=== PATIENT | female | born 1965 | race Caucasian/White ===

== ENCOUNTER 2017-02-28 14:50 | Inpatient (IN) | payer MEDICAID ==
--- NOTE | 2017-02-28 15:16 | ED Physician Chart ---
Chief Complaint/HPI - Patient Information Date Seen:: 02/28/17 Time Seen:: 15:03 Chief Complaint:: problem w dialysis graft History of Present Illness:: pt is a renal failure/dialysis pt. had dialysis tx on sunday and after had pain at rt arm. seen at [facility] ed sunday and had graft tx for blood clot in graft. yest she noted increased swelling at graft site + today much more pain at graft site on rt arm. she was refused dialysis tx today. no fever. no sob. no abd p. no back pain. no cough. pt takes tylenol and tramadol for regular pain but no relief w these meds Allergies:: Allergies Allergy/AdvReac Type Severity Reaction Status Date / Time MDX No Known Allergies - Nka Allergy Verified 01/10/15 11:29 [No Known Allergies - Nka] Historian:: Patient Review of Systems - Review of Systems General/Constitutional: No fever, No chills, No weight loss, No weakness, No diaphoresis, No edema, No loss of appetite Skin: No skin lesions, No rash, No bruising Head: No headache, No light-headedness Eyes: No loss of vision, No pain, No diplopia ENT: No earache, No nasal drainage, No sore throat, No tinnitus Neck: No neck pain, No swelling, No thyromegaly, No stiffness, No mass noted Cardio Vascular: No chest pain, No palpitations, No PND, No orthopnea, No edema Pulmonary: No SOB, No cough, No sputum, No wheezing GI: No nausea, No vomiting, No diarrhea, No pain, No melena, No hematochezia, No constipation, No hematemesis G/U: No dysuria, No frequency, No hematuria Musculoskeletal: No bone or joint pain, No back pain, No muscle pain, Other ( pain rt arm bicep region graft) Endocrine: No polyuria, No polydipsia Psychiatric: No prior psych history, No depression, No anxiety, No suicidal ideation Hematopoietic: No bruising, No lymphadenopathy Allergic/Immuno: No urticaria, No angioedema Neurological: No syncope, No focal symptoms, No weakness, No paresthesia, No headache, No seizure, No dizziness, No confusion, No vertigo Past Medical History - Past Medical History Past Medical History: HTN, ESRD Social History: Other (lives at home) Medication: Reviewed Family Medical History - Family Member Mother History Unknown: Yes Physical Exam - Physical Examination General/Constitutional: Awake, Well-developed, well-nourished, Alert, No distress, GCS 15, Non-toxic appearing, Ambulatory Head: Atraumatic Eyes: Lids, conjuctiva normal, PERRL, EOMI Skin: Nl inspection, No rash, No skin lesions, No ecchymosis, Well hydrated, No lymphadenopathy ENMT: External ears, nose nl, Nasal exam nl, Lips, teeth, gums nl Neck: Nontender, Full ROM w/o pain, No JVD, No nuchal rigidity, No bruit, No mass, No stridor Respiratory: Nl effort/Exclusion, Clear to Auscultation, No Wheeze/Rhonchi/Rales Cardio Vascular: RRR, No murmur, gallop, rubs, NL S1 S2 GI: No tenderness/rebounding/guarding, No organomegaly, No hernia, Normal BS's, Nondistended, No mass/bruits, No McBurney tenderness : No CVA tenderness Extremities: No tenderness or effusion, Full ROM, normal strength in all extremities, No edema, Normal digits & nails Other Extremities comments:: rt arm bicep region medial graft has ok thrill. not red or hot. ok distal pulses and cap refill brisk. Neuro/Psych: Alert/oriented, DTR's symmetric, Normal sensory exam, Normal motor strength, Judgement/insight normal, Mood normal, Normal gait, No focal deficits Misc: normal gait, Normal back, No paraspinal tenderness Labs/Radiology/EKG Results - Lab Results Results: Laboratory Tests 02/28/17 02/28/17 02/28/17 15:26 15:26 15:26 WBC 7.5 D RBC 3.88 Hgb 10.1 L Hct 30.8 L D MCV 79.3 L MCH 26.1 L MCHC Differential 33.0 RDW 16.3 Plt Count 127 L D MPV 8.6 Neutrophils % 69.2 Lymphocytes % 16.4 L Monocytes % 10.9 H Eosinophils % 2.8 Basophils % 0.7 PT 10.9 INR 1.05 PTT (Actin FS) 29.0 Sodium 139 Potassium 4.9 Chloride 97 L Carbon Dioxide 25.1 Anion Gap 21.8 H BUN 60 H Creatinine 8.1 H* Est GFR ( Amer) 6.7 Est GFR (Non-Af Amer) 5.6 BUN/Creatinine Ratio 7.4 Glucose 86 Whole Bld Lactic Acid Calcium 9.0 Total Bilirubin 0.5 AST 12 L ALT 10 Alkaline Phosphatase 179 H Troponin I Total Protein 7.1 Albumin 4.3 Globulin 2.8 Albumin/Globulin Ratio 1.5 02/28/17 02/28/17 15:26 15:26 WBC RBC Hgb Hct MCV MCH MCHC Differential RDW Plt Count MPV Neutrophils % Lymphocytes % Monocytes % Eosinophils % Basophils % PT INR PTT (Actin FS) Sodium Potassium Chloride Carbon Dioxide Anion Gap BUN Creatinine Est GFR ( Amer) Est GFR (Non-Af Amer) BUN/Creatinine Ratio Glucose Whole Bld Lactic Acid 1.07 Calcium Total Bilirubin AST ALT Alkaline Phosphatase Troponin I < 0.01 L Total Protein Albumin Globulin Albumin/Globulin Ratio - Radiology Results Results: us art rt arm. difficult exam cw aneurysm and complex anatomy of av vasc shunt graft. ED Septic Shock - . Is Septic Shock (SBP<90, OR Lactate>4 mmol\L) present?: No Reassessment (Disposition) - Reassessment Reassessment:: (4;30p)case cherrie Mon the vascular surgeon who saw pt THIS AM at his office. he says he was concerned pt has a expanding aneurysm at her av shunt site and it may be expanding and/or at risk of rupture. He advised she go to [facility] but pt apparently came here instead. he advises that US would not be likely to get a good picture given her story/anatomy. (at this point i asked tech to stop scanning as she had completed the arterial exam and not the venous exam which requires more pressure and pt has delicate issue and much pain w this exam..) (5;11p)case cherrie Roman modern and contemporary art curator vascular sx at [facility] who is refusing saying that any surgeon can handle this in hosp setting and does not require a tertiary center for this.. (5;39p)case cherrie our on-van[facility] dr beard (after approval from [employer] for admit obtained)...he will admit for vascular surgeon consult. 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
[2017-02-28 15:39] LABS: % BASOPHILS 0.7 % (0.0-2.0); % EOSINOPHILS 2.8 % (0.0-5.0); % LYMPHOCYTES 16.4 % (20.0-50.0); % MONOCYTES 10.9 % (2.0-10.0); % NEUTROPHILS 69.2 % (40.0-80.0); HEMOGLOBIN 10.1 gm/dL (11.7-15.5); MEAN CELL VOLUME 79.3 fl (81-100); MEAN CORPUSCULAR HEMOGLOBIN 26.1 pg (27.0-31.0); MEAN PLATELET VOLUME 8.6 fl; NEUTROPHILE ABSOLUTE 5.2 Th/cmm (1.8-8.0); RED BLOOD COUNT 3.88 Mil/cmm (3.80-5.10); RED CELL DISTRIBUTION WIDTH 16.3 % (11.5-20.0)
[2017-02-28 15:57] LABS: HEMATOCRIT 30.8 % (35.0-45.0); INR 1.05 (0.5-1.4); PLATELET COUNT 127 Th/cmm (150-400); PROTHROMBIN TIME (TEST) 10.9 SECONDS (9.5-11.5); WHITE BLOOD COUNT 7.5 Th/cmm (4.8-10.8)
[2017-02-28 15:59] LABS: ALB/GLOB RATIO 1.5 (1.0-1.8); ANION GAP 21.8 (7.0-16.0); BILIRUBIN,TOTAL 0.5 mg/dL (0.3-1.0); BUN/CREATININE RATIO 7.4; CARBON DIOXIDE 25.1 mEq/L (21.0-31.0); POTASSIUM SERUM 4.9 mEq/L (3.5-5.1)
[2017-02-28] MEDS ORDERED: Morphine Sulfate 4 mg/mL 1mL Syr IV STA (16:21)
[2017-02-28 16:42] LABS: CREATININE - SERUM 8.1 mg/dL (0.6-1.2)
[2017-02-28] MEDS ORDERED: Acetaminophen 500 MG TAB PO PRN (18:55)
[2017-02-28] MEDS ORDERED: ACETAMINOPHEN 500 MG PO PRN (18:57)
--- NOTE | 2017-02-28 19:10 | General Progress Note ---
Subjective - Review of Systems Service Date: 02/28/17 Events since last encounter: Dr Huddleston appeared in ED having been called by pt herself. I was not aware he was pts neprologist intermediate. I called Dr Rodriguez and notified him and changed the consult to Dr Huddleston. Dr Kimball stopped by ED and has seen pt and plans for graft sx in am. has requested we order a cxr for preop clearance and a type and screen and bnp...all added. Objective - Results Result Diagrams: 02/28/17 15:26 02/28/17 15:26 Recent Labs: Laboratory Last Values WBC 7.5 Th/cmm (4.8-10.8) D 02/28/17 15: RBC 3.88 Mil/cmm (3.80-5.10) 02/28/17 15: Hgb 10.1 gm/dL (11.7-15.5) L 02/28/17 15:26 Hct 30.8 % (35.0-45.0) L D 02/28/17 15:26 MCV 79.3 fl (81-100) L 02/28/17 15:26 MCH 26.1 pg (27.0-31.0) L 02/28/17 15: MCHC Differential 33.0 pg (28.0-36.0) 02/28/17 15: RDW 16.3 % (11.5-20.0) 02/28/17 15:26 Plt Count 127 Th/cmm (150-400) L D 02/28/17 15:26 MPV 8.6 fl 02/28/17 15:26 Neutrophils % 69.2 % (40.0-80.0) 02/28/17 15:26 Lymphocytes % 16.4 % (20.0-50.0) L 02/28/17 15:26 Monocytes % 10.9 % (2.0-10.0) H 02/28/17 15:26 Eosinophils % 2.8 % (0.0-5.0) 02/28/17 15: Basophils % 0.7 % (0.0-2.0) 02/28/17 15:26 PT 10.9 SECONDS (9.5-11.5) 02/28/17 15:26 INR 1.05 (0.5-1.4) 02/28/17 15:26 PTT (Actin FS) 29.0 SECONDS (26.0-38.0) 02/28/17 15:26 Sodium 139 mEq/L (136-145) 02/28/17 15:26 Potassium 4.9 mEq/L (3.5-5.1) 02/28/17 15:26 Chloride 97 mEq/L (98-107) L 02/28/17 15:26 Carbon Dioxide 25.1 mEq/L (21.0-31.0) 02/28/17 15:26 Anion Gap 21.8 (7.0-16.0) H 02/28/17 15:26 BUN 60 mg/dL (7-25) H 02/28/17 15:26 Creatinine 8.1 mg/dL (0.6-1.2) H* 02/28/17 15:26 Est GFR ( Amer) 6.7 ml/min (>90) 02/28/17 15:26 Est GFR (Non-Af Amer) 5.6 ml/min 02/28/17 15:26 BUN/Creatinine Ratio 7.4 02/28/17 15:26 Glucose 86 mg/dL (70-105) 02/28/17 15:26 Whole Bld Lactic Acid 1.07 mmol/L (0.60-1.99) 02/28/17 15:26 Calcium 9.0 mg/dL (8.6-10.3) 02/28/17 15:26 Total Bilirubin 0.5 mg/dL (0.3-1.0) 02/28/17 15:26 AST 12 U/L (13-39) L 02/28/17 15:26 ALT 10 U/L (7-52) 02/28/17 15:26 Alkaline Phosphatase 179 U/L (34-104) H 02/28/17 15:26 Troponin I < 0.01 ng/mL (0.01-0.05) L 02/28/17 15:26 Total Protein 7.1 gm/dL (6.0-8.3) 02/28/17 15:26 Albumin 4.3 gm/dL (3.7-5.3) 02/28/17 15:26 Globulin 2.8 gm/dL 02/28/17 15:26 Albumin/Globulin Ratio 1.5 (1.0-1.8) 02/28/17 15:26 - Physical Exam Vitals and I&O: Vital Signs Temp 98.3 F 02/28/17 15:14 Pulse 68 02/28/17 15:14 Resp 18 02/28/17 15:14 BP 156/78 02/28/17 15:14 Pulse Ox 97 02/28/17 15:14 Intake & Output 02/28/17 02/28/17 03/01/17 06:59 18:59 06:59 Weight (lbs) 101.151 kg Active Medications: Current Medications Acetaminophen (Tylenol) 500 mg PO Q4H PRN PRN Reason: Pain or Fever >101 Stop: 04/29/17 18:59 Albuterol/Ipratropium (Duoneb Neb) 3 ml HHN Q4H PRN PRN Reason: Shortness of Breath Stop: 04/29/17 19:59 Alprazolam (Xanax) 0.5 mg PO TID [facility] PRN Reason: Protocol Stop: 04/29/17 20:59 Atorvastatin Calcium (Lipitor) 10 mg PO DAILY [facility] PRN Reason: Protocol Stop: 04/30/17 08:59 Cinacalcet (Sensipar) 30 mg PO MWF [facility] Stop: 05/01/17 08:59 Folic Acid (Folate) 1 mg PO DAILY [facility] Stop: 04/30/17 08:59 Gabapentin (Neurontin) 200 mg PO TID [facility] Stop: 04/29/17 20:59 Ceftriaxone Sodium 1 gm/ (Dextrose) 50 mls @ 100 mls/hr IV Q24H [facility] Stop: 04/29/17 20:59 Lisinopril (Zestril) 20 mg PO BID [facility] Stop: 04/30/17 08:59 Metoprolol Tartrate (Lopressor) 50 mg PO BID [facility] Stop: 04/30/17 08:59 Miscellaneous (Acetaminophen [Tylenol Extra Strength]) 500 mg PO Q4HR PRN PRN Reason: PAIN Miscellaneous (Mitigare) 0.6 mg PO BID [facility] Stop: 04/30/17 08:59 Miscellaneous (Nifedipine [Procardia Xl]) 90 mg PO DAILY [facility] Stop: 04/30/17 08:59 Miscellaneous (Omeprazole [Omeprazole]) 40 mg PO DAILY [facility] Stop: 04/30/17 08:59 Miscellaneous (Renavite) 1 tab PO DAILY [facility] Stop: 04/30/17 08:59 Miscellaneous (Sertraline Hcl [Zoloft]) 100 mg PO DAILY [facility] Stop: 04/30/17 08:59 Morphine Sulfate (Morphine) 6 mg IV NOW STA Stop: 02/28/17 15:36 Last Admin: 02/28/17 15:57 Dose: 6 mg Morphine Sulfate (Morphine) 4 mg IV NOW STA Stop: 02/28/17 16:22 Morphine Sulfate (Morphine) 1 mg IVP Q4H PRN PRN Reason: Pain (Severe) Stop: 04/29/17 18:59 Ondansetron HCl (Zofran) 4 mg IV X1 ONE Stop: 02/28/17 15:37 Last Admin: 02/28/17 15:59 Dose: 4 mg Sucralfate (Carafate) 1 gm PO BID [facility] Stop: 04/30/17 08:59 Assessment/Plan - Problem List Patient Problems: All Active Problems [facility] [employer] [employer] (Acute) Acute gastritis (Acute) K29.00 Anxiety disorder (Acute) F41.9
--- NOTE | 2017-02-28 19:11 | General Progress Note ---
Subjective - Review of Systems Service Date: 02/28/17 Events since last encounter: patient seen in ER discussed with Dr. 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?) plan: resection and replacement of aneyursym and placement of Gautam or Permcath Objective - Results Result Diagrams: 02/28/17 15:26 02/28/17 15:26 Recent Labs: Laboratory Last Values WBC 7.5 Th/cmm (4.8-10.8) D 02/28/17 15:26 RBC 3.88 Mil/cmm (3.80-5.10) 02/28/17 15: Hgb 10.1 gm/dL (11.7-15.5) L 02/28/17 15: Hct 30.8 % (35.0-45.0) L D 02/28/17 15: MCV 79.3 fl (81-100) L 02/28/17 15: MCH 26.1 pg (27.0-31.0) L 02/28/17 15: MCHC Differential 33.0 pg (28.0-36.0) 02/28/17 15: RDW 16.3 % (11.5-20.0) 02/28/17 15: Plt Count 127 Th/cmm (150-400) L D 02/28/17 15: MPV 8.6 fl 02/28/17 15: Neutrophils % 69.2 % (40.0-80.0) 02/28/17 15: Lymphocytes % 16.4 % (20.0-50.0) L 02/28/17 15: Monocytes % 10.9 % (2.0-10.0) H 02/28/17 15: Eosinophils % 2.8 % (0.0-5.0) 02/28/17 15: Basophils % 0.7 % (0.0-2.0) 02/28/17 15: PT 10.9 SECONDS (9.5-11.5) 02/28/17 15:26 INR 1.05 (0.5-1.4) 02/28/17 15:26 PTT (Actin FS) 29.0 SECONDS (26.0-38.0) 02/28/17 15:26 Sodium 139 mEq/L (136-145) 02/28/17 15:26 Potassium 4.9 mEq/L (3.5-5.1) 02/28/17 15:26 Chloride 97 mEq/L (98-107) L 02/28/17 15:26 Carbon Dioxide 25.1 mEq/L (21.0-31.0) 02/28/17 15:26 Anion Gap 21.8 (7.0-16.0) H 02/28/17 15:26 BUN 60 mg/dL (7-25) H 02/28/17 15:26 Creatinine 8.1 mg/dL (0.6-1.2) H* 02/28/17 15:26 Est GFR ( Amer) 6.7 ml/min (>90) 02/28/17 15:26 Est GFR (Non-Af Amer) 5.6 ml/min 02/28/17 15:26 BUN/Creatinine Ratio 7.4 02/28/17 15:26 Glucose 86 mg/dL (70-105) 02/28/17 15:26 Whole Bld Lactic Acid 1.07 mmol/L (0.60-1.99) 02/28/17 15:26 Calcium 9.0 mg/dL (8.6-10.3) 02/28/17 15:26 Total Bilirubin 0.5 mg/dL (0.3-1.0) 02/28/17 15:26 AST 12 U/L (13-39) L 02/28/17 15:26 ALT 10 U/L (7-52) 02/28/17 15:26 Alkaline Phosphatase 179 U/L (34-104) H 02/28/17 15:26 Troponin I < 0.01 ng/mL (0.01-0.05) L 02/28/17 15:26 Total Protein 7.1 gm/dL (6.0-8.3) 02/28/17 15:26 Albumin 4.3 gm/dL (3.7-5.3) 02/28/17 15:26 Globulin 2.8 gm/dL 02/28/17 15:26 Albumin/Globulin Ratio 1.5 (1.0-1.8) 02/28/17 15:26 - Physical Exam Vitals and I&O: Vital Signs Temp 98.3 F 02/28/17 15:14 Pulse 68 02/28/17 15:14 Resp 18 02/28/17 15:14 BP 156/78 02/28/17 15:14 Pulse Ox 97 02/28/17 15:14 Active Medications: Current Medications Acetaminophen (Tylenol) 500 mg PO Q4H PRN PRN Reason: Pain or Fever >101 Stop: 04/29/17 18:59 Albuterol/Ipratropium (Duoneb Neb) 3 ml HHN Q4H PRN PRN Reason: Shortness of Breath Stop: 04/29/17 19:59 Alprazolam (Xanax) 0.5 mg PO TID [facility] PRN Reason: Protocol Stop: 04/29/17 20:59 Atorvastatin Calcium (Lipitor) 10 mg PO DAILY [facility] PRN Reason: Protocol Stop: 04/30/17 08:59 Cinacalcet (Sensipar) 30 mg PO MWF [facility] Stop: 05/01/17 08:59 Folic Acid (Folate) 1 mg PO DAILY [facility] Stop: 04/30/17 08:59 Gabapentin (Neurontin) 200 mg PO TID [facility] Stop: 04/29/17 20:59 Ceftriaxone Sodium 1 gm/ (Dextrose) 50 mls @ 100 mls/hr IV Q24H [facility] Stop: 04/29/17 20:59 Lisinopril (Zestril) 20 mg PO BID [facility] Stop: 04/30/17 08:59 Metoprolol Tartrate (Lopressor) 50 mg PO BID [facility] Stop: 04/30/17 08:59 Miscellaneous (Acetaminophen [Tylenol Extra Strength]) 500 mg PO Q4HR PRN PRN Reason: PAIN Miscellaneous (Mitigare) 0.6 mg PO BID [facility] Stop: 04/30/17 08:59 Miscellaneous (Nifedipine [Procardia Xl]) 90 mg PO DAILY [facility] Stop: 04/30/17 08:59 Miscellaneous (Omeprazole [Omeprazole]) 40 mg PO DAILY [facility] Stop: 04/30/17 08:59 Miscellaneous (Renavite) 1 tab PO DAILY [facility] Stop: 04/30/17 08:59 Miscellaneous (Sertraline Hcl [Zoloft]) 100 mg PO DAILY [facility] Stop: 04/30/17 08:59 Morphine Sulfate (Morphine) 6 mg IV NOW STA Stop: 02/28/17 15:36 Last Admin: 02/28/17 15:57 Dose: 6 mg Morphine Sulfate (Morphine) 4 mg IV NOW STA Stop: 02/28/17 16:22 Morphine Sulfate (Morphine) 1 mg IVP Q4H PRN PRN Reason: Pain (Severe) Stop: 04/29/17 18:59 Ondansetron HCl (Zofran) 4 mg IV X1 ONE Stop: 02/28/17 15:37 Last Admin: 02/28/17 15:59 Dose: 4 mg Sucralfate (Carafate) 1 gm PO BID [facility] Stop: 04/30/17 08:59 Assessment/Plan - Problem List Patient Problems: All Active Problems [facility] [facility] [employer] G[employer] SITE (Acute) Acute gastritis (Acute) K29.00 Anxiety disorder (Acute) F41.9
[2017-02-28] MEDS ORDERED: Albuterol/Ipratropium Neb 3 ML AERS HHN PRN (20:00)
[2017-02-28] MEDS: Morphine Sulfate 2 mg/mL 1mL Syr IVP PRN (20:24)
[2017-02-28 22:17] VITALS: BP 156/92
[2017-03-01] MEDS: Morphine Sulfate 2 mg/mL 1mL Syr IVP PRN ×3 (01:47→17:15)
[2017-03-01 06:03] LABS: % BASOPHILS 0.1 % (0.0-2.0); % EOSINOPHILS 3.7 % (0.0-5.0); % LYMPHOCYTES 19.8 % (20.0-50.0); % MONOCYTES 11.3 % (2.0-10.0); % NEUTROPHILS 65.1 % (40.0-80.0); HEMATOCRIT 31.8 % (35.0-45.0); HEMOGLOBIN 10.3 gm/dL (11.7-15.5); MEAN CELL VOLUME 80.2 fl (81-100); MEAN CORPUSCULAR HGB CONC 32.4 pg (28.0-36.0); MEAN PLATELET VOLUME 8.9 fl; NEUTROPHILE ABSOLUTE 4.1 Th/cmm (1.8-8.0); PLATELET COUNT 124 Th/cmm (150-400); RED BLOOD COUNT 3.97 Mil/cmm (3.80-5.10); RED CELL DISTRIBUTION WIDTH 17.1 % (11.5-20.0); WHITE BLOOD COUNT 6.2 Th/cmm (4.8-10.8)
[2017-03-01 06:26] LABS: ALB/GLOB RATIO 1.4 (1.0-1.8); ANION GAP 20.1 (7.0-16.0); BILIRUBIN,TOTAL 0.5 mg/dL (0.3-1.0); BUN/CREATININE RATIO 7.1; CARBON DIOXIDE 27.3 mEq/L (21.0-31.0); POTASSIUM SERUM 4.4 mEq/L (3.5-5.1)
[2017-03-01 07:34] LABS: INR 1.03 (0.5-1.4); PROTHROMBIN TIME (TEST) 10.7 SECONDS (9.5-11.5)
[2017-03-01] MEDS ORDERED: Acetaminophen 500 MG TAB PO PRN (08:21)
[2017-03-01] MEDS ORDERED: RENAVITE PO SCH (09:00)
[2017-03-01] MEDS ORDERED: NIFEdipine 30 mg ER Tab PO SCH (09:00)
[2017-03-01] MEDS ORDERED: Pantoprazole 40 mg EC Tab PO SCH (09:00)
[2017-03-01] MEDS ORDERED: Atorvastatin Calcium 10 MG TAB PO SCH (09:00)
[2017-03-01] MEDS ORDERED: MITIGARE 0.6 MG PO SCH (09:00)
--- NOTE | 2017-03-01 09:29 | Diagnostic Imaging Report ---
Right upper extremity Doppler arterial ultrasound exam HISTORY: Dialysis graft occlusion Sonographic sector images were obtained through the arterial system of the right arm. The exam demonstrates abnormal monophasic waveforms within the region of the right clavian, axillary, brachial, and ulnar arteries. No intraluminal abnormality seen. No definite thrombus. Biphasic waveforms are seen within the right radial artery. There appears to be dilatation of the right brachial artery in the region of the patient's graft. Etiology uncertain. Detail is limited due to difficulty in patient cooperation and continuous patient's shaking. IMPRESSION: 1. Very Limited/suboptimal exam due to continuous patient motion and limited cooperation. Dilatation of the right brachial artery near the patient's vascular graft. Exact etiology uncertain. An angiographic study would provide additional assessment.
--- NOTE | 2017-03-01 10:17 | Admit Criteria Form ---
Admit Criteria Forms - Admit Criteria Diagnosis: VASCULAR DISEASE GR Clinical Indications for Admission to Inpatient Care (Place 'X' for any and all applicable criteria): Hospital admission is needed for appropriate care of the patient because of ANY ONE of the following (1)(2)(3)(4): [ ]I. Life-threatening or limb-threatening skin ulcer as indicated by ANY ONE of the following(5): [ ]a) Surrounding cellulitis unresponsive to outpatient treatment [ ]b) Wet gangrene [ ]c) Lymphangitis [ ]d) Bacteremia [ ]II. Gangrene requiring intensity and frequency of care not manageable to outpatient, emergency, or observation level of care(5) [X]III. Severe pain requiring acute inpatient management [ ]IV. Interventional revascularization (eg, surgery, thrombolysis) needed (eg , critical limb ischemia)(21) [ ]V. Urgent inpatient IV anticoagulation needed due to ALL of the following: [ ]a) Temporary subtherapeutic anticoagulation unacceptable because of high risk of short-term venous or arterial thromboembolism due to ANY ONE of the following(7)(8)(9): [ ]i) Venous thromboembolism within the past 12 months [ ]ii) Underlying malignancy [ ]iii) Patient with mechanical cardiac valve(10)(11) [ ]iv) Underlying hypercoagulable state (eg, protein C or protein S deficiency, antithrombin deficiency, antiphospholipid antibodies) [ ]v) Patient at high risk of thromboembolism (eg, status post orthopedic surgery, history of recurrent venous thromboembolism) [ ]vi) Atrial fibrillation with rheumatic valvular heart disease [ ]vii) Atrial fibrillation with 3 or MORE of the following : [ ]1) Congestive heart failure [ ]2) Hypertension [ ]3) Age 65 years or older [ ]4) Diabetes mellitus [ ]5) History of thromboembolism (eg, stroke, TIA , or systemic embolization) more than 3 months ago [ ]6) Female gender [ ]b) Contraindications to outpatient use of "bridging" agent or alternative oral anticoagulant as indicated by ALL of the following: [ ]i) Contraindication to outpatient use of low-molecular -weight heparin as "bridging" agent as indicated by ANY ONE of the following(8) : [ ]1) Documented current or history of heparin- induced thrombocytopenia(12) [ ]2) Severe thrombocytopenia (eg, platelet count less than 50,000/mm3 (50 x109/L)) [ ]3) Documented allergy to heparin, low- molecular-weight heparin, or pork products [ ]4) Renal failure (creatinine clearance < 30 mL /min/1.73m2 (0.50 mL/sec/1.73m2) or on dialysis) [ ]5) Inability to manage self-injection (eg, by patient, caregiver, or visiting nurse) [ ]ii) Contraindication to outpatient use of fondaparinux as "bridging" agent as indicated by ANY ONE of the following(13)(14)(15)(16): [ ]1) Severe thrombocytopenia (eg, platelet count less than 50,000/mm3 (50 x109/L)) [ ]2) Hypersensitivity to fondaparinux, related drugs, or product components [ ]3) Renal failure (creatinine clearance less than 30 mL/min/1.73m2 (0.50 mL/sec/1.73m2) or on dialysis) [ ]4) Inability to manage self-injection (eg, by patient, caregiver, or visiting nurse) [ ]iii) Oral direct thrombin inhibitor (eg, dabigatran) or oral coagulation factor Xa inhibitor (eg, rivaroxaban) not appropriate as oral anticoagulation (eg, indication not appropriate) or contraindicated (eg, hypersensitivity, renal failure)(13)(16)(17)(18)(19)(20) [ ]. Suspected severe acute ischemia due to peripheral vascular disease as indicated by ANY ONE of the following(5)(6): [ ]a) Tissue necrosis [ ]b) Severe pain [ ]c) Acute pulselessness [ ]d) Other evidence of acute severe ischemia (eg, lactic acidosis, motor dysfunction) [ ]VII. Acute or newly diagnosed major vessel (eg, aorta) dissection, rupture, or leakage(5)(6)(22)(23) [ ]VIII.Vascular Disease and ALL of the following: [ ]a) Symptom or finding for which emergency and observation care have failed or are not considered appropriate (Use General Criteria: Observation Care as appropriate) [ ]b) Presence of ANY ONE of the following: [ ]i) A General Admission Criteria [ ]ii) A Pediatric General Admission Criteria The original [facility] content created by [facility] has been revised. The portions of the content which have been revised are identified through the use of italic text or in bold, and [facility] has neither reviewed nor approved the modified material. All other unmodified content is copyright [facility]. Please see references footnoted in the original [facility] edition 2016 Admit Criteria Met?: Yes
--- NOTE | 2017-03-01 11:13 | Diagnostic Imaging Report ---
Portable chest x-ray HISTORY: Cough, preoperative. The heart is enlarged. Elevation the right hemidiaphragm. No acute focal pulmonary processes. Vascular stent noted in the region of the right brachiocephalic/subclavian vein regions. IMPRESSION: 1. No acute focal pulmonary processes 2. Cardiomegaly 3. Vascular stent placement
--- NOTE | 2017-03-01 15:45 | History & Physical ---
ADMIT DATE: 02/28/2017 CHIEF COMPLAINT: Right dialysis graft aneurysm and malfunction. HISTORY OF PRESENT ILLNESS: This is a 51-year-old lady with history of end-stage renal disease for roughly about 10 years with previous history of clot formation, who was in her usual state of health until 4 days ago when the graft that did not work and was actually treated for clot at [facility]. However, the patient stated that soon after the clot was treated, she started developing swelling and pain at the site of the graft, which has worsened since then. She was instructed to go to [facility] for a vascular eval, but decided to come to the nearest ER and presented to the ER yesterday, now has been admitted for resection/repair of aneurysm and possible Gautam or Perm-A-Cath placement. She denies any fever, chills or any other symptoms at this time. PAST MEDICAL HISTORY: Hypertension, end-stage renal disease, she has been under the care of by Dr. Berrios, asthma, and hyperlipidemia. FAMILY HISTORY: Likely noncontributory to this admission. SOCIAL HISTORY: No tobacco, ETOH or illicit drug usage. Lives at home with family. ALLERGIES: No known allergies. OUTPATIENT MEDICATIONS: Tylenol 500 mg q. 4 p.r.n. for pain, albuterol 1 puff q. 6 p.r.n. for SOB. Plavix 75 every day, ferric citrate 210 t.i.d., ferrous sulfate 325 t.i.d., Singulair 10 daily, alprazolam 0.5 t.i.d. p.r.n. for anxiety, Lipitor 10 daily, Sensipar 30 Sunday, Wednesdays and Fridays, folic acid 1 mg every day, gabapentin 800 mg t.i.d., lisinopril 20 b.i.d., metoprolol 50 b.i.d., nifedipine 90 mg every day, omeprazole 40 mg every day, Afia-Lyla 1 tab every day, sertraline 100 mg day and sucralfate 1 gram b.i.d. REVIEW OF SYSTEMS: CONSTITUTIONAL: She denies any fever or chills. CARDIAC: No chest pain or palpitations. PULMONARY: No cough or phlegm production. GASTROINTESTINAL: No bowel habit changes. GENITOURINARY: No bladder habit changes. NEUROLOGIC: No changes in vision. No lethargy, tiredness. PHYSICAL EXAMINATION: VITAL SIGNS: Temperature 97.8, pulse 63, respirations 18, BP 138/76, satting 97% on 2 liters. GENERAL: Well nourished, not in acute distress, somewhat somnolent, but able to answer questions appropriately. HEAD AND NECK: Normocephalic, atraumatic. Pupils reactive to light. Extraocular movements are intact. Oropharynx moist and clear. CARDIOVASCULAR: Regular rate and rhythm with distant sounds. LUNGS: Clear to auscultation bilaterally. ABDOMEN: Soft, supple, nontender, nondistended, normoactive bowel sounds. On the right graft area, there is some tenderness to palpation, some swelling and mild erythema around the AV graft. LOWER EXTREMITIES: No pedal edema. LABORATORY DATA: White count 7.5, H and H 10/30, platelet count 127. Chemistry shows a BUN of 16 and creatinine of 8.1 potassium 4.9, chloride 97, glucose 86, alkaline phosphatase 179. Troponins are negative x 1. BNP was 307. INR is 1.05. DIAGNOSTICS: There was arterial Doppler ultrasound done on the right upper extremity showing very limited/suboptimal exam due to continuous movement and limited cooperation. There is dilation of the right brachial near the patient's vascular graft. IMPRESSION: 1. Right forearm aneurysm/pseudoaneurysm, status post clot removal. 2. End-stage renal disease. 3. History of hypertension. 4. Anemia, likely chronic secondary to end-stage renal disease. 5. History of hypercholesterolemia. 6. History of asthma, which appears to be stable. PLAN: The patient has been admitted to the telemetry de guzman for closed monitoring. She has been seen by Dr. Kimball and has been scheduled for resection repair of the aneurysm and placement of the Gautam catheter for continuation of her dialysis treatment. Nephro has also been contracted and the patient will be kept on her other medications as scheduled. She has been placed on empiric Rocephin for the time being. We will anticipate DC planning soon after surgery. JOB# [id number] MTDD
--- NOTE | 2017-03-01 21:28 | Consultation ---
DATE OF CONSULTATION: 03/01/2017 NEPHROLOGY CONSULTATION REQUESTING PHYSICIAN: Dr. Rodriguez. REASON FOR CONSULTATION: ESRD with dialysis status. HISTORY OF PRESENT ILLNESS: The patient is a 51-year-old female, who is well known to our group. She dialyzes at [facility] under the care of Dr. Samayoa. The patient apparently recently had some problems with her arteriovenous access. The patient, on the , at [facility], after dialysis had been sent to the ER, and the patient apparently had some blood clot in the graft and had a thrombolysis done. The patient, however, developed increased swelling at the graft site and pain. Apparently, the patient subsequently came in over here for further evaluation. She had been seen by Dr. Mon apparently who advised that the patient go to [facility] [[email or web address]]; however, Dr. Herrera was contacted at the [facility] [[email or web address]], the vascular surgeon, and recommended that the patient can be followed in any hospital. The patient was seen here by Dr. Kimball yesterday with plans for a graft surgery. The patient is currently awaiting for this; however, due to operating room issue I am just being notified by the nurse staff that the patient is going to be transferred to [facility]. The patient otherwise has no complaints other than itching underneath her left breast for which she uses talc powder and some itching that she wants Benadryl for. REVIEW OF SYSTEMS: A 14-point is negative except as per HPI. PAST MEDICAL HISTORY: Includes type 2 diabetes mellitus with renal manifestations, hypertension, nephrosclerosis, end-stage renal disease with dialysis status, anemia due to end-stage renal disease, and also chronic anxiety. SOCIAL HISTORY: There is no smoking, alcohol, or drug use. FAMILY HISTORY: Noncontributory. ALLERGIES: No known drug allergies. MEDICATIONS: Reviewed as per the MAR. PHYSICAL EXAMINATION: VITAL SIGNS: The patient is afebrile, heart rate 63, respirations 18, blood pressure 138/76, saturating 96% on 2 liters nasal cannula. GENERAL: The patient is awake, alert, somewhat anxious, but in no apparent distress. HEAD AND EYES: Head is normocephalic. Sclerae are anicteric. Oropharynx is moist. NECK: Supple. No JVD. CARDIOVASCULAR: S1 and S2 regular with no murmurs. LUNGS: Clear to auscultation bilaterally. ABDOMEN: Soft and nontender. EXTREMITIES: No edema. Her AV graft site as noted. DIAGNOSTIC DATA: Sodium 140, potassium 4.4, bicarbonate 27, BUN 64, creatinine 9. The patient has a pseudoaneurysm at her right upper extremity graft site. Her calcium 9. Her troponin is negative, less than 0.01. BNP 307. CBC, the hemoglobin is 10.3, white count 6.2. INR is 1. ASSESSMENT AND PLAN: 1. Complication of arteriovenous access. The patient is to have surgery on her graft done over at [facility] by Dr. Kimball. The patient will continue to be monitored. She will likely need a Perm-A-Cath placed for her dialysis access. 2. End-stage renal disease, dialysis status. We will dialyze once catheter is available for dialysis access. 3. Anemia due to end-stage renal disease. The patient has a stable hemoglobin and will continue with monitoring and supportive care. 4. Anxiety, supportive care being done, benzodiazepine p.r.n. 5. Itching. The patient will be given Benadryl p.r.n. talc powder to place under her left breast as needed. 6. Hypertension and nephrosclerosis. Continue blood pressure control and monitor. Plan of care discussed with the patient. All questions were answered. JOB# [id number]
--- NOTE | 2017-03-15 09:22 | Consultation ---
DATE OF CONSULTATION: 02/27/2017 HISTORY OF PRESENT ILLNESS: The patient is seen by courtesy of Dr. Rodriguez in the ER of [facility]. The patient who is known to us and gets her dialysis at [facility] on Sunday, Sunday and Sunday for the last 5 years, history of morbid obesity, diabetes mellitus, hypertension, hypercoagulability syndrome, recurrent clotting of the access, has come in with extreme amount of right-sided arm pain. The patient was seen earlier by Dr. Mon, who suggested that the patient to be seen by [facility] Herrera [facility] where repair [facility] be done as it was not possible for him to do any further surgery on her. PAST MEDICAL HISTORY: The patient had previous history of recurrent clotting in the past, hypertension, diabetes mellitus, diabetic nephropathy, vasculopathy; end-stage renal disease, on hemodialysis for the last 5 years. SOCIAL HISTORY: Nonsmoker. Nonalcoholic. REVIEW OF SYSTEMS: Unremarkable. PHYSICAL EXAMINATION: VITAL SIGNS: Blood pressure 117 systolic, diastolic 70, afebrile, respirations 20. EYES: Pupils are reactive. Anicteric sclerae. NECK: JVP is collapsed. Central trachea. LUNGS: Clear. ABDOMEN: Soft and obese. No hepatosplenomegaly. EXTREMITIES: Lower extremity has 1+ edema bilaterally. Right arm has a fistula, which is functional and is wrapped by the Emergency Room physician, has collaterals all over the shoulder. The patient has moderate pain in the shoulder. NEUROLOGIC: She is alert, oriented to times person. The investigation is not done. ASSESSMENT AND PLAN: 1. The patient with hypertension. Continue with same management as before. 2. End-stage renal disease. The patient will be dialyzed in a.m. 3. Hypertension. 4. Anemia. The patient will be given erythropoietic agent. 5. The patient has allergy to IRON, will be closely monitored. Iron study will be done. 6. Anticoagulation from hypercoagulability syndrome. Continue close monitoring. 7. Issue with the fistula, the patient may need a patch surgery or graft need to be placed in her fistula. I have called ____ and plan was discussed. In the interim, I thank Dr. Rodriguez for asking me to see the patient. JOB# [id number]
== END 2017-03-01 21:35 | disposition short-term general hospital (02) | DRG 466 ==
LOC: ER 14:50 → TELE 17:35
PROVIDERS: ADMIT Internal Medicine; ATTEND Internal Medicine
DX: T82.898A Other specified complication of vascular prosthetic devices, implants and grafts, initial encounter (principal); N18.6 End stage renal disease; I12.0 Hypertensive chronic kidney disease with stage 5 chronic kidney disease or end stage renal disease; E11.29 Type 2 diabetes mellitus with other diabetic kidney complication; D63.1 Anemia in chronic kidney disease; E78.5 Hyperlipidemia, unspecified; J45.909 Unspecified asthma, uncomplicated; Y83.8 Other surgical procedures as the cause of abnormal reaction of the patient, or of later complication, without mention of misadventure at the time of the procedure; Y92.89 Other specified places as the place of occurrence of the external cause; N28.9 Disorder of kidney and ureter, unspecified; F41.9 Anxiety disorder, unspecified; L29.9 Pruritus, unspecified; Z99.2 Dependence on renal dialysis; K29.70 Gastritis, unspecified, without bleeding
CPT/HCPCS: 36415-UA; 71010-TC; 80053-TC; 80061-TC; 83036-90; 83605; 83880-TC; 84443-TC; 84484-TC; 85025-TC; 85610-TC; 86850-TC; 86900-TC; 86901-TC; 93005; 93931-RT-TC; 94760; 96374; 96375; 96376; J0696; J2001; J2270; J2405; Z7610

== ENCOUNTER 2018-08-25 22:16 | Inpatient (IN) | payer MEDICAID ==
[2018-08-25 23:01] LABS: HEMOGLOBIN 8.9 gm/dL (12-16); PLATELET COUNT 399 Th/cmm (150-400)
[2018-08-25 23:05] LABS: MEAN CELL VOLUME 78.5 fl (81-100); MEAN CORPUSCULAR HGB CONC 31.9 pg (28.0-36.0); RED BLOOD COUNT 3.57 Mil/cmm (3.80-5.10); RED CELL DISTRIBUTION WIDTH 21.7 % (11.5-20.0); WHITE BLOOD COUNT 13.9 Th/cmm (4.8-10.8)
[2018-08-25 23:13] LABS: ALB/GLOB RATIO 1.6 (1.0-1.8); ALBUMIN 4.4 gm/dL (3.7-5.3); BILIRUBIN,TOTAL 0.5 mg/dL (0.3-1.0); CALCIUM SERUM 8.5 mg/dL (8.6-10.3); TOTAL PROTEIN,SERUM 7.1 gm/dL (6.0-8.3)
[2018-08-25] MEDS ORDERED: Dextrose 50% 50 mL Abboject IVP ONE (23:33)
[2018-08-25] MEDS ORDERED: Sodium Bicarbonate 8.4% 50mEq Vial ONE (23:33)
[2018-08-25] MEDS ORDERED: Calcium Chloride 10% 100 mg/mL 10mL Abboject IVP STA (23:34)
[2018-08-25] MEDS ORDERED: Sodium Bicarbonate 8.4% 50mEq PFS IVP ONE (23:35)
[2018-08-25] MEDS ORDERED: INSULIN HUMAN REGULAR 100 UNITS/ML UNIT SUBQ ONE (23:35)
[2018-08-25] MEDS ORDERED: Calcium Chloride 10% 100 mg/mL 10mL Abboject ONE (23:36)
[2018-08-25] MEDS ORDERED: Dextrose 50% 50 mL Abboject IVP STA (23:36)
[2018-08-25] MEDS ORDERED: Sodium Bicarbonate 8.4% 50mEq PFS IVP STA (23:37)
[2018-08-25 23:41] LABS: BAND NEUTROPHILE 3 % (0-10); HYPOCHROMIA 2+; LYMPHOCYTE 8 % (20-50); MONOCYTE 4 % (2-10); NEUTROPHILS 85 % (40-80); PLATELET ESTIMATE ADEQUATE (NORMAL); POIKILOCYTOSIS 2+
[2018-08-25 23:42] LABS: ANISOCYTOSIS 1+; OVALOCYTES 1+; SCHISTOCYTES 1+; TEAR DROP CELLS 1+
--- NOTE | 2018-08-25 23:42 | ED Physician Chart ---
ED Chief Complaint/HPI - Patient Information Date Seen:: 08/25/18 Time Seen:: 22:29 Chief Complaint:: ams History of Present Illness:: 52 yr old female with esrd on hemodialysis with ams no nvd no fever or cough or dizziness Allergies:: Allergies Allergy/AdvReac Type Severity Reaction Status Date / Time No Known Allergies Allergy Verified 02/28/17 15:12 Vitals:: Vital Signs - 8 hr 08/25/18 22:20 Temp 98.2 F HR 83 RR 18 BP 118/58 O2 Sat % 96 ED Review of Systems - Review of Systems General/Constitutional: No fever, No chills, No weight loss, No weakness, No diaphoresis, No edema, No loss of appetite Skin: No skin lesions, No rash, No bruising Head: No headache, No light-headedness Eyes: No loss of vision, No pain, No diplopia ENT: No earache, No nasal drainage, No sore throat, No tinnitus Neck: No neck pain, No swelling, No thyromegaly, No stiffness, No mass noted Cardio Vascular: No chest pain, No palpitations, No PND, No orthopnea, No edema Pulmonary: No SOB, No cough, No sputum, No wheezing GI: No nausea, No vomiting, No diarrhea, No pain, No melena, No hematochezia, No constipation, No hematemesis G/U: No dysuria, No frequency, No hematuria Musculoskeletal: No bone or joint pain, No back pain, No muscle pain Endocrine: No polyuria, No polydipsia Psychiatric: No prior psych history, No depression, No anxiety, No suicidal ideation Hematopoietic: No bruising, No lymphadenopathy Allergic/Immuno: No urticaria, No angioedema Neurological: No syncope, No focal symptoms, No weakness, No paresthesia, No headache, No seizure, No dizziness, No confusion, No vertigo ED Past Medical History - Past Medical History Past Medical History: HTN, ESRD Family Medical History - Family Member Mother History Unknown: Yes ED Physical Exam - Physical Examination General/Constitutional: Awake, Well-developed, well-nourished, Alert, No distress, GCS 15, Non-toxic appearing, Ambulatory Head: Atraumatic Eyes: Lids, conjuctiva normal, PERRL, EOMI Skin: Nl inspection, No rash, No skin lesions, No ecchymosis, Well hydrated, No lymphadenopathy ENMT: External ears, nose nl, Nasal exam nl, Lips, teeth, gums nl Neck: Nontender, Full ROM w/o pain, No JVD, No nuchal rigidity, No bruit, No mass, No stridor Respiratory: Nl effort/Exclusion, Clear to Auscultation, No Wheeze/Rhonchi/Rales Cardio Vascular: RRR, No murmur, gallop, rubs, NL S1 S2 GI: No tenderness/rebounding/guarding, No organomegaly, No hernia, Normal BS's, Nondistended, No mass/bruits, No McBurney tenderness : No CVA tenderness Extremities: No tenderness or effusion, Full ROM, normal strength in all extremities, No edema, Normal digits & nails Neuro/Psych: Alert/oriented, DTR's symmetric, Normal sensory exam, Normal motor strength, Judgement/insight normal, Mood normal, Normal gait, No focal deficits Misc: Normal back, No paraspinal tenderness ED Labs/Radiology/EKG Results - Lab Results Results: Laboratory Tests 08/25/18 08/25/18 08/25/18 22:40 22:40 22:40 WBC 13.9 H RBC 3.57 L Hgb 8.9 L Hct 28.0 L MCV 78.5 L MCH 25.0 L MCHC Differential 31.9 RDW 21.7 H Plt Count 399 MPV 8.0 Add Manual Diff YES Sodium 134 L Potassium 6.0 H Chloride 93 L BUN 72 H Glucose 172 H POC Glucose Whole Bld Lactic Acid 2.24 H* Calcium 8.5 L Total Bilirubin 0.5 AST 33 ALT 33 Alkaline Phosphatase 281 H Total Protein 7.1 Albumin 4.4 Globulin 2.7 Albumin/Globulin Ratio 1.6 08/25/18 22:41 WBC RBC Hgb Hct MCV MCH MCHC Differential RDW Plt Count MPV Add Manual Diff Sodium Potassium Chloride BUN Glucose POC Glucose 169 H Whole Bld Lactic Acid Calcium Total Bilirubin AST ALT Alkaline Phosphatase Total Protein Albumin Globulin Albumin/Globulin Ratio ED Assessment - Assessment General Assessment: ams esrd ED Septic Shock - . Is Septic Shock (SBP<90, OR Lactate>4 mmol\L) present?: No - <6hrs of presentation: Vital Signs: Vital Signs - 8 hr 08/25/18 22:20 Temp 98.2 F HR 83 RR 18 BP 118/58 O2 Sat % 96 ED Reassessment (Disposition) - Reassessment Reassessment Condition:: Improved - Diagnosis Diagnosis:: ams esrd hyperkalemia - Patient Disposition Discharge/Transfer:: Home Admitted to:: Telemetry Condition at Disposition:: Stable
[2018-08-25] MEDS ORDERED: INSULIN HUMAN REGULAR 100 UNITS/ML UNIT ONE (23:48)
[2018-08-26 00:08] LABS: ANION GAP 22.9 (7.0-16.0); CARBON DIOXIDE 24.1 mEq/L (21.0-31.0); GFR AFRICAN-AMERICAN 6.8 ml/min (>90); GFR NON AFRICAN-AMERICAN 5.6 ml/min
[2018-08-26] MEDS ORDERED: cefTRIAXone 1 GM in Sodium Chloride 0.9% 50 ML IV SCH (01:15)
[2018-08-26] MEDS: Cefepime 1 GM in Sodium Chloride 0.9% 50 ML IV SCH (04:35)
[2018-08-26 06:41] LABS: % EOSINOPHILS 0.3 % (0.0-5.0); % LYMPHOCYTES 8.5 % (20.0-50.0); % MONOCYTES 6.2 % (2.0-10.0); HEMATOCRIT 27.6 % (41.0-60); HEMOGLOBIN 8.7 gm/dL (12-16); LYMPHOCYTE ABSOLUTE 1.1 Th/cmm (1.5-3.0); MEAN CELL VOLUME 78.3 fl (81-100); MEAN CORPUSCULAR HEMOGLOBIN 24.8 pg (27.0-31.0); MEAN CORPUSCULAR HGB CONC 31.6 pg (28.0-36.0); MEAN PLATELET VOLUME 8.1 fl; MONOCYTE ABSOLUTE 0.8 Th/cmm (0.3-1.0); NEUTROPHILE ABSOLUTE 10.7 Th/cmm (1.8-8.0); PLATELET COUNT 348 Th/cmm (150-400); RED BLOOD COUNT 3.52 Mil/cmm (3.80-5.10); RED CELL DISTRIBUTION WIDTH 21.7 % (11.5-20.0); WHITE BLOOD COUNT 12.6 Th/cmm (4.8-10.8)
[2018-08-26 06:45] VITALS: BP 129/74
[2018-08-26 06:47] LABS: CALCIUM SERUM 8.9 mg/dL (8.6-10.3); CARBON DIOXIDE 24.6 mEq/L (21.0-31.0); GFR AFRICAN-AMERICAN 6.4 ml/min (>90); GFR NON AFRICAN-AMERICAN 5.3 ml/min; POTASSIUM SERUM 5.6 mEq/L (3.5-5.1)
[2018-08-26 07:03] LABS: CREATININE - SERUM 8.4 mg/dL (0.6-1.2)
[2018-08-26] MEDS: Ferrous Sulfate 325 MG TAB PO SCH (08:57)
[2018-08-26] MEDS: Vitamin B Complex w/Vitamin C Tab PO SCH (08:57)
[2018-08-26] MEDS: Dicyclomine 10 mg Cap PO SCH ×3 (08:57→21:28)
[2018-08-26] MEDS: Acetaminophen 500 MG TAB PO SCH ×3 (08:58→21:29)
[2018-08-26] MEDS: Pantoprazole 40 mg EC Tab PO SCH (08:58)
[2018-08-26] MEDS ORDERED: Non-Formulary Item 1 EA (Esomeprazole Magnesium [Esomeprazole Magnesium] 40 MG) PO SCH (09:00)
[2018-08-26] MEDS ORDERED: FERRIC CITRATE 1 GM PO SCH (09:00)
[2018-08-26] MEDS ORDERED: Albuterol Nebulizer 2.5mg/3mL HHN SCH (11:00)
--- NOTE | 2018-08-26 14:25 | Consultation ---
Consult Note - Consult Note Service Date: 08/26/18 Referring Physician: Lelia Muñoz Consult Note: PHYSICIAN Consultation Note: Date of Admission: 08/26/18 Purpose of Consultation: leukocytosis. Chief Complaint: Patient CH[facility] BUNN [facility]IS[facility]ALOC,RENAL FAILURE. History of Present Illness: 53-year-old female with history of HTN, CKD 5 on HD , brought to the ED for altered mental status. On initial evaluation, her temperature was 98.2 F and WBC Count was 13,k. sepsis w/u was performed. Antibiotic graham, she was started on vanco and ceftriaxone, Ceftriaxone was changed to cefepime. She has open deep wound in her right arm not healing for last 3 months. She had AV fistula attempted and it had complicate by open wound. There is no open bleeding. ID consult was called for antibiotic management. Past Medical History: HTN, CKD 5 on HD Allergies Allergy/AdvReac Type Severity Reaction Status Date / Time iron dextran complex Allergy Mild Verified 08/26/18 06:44 chlorhexidine Allergy Verified 08/26/18 06:45 Vital Signs Temp 97.8 F 08/26/18 11:10 Pulse 81 08/26/18 11:10 Resp 19 08/26/18 11:10 BP 121/57 08/26/18 11:10 Pulse Ox 98 08/26/18 11:10 Intake & Output 08/25/18 08/26/18 08/26/18 18:59 06:59 18:59 Intake Total 650 Balance 650 Weight (lbs) 106.821 kg 106.821 kg Intake: Intake, IV Amount 550 Cefepime 1 gm In Sodium 50 Chloride 0.9% 50 ml @ 100 mls/hr IV Q24H [facility] Rx#: [id number] Oral 100 Other: # Voids 0 # Bowel Movements 0 Weight Source Bedscale Bedscale Laboratory Results - last 24 hr 08/25/18 08/25/18 08/25/18 22:40 22:40 22:40 WBC 13.9 H RBC 3.57 L Hgb 8.9 L Hct 28.0 L MCV 78.5 L MCH 25.0 L MCHC Differential 31.9 RDW 21.7 H Plt Count 399 MPV 8.0 Add Manual Diff YES Neutrophils % Band Neutrophils % 3 Lymphocytes % Monocytes % Eosinophils % Basophils % Neutrophils (Manual) 85 H Lymphocytes 8 L Monocytes 4 Hypochromia 2+ Platelet Estimate ADEQUATE Poikilocytosis 2+ Anisocytosis 1+ Tear Drop Cells 1+ Ovalocytes 1+ Schistocytes 1+ Sodium 134 L Potassium 6.0 H Chloride 93 L Carbon Dioxide 24.1 Anion Gap 22.9 H BUN 72 H Creatinine 8.0 H* Est GFR ( Amer) 6.8 Est GFR (Non-Af Amer) 5.6 BUN/Creatinine Ratio 9.0 Glucose 172 H POC Glucose Whole Bld Lactic Acid 2.24 H* Calcium 8.5 L Total Bilirubin 0.5 AST 33 ALT 33 Alkaline Phosphatase 281 H B-Natriuretic Peptide Total Protein 7.1 Albumin 4.4 Globulin 2.7 Albumin/Globulin Ratio 1.6 Random Vancomycin 08/25/18 08/26/18 08/26/18 22:41 01:00 06:00 WBC 12.6 H RBC 3.52 L Hgb 8.7 L Hct 27.6 L MCV 78.3 L MCH 24.8 L MCHC Differential 31.6 RDW 21.7 H Plt Count 348 MPV 8.1 Add Manual Diff Neutrophils % 85.0 H Band Neutrophils % Lymphocytes % 8.5 L Monocytes % 6.2 Eosinophils % 0.3 Basophils % 0.0 Neutrophils (Manual) Lymphocytes Monocytes Hypochromia Platelet Estimate Poikilocytosis Anisocytosis Tear Drop Cells Ovalocytes Schistocytes Sodium Potassium Chloride Carbon Dioxide Anion Gap BUN Creatinine Est GFR ( Amer) Est GFR (Non-Af Amer) BUN/Creatinine Ratio Glucose POC Glucose 169 H Whole Bld Lactic Acid 2.06 H* Calcium Total Bilirubin AST ALT Alkaline Phosphatase B-Natriuretic Peptide Total Protein Albumin Globulin Albumin/Globulin Ratio Random Vancomycin 08/26/18 08/26/18 08/26/18 06:00 06:00 06:00 WBC RBC Hgb Hct MCV MCH MCHC Differential RDW Plt Count MPV Add Manual Diff Neutrophils % Band Neutrophils % Lymphocytes % Monocytes % Eosinophils % Basophils % Neutrophils (Manual) Lymphocytes Monocytes Hypochromia Platelet Estimate Poikilocytosis Anisocytosis Tear Drop Cells Ovalocytes Schistocytes Sodium 140 Potassium 5.6 H Chloride 96 L Carbon Dioxide 24.6 Anion Gap 25.0 H BUN 83 H* Creatinine 8.4 H* Est GFR ( Amer) 6.4 Est GFR (Non-Af Amer) 5.3 BUN/Creatinine Ratio 9.9 Glucose 117 H POC Glucose Whole Bld Lactic Acid Calcium 8.9 Total Bilirubin AST ALT Alkaline Phosphatase B-Natriuretic Peptide 543.0 H Total Protein Albumin Globulin Albumin/Globulin Ratio Random Vancomycin 49.5 H Home Medication Medication Instructions Recorded Type Acetaminophen [Tylenol Extra 500 mg PO TID 08/25/18 History Strength] Albuterol Sulfate [Proventil Hfa*] 2 puff IH Q4H 08/25/18 History Atorvastatin Calcium [Lipitor] 10 mg PO HS 08/25/18 History Cinacalcet [Sensipar] 30 mg PO DAILY 08/25/18 History Dicyclomine [Bentyl 10 Mg Cap*] 10 mg PO TID 08/25/18 History Esomeprazole Magnesium 40 mg PO DAILY 08/25/18 History Ferric Citrate [Auryxia] 1 gm PO BID 08/25/18 History Ferrous Sulfate 325 mg PO DAILY 08/25/18 History Folic Acid [Folate*] 1 mg PO DAILY 08/25/18 History Folic Acid/Vit Bcomp,C [Afia-Lyla 1 mg PO DAILY 08/25/18 History Tablet] Gabapentin 200 mg PO TID 08/25/18 History Hydrocodone/Acetaminophen [Addison 1 tab PO Q6H PRN 08/25/18 History 325 mg-5 mg*] Lisinopril 20 mg PO BID 08/25/18 History Montelukast [Singulair] 10 mg PO DAILY 08/25/18 History Nifedipine [Nifedipine ER] 90 mg PO DAILY 08/25/18 History Prednisone [Deltasone] 20 mg PO BID 08/25/18 History Sertraline HCl [Zoloft] 100 mg PO DAILY 08/25/18 History Sevelamer Carbonate 2 tab PO TID 08/25/18 History Current Medications Generic Name Dose Route Start Last Admin Trade Name Freq PRN Reason Stop Dose Admin Acetaminophen 500 mg 08/26/18 09:00 08/26/18 08:58 Tylenol Extra Strength PO 10/25/18 08:59 500 mg TID CARMEL Administration Acetaminophen/Hydrocodone Bitart 1 tab 08/26/18 07:53 Addison 5mg/325mg PO 10/25/18 07:52 Q6H PRN Pain (Moderate) Albuterol Sulfate 2.5 mg 08/26/18 11:00 Albuterol 2.5mg/3ml Neb Ud HHN 12/28/18 10:59 Q4HRT CARMEL Atorvastatin Calcium 10 mg 08/26/18 21:00 Lipitor PO 10/25/18 20:59 HS CARMEL Protocol Cinacalcet 30 mg 08/26/18 09:00 08/26/18 08:58 Sensipar PO 10/25/18 08:59 30 mg DAILY CARMEL Administration Dicyclomine HCl 10 mg 08/26/18 09:00 08/26/18 08:57 Bentyl PO 10/25/18 08:59 10 mg TID CARMEL Administration Ferrous Sulfate 325 mg 08/26/18 09:00 08/26/18 08:57 Iron PO 10/25/18 08:59 325 mg DAILY CARMEL Administration Folic Acid 1 mg 08/26/18 09:00 08/26/18 08:57 Folate PO 10/25/18 08:59 1 mg DAILY CARMEL Administration Gabapentin 200 mg 08/26/18 09:00 08/26/18 08:58 Neurontin PO 10/25/18 08:59 200 mg TID CARMEL Administration Cefepime HCl 1 gm/ Sodium 50 mls @ 100 mls/hr 08/26/18 02:00 08/26/18 05:05 Chloride IV 10/25/18 01:59 Infused Q24H CARMEL Infusion Lisinopril 20 mg 08/26/18 09:00 08/26/18 08:57 Zestril PO 10/25/18 08:59 20 mg BID CARMEL Administration Miscellaneous 1 ea 08/26/18 00:19 Vancomycin Iv Per Pharmacy 10/25/18 00:18 PRN PRN PROTOCOL Montelukast Sodium 10 mg 08/26/18 09:00 08/26/18 08:58 Singulair PO 10/25/18 08:59 10 mg DAILY CARMEL Administration Nifedipine 30 mg 08/26/18 08:00 Procardia Xl PO 10/25/18 07:59 Q8H CARMEL Pantoprazole Sodium 40 mg 08/26/18 09:00 08/26/18 08:58 Protonix PO 10/25/18 08:59 40 mg DAILY CARMEL Administration Prednisone 20 mg 08/26/18 09:00 08/26/18 08:57 Deltasone PO 10/25/18 08:59 20 mg BID CARMEL Administration Sertraline HCl 100 mg 08/26/18 09:00 Zoloft PO 10/25/18 08:59 DAILY CARMEL Sevelamer Carbonate 1,600 mg 08/26/18 09:00 08/26/18 08:56 Renvela PO 10/25/18 08:59 1,600 mg TID CARMEL Administration Vitamin B Complex/Vit C/Folic Acid 1 tab 08/26/18 09:00 08/26/18 08:57 Vitamin B Complex W/Vitamin C PO 10/25/18 08:59 1 tab DAILY CARMEL Administration Review of Systems: A 12 point ROS was reviewed with the pertinent positive and negatives noted in the HPI. Social History Smoking Status Unknown if ever smoked Drug Use No Alcohol Use No Family Medical History Unknown. Physical Exam: General: Comfortable, not in any distress. WN WD/ HEENT: Head: NC NT. Oral cavity: Moist, pink tongue. Eyes: Pallor present. No icterus. pupil PERRLA. EOMI. Neck: Supple. no jvd, no carotid bruit. No use of accessory neck musclen use. Cardio: S1 and S2 WN, no murmur no gallop. Respiratory: CTAP Abdominal: Soft NT ND BS present. Genital/Urinary: Extremities: NCCE. Neurological: AAOx3 Assessment: 1. Leukocytosis, r/o sepsis. 2. HTN. 3. CKD 5 HD 4. asthma. 5. Obesity. 6. Anxiety d/o. Plan: Continue cefepime and vanco. Wound care. Wound culture, blood culture. Dr Kimball, vascular surgery consult Breathing treatment. xanax prn. Thank you, Dr Muñoz for Involving me in taking care of this patient. [place], Tao Thomas M.D. [id number]
[2018-08-26] MEDS: Hydrocodone/APAP 5mg/325mg Tab PO PRN (14:35)
--- NOTE | 2018-08-26 14:44 | Diagnostic Imaging Report ---
Portable chest x-ray HISTORY: Shortness of breath. The heart is enlarged. A vascular catheter tip is in the upper region of the right atrium. No acute focal bony processes. Vascular stent noted in the right subclavian region. IMPRESSION: 1. No acute focal pulmonary processes 2. Cardiomegaly
--- NOTE | 2018-08-26 14:54 | History & Physical ---
ADMIT DATE: 08/26/2018 HISTORY OF PRESENT ILLNESS: This is a 52-year-old female patient. The patient is known to have chronic kidney disease. The patient is on hemodialysis 3 times a week and has had infection to her left arm and developed tachycardia, fever, chills, became septic, was referred to the ER and the patient was admitted for sepsis, history of hypertension, ESRD, on dialysis. REVIEW OF SYSTEMS: Otherwise negative other than left arm pain. PHYSICAL EXAMINATION: GENERAL: Alert, oriented female. VITAL SIGNS: Noted. HEAD: Normal. ENT: Normal. NECK: Normal. EXTREMITIES: Normal except for tenderness in the left upper arm. DIAGNOSES: Left upper arm pain, swelling, cellulitis, altered mental status, sepsis, leukocytosis, ESRD, history of hypertension. PLAN: The patient is going to be admitted. The patient is going to be on IV antibiotics and continue other medications and I will follow with Dr. Landry to see the patient. I will follow along with ID doctor as well. [facility]# [id number]
[2018-08-26] MEDS ORDERED: Albuterol/Ipratropium Neb 3 ML AERS HHN PRN (15:02)
--- NOTE | 2018-08-26 15:09 | Internal Medicine Prog Note ---
Internal Medicine Subjective - Subjective Patient seen and examined:: chart reviewed Patient is:: awake, other (weak) Per staff patient has:: no adverse event Internal Medicine Objective - Results Result Diagrams: 08/26/18 06:00 08/26/18 06:00 Recent Labs: Laboratory Last Values WBC 12.6 Th/cmm (4.8-10.8) H 08/26/18 06:00 RBC 3.52 Mil/cmm (3.80-5.10) L 08/26/18 06:00 Hgb 8.7 gm/dL (12-16) L 08/26/18 06:00 Hct 27.6 % (41.0-60) L 08/26/18 06:00 MCV 78.3 fl (81-100) L 08/26/18 06:00 MCH 24.8 pg (27.0-31.0) L 08/26/18 06:00 MCHC Differential 31.6 pg (28.0-36.0) 08/26/18 06:00 RDW 21.7 % (11.5-20.0) H 08/26/18 06:00 Plt Count 348 Th/cmm (150-400) 08/26/18 06:00 MPV 8.1 fl 08/26/18 06:00 Add Manual Diff YES 08/25/18 22:40 Neutrophils % 85.0 % (40.0-80.0) H 08/26/18 06:00 Band Neutrophils % 3 % (0-10) 08/25/18 22:40 Lymphocytes % 8.5 % (20.0-50.0) L 08/26/18 06:00 Monocytes % 6.2 % (2.0-10.0) 08/26/18 06:00 Eosinophils % 0.3 % (0.0-5.0) 08/26/18 06:00 Basophils % 0.0 % (0.0-2.0) 08/26/18 06:00 Neutrophils (Manual) 85 % (40-80) H 08/25/18 22:40 Lymphocytes 8 % (20-50) L 08/25/18 22:40 Monocytes 4 % (2-10) 08/25/18 22:40 Hypochromia 2+ 08/25/18 22:40 Platelet Estimate ADEQUATE (NORMAL) 08/25/18 22:40 Poikilocytosis 2+ 08/25/18 22:40 Anisocytosis 1+ 08/25/18 22:40 Tear Drop Cells 1+ 08/25/18 22:40 Ovalocytes 1+ 08/25/18 22:40 Schistocytes 1+ 08/25/18 22:40 Sodium 140 mEq/L (136-145) 08/26/18 06:00 Potassium 5.6 mEq/L (3.5-5.1) H 08/26/18 06:00 Chloride 96 mEq/L (98-107) L 08/26/18 06:00 Carbon Dioxide 24.6 mEq/L (21.0-31.0) 08/26/18 06:00 Anion Gap 25.0 (7.0-16.0) H 08/26/18 06:00 BUN 83 mg/dL (7-25) H* 08/26/18 06:00 Creatinine 8.4 mg/dL (0.6-1.2) H* 08/26/18 06:00 Est GFR ( Amer) 6.4 ml/min (>90) 08/26/18 06:00 Est GFR (Non-Af Amer) 5.3 ml/min 08/26/18 06:00 BUN/Creatinine Ratio 9.9 08/26/18 06:00 Glucose 117 mg/dL (70-105) H 08/26/18 06:00 POC Glucose 169 MG/DL (70 - 105) H 08/25/18 22:41 Whole Bld Lactic Acid 2.06 mmol/L (0.60-1.99) H* 08/26/18 01:00 Calcium 8.9 mg/dL (8.6-10.3) 08/26/18 06:00 Total Bilirubin 0.5 mg/dL (0.3-1.0) 08/25/18 22:40 AST 33 U/L (13-39) 08/25/18 22:40 ALT 33 U/L (7-52) 08/25/18 22:40 Alkaline Phosphatase 281 U/L (34-104) H 08/25/18 22:40 B-Natriuretic Peptide 543.0 pg/mL (5.0-100.0) H 08/26/18 06:00 Total Protein 7.1 gm/dL (6.0-8.3) 08/25/18 22:40 Albumin 4.4 gm/dL (3.7-5.3) 08/25/18 22:40 Globulin 2.7 gm/dL 08/25/18 22:40 Albumin/Globulin Ratio 1.6 (1.0-1.8) 08/25/18 22:40 Random Vancomycin 49.5 ug/mL (5.0-40.0) H 08/26/18 06:00 - Physical Exam Vitals and I&O: Vital Signs Temp 97.8 F 08/26/18 11:10 Pulse 81 08/26/18 11:10 Resp 19 08/26/18 11:10 BP 121/57 08/26/18 11:10 Pulse Ox 98 08/26/18 11:10 Intake & Output 08/25/18 08/26/18 08/26/18 18:59 06:59 18:59 Intake Total 650 Balance 650 Weight (lbs) 106.821 kg 106.821 kg Intake: Intake, IV Amount 550 Cefepime 1 gm In Sodium 50 Chloride 0.9% 50 ml @ 100 mls/hr IV Q24H [facility] Rx#: [id number] Oral 100 Other: # Voids 0 # Bowel Movements 0 Weight Source Bedscale Bedscale Active Medications: Current Medications Acetaminophen (Tylenol Extra Strength) 500 mg PO TID [facility] Stop: 10/25/18 08:59 Last Admin: 08/26/18 08:58 Dose: 500 mg Acetaminophen/Hydrocodone Bitart (Flint 5mg/325mg) 1 tab PO Q6H PRN PRN Reason: Pain (Moderate) Stop: 10/25/18 07:52 Last Admin: 08/26/18 14:35 Dose: 1 tab Albuterol Sulfate (Albuterol 2.5mg/3ml Neb Ud) 2.5 mg HHN Q4HRT [facility] Stop: 10/25/18 10:59 Atorvastatin Calcium (Lipitor) 10 mg PO HS [facility]; Protocol Stop: 10/25/18 20:59 [place] Oil/[place] Balsam/Trypsin (Venelex) 1 appl TP DAILY [facility] Stop: 10/25/18 14:59 Cinacalcet (Sensipar) 30 mg PO DAILY [facility] Stop: 10/25/18 08:59 Last Admin: 08/26/18 08:58 Dose: 30 mg Dicyclomine HCl (Bentyl) 10 mg PO TID [facility] Stop: 10/25/18 08:59 Last Admin: 08/26/18 14:35 Dose: 10 mg Epoetin Mekhi (Epogen) 10,000 units SUBQ MWF@1500 [facility] Stop: 10/25/18 14:59 Ferrous Sulfate (Iron) 325 mg PO DAILY [facility] Stop: 10/25/18 08:59 Last Admin: 08/26/18 08:57 Dose: 325 mg Folic Acid (Folate) 1 mg PO DAILY [facility] Stop: 10/25/18 08:59 Last Admin: 08/26/18 08:57 Dose: 1 mg Gabapentin (Neurontin) 200 mg PO TID [facility] Stop: 10/25/18 08:59 Last Admin: 08/26/18 14:35 Dose: 200 mg Cefepime HCl 1 gm/ Sodium (Chloride) 50 mls @ 100 mls/hr IV Q24H [facility] Stop: 10/25/18 01:59 Last Infusion: 08/26/18 05:05 Dose: Infused Lisinopril (Zestril) 20 mg PO BID [facility] Stop: 10/25/18 08:59 Last Admin: 08/26/18 08:57 Dose: 20 mg Miscellaneous (Vancomycin Iv Per Pharmacy) 1 [facility] PRN PRN PRN Reason: PROTOCOL Stop: 10/25/18 00:18 Montelukast Sodium (Singulair) 10 mg PO DAILY [facility] Stop: 10/25/18 08:59 Last Admin: 08/26/18 08:58 Dose: 10 mg Nifedipine (Procardia Xl) 30 mg PO Q8H [facility] Stop: 10/25/18 07:59 Pantoprazole Sodium (Protonix) 40 mg PO DAILY [facility] Stop: 10/25/18 08:59 Last Admin: 08/26/18 08:58 Dose: 40 mg Prednisone (Deltasone) 20 mg PO BID [facility] Stop: 10/25/18 08:59 Last Admin: 08/26/18 08:57 Dose: 20 mg Sertraline HCl (Zoloft) 100 mg PO DAILY [facility] Stop: 10/25/18 08:59 Sevelamer Carbonate (Renvela) 1,600 mg PO TID [facility] Stop: 10/25/18 08:59 Last Admin: 08/26/18 14:35 Dose: 1,600 mg Vitamin B Complex/Vit C/Folic Acid (Vitamin B Complex W/Vitamin C) 1 tab PO DAILY [facility] Stop: 10/25/18 08:59 Last Admin: 08/26/18 08:57 Dose: 1 tab General: weak HEENT: NC/AT Neck: Supple Lungs: CTAB Cardiovascular: RRR, Normal S1, Normal S2 Abdomen: soft, non-tender, tender Internal Medicine Assmt/Plan - Assessment Assessment: left upper arm pain, swelling cellulitis altered mental status - Plan Plan: as per order sheet
[2018-08-26] MEDS: Albuterol Nebulizer 2.5mg/3mL HHN SCH ×3 (16:13→22:57)
[2018-08-26] MEDS: NIFEdipine 30 mg ER Tab PO SCH (16:41)
--- NOTE | 2018-08-26 16:54 | Consultation ---
DATE OF CONSULTATION: 08/26/2018 REASON FOR CONSULTATION: Electrolyte imbalance and fluid management. HISTORY OF PRESENT ILLNESS: This is a 52-year-old female with past medical history of end-stage renal disease, on hemodialysis, who was brought in because of altered level of consciousness. A few hours prior to admission, the patient was noted to be very confused, irritated, agitated as well as disoriented. She was eventually brought to the Emergency Room. Her white count was 13.9 with a lactic acid of 2.24 and BNP level of 543. Her potassium level was 6 and she received Kayexalate. The patient is currently on hemodialysis. She remains confined and confused as well as disoriented. She was not able to provide any information with regards to her dialysis, line out man, nor dialysis center. PAST MEDICAL HISTORY: 1. End-stage renal disease, on hemodialysis. 2. Type 2 diabetes mellitus. 3. Essential hypertension. 4. Chronic pain syndrome. 5. History of infected right AV fistula. 6. Anemia of chronic kidney disease. CURRENT MEDICATIONS: She is currently on acetaminophen, albuterol, atorvastatin, cefepime, Cinacalcet, Bentyl, ferrous sulfate, folic acid, gabapentin, hydrocodone/APAP, lisinopril, montelukast, nifedipine, pantoprazole, prednisone, Zoloft, sevelamer, vancomycin, and vitamin B. ALLERGIES: Allergic to IRON DEXTRAN COMPLEX and CHLORHEXIDINE. SOCIAL AND FAMILY HISTORY: I was unable to obtain directly from the patient because she just continues to verbalize without any meaningful concept. REVIEW OF SYSTEMS: Again, I was not able to decipher because of the same reason. PHYSICAL EXAMINATION GENERAL: The patient is obese, remains confused, somewhat agitated, irritated tachypneic. VITAL SIGNS: Her blood pressure is 121/57, pulse 81, and temperature 97.8 degrees. SKIN: Good turgor, warm, no rash, no jaundice appreciated. HEENT: Head normocephalic, atraumatic. Eyes: Extraocular muscles intact. Pupils equal, round, reactive to light and accommodates. Anicteric sclerae. Pale conjunctivae. Nose, midline nasal septum. Mouth: Dry mucosa. Poor dentition. NECK: Supple, no adenopathy, no thyromegaly, no bruits. Trachea palpated in the midline. CHEST AND CARDIOVASCULAR: Distant heart sounds, S1, S2. No rub, murmur, or gallop appreciated. Point of maximal impulse fifth intercostal space, left midclavicular line. No abdominal or femoral bruits appreciated. LUNGS: Equal expansion, no use of accessory muscles. No supraclavicular retractions. Decreased breath sounds, few rhonchi, but no rales nor wheezes appreciated. ABDOMEN: Obese, soft, positive for bowel sounds. No bruits either diastolic or systolic. RECTAL: The patient refused. GENITOURINARY: Normal appearing female genitalia. MUSCULOSKELETAL: No effusions present in her joints, but unable to assess her range of motion. EXTREMITIES: She has a dressing over her right upper extremity. No evidence of any edema, cyanosis, or clubbing of lower extremities. NEUROLOGIC: The patient is awake, remains agitated, confused, disoriented, and was just talking without any meaningful contents. NEUROLOGIC: Again, the patient unable to follow my neuro commands, so I was not able to pursue further my neuro exam. LABORATORY DATA AND STUDIES: Did reveal white count 12.6, hemoglobin 8.7, hematocrit 27.6, platelets 348, and polys 85%. Sodium 140, potassium 5.6, chloride 96, bicarbonate 24, BUN 83, creatinine 6.8, glucose 117, calcium 8.9. BNP 543. Lactic acid is 2.06. IMPRESSION: 1. End-stage renal disease, on hemodialysis. 2. Intermittent confusion, disorientation, agitation, possible evolving cerebrovascular accident; however, consider intake of psychotic medications, uremic encephalopathy due to history of kidney failure, or even bipolar disorder with acute amanda. 3. Hyperventilation possibly due to anxiety. 4. Hyperkalemia secondary to kidney failure, diabetes. 5. Leukocytosis with elevated lactic acid, possible sepsis and follow up septic workup such as blood culture x2 and chest x-ray and also her infected right wound culture. 6. Morbid obesity. 7. Type 2 diabetes mellitus with chronic kidney disease. 8. Essential hypertension with chronic kidney disease. 9. History of infected right AV fistula. 10. Anemia of chronic kidney disease. PLAN: 1. Hemodialysis today. 2. Follow up septic workup. 3. Continue on with Merrem. 4. Consider CT scan of the head if mental status does not improve back to baseline. JOB# [id number]
--- NOTE | 2018-08-26 17:36 | Consultation ---
Consult Note - Consult Note Service Date: 08/26/18 Referring Physician: Lelia Muñoz Consult Note: PHYSICIAN Consultation Note: Date of Admission: 08/26/18 Purpose of Consultation: ESRD Chief Complaint: AMS History of Present Illness: Patient CHUN BUNN [facility] with SEPSIS,ALOC, RENAL FAILURE. SHE IS A 52YO FEMALE WELL KNOWN TO ME FROM [facility] IN [place]. SHE HAS ESRD WITH HTN AND ANEMIA W ESRD ALONG WITH ANXIETY. SHE WAS LAST DIALYZED AT [facility] ON SUNDAY WITHOUT EVENT. TODAY SHE WAS NOTED TO BE INCREASINGLY AGITATED AND CONFUSED AND IN THE ER SHE WAS FOUND TO HAVE LACTIC ACIDOSIS WITH LEUKOCYTOSIS AND HYPERKALEMIA. SHE IS CURRENTLY RECEIVING DIALYSIS, VERY CONFUSED AND DIFFICULT TO UNDERSTAND, NOT AT HER BASELINE MENTATION. Past Medical History: PER HPI, ALSO ANEMIA W ESRD, SECONDARY HPPT RENAL ORIGIN Diagnoses SEPSIS, UNSPECIFIED ORGANISM (08/26/18) ELEVATED WHITE BLOOD CELL COUNT, UNSPECIFIED (08/26/18) ESSENTIAL (PRIMARY) HYPERTENSION (08/26/18) CELLULITIS OF LEFT UPPER LIMB (08/26/18) END STAGE RENAL DISEASE (08/26/18) WEAKNESS (08/26/18) DEPENDENCE ON RENAL DIALYSIS (08/26/18) Allergies Allergy/AdvReac Type Severity Reaction Status Date / Time iron dextran complex Allergy Mild Verified 08/26/18 06:44 chlorhexidine Allergy Verified 08/26/18 06:45 Vital Signs Temp 98.1 F 08/26/18 16:10 Pulse 78 08/26/18 16:41 Resp 22 08/26/18 16:39 BP 118/60 08/26/18 16:41 Pulse Ox 100 08/26/18 16:13 Intake & Output 08/25/18 08/26/18 08/26/18 18:59 06:59 18:59 Intake Total 650 Balance 650 Weight (lbs) 106.821 kg 106.821 kg Intake: Intake, IV Amount 550 Cefepime 1 gm In Sodium 50 Chloride 0.9% 50 ml @ 100 mls/hr IV Q24H [facility] Rx#: [id number] Oral 100 Other: # Voids 0 # Bowel Movements 0 Weight Source Bedscale Bedscale Laboratory Results - last 24 hr 08/25/18 08/25/18 08/25/18 22:40 22:40 22:40 WBC 13.9 H RBC 3.57 L Hgb 8.9 L Hct 28.0 L MCV 78.5 L MCH 25.0 L MCHC Differential 31.9 RDW 21.7 H Plt Count 399 MPV 8.0 Add Manual Diff YES Neutrophils % Band Neutrophils % 3 Lymphocytes % Monocytes % Eosinophils % Basophils % Neutrophils (Manual) 85 H Lymphocytes 8 L Monocytes 4 Hypochromia 2+ Platelet Estimate ADEQUATE Poikilocytosis 2+ Anisocytosis 1+ Tear Drop Cells 1+ Ovalocytes 1+ Schistocytes 1+ Sodium 134 L Potassium 6.0 H Chloride 93 L Carbon Dioxide 24.1 Anion Gap 22.9 H BUN 72 H Creatinine 8.0 H* Est GFR ( Amer) 6.8 Est GFR (Non-Af Amer) 5.6 BUN/Creatinine Ratio 9.0 Glucose 172 H POC Glucose Whole Bld Lactic Acid 2.24 H* Calcium 8.5 L Total Bilirubin 0.5 AST 33 ALT 33 Alkaline Phosphatase 281 H B-Natriuretic Peptide Total Protein 7.1 Albumin 4.4 Globulin 2.7 Albumin/Globulin Ratio 1.6 Random Vancomycin 08/25/18 08/26/18 08/26/18 22:41 01:00 06:00 WBC 12.6 H RBC 3.52 L Hgb 8.7 L Hct 27.6 L MCV 78.3 L MCH 24.8 L MCHC Differential 31.6 RDW 21.7 H Plt Count 348 MPV 8.1 Add Manual Diff Neutrophils % 85.0 H Band Neutrophils % Lymphocytes % 8.5 L Monocytes % 6.2 Eosinophils % 0.3 Basophils % 0.0 Neutrophils (Manual) Lymphocytes Monocytes Hypochromia Platelet Estimate Poikilocytosis Anisocytosis Tear Drop Cells Ovalocytes Schistocytes Sodium Potassium Chloride Carbon Dioxide Anion Gap BUN Creatinine Est GFR ( Amer) Est GFR (Non-Af Amer) BUN/Creatinine Ratio Glucose POC Glucose 169 H Whole Bld Lactic Acid 2.06 H* Calcium Total Bilirubin AST ALT Alkaline Phosphatase B-Natriuretic Peptide Total Protein Albumin Globulin Albumin/Globulin Ratio Random Vancomycin 08/26/18 08/26/18 08/26/18 06:00 06:00 06:00 WBC RBC Hgb Hct MCV MCH MCHC Differential RDW Plt Count MPV Add Manual Diff Neutrophils % Band Neutrophils % Lymphocytes % Monocytes % Eosinophils % Basophils % Neutrophils (Manual) Lymphocytes Monocytes Hypochromia Platelet Estimate Poikilocytosis Anisocytosis Tear Drop Cells Ovalocytes Schistocytes Sodium 140 Potassium 5.6 H Chloride 96 L Carbon Dioxide 24.6 Anion Gap 25.0 H BUN 83 H* Creatinine 8.4 H* Est GFR ( Amer) 6.4 Est GFR (Non-Af Amer) 5.3 BUN/Creatinine Ratio 9.9 Glucose 117 H POC Glucose Whole Bld Lactic Acid Calcium 8.9 Total Bilirubin AST ALT Alkaline Phosphatase B-Natriuretic Peptide 543.0 H Total Protein Albumin Globulin Albumin/Globulin Ratio Random Vancomycin 49.5 H Home Medication Medication Instructions Recorded Type Acetaminophen [Tylenol Extra 500 mg PO TID 08/25/18 History Strength] Albuterol Sulfate [Proventil Hfa*] 2 puff IH Q4H 08/25/18 History Atorvastatin Calcium [Lipitor] 10 mg PO HS 08/25/18 History Cinacalcet [Sensipar] 30 mg PO DAILY 08/25/18 History Dicyclomine [Bentyl 10 Mg Cap*] 10 mg PO TID 08/25/18 History Esomeprazole Magnesium 40 mg PO DAILY 08/25/18 History Ferric Citrate [Auryxia] 1 gm PO BID 08/25/18 History Ferrous Sulfate 325 mg PO DAILY 08/25/18 History Folic Acid [Folate*] 1 mg PO DAILY 08/25/18 History Folic Acid/Vit Bcomp,C [Afia-Lyla 1 mg PO DAILY 08/25/18 History Tablet] Gabapentin 200 mg PO TID 08/25/18 History Hydrocodone/Acetaminophen [Apex 1 tab PO Q6H PRN 08/25/18 History 325 mg-5 mg*] Lisinopril 20 mg PO BID 08/25/18 History Montelukast [Singulair] 10 mg PO DAILY 08/25/18 History Nifedipine [Nifedipine ER] 90 mg PO DAILY 08/25/18 History Prednisone [Deltasone] 20 mg PO BID 08/25/18 History Sertraline HCl [Zoloft] 100 mg PO DAILY 08/25/18 History Sevelamer Carbonate 2 tab PO TID 08/25/18 History Current Medications Generic Name Dose Route Start Last Admin Trade Name Freq PRN Reason Stop Dose Admin Acetaminophen 500 mg 08/26/18 09:00 08/26/18 15:16 Tylenol Extra Strength PO 10/25/18 08:59 Not Given TID [facility] Acetaminophen/Hydrocodone Bitart 1 tab 08/26/18 07:53 08/26/18 14:35 [place]pex 5mg/325mg PO 10/25/18 07:52 1 tab Q6H PRN Administration Pain (Moderate) Albuterol Sulfate 2.5 mg 08/26/18 15:19 08/26/18 16:13 Albuterol 2.5mg/3ml Neb Ud HHN 10/25/18 15:18 2.5 mg Q4HRT [facility] Administration Albuterol/Ipratropium 3 ml 08/26/18 15:02 Duoneb Neb N 10/25/18 18:59 Q6HRT PRN Respiratory Distress Alprazolam 0.25 mg 08/26/18 15:01 Xanax PO 10/25/18 15:00 Q8HR PRN Anxiety Protocol Atorvastatin Calcium 10 mg 08/26/18 21:00 Lipitor PO 10/25/18 20:59 HS [facility] Protocol [place] Oil/[place] Balsam/Trypsin 1 appl 08/26/18 15:00 Venelex TP 10/25/18 14:59 DAILY [facility] Cinacalcet 30 mg 08/26/18 09:00 08/26/18 08:58 Sensipar PO 10/25/18 08:59 30 mg DAILY [facility] Administration Dicyclomine HCl 10 mg 08/26/18 09:00 08/26/18 14:35 Bentyl PO 10/25/18 08:59 10 mg TID [facility] Administration Epoetin Mekhi 10,000 units 08/26/18 15:00 Epogen SUBQ 10/25/18 14:59 MWF@1500 [facility] Ferrous Sulfate 325 mg 08/26/18 09:00 08/26/18 08:57 Iron PO 10/25/18 08:59 325 mg DAILY [facility] Administration Folic Acid 1 mg 08/26/18 09:00 08/26/18 08:57 Folate PO 10/25/18 08:59 1 mg DAILY [facility] Administration Gabapentin 200 mg 08/26/18 09:00 08/26/18 14:35 Neurontin PO 10/25/18 08:59 200 mg TID [facility] Administration Cefepime HCl 1 gm/ Sodium 50 mls @ 100 mls/hr 08/26/18 02:00 08/26/18 05:05 Chloride IV 10/25/18 01:59 Infused Q24H [facility] Infusion Lisinopril 20 mg 08/26/18 09:00 08/26/18 08:57 Zestril PO 10/25/18 08:59 20 mg BID [facility] Administration Miscellaneous 1 ea 08/26/18 00:19 Vancomycin Iv Per Pharmacy 10/25/18 00:18 PRN PRN PROTOCOL Montelukast Sodium 10 mg 08/26/18 09:00 08/26/18 08:58 Singulair PO 10/25/18 08:59 10 mg DAILY [facility] Administration Nifedipine 30 mg 08/26/18 08:00 08/26/18 16:41 Procardia Xl PO 10/25/18 07:59 Not Given Q8H [facility] Pantoprazole Sodium 40 mg 08/26/18 09:00 08/26/18 08:58 Protonix PO 10/25/18 08:59 40 mg DAILY [facility] Administration Prednisone 20 mg 08/26/18 09:00 08/26/18 08:57 Deltasone PO 10/25/18 08:59 20 mg BID [facility] Administration Sertraline HCl 100 mg 08/26/18 09:00 Zoloft PO 10/25/18 08:59 DAILY [facility] Sevelamer Carbonate 1,600 mg 08/26/18 09:00 08/26/18 14:35 Renvela PO 10/25/18 08:59 1,600 mg TID [facility] Administration Vitamin B Complex/Vit C/Folic Acid 1 tab 08/26/18 09:00 08/26/18 08:57 Vitamin B Complex W/Vitamin C PO 10/25/18 08:59 1 tab DAILY [facility] Administration Review of Systems: A 12 point ROS was reviewed with the pertinent positive and negatives noted in the HPI. Social History Smoking Status Unknown if ever smoked Drug Use No Alcohol Use No Family Medical History Family Medical History Start: 08/26/18 00: 37 Freq: ONCE Status: Active Protocol: Document 08/26/18 00:37 ROHITH (Rec: 08/26/18 01:59 ROHITH ANGELES-[id number]) Family Medical History Mother History Unknown Yes Physical Exam: General: AWAKE, CONFUSED, RAPIDLY TALKING BUT NOT MAKING SENSE, AGITATED HEENT: HEAD NC/AT, SCLERAE ANICTERIC, OP CLEAR Neck: SUPPLE Cardio: CV RRR Respiratory: CTA B Abdominal: SOFT NT OBESE Genital/Urinary: NOT DONE Extremities: NO EDEMA Neurological: AWAKE BUT CONFUSED Assessment: 1. ESRD/DIALYSIS STATUS 2. ANEMIA W ESRD 3. LEUKOCYTOSIS POSSIBLE SEPSIS 4. ALTERED MENTAL STATUS 5. SECONDARY HPPT RENAL ORIGIN 6. HTN W ESRD Plan: CONT HD TODAY SCHEDULED WILL ASSESS DAILY FOR DIALYSIS NEEDS SEPTIC WORKUP IN PROGRESS CONT EPOGEN AND BP CONTROL ABX PER ID SUPPORTIVE CARE Signed, Jennifer Schrader [id number]
[2018-08-26] MEDS: Epoetin Alfa 20000 Units/mL Vial SUBQ SCH (18:09)
[2018-08-26] MEDS ORDERED: Heparin Sod 1,000 Units/mL 10ml HD ONE (18:59)
[2018-08-26] MEDS ORDERED: Haloperidol Lactate 5 mg/mL 1mL Vial IM ONE (19:15)
[2018-08-26] MEDS: Atorvastatin Calcium 10 MG TAB PO SCH (21:28)
[2018-08-27] MEDS: NIFEdipine 30 mg ER Tab PO SCH ×3 (00:46→16:14)
[2018-08-27] MEDS: Cefepime 1 GM in Sodium Chloride 0.9% 50 ML IV SCH (02:18)
[2018-08-27] MEDS: Albuterol Nebulizer 2.5mg/3mL HHN SCH ×6 (03:13→22:57)
[2018-08-27 06:53] LABS: % EOSINOPHILS 0.3 % (0.0-5.0); % LYMPHOCYTES 6.3 % (20.0-50.0); % MONOCYTES 5.9 % (2.0-10.0); % NEUTROPHILS 87.5 % (40.0-80.0); EOSINOPHILE ABSOLUTE 0.1 Th/cmm (0.1-0.4); HEMATOCRIT 30.3 % (41.0-60); HEMOGLOBIN 9.8 gm/dL (12-16); LYMPHOCYTE ABSOLUTE 1.2 Th/cmm (1.5-3.0); MEAN CELL VOLUME 78.8 fl (81-100); MEAN CORPUSCULAR HEMOGLOBIN 25.4 pg (27.0-31.0); MEAN CORPUSCULAR HGB CONC 32.2 pg (28.0-36.0); MEAN PLATELET VOLUME 8.1 fl; MONOCYTE ABSOLUTE 1.1 Th/cmm (0.3-1.0); NEUTROPHILE ABSOLUTE 15.9 Th/cmm (1.8-8.0); PLATELET COUNT 321 Th/cmm (150-400); RED BLOOD COUNT 3.84 Mil/cmm (3.80-5.10); RED CELL DISTRIBUTION WIDTH 21.3 % (11.5-20.0)
[2018-08-27 07:05] LABS: WHITE BLOOD COUNT 18.3 Th/cmm (4.8-10.8)
[2018-08-27 07:40] LABS: BAND NEUTROPHILE 2 % (0-10); LYMPHOCYTE 13 % (20-50); NEUTROPHILS 81 % (40-80)
[2018-08-27 07:41] LABS: MONOCYTE 4 % (2-10)
[2018-08-27 07:43] LABS: ANION GAP 21.2 (7.0-16.0); CALCIUM SERUM 8.2 mg/dL (8.6-10.3); CARBON DIOXIDE 26.4 mEq/L (21.0-31.0); GFR AFRICAN-AMERICAN 9.5 ml/min (>90); GFR NON AFRICAN-AMERICAN 7.8 ml/min; MAGNESIUM 2.3 mg/dL (1.9-2.7); PHOSPHOROUS 5.9 mg/dL (2.5-5.0); POTASSIUM SERUM 4.6 mEq/L (3.5-5.1)
[2018-08-27] MEDS: Acetaminophen 500 MG TAB PO SCH ×4 (09:39→22:10)
[2018-08-27] MEDS: Venelex 60gm Tube TP SCH ×2 (09:39→16:53)
[2018-08-27] MEDS: Pantoprazole 40 mg EC Tab PO SCH (09:40)
[2018-08-27] MEDS: Ferrous Sulfate 325 MG TAB PO SCH (09:40)
[2018-08-27] MEDS: Dicyclomine 10 mg Cap PO SCH ×4 (09:40→22:11)
[2018-08-27] MEDS: Vitamin B Complex w/Vitamin C Tab PO SCH (09:41)
--- NOTE | 2018-08-27 11:34 | General Progress Note ---
Subjective - Review of Systems Service Date: 08/27/18 Events since last encounter: Asleep this AM, recently received ativan. S/p HD on 08/26 Objective - Results Result Diagrams: 08/27/18 06:25 08/27/18 06:25 Recent Labs: Laboratory Last Values WBC 18.3 Th/cmm (4.8-10.8) H 08/27/18 06:25 RBC 3.84 Mil/cmm (3.80-5.10) 08/27/18 06:25 Hgb 9.8 gm/dL (12-16) L 08/27/18 06:25 Hct 30.3 % (41.0-60) L 08/27/18 06:25 MCV 78.8 fl (81-100) L 08/27/18 06:25 MCH 25.4 pg (27.0-31.0) L 08/27/18 06:25 MCHC Differential 32.2 pg (28.0-36.0) 08/27/18 06:25 RDW 21.3 % (11.5-20.0) H 08/27/18 06:25 Plt Count 321 Th/cmm (150-400) 08/27/18 06:25 MPV 8.1 fl 08/27/18 06:25 Add Manual Diff YES 08/25/18 22:40 Neutrophils % 87.5 % (40.0-80.0) H 08/27/18 06:25 Band Neutrophils % 2 % (0-10) 08/27/18 06:25 Lymphocytes % 6.3 % (20.0-50.0) L 08/27/18 06:25 Monocytes % 5.9 % (2.0-10.0) 08/27/18 06:25 Eosinophils % 0.3 % (0.0-5.0) 08/27/18 06:25 Basophils % 0.0 % (0.0-2.0) 08/27/18 06:25 Neutrophils (Manual) 81 % (40-80) H 08/27/18 06:25 Lymphocytes 13 % (20-50) L 08/27/18 06:25 Monocytes 4 % (2-10) 08/27/18 06:25 Hypochromia 2+ 08/25/18 22:40 Platelet Estimate ADEQUATE (NORMAL) 08/25/18 22:40 Poikilocytosis 2+ 08/25/18 22:40 Anisocytosis 1+ 08/25/18 22:40 Tear Drop Cells 1+ 08/25/18 22:40 Ovalocytes 1+ 08/25/18 22:40 Schistocytes 1+ 08/25/18 22:40 Sodium 141 mEq/L (136-145) 08/27/18 06:25 Potassium 4.6 mEq/L (3.5-5.1) 08/27/18 06:25 Chloride 98 mEq/L (98-107) 08/27/18 06:25 Carbon Dioxide 26.4 mEq/L (21.0-31.0) 08/27/18 06:25 Anion Gap 21.2 (7.0-16.0) H 08/27/18 06:25 BUN 49 mg/dL (7-25) H 08/27/18 06:25 Creatinine 6.0 mg/dL (0.6-1.2) H* 08/27/18 06:25 Est GFR ( Amer) 9.5 ml/min (>90) 08/27/18 06:25 Est GFR (Non-Af Amer) 7.8 ml/min 08/27/18 06:25 BUN/Creatinine Ratio 8.2 08/27/18 06:25 Glucose 152 mg/dL (70-105) H 08/27/18 06:25 POC Glucose 169 MG/DL (70 - 105) H 08/25/18 22:41 Whole Bld Lactic Acid 1.82 mmol/L (0.60-1.99) 08/27/18 06:25 Calcium 8.2 mg/dL (8.6-10.3) L 08/27/18 06:25 Phosphorus 5.9 mg/dL (2.5-5.0) H 08/27/18 06:25 Magnesium 2.3 mg/dL (1.9-2.7) 08/27/18 06:25 Total Bilirubin 0.5 mg/dL (0.3-1.0) 08/25/18 22:40 AST 33 U/L (13-39) 08/25/18 22:40 ALT 33 U/L (7-52) 08/25/18 22:40 Alkaline Phosphatase 281 U/L (34-104) H 08/25/18 22:40 B-Natriuretic Peptide 543.0 pg/mL (5.0-100.0) H 08/26/18 06:00 Total Protein 7.1 gm/dL (6.0-8.3) 08/25/18 22:40 Albumin 4.4 gm/dL (3.7-5.3) 08/25/18 22:40 Globulin 2.7 gm/dL 08/25/18 22:40 Albumin/Globulin Ratio 1.6 (1.0-1.8) 08/25/18 22:40 Random Vancomycin 49.5 ug/mL (5.0-40.0) H 08/26/18 06:00 - Physical Exam Vitals and I&O: Vital Signs Temp 97.4 F 08/27/18 11:23 Pulse 70 08/27/18 11:23 Resp 19 08/27/18 11:23 BP 143/70 08/27/18 11:23 Pulse Ox 99 08/27/18 11:23 Intake & Output 08/26/18 08/27/18 08/27/18 18:59 06:59 18:59 Intake Total 300 Output Total 3000 Balance -2700 Weight (lbs) 106.594 kg 106.821 kg Intake: Oral 300 Output: Hemodialysis 3000 Other: # Bowel Movements 0 Weight Source Bedscale Bedscale Active Medications: Current Medications Acetaminophen (Tylenol Extra Strength) 500 mg PO TID [facility] Stop: 10/25/18 08:59 Last Admin: 08/27/18 09:39 Dose: Not Given Acetaminophen/Hydrocodone Bitart ([place] 5mg/325mg) 1 tab PO Q6H PRN PRN Reason: Pain (Moderate) Stop: 10/25/18 07:52 Last Admin: 08/26/18 14:35 Dose: 1 tab Albuterol Sulfate (Albuterol 2.5mg/3ml Neb Ud) 2.5 mg HHN Q4HRT [facility] Stop: 10/25/18 15:18 Last Admin: 08/27/18 10:59 Dose: 2.5 mg Albuterol/Ipratropium (Duoneb Neb) 3 ml HHN Q6HRT PRN PRN Reason: Respiratory Distress Stop: 10/25/18 18:59 Alprazolam (Xanax) 0.5 mg PO Q8HR PRN; Protocol PRN Reason: Anxiety Stop: 10/26/18 08:02 Atorvastatin Calcium (Lipitor) 10 mg PO HS [facility]; Protocol Stop: 10/25/18 20:59 Last Admin: 08/26/18 21:28 Dose: 10 mg [place] Oil/[place] Balsam/Trypsin (Venelex) 1 appl TP DAILY [facility] Stop: 10/25/18 14:59 Last Admin: 08/27/18 09:39 Dose: Not Given Cinacalcet (Sensipar) 30 mg PO DAILY [facility] Stop: 10/25/18 08:59 Last Admin: 08/27/18 09:39 Dose: Not Given Dicyclomine HCl (Bentyl) 10 mg PO TID [facility] Stop: 10/25/18 08:59 Last Admin: 08/27/18 09:40 Dose: Not Given Epoetin Mekhi (Epogen) 10,000 units SUBQ MWF@1500 [facility] Stop: 10/25/18 14:59 Last Admin: 08/26/18 18:09 Dose: 10,000 units Ferrous Sulfate (Iron) 325 mg PO DAILY [facility] Stop: 10/25/18 08:59 Last Admin: 08/27/18 09:40 Dose: Not Given Folic Acid (Folate) 1 mg PO DAILY [facility] Stop: 10/25/18 08:59 Last Admin: 08/27/18 09:40 Dose: Not Given Gabapentin (Neurontin) 200 mg PO TID [facility] Stop: 10/25/18 08:59 Last Admin: 08/27/18 09:40 Dose: Not Given Cefepime HCl 1 gm/ Sodium (Chloride) 50 mls @ 100 mls/hr IV Q24H [facility] Stop: 10/25/18 01:59 Last Admin: 08/27/18 02:18 Dose: 100 mls/hr Lisinopril (Zestril) 20 mg PO BID [facility] Stop: 10/25/18 08:59 Last Admin: 08/27/18 09:40 Dose: Not Given Miscellaneous (Vancomycin Iv Per Pharmacy) 1 ea MC PRN PRN PRN Reason: PROTOCOL Stop: 10/25/18 00:18 Montelukast Sodium (Singulair) 10 mg PO DAILY [facility] Stop: 10/25/18 08:59 Last Admin: 08/27/18 09:40 Dose: Not Given Nifedipine (Procardia Xl) 30 mg PO Q8H [facility] Stop: 10/25/18 07:59 Last Admin: 08/27/18 09:38 Dose: Not Given Pantoprazole Sodium (Protonix) 40 mg PO DAILY [facility] Stop: 10/25/18 08:59 Last Admin: 08/27/18 09:40 Dose: Not Given Prednisone (Deltasone) 20 mg PO BID [facility] Stop: 10/25/18 08:59 Last Admin: 08/27/18 09:40 Dose: Not Given Quetiapine Fumarate (Seroquel) 50 mg PO BID [facility]; Protocol Stop: 10/26/18 16:59 Sertraline HCl (Zoloft) 100 mg PO DAILY [facility] Stop: 10/25/18 08:59 Sevelamer Carbonate (Renvela) 1,600 mg PO TID [facility] Stop: 10/25/18 08:59 Last Admin: 08/27/18 09:40 Dose: Not Given Vitamin B Complex/Vit C/Folic Acid (Vitamin B Complex W/Vitamin C) 1 tab PO DAILY [facility] Stop: 10/25/18 08:59 Last Admin: 08/27/18 09:41 Dose: Not Given General: Alert HEENT: Atraumatic Neck: Supple Cardiovascular: Regular rate Lungs: Clear to auscultation Assessment/Plan - Assessment Assessment: ESRD on HD HTN Anemia secondary to ESRD - Plan Plan: HD on MWF schedule BP controlled on HD H&H in range, TISHA in range on cefepime, renal dosing
--- NOTE | 2018-08-27 12:59 | Infectious Disease Prog Note ---
Infectious Disease Subjective - Review of Systems Service Date: 08/27/18 Subjective: NO fever. Infectious Disease Objective - Results Result Diagrams: 08/27/18 06:25 08/27/18 06:25 Recent Labs: Laboratory Last Values WBC 18.3 Th/cmm (4.8-10.8) H 08/27/18 06:25 RBC 3.84 Mil/cmm (3.80-5.10) 08/27/18 06:25 Hgb 9.8 gm/dL (12-16) L 08/27/18 06:25 Hct 30.3 % (41.0-60) L 08/27/18 06:25 MCV 78.8 fl (81-100) L 08/27/18 06:25 MCH 25.4 pg (27.0-31.0) L 08/27/18 06:25 MCHC Differential 32.2 pg (28.0-36.0) 08/27/18 06:25 RDW 21.3 % (11.5-20.0) H 08/27/18 06:25 Plt Count 321 Th/cmm (150-400) 08/27/18 06:25 MPV 8.1 fl 08/27/18 06:25 Add Manual Diff YES 08/25/18 22:40 Neutrophils % 87.5 % (40.0-80.0) H 08/27/18 06:25 Band Neutrophils % 2 % (0-10) 08/27/18 06:25 Lymphocytes % 6.3 % (20.0-50.0) L 08/27/18 06:25 Monocytes % 5.9 % (2.0-10.0) 08/27/18 06:25 Eosinophils % 0.3 % (0.0-5.0) 08/27/18 06:25 Basophils % 0.0 % (0.0-2.0) 08/27/18 06:25 Neutrophils (Manual) 81 % (40-80) H 08/27/18 06:25 Lymphocytes 13 % (20-50) L 08/27/18 06:25 Monocytes 4 % (2-10) 08/27/18 06:25 Hypochromia 2+ 08/25/18 22:40 Platelet Estimate ADEQUATE (NORMAL) 08/25/18 22:40 Poikilocytosis 2+ 08/25/18 22:40 Anisocytosis 1+ 08/25/18 22:40 Tear Drop Cells 1+ 08/25/18 22:40 Ovalocytes 1+ 08/25/18 22:40 Schistocytes 1+ 08/25/18 22:40 Sodium 141 mEq/L (136-145) 08/27/18 06:25 Potassium 4.6 mEq/L (3.5-5.1) 08/27/18 06:25 Chloride 98 mEq/L (98-107) 08/27/18 06:25 Carbon Dioxide 26.4 mEq/L (21.0-31.0) 08/27/18 06:25 Anion Gap 21.2 (7.0-16.0) H 08/27/18 06:25 BUN 49 mg/dL (7-25) H 08/27/18 06:25 Creatinine 6.0 mg/dL (0.6-1.2) H* 08/27/18 06:25 Est GFR ( Amer) 9.5 ml/min (>90) 08/27/18 06:25 Est GFR (Non-Af Amer) 7.8 ml/min 08/27/18 06:25 BUN/Creatinine Ratio 8.2 08/27/18 06:25 Glucose 152 mg/dL (70-105) H 08/27/18 06:25 POC Glucose 169 MG/DL (70 - 105) H 08/25/18 22:41 Whole Bld Lactic Acid 1.82 mmol/L (0.60-1.99) 08/27/18 06:25 Calcium 8.2 mg/dL (8.6-10.3) L 08/27/18 06:25 Phosphorus 5.9 mg/dL (2.5-5.0) H 08/27/18 06:25 Magnesium 2.3 mg/dL (1.9-2.7) 08/27/18 06:25 Total Bilirubin 0.5 mg/dL (0.3-1.0) 08/25/18 22:40 AST 33 U/L (13-39) 08/25/18 22:40 ALT 33 U/L (7-52) 08/25/18 22:40 Alkaline Phosphatase 281 U/L (34-104) H 08/25/18 22:40 B-Natriuretic Peptide 543.0 pg/mL (5.0-100.0) H 08/26/18 06:00 Total Protein 7.1 gm/dL (6.0-8.3) 08/25/18 22:40 Albumin 4.4 gm/dL (3.7-5.3) 08/25/18 22:40 Globulin 2.7 gm/dL 08/25/18 22:40 Albumin/Globulin Ratio 1.6 (1.0-1.8) 08/25/18 22:40 Random Vancomycin 49.5 ug/mL (5.0-40.0) H 08/26/18 06:00 - Physical Exam Vitals and I&O: Vital Signs Temp 97.4 F 08/27/18 11:23 Pulse 70 08/27/18 11:23 Resp 19 08/27/18 11:23 BP 143/70 08/27/18 11:23 Pulse Ox 99 08/27/18 11:23 Intake & Output 08/26/18 08/27/18 08/27/18 18:59 06:59 18:59 Intake Total 300 Output Total 3000 Balance -2700 Weight (lbs) 106.594 kg 106.821 kg Intake: Oral 300 Output: Hemodialysis 3000 Other: # Bowel Movements 0 Weight Source Bedscale Bedscale Active Medications: Current Medications Acetaminophen (Tylenol Extra Strength) 500 mg PO TID [facility] Stop: 10/25/18 08:59 Last Admin: 08/27/18 09:39 Dose: Not Given Acetaminophen/Hydrocodone Bitart ([place] 5mg/325mg) 1 tab PO Q6H PRN PRN Reason: Pain (Moderate) Stop: 10/25/18 07:52 Last Admin: 08/26/18 14:35 Dose: 1 tab Albuterol Sulfate (Albuterol 2.5mg/3ml Neb Ud) 2.5 mg HHN Q4HRT [facility] Stop: 10/25/18 15:18 Last Admin: 08/27/18 10:59 Dose: 2.5 mg Albuterol/Ipratropium (Duoneb Neb) 3 ml HHN Q6HRT PRN PRN Reason: Respiratory Distress Stop: 10/25/18 18:59 Alprazolam (Xanax) 0.5 mg PO Q8HR PRN; Protocol PRN Reason: Anxiety Stop: 10/26/18 08:02 Atorvastatin Calcium (Lipitor) 10 mg PO HS [facility]; Protocol Stop: 10/25/18 20:59 Last Admin: 08/26/18 21:28 Dose: 10 mg [place] Oil/[place] Balsam/Trypsin (Venelex) 1 appl TP DAILY [facility] Stop: 10/25/18 14:59 Last Admin: 08/27/18 09:39 Dose: Not Given Cinacalcet (Sensipar) 30 mg PO DAILY [facility] Stop: 10/25/18 08:59 Last Admin: 08/27/18 09:39 Dose: Not Given Dicyclomine HCl (Bentyl) 10 mg PO TID [facility] Stop: 10/25/18 08:59 Last Admin: 08/27/18 09:40 Dose: Not Given Epoetin Mekhi (Epogen) 10,000 units SUBQ MWF@1500 [facility] Stop: 10/25/18 14:59 Last Admin: 08/26/18 18:09 Dose: 10,000 units Ferrous Sulfate (Iron) 325 mg PO DAILY [facility] Stop: 10/25/18 08:59 Last Admin: 08/27/18 09:40 Dose: Not Given Folic Acid (Folate) 1 mg PO DAILY [facility] Stop: 10/25/18 08:59 Last Admin: 08/27/18 09:40 Dose: Not Given Gabapentin (Neurontin) 200 mg PO TID [facility] Stop: 10/25/18 08:59 Last Admin: 08/27/18 09:40 Dose: Not Given Cefepime HCl 1 gm/ Sodium (Chloride) 50 mls @ 100 mls/hr IV Q24H [facility] Stop: 10/25/18 01:59 Last Admin: 08/27/18 02:18 Dose: 100 mls/hr Lisinopril (Zestril) 20 mg PO BID [facility] Stop: 10/25/18 08:59 Last Admin: 08/27/18 09:40 Dose: Not Given Miscellaneous (Vancomycin Iv Per Pharmacy) 1 ea MC PRN PRN PRN Reason: PROTOCOL Stop: 10/25/18 00:18 Montelukast Sodium (Singulair) 10 mg PO DAILY [facility] Stop: 10/25/18 08:59 Last Admin: 08/27/18 09:40 Dose: Not Given Nifedipine (Procardia Xl) 30 mg PO Q8H [facility] Stop: 10/25/18 07:59 Last Admin: 08/27/18 09:38 Dose: Not Given Pantoprazole Sodium (Protonix) 40 mg PO DAILY [facility] Stop: 10/25/18 08:59 Last Admin: 08/27/18 09:40 Dose: Not Given Prednisone (Deltasone) 20 mg PO BID [facility] Stop: 10/25/18 08:59 Last Admin: 08/27/18 09:40 Dose: Not Given Quetiapine Fumarate (Seroquel) 50 mg PO BID [facility]; Protocol Stop: 10/26/18 16:59 Sertraline HCl (Zoloft) 100 mg PO DAILY [facility] Stop: 10/25/18 08:59 Last Admin: 08/27/18 10:30 Dose: Not Given Sevelamer Carbonate (Renvela) 1,600 mg PO TID [facility] Stop: 10/25/18 08:59 Last Admin: 08/27/18 09:40 Dose: Not Given Vitamin B Complex/Vit C/Folic Acid (Vitamin B Complex W/Vitamin C) 1 tab PO DAILY [facility] Stop: 10/25/18 08:59 Last Admin: 08/27/18 09:41 Dose: Not Given General: no acute distress, well developed, well nourished HEENT: atraumatic, normocephalic, PERRLA, EOMI Neck: supple, no thyromegaly Cardiovascular: S1S2, regular Lungs: clear to auscultation bilaterally, clear to percussion Abdomen: soft, no tender, no distended Extremities: no cyanosis, no clubbing, no edema Neurological: awake, alert, oriented Skin: intact - Procedures Procedures: Procedures Procedure Code Date PERFORMANCE OF URINARY FILTRATION, <6 HRS/DAY [id number] 08/26/18 Infectious Disease Assmt/Plan - Assessment Assessment: 1. Leukocytosis, r/o sepsis. Worse. 2. HTN. 3. CKD 5 HD 4. asthma. 5. Obesity. 6. Anxiety d/o. - Plan Plan: Continue vanco IV and cefepime. CBC in am.
--- NOTE | 2018-08-27 13:10 | General Progress Note ---
Subjective - Review of Systems Service Date: 08/27/18 Events since last encounter: chart reviewed US for DVT right arm Objective - Results Result Diagrams: 08/27/18 06:25 08/27/18 06:25 Recent Labs: Laboratory Last Values WBC 18.3 Th/cmm (4.8-10.8) H 08/27/18 06:25 RBC 3.84 Mil/cmm (3.80-5.10) 08/27/18 06:25 Hgb 9.8 gm/dL (12-16) L 08/27/18 06:25 Hct 30.3 % (41.0-60) L 08/27/18 06:25 MCV 78.8 fl (81-100) L 08/27/18 06:25 MCH 25.4 pg (27.0-31.0) L 08/27/18 06:25 MCHC Differential 32.2 pg (28.0-36.0) 08/27/18 06:25 RDW 21.3 % (11.5-20.0) H 08/27/18 06:25 Plt Count 321 Th/cmm (150-400) 08/27/18 06:25 MPV 8.1 fl 08/27/18 06:25 Add Manual Diff YES 08/25/18 22:40 Neutrophils % 87.5 % (40.0-80.0) H 08/27/18 06:25 Band Neutrophils % 2 % (0-10) 08/27/18 06:25 Lymphocytes % 6.3 % (20.0-50.0) L 08/27/18 06:25 Monocytes % 5.9 % (2.0-10.0) 08/27/18 06:25 Eosinophils % 0.3 % (0.0-5.0) 08/27/18 06:25 Basophils % 0.0 % (0.0-2.0) 08/27/18 06:25 Neutrophils (Manual) 81 % (40-80) H 08/27/18 06:25 Lymphocytes 13 % (20-50) L 08/27/18 06:25 Monocytes 4 % (2-10) 08/27/18 06:25 Hypochromia 2+ 08/25/18 22:40 Platelet Estimate ADEQUATE (NORMAL) 08/25/18 22:40 Poikilocytosis 2+ 08/25/18 22:40 Anisocytosis 1+ 08/25/18 22:40 Tear Drop Cells 1+ 08/25/18 22:40 Ovalocytes 1+ 08/25/18 22:40 Schistocytes 1+ 08/25/18 22:40 Sodium 141 mEq/L (136-145) 08/27/18 06:25 Potassium 4.6 mEq/L (3.5-5.1) 08/27/18 06:25 Chloride 98 mEq/L (98-107) 08/27/18 06:25 Carbon Dioxide 26.4 mEq/L (21.0-31.0) 08/27/18 06:25 Anion Gap 21.2 (7.0-16.0) H 08/27/18 06:25 BUN 49 mg/dL (7-25) H 08/27/18 06:25 Creatinine 6.0 mg/dL (0.6-1.2) H* 08/27/18 06:25 Est GFR ( Amer) 9.5 ml/min (>90) 08/27/18 06:25 Est GFR (Non-Af Amer) 7.8 ml/min 08/27/18 06:25 BUN/Creatinine Ratio 8.2 08/27/18 06:25 Glucose 152 mg/dL (70-105) H 08/27/18 06:25 POC Glucose 169 MG/DL (70 - 105) H 08/25/18 22:41 Whole Bld Lactic Acid 1.82 mmol/L (0.60-1.99) 08/27/18 06:25 Calcium 8.2 mg/dL (8.6-10.3) L 08/27/18 06:25 Phosphorus 5.9 mg/dL (2.5-5.0) H 08/27/18 06:25 Magnesium 2.3 mg/dL (1.9-2.7) 08/27/18 06:25 Total Bilirubin 0.5 mg/dL (0.3-1.0) 08/25/18 22:40 AST 33 U/L (13-39) 08/25/18 22:40 ALT 33 U/L (7-52) 08/25/18 22:40 Alkaline Phosphatase 281 U/L (34-104) H 08/25/18 22:40 B-Natriuretic Peptide 543.0 pg/mL (5.0-100.0) H 08/26/18 06:00 Total Protein 7.1 gm/dL (6.0-8.3) 08/25/18 22:40 Albumin 4.4 gm/dL (3.7-5.3) 08/25/18 22:40 Globulin 2.7 gm/dL 08/25/18 22:40 Albumin/Globulin Ratio 1.6 (1.0-1.8) 08/25/18 22:40 Random Vancomycin 49.5 ug/mL (5.0-40.0) H 08/26/18 06:00 - Physical Exam Vitals and I&O: Vital Signs Temp 97.4 F 08/27/18 11:23 Pulse 70 08/27/18 11:23 Resp 19 08/27/18 11:23 BP 143/70 08/27/18 11:23 Pulse Ox 99 08/27/18 11:23 Intake & Output 08/26/18 08/27/18 08/27/18 18:59 06:59 18:59 Intake Total 300 Output Total 3000 Balance -2700 Weight (lbs) 106.594 kg 106.821 kg Intake: Oral 300 Output: Hemodialysis 3000 Other: # Bowel Movements 0 Weight Source Bedscale Bedscale Active Medications: Current Medications Acetaminophen (Tylenol Extra Strength) 500 mg PO TID [facility] Stop: 10/25/18 08:59 Last Admin: 08/27/18 09:39 Dose: Not Given Acetaminophen/Hydrocodone Bitart ([place] 5mg/325mg) 1 tab PO Q6H PRN PRN Reason: Pain (Moderate) Stop: 10/25/18 07:52 Last Admin: 08/26/18 14:35 Dose: 1 tab Albuterol Sulfate (Albuterol 2.5mg/3ml Neb Ud) 2.5 mg HHN Q4HRT [facility] Stop: 10/25/18 15:18 Last Admin: 08/27/18 10:59 Dose: 2.5 mg Albuterol/Ipratropium (Duoneb Neb) 3 ml HHN Q6HRT PRN PRN Reason: Respiratory Distress Stop: 10/25/18 18:59 Alprazolam (Xanax) 0.5 mg PO Q8HR PRN; Protocol PRN Reason: Anxiety Stop: 10/26/18 08:02 Atorvastatin Calcium (Lipitor) 10 mg PO HS [facility]; Protocol Stop: 10/25/18 20:59 Last Admin: 08/26/18 21:28 Dose: 10 mg [place] Oil/[place] Balsam/Trypsin (Venelex) 1 appl TP DAILY [facility] Stop: 10/25/18 14:59 Last Admin: 08/27/18 09:39 Dose: Not Given Cinacalcet (Sensipar) 30 mg PO DAILY [facility] Stop: 10/25/18 08:59 Last Admin: 08/27/18 09:39 Dose: Not Given Dicyclomine HCl (Bentyl) 10 mg PO TID [facility] Stop: 10/25/18 08:59 Last Admin: 08/27/18 09:40 Dose: Not Given Epoetin Mekhi (Epogen) 10,000 units SUBQ MWF@1500 [facility] Stop: 10/25/18 14:59 Last Admin: 08/26/18 18:09 Dose: 10,000 units Ferrous Sulfate (Iron) 325 mg PO DAILY [facility] Stop: 10/25/18 08:59 Last Admin: 08/27/18 09:40 Dose: Not Given Folic Acid (Folate) 1 mg PO DAILY [facility] Stop: 10/25/18 08:59 Last Admin: 08/27/18 09:40 Dose: Not Given Gabapentin (Neurontin) 200 mg PO TID [facility] Stop: 10/25/18 08:59 Last Admin: 08/27/18 09:40 Dose: Not Given Cefepime HCl 1 gm/ Sodium (Chloride) 50 mls @ 100 mls/hr IV Q24H [facility] Stop: 10/25/18 01:59 Last Admin: 08/27/18 02:18 Dose: 100 mls/hr Lisinopril (Zestril) 20 mg PO BID [facility] Stop: 10/25/18 08:59 Last Admin: 08/27/18 09:40 Dose: Not Given Miscellaneous (Vancomycin Iv Per Pharmacy) 1 ea MC PRN PRN PRN Reason: PROTOCOL Stop: 10/25/18 00:18 Montelukast Sodium (Singulair) 10 mg PO DAILY [facility] Stop: 10/25/18 08:59 Last Admin: 08/27/18 09:40 Dose: Not Given Nifedipine (Procardia Xl) 30 mg PO Q8H [facility] Stop: 10/25/18 07:59 Last Admin: 08/27/18 09:38 Dose: Not Given Pantoprazole Sodium (Protonix) 40 mg PO DAILY [facility] Stop: 10/25/18 08:59 Last Admin: 08/27/18 09:40 Dose: Not Given Prednisone (Deltasone) 20 mg PO BID [facility] Stop: 10/25/18 08:59 Last Admin: 08/27/18 09:40 Dose: Not Given Quetiapine Fumarate (Seroquel) 50 mg PO BID [facility]; Protocol Stop: 10/26/18 16:59 Sertraline HCl (Zoloft) 100 mg PO DAILY [facility] Stop: 10/25/18 08:59 Last Admin: 08/27/18 10:30 Dose: Not Given Sevelamer Carbonate (Renvela) 1,600 mg PO TID [facility] Stop: 10/25/18 08:59 Last Admin: 08/27/18 09:40 Dose: Not Given Vitamin B Complex/Vit C/Folic Acid (Vitamin B Complex W/Vitamin C) 1 tab PO DAILY [facility] Stop: 10/25/18 08:59 Last Admin: 08/27/18 09:41 Dose: Not Given General: Alert HEENT: Atraumatic Neck: Supple Cardiovascular: Regular rate Lungs: Clear to auscultation - Procedures Procedures: Procedures Procedure Code Date PERFORMANCE OF URINARY FILTRATION, <6 HRS/DAY [id number] 08/26/18
--- NOTE | 2018-08-27 13:24 | Internal Medicine Prog Note ---
Internal Medicine Subjective - Subjective Service Date: 08/27/18 Patient is:: asleep (but arousable), other (weak) Per staff patient has:: no adverse event Internal Medicine Objective - Results Result Diagrams: 08/27/18 06:25 08/27/18 06:25 Recent Labs: Laboratory Last Values WBC 18.3 Th/cmm (4.8-10.8) H 08/27/18 06:25 RBC 3.84 Mil/cmm (3.80-5.10) 08/27/18 06:25 Hgb 9.8 gm/dL (12-16) L 08/27/18 06:25 Hct 30.3 % (41.0-60) L 08/27/18 06:25 MCV 78.8 fl (81-100) L 08/27/18 06:25 MCH 25.4 pg (27.0-31.0) L 08/27/18 06:25 MCHC Differential 32.2 pg (28.0-36.0) 08/27/18 06:25 RDW 21.3 % (11.5-20.0) H 08/27/18 06:25 Plt Count 321 Th/cmm (150-400) 08/27/18 06:25 MPV 8.1 fl 08/27/18 06:25 Add Manual Diff YES 08/25/18 22:40 Neutrophils % 87.5 % (40.0-80.0) H 08/27/18 06:25 Band Neutrophils % 2 % (0-10) 08/27/18 06:25 Lymphocytes % 6.3 % (20.0-50.0) L 08/27/18 06:25 Monocytes % 5.9 % (2.0-10.0) 08/27/18 06:25 Eosinophils % 0.3 % (0.0-5.0) 08/27/18 06:25 Basophils % 0.0 % (0.0-2.0) 08/27/18 06:25 Neutrophils (Manual) 81 % (40-80) H 08/27/18 06:25 Lymphocytes 13 % (20-50) L 08/27/18 06:25 Monocytes 4 % (2-10) 08/27/18 06:25 Hypochromia 2+ 08/25/18 22:40 Platelet Estimate ADEQUATE (NORMAL) 08/25/18 22:40 Poikilocytosis 2+ 08/25/18 22:40 Anisocytosis 1+ 08/25/18 22:40 Tear Drop Cells 1+ 08/25/18 22:40 Ovalocytes 1+ 08/25/18 22:40 Schistocytes 1+ 08/25/18 22:40 Sodium 141 mEq/L (136-145) 08/27/18 06:25 Potassium 4.6 mEq/L (3.5-5.1) 08/27/18 06:25 Chloride 98 mEq/L (98-107) 08/27/18 06:25 Carbon Dioxide 26.4 mEq/L (21.0-31.0) 08/27/18 06:25 Anion Gap 21.2 (7.0-16.0) H 08/27/18 06:25 BUN 49 mg/dL (7-25) H 08/27/18 06:25 Creatinine 6.0 mg/dL (0.6-1.2) H* 08/27/18 06:25 Est GFR ( Amer) 9.5 ml/min (>90) 08/27/18 06:25 Est GFR (Non-Af Amer) 7.8 ml/min 08/27/18 06:25 BUN/Creatinine Ratio 8.2 08/27/18 06:25 Glucose 152 mg/dL (70-105) H 08/27/18 06:25 POC Glucose 169 MG/DL (70 - 105) H 08/25/18 22:41 Whole Bld Lactic Acid 1.82 mmol/L (0.60-1.99) 08/27/18 06:25 Calcium 8.2 mg/dL (8.6-10.3) L 08/27/18 06:25 Phosphorus 5.9 mg/dL (2.5-5.0) H 08/27/18 06:25 Magnesium 2.3 mg/dL (1.9-2.7) 08/27/18 06:25 Total Bilirubin 0.5 mg/dL (0.3-1.0) 08/25/18 22:40 AST 33 U/L (13-39) 08/25/18 22:40 ALT 33 U/L (7-52) 08/25/18 22:40 Alkaline Phosphatase 281 U/L (34-104) H 08/25/18 22:40 B-Natriuretic Peptide 543.0 pg/mL (5.0-100.0) H 08/26/18 06:00 Total Protein 7.1 gm/dL (6.0-8.3) 08/25/18 22:40 Albumin 4.4 gm/dL (3.7-5.3) 08/25/18 22:40 Globulin 2.7 gm/dL 08/25/18 22:40 Albumin/Globulin Ratio 1.6 (1.0-1.8) 08/25/18 22:40 Random Vancomycin 49.5 ug/mL (5.0-40.0) H 08/26/18 06:00 - Physical Exam Vitals and I&O: Vital Signs Temp 97.4 F 08/27/18 11:23 Pulse 70 08/27/18 11:23 Resp 19 08/27/18 11:23 BP 143/70 08/27/18 11:23 Pulse Ox 99 08/27/18 11:23 Intake & Output 08/26/18 08/27/18 08/27/18 18:59 06:59 18:59 Intake Total 300 Output Total 3000 Balance -2700 Weight (lbs) 235 lb 235 lb 8 oz Intake: Oral 300 Output: Hemodialysis 3000 Other: # Bowel Movements 0 Weight Source Bedscale Bedscale Active Medications: Current Medications Acetaminophen (Tylenol Extra Strength) 500 mg PO TID [facility] Stop: 10/25/18 08:59 Last Admin: 08/27/18 09:39 Dose: Not Given Acetaminophen/Hydrocodone Bitart ([place] 5mg/325mg) 1 tab PO Q6H PRN PRN Reason: Pain (Moderate) Stop: 10/25/18 07:52 Last Admin: 08/26/18 14:35 Dose: 1 tab Albuterol Sulfate (Albuterol 2.5mg/3ml Neb Ud) 2.5 mg HHN Q4HRT [facility] Stop: 10/25/18 15:18 Last Admin: 08/27/18 10:59 Dose: 2.5 mg Albuterol/Ipratropium (Duoneb Neb) 3 ml HHN Q6HRT PRN PRN Reason: Respiratory Distress Stop: 10/25/18 18:59 Alprazolam (Xanax) 0.5 mg PO Q8HR PRN; Protocol PRN Reason: Anxiety Stop: 10/26/18 08:02 Atorvastatin Calcium (Lipitor) 10 mg PO HS [facility]; Protocol Stop: 10/25/18 20:59 Last Admin: 08/26/18 21:28 Dose: 10 mg [place] Oil/[place] Balsam/Trypsin (Venelex) 1 appl TP DAILY [facility] Stop: 10/25/18 14:59 Last Admin: 08/27/18 09:39 Dose: Not Given Cinacalcet (Sensipar) 30 mg PO DAILY [facility] Stop: 10/25/18 08:59 Last Admin: 08/27/18 09:39 Dose: Not Given Dicyclomine HCl (Bentyl) 10 mg PO TID [facility] Stop: 10/25/18 08:59 Last Admin: 08/27/18 09:40 Dose: Not Given Epoetin Mekhi (Epogen) 10,000 units SUBQ MWF@1500 [facility] Stop: 10/25/18 14:59 Last Admin: 08/26/18 18:09 Dose: 10,000 units Ferrous Sulfate (Iron) 325 mg PO DAILY [facility] Stop: 10/25/18 08:59 Last Admin: 08/27/18 09:40 Dose: Not Given Folic Acid (Folate) 1 mg PO DAILY [facility] Stop: 10/25/18 08:59 Last Admin: 08/27/18 09:40 Dose: Not Given Gabapentin (Neurontin) 200 mg PO TID [facility] Stop: 10/25/18 08:59 Last Admin: 08/27/18 09:40 Dose: Not Given Cefepime HCl 1 gm/ Sodium (Chloride) 50 mls @ 100 mls/hr IV Q24H [facility] Stop: 10/25/18 01:59 Last Admin: 08/27/18 02:18 Dose: 100 mls/hr Lisinopril (Zestril) 20 mg PO BID [facility] Stop: 10/25/18 08:59 Last Admin: 08/27/18 09:40 Dose: Not Given Miscellaneous (Vancomycin Iv Per Pharmacy) 1 ea MC PRN PRN PRN Reason: PROTOCOL Stop: 10/25/18 00:18 Montelukast Sodium (Singulair) 10 mg PO DAILY [facility] Stop: 10/25/18 08:59 Last Admin: 08/27/18 09:40 Dose: Not Given Nifedipine (Procardia Xl) 30 mg PO Q8H [facility] Stop: 10/25/18 07:59 Last Admin: 08/27/18 09:38 Dose: Not Given Pantoprazole Sodium (Protonix) 40 mg PO DAILY [facility] Stop: 10/25/18 08:59 Last Admin: 08/27/18 09:40 Dose: Not Given Prednisone (Deltasone) 20 mg PO BID [facility] Stop: 10/25/18 08:59 Last Admin: 08/27/18 09:40 Dose: Not Given Quetiapine Fumarate (Seroquel) 50 mg PO BID [facility]; Protocol Stop: 10/26/18 16:59 Sertraline HCl (Zoloft) 100 mg PO DAILY [facility] Stop: 10/25/18 08:59 Last Admin: 08/27/18 10:30 Dose: Not Given Sevelamer Carbonate (Renvela) 1,600 mg PO TID [facility] Stop: 10/25/18 08:59 Last Admin: 08/27/18 09:40 Dose: Not Given Vitamin B Complex/Vit C/Folic Acid (Vitamin B Complex W/Vitamin C) 1 tab PO DAILY [facility] Stop: 10/25/18 08:59 Last Admin: 08/27/18 09:41 Dose: Not Given General: weak HEENT: NC/AT Neck: Supple Lungs: CTAB Cardiovascular: RRR, Normal S1, Normal S2 Abdomen: soft, non-tender, tender Extremities: excoriation - Procedures Procedures: Procedures Procedure Code Date PERFORMANCE OF URINARY FILTRATION, <6 HRS/DAY [id number] 08/26/18 Internal Medicine Assmt/Plan - Assessment Assessment: Leukocytosis possible sepsis HTN CKD ON HD asthma Anxiety - Plan Plan: u/s bilateral upper ext as ordered follow up labs in am ivabx as per id continue current plan of care
[2018-08-27] MEDS: Atorvastatin Calcium 10 MG TAB PO SCH ×2 (20:32→22:11)
[2018-08-28] MEDS: NIFEdipine 30 mg ER Tab PO SCH ×3 (00:28→15:21)
[2018-08-28] MEDS: Cefepime 1 GM in Sodium Chloride 0.9% 50 ML IV SCH (02:10)
[2018-08-28] MEDS: Albuterol Nebulizer 2.5mg/3mL HHN SCH ×6 (03:22→23:30)
[2018-08-28] MEDS: Pantoprazole 40 mg EC Tab PO SCH (09:11)
[2018-08-28] MEDS: Ferrous Sulfate 325 MG TAB PO SCH (09:11)
[2018-08-28] MEDS: Vitamin B Complex w/Vitamin C Tab PO SCH (09:12)
[2018-08-28] MEDS: Dicyclomine 10 mg Cap PO SCH ×3 (09:12→20:55)
[2018-08-28] MEDS: Acetaminophen 500 MG TAB PO SCH ×3 (09:13→22:25)
[2018-08-28] MEDS: Venelex 60gm Tube TP SCH (09:13)
--- NOTE | 2018-08-28 10:35 | General Progress Note ---
Subjective - Review of Systems Subjective: Resting comfortably, seen on dialysis Objective - Results Result Diagrams: 08/27/18 06:25 08/27/18 06:25 Recent Labs: Laboratory Last Values WBC 18.3 Th/cmm (4.8-10.8) H 08/27/18 06:25 RBC 3.84 Mil/cmm (3.80-5.10) 08/27/18 06:25 Hgb 9.8 gm/dL (12-16) L 08/27/18 06:25 Hct 30.3 % (41.0-60) L 08/27/18 06:25 MCV 78.8 fl (81-100) L 08/27/18 06:25 MCH 25.4 pg (27.0-31.0) L 08/27/18 06:25 MCHC Differential 32.2 pg (28.0-36.0) 08/27/18 06:25 RDW 21.3 % (11.5-20.0) H 08/27/18 06:25 Plt Count 321 Th/cmm (150-400) 08/27/18 06:25 MPV 8.1 fl 08/27/18 06:25 Add Manual Diff YES 08/25/18 22:40 Neutrophils % 87.5 % (40.0-80.0) H 08/27/18 06:25 Band Neutrophils % 2 % (0-10) 08/27/18 06:25 Lymphocytes % 6.3 % (20.0-50.0) L 08/27/18 06:25 Monocytes % 5.9 % (2.0-10.0) 08/27/18 06:25 Eosinophils % 0.3 % (0.0-5.0) 08/27/18 06:25 Basophils % 0.0 % (0.0-2.0) 08/27/18 06:25 Neutrophils (Manual) 81 % (40-80) H 08/27/18 06:25 Lymphocytes 13 % (20-50) L 08/27/18 06:25 Monocytes 4 % (2-10) 08/27/18 06:25 Hypochromia 2+ 08/25/18 22:40 Platelet Estimate ADEQUATE (NORMAL) 08/25/18 22:40 Poikilocytosis 2+ 08/25/18 22:40 Anisocytosis 1+ 08/25/18 22:40 Tear Drop Cells 1+ 08/25/18 22:40 Ovalocytes 1+ 08/25/18 22:40 Schistocytes 1+ 08/25/18 22:40 Sodium 141 mEq/L (136-145) 08/27/18 06:25 Potassium 4.6 mEq/L (3.5-5.1) 08/27/18 06:25 Chloride 98 mEq/L (98-107) 08/27/18 06:25 Carbon Dioxide 26.4 mEq/L (21.0-31.0) 08/27/18 06:25 Anion Gap 21.2 (7.0-16.0) H 08/27/18 06:25 BUN 49 mg/dL (7-25) H 08/27/18 06:25 Creatinine 6.0 mg/dL (0.6-1.2) H* 08/27/18 06:25 Est GFR ( Amer) 9.5 ml/min (>90) 08/27/18 06:25 Est GFR (Non-Af Amer) 7.8 ml/min 08/27/18 06:25 BUN/Creatinine Ratio 8.2 08/27/18 06:25 Glucose 152 mg/dL (70-105) H 08/27/18 06:25 POC Glucose 102 MG/DL (70 - 105) 08/27/18 16:32 Whole Bld Lactic Acid 1.82 mmol/L (0.60-1.99) 08/27/18 06:25 Calcium 8.2 mg/dL (8.6-10.3) L 08/27/18 06:25 Phosphorus 5.9 mg/dL (2.5-5.0) H 08/27/18 06:25 Magnesium 2.3 mg/dL (1.9-2.7) 08/27/18 06:25 Total Bilirubin 0.5 mg/dL (0.3-1.0) 08/25/18 22:40 AST 33 U/L (13-39) 08/25/18 22:40 ALT 33 U/L (7-52) 08/25/18 22:40 Alkaline Phosphatase 281 U/L (34-104) H 08/25/18 22:40 B-Natriuretic Peptide 543.0 pg/mL (5.0-100.0) H 08/26/18 06:00 Total Protein 7.1 gm/dL (6.0-8.3) 08/25/18 22:40 Albumin 4.4 gm/dL (3.7-5.3) 08/25/18 22:40 Globulin 2.7 gm/dL 08/25/18 22:40 Albumin/Globulin Ratio 1.6 (1.0-1.8) 08/25/18 22:40 Random Vancomycin 49.5 ug/mL (5.0-40.0) H 08/26/18 06:00 - Physical Exam Vitals and I&O: Vital Signs Temp 97.0 F 08/28/18 07:44 Pulse 74 08/28/18 09:27 Resp 20 08/28/18 08:00 BP 156/51 08/28/18 09:27 Pulse Ox 97 08/28/18 07:44 Intake & Output 08/27/18 08/28/18 08/28/18 18:59 06:59 18:59 Intake Total 100 50 Output Total 0 Balance 100 50 Weight (lbs) 106.821 kg 102.512 kg Intake: Intake, IV Amount 50 Cefepime 1 gm In Sodium 50 Chloride 0.9% 50 ml @ 100 mls/hr IV Q24H [facility] Rx#: [id number] Oral 100 Output: Urine 0 Other: # Voids 1 # Bowel Movements 0 Weight Source Bedscale Bedscale Active Medications: Current Medications Acetaminophen (Tylenol Extra Strength) 500 mg PO TID [facility] Stop: 10/25/18 08:59 Last Admin: 08/28/18 09:13 Dose: 500 mg Acetaminophen/Hydrocodone Bitart ([place] 5mg/325mg) 1 tab PO Q6H PRN PRN Reason: Pain (Moderate) Stop: 10/25/18 07:52 Last Admin: 08/26/18 14:35 Dose: 1 tab Albuterol Sulfate (Albuterol 2.5mg/3ml Neb Ud) 2.5 mg HHN Q4HRT [facility] Stop: 10/25/18 15:18 Last Admin: 08/28/18 06:38 Dose: 2.5 mg Albuterol/Ipratropium (Duoneb Neb) 3 ml HHN Q6HRT PRN PRN Reason: Respiratory Distress Stop: 10/25/18 18:59 Alprazolam (Xanax) 0.5 mg PO Q8HR PRN; Protocol PRN Reason: Anxiety Stop: 10/26/18 08:02 Last Admin: 08/28/18 09:31 Dose: 0.5 mg Atorvastatin Calcium (Lipitor) 10 mg PO HS [facility]; Protocol Stop: 10/25/18 20:59 Last Admin: 08/27/18 22:11 Dose: Not Given [place] Oil/[place] Balsam/Trypsin (Venelex) 1 appl TP DAILY [facility] Stop: 10/25/18 14:59 Last Admin: 08/28/18 09:13 Dose: 1 appl Cinacalcet (Sensipar) 30 mg PO DAILY [facility] Stop: 10/25/18 08:59 Last Admin: 08/28/18 09:11 Dose: 30 mg Dicyclomine HCl (Bentyl) 10 mg PO TID [facility] Stop: 10/25/18 08:59 Last Admin: 08/28/18 09:12 Dose: 10 mg Epoetin Mekhi (Epogen) 10,000 units SUBQ MWF@1500 [facility] Stop: 10/25/18 14:59 Last Admin: 08/26/18 18:09 Dose: 10,000 units Ferrous Sulfate (Iron) 325 mg PO DAILY [facility] Stop: 10/25/18 08:59 Last Admin: 08/28/18 09:11 Dose: 325 mg Folic Acid (Folate) 1 mg PO DAILY [facility] Stop: 10/25/18 08:59 Last Admin: 08/28/18 09:11 Dose: 1 mg Gabapentin (Neurontin) 200 mg PO TID [facility] Stop: 10/25/18 08:59 Last Admin: 08/28/18 09:12 Dose: 200 mg Cefepime HCl 1 gm/ Sodium (Chloride) 50 mls @ 100 mls/hr IV Q24H [facility] Stop: 10/25/18 01:59 Last Infusion: 08/28/18 02:40 Dose: Infused Lisinopril (Zestril) 20 mg PO BID [facility] Stop: 10/25/18 08:59 Last Admin: 08/28/18 09:27 Dose: Not Given Miscellaneous (Vancomycin Iv Per Pharmacy) 1 ea [facility] PRN PRN PRN Reason: PROTOCOL Stop: 10/25/18 00:18 Montelukast Sodium (Singulair) 10 mg PO DAILY [facility] Stop: 10/25/18 08:59 Last Admin: 08/28/18 09:12 Dose: 10 mg Nifedipine (Procardia Xl) 30 mg PO Q8H [facility] Stop: 10/25/18 07:59 Last Admin: 08/28/18 09:07 Dose: Not Given Pantoprazole Sodium (Protonix) 40 mg PO DAILY [facility] Stop: 10/25/18 08:59 Last Admin: 08/28/18 09:11 Dose: 40 mg Prednisone (Deltasone) 20 mg PO BID [facility] Stop: 10/25/18 08:59 Last Admin: 08/28/18 09:12 Dose: 20 mg Quetiapine Fumarate (Seroquel) 50 mg PO BID [facility]; Protocol Stop: 10/26/18 16:59 Last Admin: 08/28/18 09:11 Dose: 50 mg Sertraline HCl (Zoloft) 100 mg PO DAILY [facility] Stop: 10/25/18 08:59 Last Admin: 08/28/18 09:11 Dose: 100 mg Sevelamer Carbonate (Renvela) 1,600 mg PO TID [facility] Stop: 10/25/18 08:59 Last Admin: 08/28/18 09:11 Dose: 1,600 mg Vitamin B Complex/Vit C/Folic Acid (Vitamin B Complex W/Vitamin C) 1 tab PO DAILY [facility] Stop: 10/25/18 08:59 Last Admin: 08/28/18 09:12 Dose: 1 tab General: Alert HEENT: Atraumatic Neck: Supple Cardiovascular: Regular rate Lungs: Clear to auscultation - Procedures Procedures: Procedures Procedure Code Date PERFORMANCE OF URINARY FILTRATION, <6 HRS/DAY [id number] 08/26/18 Assessment/Plan - Assessment Assessment: ESRD on HD HTN Anemia secondary to ESRD HCAP DVT of UE - Plan Plan: HD today on MWF schedule f/u cx as indicated BP controlled on HD H&H in range, continue TISHA on cefepime, renal dosing anticoagulation as indicated for UE DVT Nutritional Asmnt/Malnutr-PDOC - Dietary Evaluation Malnutrition Findings (Please click <Entered> for more info): Nutritional Asmnt/Malnutrition Start: 08/27/18 16: 30 Text: Status: Complete Freq: Protocol: Document 08/27/18 16:30 LCHENG (Rec: 08/27/18 16:47 [email or web address] [id number]) Nutritional Asmnt/Malnutrition Patient General Information Nutritional Screening High Risk Diagnosis sepsis, ALOC, renal failure Pertinent Medical Hx/Surgical Hx HTN, ESRD on HD Subjective Information Pt seen sleeping soundly at time of visit. RD not tesfaye to interview pt. Pt nurse note, pt refused lunch but started to scream. Current Diet Order/ Nutrition Support renal Pertinent Medications iron, folate, protonix, seroquel, renvela, vit B complex w/vit C Pertinent Labs 08/27 BUN 49, Cr 6.0, glucose 152, Ca 8.2, Phos 5.9 08/26 K 5.6, Cl 96, BUN 83, Cr 8.4, glucose 117, Ca 8.9 Nutritional Hx/Data Height 1.65 m Height (Calculated Centimeters) 165.1 Current Weight (lbs) 106.594 kg Weight (Calculated Kilograms) 106.6 Weight (Calculated Grams) 116350.2 [place] Body Weight 125 Body Mass Index (BMI) 39.1 Weight Status Obese GI Symptoms GI Symptoms None Last BM none noted Difficult in: None Skin Integrity/Comment: bruise to left upper arm and lower abd, right chest incision reddened Estimated Nutritional Goals BEE in Kcals: Adj wt of IBW Calories/Kcals/Kg 27-32 Kcals Calculated [id number] Protein: Adj wt of IBW Protein g/k.2-1.3 Protein Calculated 83-89 Fluid: ml per MD Nutritional Problem 2. Problem Problem increased nutrition needs Etiology increased metabolic demand Signs/Symptoms: pt on HD 1. Problem Problem altered nutrition related labs Etiology hx of ESRD on HD, and DM Signs/Symptoms: BUN 49, Cr 6.0, glucose 152, Ca 8.2, Phos 5.9 Intervention/Recommendation Comments 1. Continue with Renal diet as ordered. Modify protein to 80gm d/t pt on HD. 2. Monitor PO intake, wt, labs and skin integrity 3. F/U as high risk in 2-3 days, 08/29-08/30 Expected Outcomes/Goals Expected Outcomes/Goals 1. PO intake to meet at least 75% of nutritional needs. 2. Wt stability, skin to remain intact, labs to approach WNL.
[2018-08-28 11:11] LABS: ANION GAP 21.7 (7.0-16.0); CALCIUM SERUM 8.1 mg/dL (8.6-10.3); CARBON DIOXIDE 27.2 mEq/L (21.0-31.0); GFR AFRICAN-AMERICAN 6.8 ml/min (>90); GFR NON AFRICAN-AMERICAN 5.6 ml/min; POTASSIUM SERUM 3.9 mEq/L (3.5-5.1)
--- NOTE | 2018-08-28 11:11 | Infectious Disease Prog Note ---
Infectious Disease Subjective - Review of Systems Service Date: 08/28/18 Subjective: NO fever. Infectious Disease Objective - Results Result Diagrams: 08/28/18 10:15 08/28/18 10:15 Recent Labs: Laboratory Last Values WBC 18.3 Th/cmm (4.8-10.8) H 08/27/18 06:25 RBC 3.84 Mil/cmm (3.80-5.10) 08/27/18 06:25 Hgb 9.8 gm/dL (12-16) L 08/27/18 06:25 Hct 30.3 % (41.0-60) L 08/27/18 06:25 MCV 78.8 fl (81-100) L 08/27/18 06:25 MCH 25.4 pg (27.0-31.0) L 08/27/18 06:25 MCHC Differential 32.2 pg (28.0-36.0) 08/27/18 06:25 RDW 21.3 % (11.5-20.0) H 08/27/18 06:25 Plt Count 321 Th/cmm (150-400) 08/27/18 06:25 MPV 8.1 fl 08/27/18 06:25 Add Manual Diff YES 08/25/18 22:40 Neutrophils % 87.5 % (40.0-80.0) H 08/27/18 06:25 Band Neutrophils % 2 % (0-10) 08/27/18 06:25 Lymphocytes % 6.3 % (20.0-50.0) L 08/27/18 06:25 Monocytes % 5.9 % (2.0-10.0) 08/27/18 06:25 Eosinophils % 0.3 % (0.0-5.0) 08/27/18 06:25 Basophils % 0.0 % (0.0-2.0) 08/27/18 06:25 Neutrophils (Manual) 81 % (40-80) H 08/27/18 06:25 Lymphocytes 13 % (20-50) L 08/27/18 06:25 Monocytes 4 % (2-10) 08/27/18 06:25 Hypochromia 2+ 08/25/18 22:40 Platelet Estimate ADEQUATE (NORMAL) 08/25/18 22:40 Poikilocytosis 2+ 08/25/18 22:40 Anisocytosis 1+ 08/25/18 22:40 Tear Drop Cells 1+ 08/25/18 22:40 Ovalocytes 1+ 08/25/18 22:40 Schistocytes 1+ 08/25/18 22:40 Sodium 141 mEq/L (136-145) 08/27/18 06:25 Potassium 4.6 mEq/L (3.5-5.1) 08/27/18 06:25 Chloride 98 mEq/L (98-107) 08/27/18 06:25 Carbon Dioxide 26.4 mEq/L (21.0-31.0) 08/27/18 06:25 Anion Gap 21.2 (7.0-16.0) H 08/27/18 06:25 BUN 49 mg/dL (7-25) H 08/27/18 06:25 Creatinine 6.0 mg/dL (0.6-1.2) H* 08/27/18 06:25 Est GFR ( Amer) 9.5 ml/min (>90) 08/27/18 06:25 Est GFR (Non-Af Amer) 7.8 ml/min 08/27/18 06:25 BUN/Creatinine Ratio 8.2 08/27/18 06:25 Glucose 152 mg/dL (70-105) H 08/27/18 06:25 POC Glucose 102 MG/DL (70 - 105) 08/27/18 16:32 Whole Bld Lactic Acid 1.82 mmol/L (0.60-1.99) 08/27/18 06:25 Calcium 8.2 mg/dL (8.6-10.3) L 08/27/18 06:25 Phosphorus 5.9 mg/dL (2.5-5.0) H 08/27/18 06:25 Magnesium 2.3 mg/dL (1.9-2.7) 08/27/18 06:25 Total Bilirubin 0.5 mg/dL (0.3-1.0) 08/25/18 22:40 AST 33 U/L (13-39) 08/25/18 22:40 ALT 33 U/L (7-52) 08/25/18 22:40 Alkaline Phosphatase 281 U/L (34-104) H 08/25/18 22:40 B-Natriuretic Peptide 543.0 pg/mL (5.0-100.0) H 08/26/18 06:00 Total Protein 7.1 gm/dL (6.0-8.3) 08/25/18 22:40 Albumin 4.4 gm/dL (3.7-5.3) 08/25/18 22:40 Globulin 2.7 gm/dL 08/25/18 22:40 Albumin/Globulin Ratio 1.6 (1.0-1.8) 08/25/18 22:40 Random Vancomycin 49.5 ug/mL (5.0-40.0) H 08/26/18 06:00 - Physical Exam Vitals and I&O: Vital Signs Temp 97.0 F 08/28/18 07:44 Pulse 74 08/28/18 09:27 Resp 20 08/28/18 08:00 BP 156/51 08/28/18 09:27 Pulse Ox 97 08/28/18 07:44 Intake & Output 08/27/18 08/28/18 08/28/18 18:59 06:59 18:59 Intake Total 100 50 Output Total 0 Balance 100 50 Weight (lbs) 106.821 kg 102.512 kg Intake: Intake, IV Amount 50 Cefepime 1 gm In Sodium 50 Chloride 0.9% 50 ml @ 100 mls/hr IV Q24H [facility] Rx#: [id number] Oral 100 Output: Urine 0 Other: # Voids 1 # Bowel Movements 0 Weight Source Bedscale Bedscale Active Medications: Current Medications Acetaminophen (Tylenol Extra Strength) 500 mg PO TID [facility] Stop: 10/25/18 08:59 Last Admin: 08/28/18 09:13 Dose: 500 mg Acetaminophen/Hydrocodone Bitart ([place] 5mg/325mg) 1 tab PO Q6H PRN PRN Reason: Pain (Moderate) Stop: 10/25/18 07:52 Last Admin: 08/26/18 14:35 Dose: 1 tab Albuterol Sulfate (Albuterol 2.5mg/3ml Neb Ud) 2.5 mg HHN Q4HRT [facility] Stop: 10/25/18 15:18 Last Admin: 08/28/18 06:38 Dose: 2.5 mg Albuterol/Ipratropium (Duoneb Neb) 3 ml HHN Q6HRT PRN PRN Reason: Respiratory Distress Stop: 10/25/18 18:59 Alprazolam (Xanax) 0.5 mg PO Q8HR PRN; Protocol PRN Reason: Anxiety Stop: 10/26/18 08:02 Last Admin: 08/28/18 09:31 Dose: 0.5 mg Atorvastatin Calcium (Lipitor) 10 mg PO HS [facility]; Protocol Stop: 10/25/18 20:59 Last Admin: 08/27/18 22:11 Dose: Not Given [place] Oil/[place] Balsam/Trypsin (Venelex) 1 appl TP DAILY [facility] Stop: 10/25/18 14:59 Last Admin: 08/28/18 09:13 Dose: 1 appl Cinacalcet (Sensipar) 30 mg PO DAILY [facility] Stop: 10/25/18 08:59 Last Admin: 08/28/18 09:11 Dose: 30 mg Dicyclomine HCl (Bentyl) 10 mg PO TID [facility] Stop: 10/25/18 08:59 Last Admin: 08/28/18 09:12 Dose: 10 mg Epoetin Mekhi (Epogen) 10,000 units SUBQ MWF@1500 [facility] Stop: 10/25/18 14:59 Last Admin: 08/26/18 18:09 Dose: 10,000 units Ferrous Sulfate (Iron) 325 mg PO DAILY [facility] Stop: 10/25/18 08:59 Last Admin: 08/28/18 09:11 Dose: 325 mg Folic Acid (Folate) 1 mg PO DAILY [facility] Stop: 10/25/18 08:59 Last Admin: 08/28/18 09:11 Dose: 1 mg Gabapentin (Neurontin) 200 mg PO TID [facility] Stop: 10/25/18 08:59 Last Admin: 08/28/18 09:12 Dose: 200 mg Heparin Sodium (Porcine) (Heparin Sodium) 10,000 units HD X1 ONE Stop: 08/28/18 11:01 Cefepime HCl 1 gm/ Sodium (Chloride) 50 mls @ 100 mls/hr IV Q24H [facility] Stop: 10/25/18 01:59 Last Infusion: 08/28/18 02:40 Dose: Infused Lisinopril (Zestril) 20 mg PO BID [facility] Stop: 10/25/18 08:59 Last Admin: 08/28/18 09:27 Dose: Not Given Miscellaneous (Vancomycin Iv Per Pharmacy) 1 ea PRN PRN PRN Reason: PROTOCOL Stop: 10/25/18 00:18 Montelukast Sodium (Singulair) 10 mg PO DAILY [facility] Stop: 10/25/18 08:59 Last Admin: 08/28/18 09:12 Dose: 10 mg Nifedipine (Procardia Xl) 30 mg PO Q8H [facility] Stop: 10/25/18 07:59 Last Admin: 08/28/18 09:07 Dose: Not Given Pantoprazole Sodium (Protonix) 40 mg PO DAILY [facility] Stop: 10/25/18 08:59 Last Admin: 08/28/18 09:11 Dose: 40 mg Prednisone (Deltasone) 20 mg PO BID [facility] Stop: 10/25/18 08:59 Last Admin: 08/28/18 09:12 Dose: 20 mg Quetiapine Fumarate (Seroquel) 50 mg PO BID [facility]; Protocol Stop: 10/26/18 16:59 Last Admin: 08/28/18 09:11 Dose: 50 mg Sertraline HCl (Zoloft) 100 mg PO DAILY [facility] Stop: 10/25/18 08:59 Last Admin: 08/28/18 09:11 Dose: 100 mg Sevelamer Carbonate (Renvela) 1,600 mg PO TID [facility] Stop: 10/25/18 08:59 Last Admin: 08/28/18 09:11 Dose: 1,600 mg Vitamin B Complex/Vit C/Folic Acid (Vitamin B Complex W/Vitamin C) 1 tab PO DAILY [facility] Stop: 10/25/18 08:59 Last Admin: 08/28/18 09:12 Dose: 1 tab General: no acute distress, well developed, well nourished HEENT: atraumatic, normocephalic, PERRLA, EOMI Neck: supple, no thyromegaly Cardiovascular: S1S2, regular Lungs: clear to auscultation bilaterally, clear to percussion Abdomen: soft, no tender, no distended, no mass Extremities: no cyanosis, no clubbing, no edema Neurological: awake, alert, oriented Skin: intact - Procedures Procedures: Procedures Procedure Code Date PERFORMANCE OF URINARY FILTRATION, <6 HRS/DAY [id number] 08/26/18 Infectious Disease Assmt/Plan - Assessment Assessment: 1. Leukocytosis, r/o sepsis. sable. 2. HTN. 3. CKD 5 HD 4. asthma. 5. Obesity. 6. Anxiety d/o. - Plan Plan: Continue vanco IV and cefepime. CBC in am. Nutritional Asmnt/Malnutr-PDOC - Dietary Evaluation Malnutrition Findings (Please click <Entered> for more info): Nutritional Asmnt/Malnutrition Start: 08/27/18 16: 30 Text: Status: Complete Freq: Protocol: Document 08/27/18 16:30 LCHENG (Rec: 08/27/18 16:47 [email or web address] [email or web address]) Nutritional Asmnt/Malnutrition Patient General Information Nutritional Screening High Risk Diagnosis sepsis, ALOC, renal failure Pertinent Medical Hx/Surgical Hx HTN, ESRD on HD Subjective Information Pt seen sleeping soundly at time of visit. RD not tesfaye to interview pt. Pt nurse note, pt refused lunch but started to scream. Current Diet Order/ Nutrition Support renal Pertinent Medications iron, folate, protonix, seroquel, renvela, vit B complex w/vit C Pertinent Labs 08/27 BUN 49, Cr 6.0, glucose 152, Ca 8.2, Phos 5.9 08/26 K 5.6, Cl 96, BUN 83, Cr 8.4, glucose 117, Ca 8.9 Nutritional Hx/Data Height 1.65 m Height (Calculated Centimeters) 165.1 Current Weight (lbs) 106.594 kg Weight (Calculated Kilograms) 106.6 Weight (Calculated Grams) 816237.2 [place] Body Weight 125 Body Mass Index (BMI) 39.1 Weight Status Obese GI Symptoms GI Symptoms None Last BM none noted Difficult in: None Skin Integrity/Comment: bruise to left upper arm and lower abd, right chest incision reddened Estimated Nutritional Goals BEE in Kcals: Adj wt of IBW Calories/Kcals/Kg 27-32 Kcals Calculated 1086-2299 Protein: Adj wt of IBW Protein g/k.2-1.3 Protein Calculated 83-89 Fluid: ml per MD Nutritional Problem 2. Problem Problem increased nutrition needs Etiology increased metabolic demand Signs/Symptoms: pt on HD 1. Problem Problem altered nutrition related labs Etiology hx of ESRD on HD, and DM Signs/Symptoms: BUN 49, Cr 6.0, glucose 152, Ca 8.2, Phos 5.9 Intervention/Recommendation Comments 1. Continue with Renal diet as ordered. Modify protein to 80gm d/t pt on HD. 2. Monitor PO intake, wt, labs and skin integrity 3. F/U as high risk in 2-3 days, 08/29-08/30 Expected Outcomes/Goals Expected Outcomes/Goals 1. PO intake to meet at least 75% of nutritional needs. 2. Wt stability, skin to remain intact, labs to approach WNL.
--- NOTE | 2018-08-28 11:39 | Internal Medicine Prog Note ---
Internal Medicine Subjective - Subjective Patient seen and examined:: chart reviewed Patient is:: awake, other (weak) Per staff patient has:: no adverse event Internal Medicine Objective - Results Result Diagrams: 08/27/18 06:25 08/28/18 10:15 Recent Labs: Laboratory Last Values WBC 18.3 Th/cmm (4.8-10.8) H 08/27/18 06:25 RBC 3.84 Mil/cmm (3.80-5.10) 08/27/18 06:25 Hgb 9.8 gm/dL (12-16) L 08/27/18 06:25 Hct 30.3 % (41.0-60) L 08/27/18 06:25 MCV 78.8 fl (81-100) L 08/27/18 06:25 MCH 25.4 pg (27.0-31.0) L 08/27/18 06:25 MCHC Differential 32.2 pg (28.0-36.0) 08/27/18 06:25 RDW 21.3 % (11.5-20.0) H 08/27/18 06:25 Plt Count 321 Th/cmm (150-400) 08/27/18 06:25 MPV 8.1 fl 08/27/18 06:25 Add Manual Diff YES 08/25/18 22:40 Neutrophils % 87.5 % (40.0-80.0) H 08/27/18 06:25 Band Neutrophils % 2 % (0-10) 08/27/18 06:25 Lymphocytes % 6.3 % (20.0-50.0) L 08/27/18 06:25 Monocytes % 5.9 % (2.0-10.0) 08/27/18 06:25 Eosinophils % 0.3 % (0.0-5.0) 08/27/18 06:25 Basophils % 0.0 % (0.0-2.0) 08/27/18 06:25 Neutrophils (Manual) 81 % (40-80) H 08/27/18 06:25 Lymphocytes 13 % (20-50) L 08/27/18 06:25 Monocytes 4 % (2-10) 08/27/18 06:25 Hypochromia 2+ 08/25/18 22:40 Platelet Estimate ADEQUATE (NORMAL) 08/25/18 22:40 Poikilocytosis 2+ 08/25/18 22:40 Anisocytosis 1+ 08/25/18 22:40 Tear Drop Cells 1+ 08/25/18 22:40 Ovalocytes 1+ 08/25/18 22:40 Schistocytes 1+ 08/25/18 22:40 Sodium 144 mEq/L (136-145) 08/28/18 10:15 Potassium 3.9 mEq/L (3.5-5.1) 08/28/18 10:15 Chloride 99 mEq/L (98-107) 08/28/18 10:15 Carbon Dioxide 27.2 mEq/L (21.0-31.0) 08/28/18 10:15 Anion Gap 21.7 (7.0-16.0) H 08/28/18 10:15 BUN 65 mg/dL (7-25) H 08/28/18 10:15 Creatinine 8.0 mg/dL (0.6-1.2) H* 08/28/18 10:15 Est GFR ( Amer) 6.8 ml/min (>90) 08/28/18 10:15 Est GFR (Non-Af Amer) 5.6 ml/min 08/28/18 10:15 BUN/Creatinine Ratio 8.1 08/28/18 10:15 Glucose 122 mg/dL (70-105) H 08/28/18 10:15 POC Glucose 102 MG/DL (70 - 105) 08/27/18 16:32 Whole Bld Lactic Acid 1.82 mmol/L (0.60-1.99) 08/27/18 06:25 Calcium 8.1 mg/dL (8.6-10.3) L 08/28/18 10:15 Phosphorus 5.9 mg/dL (2.5-5.0) H 08/27/18 06:25 Magnesium 2.3 mg/dL (1.9-2.7) 08/27/18 06:25 Total Bilirubin 0.5 mg/dL (0.3-1.0) 08/25/18 22:40 AST 33 U/L (13-39) 08/25/18 22:40 ALT 33 U/L (7-52) 08/25/18 22:40 Alkaline Phosphatase 281 U/L (34-104) H 08/25/18 22:40 B-Natriuretic Peptide 543.0 pg/mL (5.0-100.0) H 08/26/18 06:00 Total Protein 7.1 gm/dL (6.0-8.3) 08/25/18 22:40 Albumin 4.4 gm/dL (3.7-5.3) 08/25/18 22:40 Globulin 2.7 gm/dL 08/25/18 22:40 Albumin/Globulin Ratio 1.6 (1.0-1.8) 08/25/18 22:40 Random Vancomycin 23.4 ug/mL (5.0-40.0) 08/28/18 10:15 - Physical Exam Vitals and I&O: Vital Signs Temp 97.0 F 08/28/18 07:44 Pulse 80 08/28/18 11:21 Resp 18 08/28/18 11:21 BP 156/51 08/28/18 09:27 Pulse Ox 97 08/28/18 11:21 Intake & Output 08/27/18 08/28/18 08/28/18 18:59 06:59 18:59 Intake Total 100 50 Output Total 0 Balance 100 50 Weight (lbs) 106.821 kg 102.512 kg Intake: Intake, IV Amount 50 Cefepime 1 gm In Sodium 50 Chloride 0.9% 50 ml @ 100 mls/hr IV Q24H [facility] Rx#: [id number] Oral 100 Output: Urine 0 Other: # Voids 1 # Bowel Movements 0 Weight Source Bedscale Bedscale Active Medications: Current Medications Acetaminophen (Tylenol Extra Strength) 500 mg PO TID [facility] Stop: 10/25/18 08:59 Last Admin: 08/28/18 09:13 Dose: 500 mg Acetaminophen/Hydrocodone Bitart ([place] 5mg/325mg) 1 tab PO Q6H PRN PRN Reason: Pain (Moderate) Stop: 10/25/18 07:52 Last Admin: 08/26/18 14:35 Dose: 1 tab Albuterol Sulfate (Albuterol 2.5mg/3ml Neb Ud) 2.5 mg HHN Q4HRT [facility] Stop: 10/25/18 15:18 Last Admin: 08/28/18 11:21 Dose: 2.5 mg Albuterol/Ipratropium (Duoneb Neb) 3 ml HHN Q6HRT PRN PRN Reason: Respiratory Distress Stop: 10/25/18 18:59 Alprazolam (Xanax) 0.5 mg PO Q8HR PRN; Protocol PRN Reason: Anxiety Stop: 10/26/18 08:02 Last Admin: 08/28/18 09:31 Dose: 0.5 mg Atorvastatin Calcium (Lipitor) 10 mg PO HS [facility]; Protocol Stop: 10/25/18 20:59 Last Admin: 08/27/18 22:11 Dose: Not Given [place] Oil/[place] Balsam/Trypsin (Venelex) 1 appl TP DAILY [facility] Stop: 10/25/18 14:59 Last Admin: 08/28/18 09:13 Dose: 1 appl Cinacalcet (Sensipar) 30 mg PO DAILY [facility] Stop: 10/25/18 08:59 Last Admin: 08/28/18 09:11 Dose: 30 mg Dicyclomine HCl (Bentyl) 10 mg PO TID [facility] Stop: 10/25/18 08:59 Last Admin: 08/28/18 09:12 Dose: 10 mg Epoetin Mekhi (Epogen) 10,000 units SUBQ MWF@1500 [facility] Stop: 10/25/18 14:59 Last Admin: 08/26/18 18:09 Dose: 10,000 units Ferrous Sulfate (Iron) 325 mg PO DAILY [facility] Stop: 10/25/18 08:59 Last Admin: 08/28/18 09:11 Dose: 325 mg Folic Acid (Folate) 1 mg PO DAILY [facility] Stop: 10/25/18 08:59 Last Admin: 08/28/18 09:11 Dose: 1 mg Gabapentin (Neurontin) 200 mg PO TID [facility] Stop: 10/25/18 08:59 Last Admin: 08/28/18 09:12 Dose: 200 mg Cefepime HCl 1 gm/ Sodium (Chloride) 50 mls @ 100 mls/hr IV Q24H [facility] Stop: 10/25/18 01:59 Last Infusion: 08/28/18 02:40 Dose: Infused Lisinopril (Zestril) 20 mg PO BID [facility] Stop: 10/25/18 08:59 Last Admin: 08/28/18 09:27 Dose: Not Given Miscellaneous (Vancomycin Iv Per Pharmacy) 1 ea [facility] PRN PRN PRN Reason: PROTOCOL Stop: 10/25/18 00:18 Montelukast Sodium (Singulair) 10 mg PO DAILY [facility] Stop: 10/25/18 08:59 Last Admin: 08/28/18 09:12 Dose: 10 mg Nifedipine (Procardia Xl) 30 mg PO Q8H [facility] Stop: 10/25/18 07:59 Last Admin: 08/28/18 09:07 Dose: Not Given Pantoprazole Sodium (Protonix) 40 mg PO DAILY [facility] Stop: 10/25/18 08:59 Last Admin: 08/28/18 09:11 Dose: 40 mg Prednisone (Deltasone) 20 mg PO BID [facility] Stop: 10/25/18 08:59 Last Admin: 08/28/18 09:12 Dose: 20 mg Quetiapine Fumarate (Seroquel) 50 mg PO BID [facility]; Protocol Stop: 10/26/18 16:59 Last Admin: 08/28/18 09:11 Dose: 50 mg Sertraline HCl (Zoloft) 100 mg PO DAILY [facility] Stop: 10/25/18 08:59 Last Admin: 08/28/18 09:11 Dose: 100 mg Sevelamer Carbonate (Renvela) 1,600 mg PO TID [facility] Stop: 10/25/18 08:59 Last Admin: 08/28/18 09:11 Dose: 1,600 mg Vitamin B Complex/Vit C/Folic Acid (Vitamin B Complex W/Vitamin C) 1 tab PO DAILY [facility] Stop: 10/25/18 08:59 Last Admin: 08/28/18 09:12 Dose: 1 tab General: weak HEENT: NC/AT Neck: Supple Lungs: CTAB Cardiovascular: RRR, Normal S1, Normal S2 Abdomen: soft, non-tender, tender Extremities: excoriation - Procedures Procedures: Procedures Procedure Code Date PERFORMANCE OF URINARY FILTRATION, <6 HRS/DAY [id number] 08/26/18 Internal Medicine Assmt/Plan - Assessment Assessment: left upper arm pain, swelling cellulitis altered mental status - Plan Plan: as per order sheet Nutritional Asmnt/Malnutr-PDOC - Dietary Evaluation Malnutrition Findings (Please click <Entered> for more info): Nutritional Asmnt/Malnutrition Start: 08/27/18 16: 30 Text: Status: Complete Freq: Protocol: Document 08/27/18 16:30 LCHENG (Rec: 08/27/18 16:47 LCHENG [email or web address]) Nutritional Asmnt/Malnutrition Patient General Information Nutritional Screening High Risk Diagnosis sepsis, ALOC, renal failure Pertinent Medical Hx/Surgical Hx HTN, ESRD on HD Subjective Information Pt seen sleeping soundly at time of visit. RD not tesfaye to interview pt. Pt nurse note, pt refused lunch but started to scream. Current Diet Order/ Nutrition Support renal Pertinent Medications iron, folate, protonix, seroquel, renvela, vit B complex w/vit C Pertinent Labs 08/27 BUN 49, Cr 6.0, glucose 152, Ca 8.2, Phos 5.9 08/26 K 5.6, Cl 96, BUN 83, Cr 8.4, glucose 117, Ca 8.9 Nutritional Hx/Data Height 1.65 m Height (Calculated Centimeters) 165.1 Current Weight (lbs) 106.594 kg Weight (Calculated Kilograms) 106.6 Weight (Calculated Grams) 450214.2 [place] Body Weight 125 Body Mass Index (BMI) 39.1 Weight Status Obese GI Symptoms GI Symptoms None Last BM none noted Difficult in: None Skin Integrity/Comment: bruise to left upper arm and lower abd, right chest incision reddened Estimated Nutritional Goals BEE in Kcals: Adj wt of IBW Calories/Kcals/Kg 27-32 Kcals Calculated 8816-0481 Protein: Adj wt of IBW Protein g/k.2-1.3 Protein Calculated 83-89 Fluid: ml per MD Nutritional Problem 2. Problem Problem increased nutrition needs Etiology increased metabolic demand Signs/Symptoms: pt on HD 1. Problem Problem altered nutrition related labs Etiology hx of ESRD on HD, and DM Signs/Symptoms: BUN 49, Cr 6.0, glucose 152, Ca 8.2, Phos 5.9 Intervention/Recommendation Comments 1. Continue with Renal diet as ordered. Modify protein to 80gm d/t pt on HD. 2. Monitor PO intake, wt, labs and skin integrity 3. F/U as high risk in 2-3 days, 08/29-08/30 Expected Outcomes/Goals Expected Outcomes/Goals 1. PO intake to meet at least 75% of nutritional needs. 2. Wt stability, skin to remain intact, labs to approach WNL.
[2018-08-28 11:48] LABS: HEMATOCRIT 28.1 % (41.0-60); HEMOGLOBIN 9.1 gm/dL (12-16); MEAN CELL VOLUME 78.5 fl (81-100); MEAN CORPUSCULAR HEMOGLOBIN 25.3 pg (27.0-31.0); MEAN CORPUSCULAR HGB CONC 32.2 pg (28.0-36.0); MEAN PLATELET VOLUME 8.5 fl; PLATELET COUNT 285 Th/cmm (150-400); RED BLOOD COUNT 3.58 Mil/cmm (3.80-5.10); RED CELL DISTRIBUTION WIDTH 21.4 % (11.5-20.0)
[2018-08-28 11:50] LABS: WHITE BLOOD COUNT 15.5 Th/cmm (4.8-10.8)
[2018-08-28 12:13] LABS: BAND NEUTROPHILE 0 % (0-10); LYMPHOCYTE 10 % (20-50); MONOCYTE 3 % (2-10); NEUTROPHILS 87 % (40-80)
[2018-08-28 13:40] LABS: BAND NEUTROPHILE 1 % (0-10); LYMPHOCYTE 4 % (20-50); MONOCYTE 5 % (2-10); NEUTROPHILS 90 % (40-80)
--- NOTE | 2018-08-28 14:05 | Diagnostic Imaging Report ---
Right upper extremity DVT study HISTORY: Pain COMPARISON: None Technique: Longitudinal and transverse sonographic images of the right upper extremity veins were obtained with doppler analysis. FINDINGS: Exam is limited due to overlying wrapping material. There is nonvisualization of the right brachial, basilic, and cephalic veins. There is patency of the jugular, subclavian, and axillary veins with augmentation demonstrated. Compressibility was also demonstrated. No evidence of DVT formation within these veins. Right upper extremity subcutaneous edema is noted. IMPRESSION: No evidence of thrombus in the right jugular, subclavian, or axillary veins. The remaining veins of right upper extremity were not able to be evaluated due to overlying wrapping material. Subcutaneous edema noted.
[2018-08-28] MEDS: Epoetin Alfa 20000 Units/mL Vial SUBQ SCH (15:22)
[2018-08-28] MEDS ORDERED: Vancomycin HCl 1.5 GM in Sodium Chloride 0.9% 500 ML IV ONE (16:00)
--- NOTE | 2018-08-28 16:28 | General Progress Note ---
Subjective - Review of Systems Service Date: 08/27/18 Events since last encounter: no DVT or right arm open wound left axilla is granulating well for the most part continue local wound treatment, Gautam left subclavian Objective - Results Result Diagrams: 08/28/18 10:15 08/28/18 10:15 Recent Labs: Laboratory Last Values WBC 15.5 Th/cmm (4.8-10.8) H 08/28/18 10:15 RBC 3.58 Mil/cmm (3.80-5.10) L 08/28/18 10:15 Hgb 9.1 gm/dL (12-16) L 08/28/18 10:15 Hct 28.1 % (41.0-60) L 08/28/18 10:15 MCV 78.5 fl (81-100) L 08/28/18 10:15 MCH 25.3 pg (27.0-31.0) L 08/28/18 10:15 MCHC Differential 32.2 pg (28.0-36.0) 08/28/18 10:15 RDW 21.4 % (11.5-20.0) H 08/28/18 10:15 Plt Count 285 Th/cmm (150-400) 08/28/18 10:15 MPV 8.5 fl 08/28/18 10:15 Add Manual Diff YES 08/28/18 10:15 Neutrophils % [employer] 08/28/18 10:15 Band Neutrophils % 1 % (0-10) 08/28/18 10:15 Lymphocytes % [employer] SCI[employer] TE[employer]ER 08/28/18 10:15 Monocytes % [employer] SCI[employer] TE[employer]ER 08/28/18 10:15 Eosinophils % [employer] SCI[employer] TE[employer]ER 08/28/18 10:15 Basophils % [employer] SCIENCE TE[employer]ER 08/28/18 10:15 Neutrophils (Manual) 90 % (40-80) H 08/28/18 10:15 Lymphocytes 4 % (20-50) L 08/28/18 10:15 Monocytes 5 % (2-10) 08/28/18 10:15 Hypochromia 2+ 08/25/18 22:40 Platelet Estimate ADEQUATE (NORMAL) 08/25/18 22:40 Poikilocytosis 2+ 08/25/18 22:40 Anisocytosis 1+ 08/25/18 22:40 Tear Drop Cells 1+ 08/25/18 22:40 Ovalocytes 1+ 08/25/18 22:40 Schistocytes 1+ 08/25/18 22:40 Sodium 144 mEq/L (136-145) 08/28/18 10:15 Potassium 3.9 mEq/L (3.5-5.1) 08/28/18 10:15 Chloride 99 mEq/L (98-107) 08/28/18 10:15 Carbon Dioxide 27.2 mEq/L (21.0-31.0) 08/28/18 10:15 Anion Gap 21.7 (7.0-16.0) H 08/28/18 10:15 BUN 65 mg/dL (7-25) H 08/28/18 10:15 Creatinine 8.0 mg/dL (0.6-1.2) H* 08/28/18 10:15 Est GFR ( Amer) 6.8 ml/min (>90) 08/28/18 10:15 Est GFR (Non-Af Amer) 5.6 ml/min 08/28/18 10:15 BUN/Creatinine Ratio 8.1 08/28/18 10:15 Glucose 122 mg/dL (70-105) H 08/28/18 10:15 POC Glucose 155 MG/DL (70 - 105) H 08/28/18 11:44 Whole Bld Lactic Acid 1.82 mmol/L (0.60-1.99) 08/27/18 06:25 Calcium 8.1 mg/dL (8.6-10.3) L 08/28/18 10:15 Phosphorus 5.9 mg/dL (2.5-5.0) H 08/27/18 06:25 Magnesium 2.3 mg/dL (1.9-2.7) 08/27/18 06:25 Total Bilirubin 0.5 mg/dL (0.3-1.0) 08/25/18 22:40 AST 33 U/L (13-39) 08/25/18 22:40 ALT 33 U/L (7-52) 08/25/18 22:40 Alkaline Phosphatase 281 U/L (34-104) H 08/25/18 22:40 B-Natriuretic Peptide 543.0 pg/mL (5.0-100.0) H 08/26/18 06:00 Total Protein 7.1 gm/dL (6.0-8.3) 08/25/18 22:40 Albumin 4.4 gm/dL (3.7-5.3) 08/25/18 22:40 Globulin 2.7 gm/dL 08/25/18 22:40 Albumin/Globulin Ratio 1.6 (1.0-1.8) 08/25/18 22:40 Random Vancomycin 23.4 ug/mL (5.0-40.0) 08/28/18 10:15 - Physical Exam Vitals and I&O: Vital Signs Temp 97.8 F 08/28/18 11:49 Pulse 75 08/28/18 15:21 Resp 18 08/28/18 14:02 BP 143/65 08/28/18 15:21 Pulse Ox 97 08/28/18 14:02 Intake & Output 08/27/18 08/28/18 08/28/18 18:59 06:59 18:59 Intake Total 100 50 Output Total 0 Balance 100 50 Weight (lbs) 106.821 kg 102.512 kg Intake: Intake, IV Amount 50 Cefepime 1 gm In Sodium 50 Chloride 0.9% 50 ml @ 100 mls/hr IV Q24H [facility] Rx#: [id number] Oral 100 Output: Urine 0 Other: # Voids 1 # Bowel Movements 0 Weight Source Bedscale Bedscale Active Medications: Current Medications Acetaminophen (Tylenol Extra Strength) 500 mg PO TID [facility] Stop: 10/25/18 08:59 Last Admin: 08/28/18 14:52 Dose: 500 mg Acetaminophen/Hydrocodone Bitart ([place] 5mg/325mg) 1 tab PO Q6H PRN PRN Reason: Pain (Moderate) Stop: 10/25/18 07:52 Last Admin: 08/26/18 14:35 Dose: 1 tab Albuterol Sulfate (Albuterol 2.5mg/3ml Neb Ud) 2.5 mg HHN Q4HRT [facility] Stop: 10/25/18 15:18 Last Admin: 08/28/18 14:02 Dose: 2.5 mg Albuterol/Ipratropium (Duoneb Neb) 3 ml HHN Q6HRT PRN PRN Reason: Respiratory Distress Stop: 10/25/18 18:59 Alprazolam (Xanax) 0.5 mg PO Q8HR PRN; Protocol PRN Reason: Anxiety Stop: 10/26/18 08:02 Last Admin: 08/28/18 09:31 Dose: 0.5 mg Atorvastatin Calcium (Lipitor) 10 mg PO HS [facility]; Protocol Stop: 10/25/18 20:59 Last Admin: 08/27/18 22:11 Dose: Not Given [place] Oil/Greek Balsam/Trypsin (Venelex) 1 appl TP DAILY [facility] Stop: 10/25/18 14:59 Last Admin: 08/28/18 09:13 Dose: 1 appl Cinacalcet (Sensipar) 30 mg PO DAILY [facility] Stop: 10/25/18 08:59 Last Admin: 08/28/18 09:11 Dose: 30 mg Dicyclomine HCl (Bentyl) 10 mg PO TID [facility] Stop: 10/25/18 08:59 Last Admin: 08/28/18 14:59 Dose: 10 mg Epoetin Mekhi (Epogen) 10,000 units SUBQ MWF@1500 [facility] Stop: 10/25/18 14:59 Last Admin: 08/28/18 15:22 Dose: 10,000 units Ferrous Sulfate (Iron) 325 mg PO DAILY [facility] Stop: 10/25/18 08:59 Last Admin: 08/28/18 09:11 Dose: 325 mg Folic Acid (Folate) 1 mg PO DAILY [facility] Stop: 10/25/18 08:59 Last Admin: 08/28/18 09:11 Dose: 1 mg Gabapentin (Neurontin) 200 mg PO TID [facility] Stop: 10/25/18 08:59 Last Admin: 08/28/18 14:59 Dose: 200 mg Cefepime HCl 1 gm/ Sodium (Chloride) 50 mls @ 100 mls/hr IV Q24H [facility] Stop: 10/25/18 01:59 Last Infusion: 08/28/18 02:40 Dose: Infused Vancomycin HCl 1.5 gm/ Sodium (Chloride) 500 mls @ 250 mls/hr IV ONCE ONE Stop: 08/28/18 17:59 Lisinopril (Zestril) 20 mg PO BID [facility] Stop: 10/25/18 08:59 Last Admin: 08/28/18 09:27 Dose: Not Given Miscellaneous (Vancomycin Iv Per Pharmacy) 1 [facility] PRN PRN PRN Reason: PROTOCOL Stop: 10/25/18 00:18 Montelukast Sodium (Singulair) 10 mg PO DAILY [facility] Stop: 10/25/18 08:59 Last Admin: 08/28/18 09:12 Dose: 10 mg Nifedipine (Procardia Xl) 30 mg PO Q8H [facility] Stop: 10/25/18 07:59 Last Admin: 08/28/18 15:21 Dose: Not Given Pantoprazole Sodium (Protonix) 40 mg PO DAILY [facility] Stop: 10/25/18 08:59 Last Admin: 08/28/18 09:11 Dose: 40 mg Prednisone (Deltasone) 20 mg PO BID [facility] Stop: 10/25/18 08:59 Last Admin: 08/28/18 09:12 Dose: 20 mg Quetiapine Fumarate (Seroquel) 50 mg PO BID [facility]; Protocol Stop: 10/26/18 16:59 Last Admin: 08/28/18 09:11 Dose: 50 mg Sertraline HCl (Zoloft) 100 mg PO DAILY [facility] Stop: 10/25/18 08:59 Last Admin: 08/28/18 09:11 Dose: 100 mg Sevelamer Carbonate (Renvela) 1,600 mg PO TID [facility] Stop: 10/25/18 08:59 Last Admin: 08/28/18 14:52 Dose: 1,600 mg Vitamin B Complex/Vit C/Folic Acid (Vitamin B Complex W/Vitamin C) 1 tab PO DAILY [facility] Stop: 10/25/18 08:59 Last Admin: 08/28/18 09:12 Dose: 1 tab General: Alert HEENT: Atraumatic Neck: Supple Cardiovascular: Regular rate Lungs: Clear to auscultation - Procedures Procedures: Procedures Procedure Code Date PERFORMANCE OF URINARY FILTRATION, <6 HRS/DAY [id number] 08/26/18 Nutritional Asmnt/Malnutr-PDOC - Dietary Evaluation Malnutrition Findings (Please click <Entered> for more info): Nutritional Asmnt/Malnutrition Start: 08/27/18 16: 30 Text: Status: Complete Freq: Protocol: Document 08/27/18 16:30 LCHENG (Rec: 08/27/18 16:47 [email or web address]) Nutritional Asmnt/Malnutrition Patient General Information Nutritional Screening High Risk Diagnosis sepsis, ALOC, renal failure Pertinent Medical Hx/Surgical Hx HTN, ESRD on HD Subjective Information Pt seen sleeping soundly at time of visit. RD not tesfaye to interview pt. Pt nurse note, pt refused lunch but started to scream. Current Diet Order/ Nutrition Support renal Pertinent Medications iron, folate, protonix, seroquel, renvela, vit B complex w/vit C Pertinent Labs 08/27 BUN 49, Cr 6.0, glucose 152, Ca 8.2, Phos 5.9 08/26 K 5.6, Cl 96, BUN 83, Cr 8.4, glucose 117, Ca 8.9 Nutritional Hx/Data Height 1.65 m Height (Calculated Centimeters) 165.1 Current Weight (lbs) 106.594 kg Weight (Calculated Kilograms) 106.6 Weight (Calculated Grams) 700999.2 [place] Body Weight 125 Body Mass Index (BMI) 39.1 Weight Status Obese GI Symptoms GI Symptoms None Last BM none noted Difficult in: None Skin Integrity/Comment: bruise to left upper arm and lower abd, right chest incision reddened Estimated Nutritional Goals BEE in Kcals: Adj wt of IBW Calories/Kcals/Kg 27-32 Kcals Calculated [id number] Protein: Adj wt of IBW Protein g/k.2-1.3 Protein Calculated 83-89 Fluid: ml per MD Nutritional Problem 2. Problem Problem increased nutrition needs Etiology increased metabolic demand Signs/Symptoms: pt on HD 1. Problem Problem altered nutrition related labs Etiology hx of ESRD on HD, and DM Signs/Symptoms: BUN 49, Cr 6.0, glucose 152, Ca 8.2, Phos 5.9 Intervention/Recommendation Comments 1. Continue with Renal diet as ordered. Modify protein to 80gm d/t pt on HD. 2. Monitor PO intake, wt, labs and skin integrity 3. F/U as high risk in 2-3 days, 08/29-08/30 Expected Outcomes/Goals Expected Outcomes/Goals 1. PO intake to meet at least 75% of nutritional needs. 2. Wt stability, skin to remain intact, labs to approach WNL.
--- NOTE | 2018-08-28 16:32 | General Progress Note ---
Subjective - Review of Systems Service Date: 08/27/18 Events since last encounter: check patency of veins left arm for possible fistula or shunt Objective - Results Result Diagrams: 08/28/18 10:15 08/28/18 10:15 Recent Labs: Laboratory Last Values WBC 15.5 Th/cmm (4.8-10.8) H 08/28/18 10:15 RBC 3.58 Mil/cmm (3.80-5.10) L 08/28/18 10:15 Hgb 9.1 gm/dL (12-16) L 08/28/18 10:15 Hct 28.1 % (41.0-60) L 08/28/18 10:15 MCV 78.5 fl (81-100) L 08/28/18 10:15 MCH 25.3 pg (27.0-31.0) L 08/28/18 10:15 MCHC Differential 32.2 pg (28.0-36.0) 08/28/18 10:15 RDW 21.4 % (11.5-20.0) H 08/28/18 10:15 Plt Count 285 Th/cmm (150-400) 08/28/18 10:15 MPV 8.5 fl 08/28/18 10:15 Add Manual Diff YES 08/28/18 10:15 Neutrophils % SHOCHET 08/28/18 10:15 Band Neutrophils % 1 % (0-10) 08/28/18 10:15 Lymphocytes % SHOCHET 08/28/18 10:15 Monocytes % SHOCHET 08/28/18 10:15 Eosinophils % SHOCHET 08/28/18 10:15 Basophils % SHOCHET 08/28/18 10:15 Neutrophils (Manual) 90 % (40-80) H 08/28/18 10:15 Lymphocytes 4 % (20-50) L 08/28/18 10:15 Monocytes 5 % (2-10) 08/28/18 10:15 Hypochromia 2+ 08/25/18 22:40 Platelet Estimate ADEQUATE (NORMAL) 08/25/18 22:40 Poikilocytosis 2+ 08/25/18 22:40 Anisocytosis 1+ 08/25/18 22:40 Tear Drop Cells 1+ 08/25/18 22:40 Ovalocytes 1+ 08/25/18 22:40 Schistocytes 1+ 08/25/18 22:40 Sodium 144 mEq/L (136-145) 08/28/18 10:15 Potassium 3.9 mEq/L (3.5-5.1) 08/28/18 10:15 Chloride 99 mEq/L (98-107) 08/28/18 10:15 Carbon Dioxide 27.2 mEq/L (21.0-31.0) 08/28/18 10:15 Anion Gap 21.7 (7.0-16.0) H 08/28/18 10:15 BUN 65 mg/dL (7-25) H 08/28/18 10:15 Creatinine 8.0 mg/dL (0.6-1.2) H* 08/28/18 10:15 Est GFR ( Amer) 6.8 ml/min (>90) 08/28/18 10:15 Est GFR (Non-Af Amer) 5.6 ml/min 08/28/18 10:15 BUN/Creatinine Ratio 8.1 08/28/18 10:15 Glucose 122 mg/dL (70-105) H 08/28/18 10:15 POC Glucose 155 MG/DL (70 - 105) H 08/28/18 11:44 Whole Bld Lactic Acid 1.82 mmol/L (0.60-1.99) 08/27/18 06:25 Calcium 8.1 mg/dL (8.6-10.3) L 08/28/18 10:15 Phosphorus 5.9 mg/dL (2.5-5.0) H 08/27/18 06:25 Magnesium 2.3 mg/dL (1.9-2.7) 08/27/18 06:25 Total Bilirubin 0.5 mg/dL (0.3-1.0) 08/25/18 22:40 AST 33 U/L (13-39) 08/25/18 22:40 ALT 33 U/L (7-52) 08/25/18 22:40 Alkaline Phosphatase 281 U/L (34-104) H 08/25/18 22:40 B-Natriuretic Peptide 543.0 pg/mL (5.0-100.0) H 08/26/18 06:00 Total Protein 7.1 gm/dL (6.0-8.3) 08/25/18 22:40 Albumin 4.4 gm/dL (3.7-5.3) 08/25/18 22:40 Globulin 2.7 gm/dL 08/25/18 22:40 Albumin/Globulin Ratio 1.6 (1.0-1.8) 08/25/18 22:40 Random Vancomycin 23.4 ug/mL (5.0-40.0) 08/28/18 10:15 - Physical Exam Vitals and I&O: Vital Signs Temp 97.8 F 08/28/18 11:49 Pulse 75 08/28/18 15:21 Resp 18 08/28/18 14:02 BP 143/65 08/28/18 15:21 Pulse Ox 97 08/28/18 14:02 Intake & Output 08/27/18 08/28/18 08/28/18 18:59 06:59 18:59 Intake Total 100 50 Output Total 0 Balance 100 50 Weight (lbs) 106.821 kg 102.512 kg Intake: Intake, IV Amount 50 Cefepime 1 gm In Sodium 50 Chloride 0.9% 50 ml @ 100 mls/hr IV Q24H [facility] Rx#: [id number] Oral 100 Output: Urine 0 Other: # Voids 1 # Bowel Movements 0 Weight Source Bedscale Bedscale Active Medications: Current Medications Acetaminophen (Tylenol Extra Strength) 500 mg PO TID [facility] Stop: 10/25/18 08:59 Last Admin: 08/28/18 14:52 Dose: 500 mg Acetaminophen/Hydrocodone Bitart ([place] 5mg/325mg) 1 tab PO Q6H PRN PRN Reason: Pain (Moderate) Stop: 10/25/18 07:52 Last Admin: 08/26/18 14:35 Dose: 1 tab Albuterol Sulfate (Albuterol 2.5mg/3ml Neb Ud) 2.5 mg HHN Q4HRT [facility] Stop: 10/25/18 15:18 Last Admin: 08/28/18 14:02 Dose: 2.5 mg Albuterol/Ipratropium (Duoneb Neb) 3 ml HHN Q6HRT PRN PRN Reason: Respiratory Distress Stop: 10/25/18 18:59 Alprazolam (Xanax) 0.5 mg PO Q8HR PRN; Protocol PRN Reason: Anxiety Stop: 10/26/18 08:02 Last Admin: 08/28/18 09:31 Dose: 0.5 mg Atorvastatin Calcium (Lipitor) 10 mg PO HS [facility]; Protocol Stop: 10/25/18 20:59 Last Admin: 08/27/18 22:11 Dose: Not Given [place] Oil/[place] Balsam/Trypsin (Venelex) 1 appl TP DAILY [facility] Stop: 10/25/18 14:59 Last Admin: 08/28/18 09:13 Dose: 1 appl Cinacalcet (Sensipar) 30 mg PO DAILY [facility] Stop: 10/25/18 08:59 Last Admin: 08/28/18 09:11 Dose: 30 mg Dicyclomine HCl (Bentyl) 10 mg PO TID [facility] Stop: 10/25/18 08:59 Last Admin: 08/28/18 14:59 Dose: 10 mg Epoetin Mekhi (Epogen) 10,000 units SUBQ MWF@1500 [facility] Stop: 10/25/18 14:59 Last Admin: 08/28/18 15:22 Dose: 10,000 units Ferrous Sulfate (Iron) 325 mg PO DAILY [facility] Stop: 10/25/18 08:59 Last Admin: 08/28/18 09:11 Dose: 325 mg Folic Acid (Folate) 1 mg PO DAILY [facility] Stop: 10/25/18 08:59 Last Admin: 08/28/18 09:11 Dose: 1 mg Gabapentin (Neurontin) 200 mg PO TID [facility] Stop: 10/25/18 08:59 Last Admin: 08/28/18 14:59 Dose: 200 mg Cefepime HCl 1 gm/ Sodium (Chloride) 50 mls @ 100 mls/hr IV Q24H [facility] Stop: 10/25/18 01:59 Last Infusion: 08/28/18 02:40 Dose: Infused Vancomycin HCl 1.5 gm/ Sodium (Chloride) 500 mls @ 250 mls/hr IV ONCE ONE Stop: 08/28/18 17:59 Lisinopril (Zestril) 20 mg PO BID [facility] Stop: 10/25/18 08:59 Last Admin: 08/28/18 09:27 Dose: Not Given Miscellaneous (Vancomycin Iv Per Pharmacy) 1 [facility] PRN PRN PRN Reason: PROTOCOL Stop: 10/25/18 00:18 Montelukast Sodium (Singulair) 10 mg PO DAILY [facility] Stop: 10/25/18 08:59 Last Admin: 08/28/18 09:12 Dose: 10 mg Nifedipine (Procardia Xl) 30 mg PO Q8H [facility] Stop: 10/25/18 07:59 Last Admin: 08/28/18 15:21 Dose: Not Given Pantoprazole Sodium (Protonix) 40 mg PO DAILY [facility] Stop: 10/25/18 08:59 Last Admin: 08/28/18 09:11 Dose: 40 mg Prednisone (Deltasone) 20 mg PO BID [facility] Stop: 10/25/18 08:59 Last Admin: 08/28/18 09:12 Dose: 20 mg Quetiapine Fumarate (Seroquel) 50 mg PO BID [facility]; Protocol Stop: 10/26/18 16:59 Last Admin: 08/28/18 09:11 Dose: 50 mg Sertraline HCl (Zoloft) 100 mg PO DAILY [facility] Stop: 10/25/18 08:59 Last Admin: 08/28/18 09:11 Dose: 100 mg Sevelamer Carbonate (Renvela) 1,600 mg PO TID [facility] Stop: 10/25/18 08:59 Last Admin: 08/28/18 14:52 Dose: 1,600 mg Vitamin B Complex/Vit C/Folic Acid (Vitamin B Complex W/Vitamin C) 1 tab PO DAILY [facility] Stop: 10/25/18 08:59 Last Admin: 08/28/18 09:12 Dose: 1 tab General: Alert HEENT: Atraumatic Neck: Supple Cardiovascular: Regular rate Lungs: Clear to auscultation - Procedures Procedures: Procedures Procedure Code Date PERFORMANCE OF URINARY FILTRATION, <6 HRS/DAY [id number] 08/26/18 Nutritional Asmnt/Malnutr-PDOC - Dietary Evaluation Malnutrition Findings (Please click <Entered> for more info): Nutritional Asmnt/Malnutrition Start: 08/27/18 16: 30 Text: Status: Complete Freq: Protocol: Document 08/27/18 16:30 LCHENG (Rec: 08/27/18 16:47 [email or web address]) Nutritional Asmnt/Malnutrition Patient General Information Nutritional Screening High Risk Diagnosis sepsis, ALOC, renal failure Pertinent Medical Hx/Surgical Hx HTN, ESRD on HD Subjective Information Pt seen sleeping soundly at time of visit. RD not tesfaye to interview pt. Pt nurse note, pt refused lunch but started to scream. Current Diet Order/ Nutrition Support renal Pertinent Medications iron, folate, protonix, seroquel, renvela, vit B complex w/vit C Pertinent Labs 08/27 BUN 49, Cr 6.0, glucose 152, Ca 8.2, Phos 5.9 08/26 K 5.6, Cl 96, BUN 83, Cr 8.4, glucose 117, Ca 8.9 Nutritional Hx/Data Height 1.65 m Height (Calculated Centimeters) 165.1 Current Weight (lbs) 106.594 kg Weight (Calculated Kilograms) 106.6 Weight (Calculated Grams) 233083.2 [place] Body Weight 125 Body Mass Index (BMI) 39.1 Weight Status Obese GI Symptoms GI Symptoms None Last BM none noted Difficult in: None Skin Integrity/Comment: bruise to left upper arm and lower abd, right chest incision reddened Estimated Nutritional Goals BEE in Kcals: Adj wt of IBW Calories/Kcals/Kg 27-32 Kcals Calculated 6431-9023 Protein: Adj wt of IBW Protein g/k.2-1.3 Protein Calculated 83-89 Fluid: ml per MD Nutritional Problem 2. Problem Problem increased nutrition needs Etiology increased metabolic demand Signs/Symptoms: pt on HD 1. Problem Problem altered nutrition related labs Etiology hx of ESRD on HD, and DM Signs/Symptoms: BUN 49, Cr 6.0, glucose 152, Ca 8.2, Phos 5.9 Intervention/Recommendation Comments 1. Continue with Renal diet as ordered. Modify protein to 80gm d/t pt on HD. 2. Monitor PO intake, wt, labs and skin integrity 3. F/U as high risk in 2-3 days, 08/29-08/30 Expected Outcomes/Goals Expected Outcomes/Goals 1. PO intake to meet at least 75% of nutritional needs. 2. Wt stability, skin to remain intact, labs to approach WNL.
[2018-08-28] MEDS: Atorvastatin Calcium 10 MG TAB PO SCH (20:57)
[2018-08-29] MEDS: NIFEdipine 30 mg ER Tab PO SCH ×3 (00:11→16:21)
[2018-08-29] MEDS: Cefepime 1 GM in Sodium Chloride 0.9% 50 ML IV SCH (02:02)
[2018-08-29] MEDS: Albuterol Nebulizer 2.5mg/3mL HHN SCH ×6 (02:17→23:59)
[2018-08-29 06:51] LABS: HEMATOCRIT 30.5 % (41.0-60); HEMOGLOBIN 9.5 gm/dL (12-16); INR 1.37 (0.5-1.4); LYMPHOCYTE ABSOLUTE 0.5 Th/cmm (1.5-3.0); MEAN CELL VOLUME 79.2 fl (81-100); MEAN CORPUSCULAR HEMOGLOBIN 24.8 pg (27.0-31.0); MEAN CORPUSCULAR HGB CONC 31.3 pg (28.0-36.0); MEAN PLATELET VOLUME 8.2 fl; MONOCYTE ABSOLUTE 0.5 Th/cmm (0.3-1.0); NEUTROPHILE ABSOLUTE 11.9 Th/cmm (1.8-8.0); PLATELET COUNT 270 Th/cmm (150-400); RED BLOOD COUNT 3.85 Mil/cmm (3.80-5.10); WHITE BLOOD COUNT 12.9 Th/cmm (4.8-10.8)
[2018-08-29 07:03] LABS: ANION GAP 19.8 (7.0-16.0); CALCIUM SERUM 8.3 mg/dL (8.6-10.3); CARBON DIOXIDE 24.7 mEq/L (21.0-31.0); GFR AFRICAN-AMERICAN 8.6 ml/min (>90); GFR NON AFRICAN-AMERICAN 7.1 ml/min; POTASSIUM SERUM 4.5 mEq/L (3.5-5.1)
[2018-08-29 07:20] LABS: CREATININE - SERUM 6.5 mg/dL (0.6-1.2)
[2018-08-29 07:46] LABS: LYMPHOCYTE 4 % (20-50); MONOCYTE 4 % (2-10); NEUTROPHILS 92 % (40-80)
--- NOTE | 2018-08-29 08:42 | Diagnostic Imaging Report ---
Left upper extremity arterial Doppler study HISTORY: Pain assess patency for possible fistula of the left arm COMPARISON: None Technique: Longitudinal and transverse sonographic images of the left upper extremity arteries were obtained with doppler analysis. FINDINGS: Due to patient's dialysis catheter, the left subclavian artery was not able to be well evaluated. There is patency of the left axillary, brachial, radial, and ulnar arteries. Note is made of biphasic waveforms in the left radial artery. IMPRESSION: Patency of the left axillary, brachial, radial, and ulnar arteries. The left subclavian artery was not able to be imaged due to patient's hemodialysis catheter in this region. Biphasic waveforms in the left radial artery which may signify mild atherosclerotic vascular disease.
--- NOTE | 2018-08-29 09:57 | General Progress Note ---
Subjective - Review of Systems Service Date: 08/29/18 Events since last encounter: patient unable to sign consent friend has no POA need 2 MDs to sign consent Objective - Results Result Diagrams: 08/29/18 05:50 08/29/18 05:50 Recent Labs: Laboratory Last Values WBC 12.9 Th/cmm (4.8-10.8) H 08/29/18 05:50 RBC 3.85 Mil/cmm (3.80-5.10) 08/29/18 05:50 Hgb 9.5 gm/dL (12-16) L 08/29/18 05:50 Hct 30.5 % (41.0-60) L 08/29/18 05:50 MCV 79.2 fl (81-100) L 08/29/18 05:50 MCH 24.8 pg (27.0-31.0) L 08/29/18 05:50 MCHC Differential 31.3 pg (28.0-36.0) 08/29/18 05:50 RDW 21.0 % (11.5-20.0) H 08/29/18 05:50 Plt Count 270 Th/cmm (150-400) 08/29/18 05:50 MPV 8.2 fl 08/29/18 05:50 Add Manual Diff YES 08/29/18 05:50 Neutrophils % [employer]Y [employer] 08/28/18 10:15 Band Neutrophils % 1 % (0-10) 08/28/18 10:15 Lymphocytes % [employer] 08/28/18 10:15 Monocytes % [employer]IVER 08/28/18 10:15 Eosinophils % [employer]Y [employer]IVER 08/28/18 10:15 Basophils % [employer]IVER 08/28/18 10:15 Neutrophils (Manual) 92 % (40-80) H 08/29/18 05:50 Lymphocytes 4 % (20-50) L 08/29/18 05:50 Monocytes 4 % (2-10) 08/29/18 05:50 Hypochromia 2+ 08/25/18 22:40 Platelet Estimate ADEQUATE (NORMAL) 08/25/18 22:40 Poikilocytosis 2+ 08/25/18 22:40 Anisocytosis 1+ 08/25/18 22:40 Tear Drop Cells 1+ 08/25/18 22:40 Ovalocytes 1+ 08/25/18 22:40 Schistocytes 1+ 08/25/18 22:40 PT 14.0 SECONDS (9.5-11.5) H 08/29/18 05:50 INR 1.37 (0.5-1.4) 08/29/18 05:50 PTT (Actin FS) 28.3 SECONDS (26.0-38.0) 08/29/18 05:50 Sodium 143 mEq/L (136-145) 08/29/18 05:50 Potassium 4.5 mEq/L (3.5-5.1) 08/29/18 05:50 Chloride 103 mEq/L (98-107) 08/29/18 05:50 Carbon Dioxide 24.7 mEq/L (21.0-31.0) 08/29/18 05:50 Anion Gap 19.8 (7.0-16.0) H 08/29/18 05:50 BUN 46 mg/dL (7-25) H 08/29/18 05:50 Creatinine 6.5 mg/dL (0.6-1.2) H* 08/29/18 05:50 Est GFR ( Amer) 8.6 ml/min (>90) 08/29/18 05:50 Est GFR (Non-Af Amer) 7.1 ml/min 08/29/18 05:50 BUN/Creatinine Ratio 7.1 08/29/18 05:50 Glucose 141 mg/dL (70-105) H 08/29/18 05:50 POC Glucose 136 MG/DL (70 - 105) H 08/29/18 06:51 Whole Bld Lactic Acid 1.82 mmol/L (0.60-1.99) 08/27/18 06:25 Calcium 8.3 mg/dL (8.6-10.3) L 08/29/18 05:50 Phosphorus 5.9 mg/dL (2.5-5.0) H 08/27/18 06:25 Magnesium 2.3 mg/dL (1.9-2.7) 08/27/18 06:25 Total Bilirubin 0.5 mg/dL (0.3-1.0) 08/25/18 22:40 AST 33 U/L (13-39) 08/25/18 22:40 ALT 33 U/L (7-52) 08/25/18 22:40 Alkaline Phosphatase 281 U/L (34-104) H 08/25/18 22:40 B-Natriuretic Peptide 543.0 pg/mL (5.0-100.0) H 08/26/18 06:00 Total Protein 7.1 gm/dL (6.0-8.3) 08/25/18 22:40 Albumin 4.4 gm/dL (3.7-5.3) 08/25/18 22:40 Globulin 2.7 gm/dL 08/25/18 22:40 Albumin/Globulin Ratio 1.6 (1.0-1.8) 08/25/18 22:40 Random Vancomycin 23.4 ug/mL (5.0-40.0) 08/28/18 10:15 - Physical Exam Vitals and I&O: Vital Signs Temp 97.9 F 08/29/18 08:02 Pulse 78 08/29/18 08:02 Resp 20 08/29/18 08:02 BP 137/68 08/29/18 08:02 Pulse Ox 100 08/29/18 08:02 Intake & Output 08/28/18 08/29/18 08/29/18 18:59 06:59 18:59 Intake Total 800 170 Balance 800 170 Weight (lbs) 102.512 kg 102.512 kg Intake: Intake, IV Amount 500 50 Cefepime 1 gm In Sodium 50 Chloride 0.9% 50 ml @ 100 mls/hr IV Q24H [facility] Rx#: [id number] Vancomycin HCl 1.5 gm In 500 Sodium Chloride 0.9% 500 ml @ 250 mls/hr IV ONCE ONE Rx#:[id number] Oral 300 120 Other: # Voids 1 1 # Bowel Movements 0 Weight Source Bedscale Bedscale Active Medications: Current Medications Acetaminophen (Tylenol Extra Strength) 500 mg PO TID [facility] Stop: 10/25/18 08:59 Last Admin: 08/28/18 22:25 Dose: Not Given Acetaminophen/Hydrocodone Bitart ([place] 5mg/325mg) 1 tab PO Q6H PRN PRN Reason: Pain (Moderate) Stop: 10/25/18 07:52 Last Admin: 08/26/18 14:35 Dose: 1 tab Albuterol Sulfate (Albuterol 2.5mg/3ml Neb Ud) 2.5 mg HHN Q4HRT [facility] Stop: 10/25/18 15:18 Last Admin: 08/29/18 06:52 Dose: 2.5 mg Albuterol/Ipratropium (Duoneb Neb) 3 ml HHN Q6HRT PRN PRN Reason: Respiratory Distress Stop: 10/25/18 18:59 Alprazolam (Xanax) 0.5 mg PO Q8HR PRN; Protocol PRN Reason: Anxiety Stop: 10/26/18 08:02 Last Admin: 08/28/18 09:31 Dose: 0.5 mg Atorvastatin Calcium (Lipitor) 10 mg PO HS [facility]; Protocol Stop: 10/25/18 20:59 Last Admin: 08/28/18 20:57 Dose: Not Given [place] Oil/[place] Balsam/Trypsin (Venelex) 1 appl TP DAILY [facility] Stop: 10/25/18 14:59 Last Admin: 08/28/18 09:13 Dose: 1 appl Cinacalcet (Sensipar) 30 mg PO DAILY [facility] Stop: 10/25/18 08:59 Last Admin: 08/28/18 09:11 Dose: 30 mg Dicyclomine HCl (Bentyl) 10 mg PO TID [facility] Stop: 10/25/18 08:59 Last Admin: 08/28/18 20:55 Dose: Not Given Epoetin Mekhi (Epogen) 10,000 units SUBQ MWF@1500 [facility] Stop: 10/25/18 14:59 Last Admin: 08/28/18 15:22 Dose: 10,000 units Ferrous Sulfate (Iron) 325 mg PO DAILY [facility] Stop: 10/25/18 08:59 Last Admin: 08/28/18 09:11 Dose: 325 mg Folic Acid (Folate) 1 mg PO DAILY [facility] Stop: 10/25/18 08:59 Last Admin: 08/28/18 09:11 Dose: 1 mg Gabapentin (Neurontin) 200 mg PO TID [facility] Stop: 10/25/18 08:59 Last Admin: 08/28/18 20:55 Dose: Not Given Cefepime HCl 1 gm/ Sodium (Chloride) 50 mls @ 100 mls/hr IV Q24H [facility] Stop: 10/25/18 01:59 Last Infusion: 08/29/18 02:32 Dose: Infused Lisinopril (Zestril) 20 mg PO BID [facility] Stop: 10/25/18 08:59 Last Admin: 08/28/18 17:08 Dose: Not Given Miscellaneous (Vancomycin Iv Per Pharmacy) 1 ea MC PRN PRN PRN Reason: PROTOCOL Stop: 10/25/18 00:18 Montelukast Sodium (Singulair) 10 mg PO DAILY [facility] Stop: 10/25/18 08:59 Last Admin: 08/28/18 09:12 Dose: 10 mg Nifedipine (Procardia Xl) 30 mg PO Q8H [facility] Stop: 10/25/18 07:59 Last Admin: 08/29/18 00:11 Dose: 30 mg Pantoprazole Sodium (Protonix) 40 mg PO DAILY [facility] Stop: 10/25/18 08:59 Last Admin: 08/28/18 09:11 Dose: 40 mg Prednisone (Deltasone) 20 mg PO BID [facility] Stop: 10/25/18 08:59 Last Admin: 08/28/18 17:08 Dose: 20 mg Quetiapine Fumarate (Seroquel) 50 mg PO BID [facility]; Protocol Stop: 10/26/18 16:59 Last Admin: 08/28/18 17:09 Dose: Not Given Sertraline HCl (Zoloft) 100 mg PO DAILY [facility] Stop: 10/25/18 08:59 Last Admin: 08/28/18 09:11 Dose: 100 mg Sevelamer Carbonate (Renvela) 1,600 mg PO TID [facility] Stop: 10/25/18 08:59 Last Admin: 08/28/18 20:57 Dose: Not Given Vitamin B Complex/Vit C/Folic Acid (Vitamin B Complex W/Vitamin C) 1 tab PO DAILY [facility] Stop: 10/25/18 08:59 Last Admin: 08/28/18 09:12 Dose: 1 tab General: Alert HEENT: Atraumatic Neck: Supple Cardiovascular: Regular rate Lungs: Clear to auscultation - Procedures Procedures: Procedures Procedure Code Date PERFORMANCE OF URINARY FILTRATION, <6 HRS/DAY [id number] 08/26/18 Nutritional Asmnt/Malnutr-PDOC - Dietary Evaluation Malnutrition Findings (Please click <Entered> for more info): Nutritional Asmnt/Malnutrition Start: 08/27/18 16: 30 Text: Status: Complete Freq: Protocol: Document 08/27/18 16:30 LCHENG (Rec: 08/27/18 16:47 LCHENG [email or web address]) Nutritional Asmnt/Malnutrition Patient General Information Nutritional Screening High Risk Diagnosis sepsis, ALOC, renal failure Pertinent Medical Hx/Surgical Hx HTN, ESRD on HD Subjective Information Pt seen sleeping soundly at time of visit. RD not tesfaye to interview pt. Pt nurse note, pt refused lunch but started to scream. Current Diet Order/ Nutrition Support renal Pertinent Medications iron, folate, protonix, seroquel, renvela, vit B complex w/vit C Pertinent Labs 08/27 BUN 49, Cr 6.0, glucose 152, Ca 8.2, Phos 5.9 08/26 K 5.6, Cl 96, BUN 83, Cr 8.4, glucose 117, Ca 8.9 Nutritional Hx/Data Height 1.65 m Height (Calculated Centimeters) 165.1 Current Weight (lbs) 106.594 kg Weight (Calculated Kilograms) 106.6 Weight (Calculated Grams) 166114.2 [employer] Body Weight 125 Body Mass Index (BMI) 39.1 Weight Status Obese GI Symptoms GI Symptoms None Last BM none noted Difficult in: None Skin Integrity/Comment: bruise to left upper arm and lower abd, right chest incision reddened Estimated Nutritional Goals BEE in Kcals: Adj wt of IBW Calories/Kcals/Kg 27-32 Kcals Calculated 6129-1414 Protein: Adj wt of IBW Protein g/k.2-1.3 Protein Calculated 83-89 Fluid: ml per MD Nutritional Problem 2. Problem Problem increased nutrition needs Etiology increased metabolic demand Signs/Symptoms: pt on HD 1. Problem Problem altered nutrition related labs Etiology hx of ESRD on HD, and DM Signs/Symptoms: BUN 49, Cr 6.0, glucose 152, Ca 8.2, Phos 5.9 Intervention/Recommendation Comments 1. Continue with Renal diet as ordered. Modify protein to 80gm d/t pt on HD. 2. Monitor PO intake, wt, labs and skin integrity 3. F/U as high risk in 2-3 days, 08/29-08/30 Expected Outcomes/Goals Expected Outcomes/Goals 1. PO intake to meet at least 75% of nutritional needs. 2. Wt stability, skin to remain intact, labs to approach WNL.
[2018-08-29] MEDS: Acetaminophen 500 MG TAB PO SCH ×3 (10:49→21:38)
[2018-08-29] MEDS: Ferrous Sulfate 325 MG TAB PO SCH (10:50)
[2018-08-29] MEDS: Dicyclomine 10 mg Cap PO SCH ×3 (10:50→21:37)
[2018-08-29] MEDS: Pantoprazole 40 mg EC Tab PO SCH (10:51)
[2018-08-29] MEDS: Vitamin B Complex w/Vitamin C Tab PO SCH (10:51)
--- NOTE | 2018-08-29 10:56 | Internal Medicine Prog Note ---
Internal Medicine Subjective - Subjective Service Date: 08/29/18 Patient is:: awake, other (weak) Per staff patient has:: no adverse event Internal Medicine Objective - Results Result Diagrams: 08/29/18 05:50 08/29/18 05:50 Recent Labs: Laboratory Last Values WBC 12.9 Th/cmm (4.8-10.8) H 08/29/18 05:50 RBC 3.85 Mil/cmm (3.80-5.10) 08/29/18 05:50 Hgb 9.5 gm/dL (12-16) L 08/29/18 05:50 Hct 30.5 % (41.0-60) L 08/29/18 05:50 MCV 79.2 fl (81-100) L 08/29/18 05:50 MCH 24.8 pg (27.0-31.0) L 08/29/18 05:50 MCHC Differential 31.3 pg (28.0-36.0) 08/29/18 05:50 RDW 21.0 % (11.5-20.0) H 08/29/18 05:50 Plt Count 270 Th/cmm (150-400) 08/29/18 05:50 MPV 8.2 fl 08/29/18 05:50 Add Manual Diff YES 08/29/18 05:50 Neutrophils % CHILD [employer] WORKER 08/28/18 10:15 Band Neutrophils % 1 % (0-10) 08/28/18 10:15 Lymphocytes % CHILD DAYCARE WORKER 08/28/18 10:15 Monocytes % CHILD [employer]CARE WORKER 08/28/18 10:15 Eosinophils % CHILD [employer]CARE WORKER 08/28/18 10:15 Basophils % CHILD DAYCARE WORKER 08/28/18 10:15 Neutrophils (Manual) 92 % (40-80) H 08/29/18 05:50 Lymphocytes 4 % (20-50) L 08/29/18 05:50 Monocytes 4 % (2-10) 08/29/18 05:50 Hypochromia 2+ 08/25/18 22:40 Platelet Estimate ADEQUATE (NORMAL) 08/25/18 22:40 Poikilocytosis 2+ 08/25/18 22:40 Anisocytosis 1+ 08/25/18 22:40 Tear Drop Cells 1+ 08/25/18 22:40 Ovalocytes 1+ 08/25/18 22:40 Schistocytes 1+ 08/25/18 22:40 PT 14.0 SECONDS (9.5-11.5) H 08/29/18 05:50 INR 1.37 (0.5-1.4) 08/29/18 05:50 PTT (Actin FS) 28.3 SECONDS (26.0-38.0) 08/29/18 05:50 Sodium 143 mEq/L (136-145) 08/29/18 05:50 Potassium 4.5 mEq/L (3.5-5.1) 08/29/18 05:50 Chloride 103 mEq/L (98-107) 08/29/18 05:50 Carbon Dioxide 24.7 mEq/L (21.0-31.0) 08/29/18 05:50 Anion Gap 19.8 (7.0-16.0) H 08/29/18 05:50 BUN 46 mg/dL (7-25) H 08/29/18 05:50 Creatinine 6.5 mg/dL (0.6-1.2) H* 08/29/18 05:50 Est GFR ( Amer) 8.6 ml/min (>90) 08/29/18 05:50 Est GFR (Non-Af Amer) 7.1 ml/min 08/29/18 05:50 BUN/Creatinine Ratio 7.1 08/29/18 05:50 Glucose 141 mg/dL (70-105) H 08/29/18 05:50 POC Glucose 136 MG/DL (70 - 105) H 08/29/18 06:51 Whole Bld Lactic Acid 1.82 mmol/L (0.60-1.99) 08/27/18 06:25 Calcium 8.3 mg/dL (8.6-10.3) L 08/29/18 05:50 Phosphorus 5.9 mg/dL (2.5-5.0) H 08/27/18 06:25 Magnesium 2.3 mg/dL (1.9-2.7) 08/27/18 06:25 Total Bilirubin 0.5 mg/dL (0.3-1.0) 08/25/18 22:40 AST 33 U/L (13-39) 08/25/18 22:40 ALT 33 U/L (7-52) 08/25/18 22:40 Alkaline Phosphatase 281 U/L (34-104) H 08/25/18 22:40 B-Natriuretic Peptide 543.0 pg/mL (5.0-100.0) H 08/26/18 06:00 Total Protein 7.1 gm/dL (6.0-8.3) 08/25/18 22:40 Albumin 4.4 gm/dL (3.7-5.3) 08/25/18 22:40 Globulin 2.7 gm/dL 08/25/18 22:40 Albumin/Globulin Ratio 1.6 (1.0-1.8) 08/25/18 22:40 Random Vancomycin 23.4 ug/mL (5.0-40.0) 08/28/18 10:15 - Physical Exam Vitals and I&O: Vital Signs Temp 97.9 F 08/29/18 08:02 Pulse 78 08/29/18 10:51 Resp 20 08/29/18 08:02 BP 137/68 08/29/18 10:51 Pulse Ox 100 08/29/18 08:02 Intake & Output 08/28/18 08/29/18 08/29/18 18:59 06:59 18:59 Intake Total 800 170 Balance 800 170 Weight (lbs) 226 lb 226 lb Intake: Intake, IV Amount 500 50 Cefepime 1 gm In Sodium 50 Chloride 0.9% 50 ml @ 100 mls/hr IV Q24H [facility] Rx#: [id number] Vancomycin HCl 1.5 gm In 500 Sodium Chloride 0.9% 500 ml @ 250 mls/hr IV ONCE ONE Rx#:[id number] Oral 300 120 Other: # Voids 1 1 # Bowel Movements 0 Weight Source Bedscale Bedscale Active Medications: Current Medications Acetaminophen (Tylenol Extra Strength) 500 mg PO TID [facility] Stop: 10/25/18 08:59 Last Admin: 08/29/18 10:49 Dose: Not Given Acetaminophen/Hydrocodone Bitart ([place] 5mg/325mg) 1 tab PO Q6H PRN PRN Reason: Pain (Moderate) Stop: 10/25/18 07:52 Last Admin: 08/26/18 14:35 Dose: 1 tab Albuterol Sulfate (Albuterol 2.5mg/3ml Neb Ud) 2.5 mg HHN Q4HRT [facility] Stop: 10/25/18 15:18 Last Admin: 08/29/18 06:52 Dose: 2.5 mg Albuterol/Ipratropium (Duoneb Neb) 3 ml HHN Q6HRT PRN PRN Reason: Respiratory Distress Stop: 10/25/18 18:59 Alprazolam (Xanax) 0.5 mg PO Q8HR PRN; Protocol PRN Reason: Anxiety Stop: 10/26/18 08:02 Last Admin: 08/28/18 09:31 Dose: 0.5 mg Atorvastatin Calcium (Lipitor) 10 mg PO HS [facility]; Protocol Stop: 10/25/18 20:59 Last Admin: 08/28/18 20:57 Dose: Not Given [place] Oil/[place] Balsam/Trypsin (Venelex) 1 appl TP DAILY [facility] Stop: 10/25/18 14:59 Last Admin: 08/28/18 09:13 Dose: 1 appl Cinacalcet (Sensipar) 30 mg PO DAILY [facility] Stop: 10/25/18 08:59 Last Admin: 08/29/18 10:50 Dose: Not Given Dicyclomine HCl (Bentyl) 10 mg PO TID [facility] Stop: 10/25/18 08:59 Last Admin: 08/29/18 10:50 Dose: Not Given Epoetin Mekhi (Epogen) 10,000 units SUBQ MWF@1500 [facility] Stop: 10/25/18 14:59 Last Admin: 08/28/18 15:22 Dose: 10,000 units Ferrous Sulfate (Iron) 325 mg PO DAILY [facility] Stop: 10/25/18 08:59 Last Admin: 08/29/18 10:50 Dose: Not Given Folic Acid (Folate) 1 mg PO DAILY [facility] Stop: 10/25/18 08:59 Last Admin: 08/29/18 10:50 Dose: Not Given Gabapentin (Neurontin) 200 mg PO TID [facility] Stop: 10/25/18 08:59 Last Admin: 08/29/18 10:51 Dose: Not Given Cefepime HCl 1 gm/ Sodium (Chloride) 50 mls @ 100 mls/hr IV Q24H [facility] Stop: 10/25/18 01:59 Last Infusion: 08/29/18 02:32 Dose: Infused Lisinopril (Zestril) 20 mg PO BID [facility] Stop: 10/25/18 08:59 Last Admin: 08/29/18 10:51 Dose: Not Given Miscellaneous (Vancomycin Iv Per Pharmacy) 1 ea MC PRN PRN PRN Reason: PROTOCOL Stop: 10/25/18 00:18 Montelukast Sodium (Singulair) 10 mg PO DAILY [facility] Stop: 10/25/18 08:59 Last Admin: 08/29/18 10:51 Dose: Not Given Nifedipine (Procardia Xl) 30 mg PO Q8H [facility] Stop: 10/25/18 07:59 Last Admin: 08/29/18 10:49 Dose: Not Given Pantoprazole Sodium (Protonix) 40 mg PO DAILY [facility] Stop: 10/25/18 08:59 Last Admin: 08/29/18 10:51 Dose: Not Given Prednisone (Deltasone) 20 mg PO BID [facility] Stop: 10/25/18 08:59 Last Admin: 08/29/18 10:51 Dose: Not Given Quetiapine Fumarate (Seroquel) 50 mg PO BID [facility]; Protocol Stop: 10/26/18 16:59 Last Admin: 08/29/18 10:50 Dose: Not Given Sertraline HCl (Zoloft) 100 mg PO DAILY [facility] Stop: 10/25/18 08:59 Last Admin: 08/29/18 10:49 Dose: Not Given Sevelamer Carbonate (Renvela) 1,600 mg PO TID [facility] Stop: 10/25/18 08:59 Last Admin: 08/29/18 10:51 Dose: Not Given Vitamin B Complex/Vit C/Folic Acid (Vitamin B Complex W/Vitamin C) 1 tab PO DAILY [facility] Stop: 10/25/18 08:59 Last Admin: 08/29/18 10:51 Dose: Not Given General: weak HEENT: NC/AT Neck: Supple Lungs: CTAB Cardiovascular: RRR, Normal S1, Normal S2 Abdomen: soft, non-tender, tender Extremities: excoriation - Procedures Procedures: Procedures Procedure Code Date PERFORMANCE OF URINARY FILTRATION, <6 HRS/DAY [id number] 08/26/18 Internal Medicine Assmt/Plan - Assessment Assessment: Leukocytosis possible sepsis HTN CKD ON HD asthma Anxiety - Plan Plan: permacath placement today follow up labs in am ivabx as per id continue current plan of care Nutritional Asmnt/Malnutr-PDOC - Dietary Evaluation Malnutrition Findings (Please click <Entered> for more info): Nutritional Asmnt/Malnutrition Start: 08/27/18 16: 30 Text: Status: Complete Freq: Protocol: Document 08/27/18 16:30 ANNIA (Rec: 08/27/18 16:47 RANDYARIANNA [email or web address]) Nutritional Asmnt/Malnutrition Patient General Information Nutritional Screening High Risk Diagnosis sepsis, ALOC, renal failure Pertinent Medical Hx/Surgical Hx HTN, ESRD on HD Subjective Information Pt seen sleeping soundly at time of visit. RD not tesfaye to interview pt. Pt nurse note, pt refused lunch but started to scream. Current Diet Order/ Nutrition Support renal Pertinent Medications iron, folate, protonix, seroquel, renvela, vit B complex w/vit C Pertinent Labs 08/27 BUN 49, Cr 6.0, glucose 152, Ca 8.2, Phos 5.9 08/26 K 5.6, Cl 96, BUN 83, Cr 8.4, glucose 117, Ca 8.9 Nutritional Hx/Data Height 5 ft 5 in Height (Calculated Centimeters) 165.1 Current Weight (lbs) 235 lb Weight (Calculated Kilograms) 106.6 Weight (Calculated Grams) 593795.2 [place] Body Weight 125 Body Mass Index (BMI) 39.1 Weight Status Obese GI Symptoms GI Symptoms None Last BM none noted Difficult in: None Skin Integrity/Comment: bruise to left upper arm and lower abd, right chest incision reddened Estimated Nutritional Goals BEE in Kcals: Adj wt of IBW Calories/Kcals/Kg 27-32 Kcals Calculated 6727-3701 Protein: Adj wt of IBW Protein g/k.2-1.3 Protein Calculated 83-89 Fluid: ml per MD Nutritional Problem 2. Problem Problem increased nutrition needs Etiology increased metabolic demand Signs/Symptoms: pt on HD 1. Problem Problem altered nutrition related labs Etiology hx of ESRD on HD, and DM Signs/Symptoms: BUN 49, Cr 6.0, glucose 152, Ca 8.2, Phos 5.9 Intervention/Recommendation Comments 1. Continue with Renal diet as ordered. Modify protein to 80gm d/t pt on HD. 2. Monitor PO intake, wt, labs and skin integrity 3. F/U as high risk in 2-3 days, 08/29-08/30 Expected Outcomes/Goals Expected Outcomes/Goals 1. PO intake to meet at least 75% of nutritional needs. 2. Wt stability, skin to remain intact, labs to approach WNL.
[2018-08-29] MEDS ORDERED: Thrombin, Bovine 5,000 IU Vial TP ONE (11:01)
[2018-08-29] MEDS ORDERED: Gelatin Sponge 100cm Spg TP ONE (11:02)
[2018-08-29] MEDS: Venelex 60gm Tube TP SCH (11:58)
[2018-08-29] MEDS ORDERED: fentaNYL Citrate 100 mcg/2mL Vial ONE (12:08)
[2018-08-29] MEDS ORDERED: Neostigmine 10mg/10mL Vial ONE (12:39)
[2018-08-29] MEDS ORDERED: Propofol **SURGERY USE ONLY** 20 ML IV ONE (12:39)
--- NOTE | 2018-08-29 13:44 | Diagnostic Imaging Report ---
Fluoroscopy was utilized to facilitate correlate this is a}. The second wire watermark picture would better of this chest x-ray Interval 1. More, I car seat is a PICC line 1 Permacath insertion. The total fluoroscopic time for the exam was 47 seconds. Please refer to the procedural report for complete details.
--- NOTE | 2018-08-29 15:24 | Consultation ---
DATE OF CONSULTATION: 08/27/2018 SURGICAL CONSULTATION REFERRING PHYSICIAN: Dr. Muñoz. REASON FOR CONSULTATION: Open wound, right axilla. Thank you for referring this patient to me. HISTORY OF PRESENT ILLNESS: This is a 52-year-old female with end-stage renal disease, on hemodialysis. She has diabetes mellitus, hypertension, obesity and depression. The open wound has been there apparently for the last 3 months following attempt at AV shunt and/or fistula placement. LABORATORY STUDIES: Showed on admission, WBC at 18,000 with hemoglobin of 9.8. The BUN was 49, creatinine of 6.0, blood sugar was 152. The patient has been started on antibiotics by Dr. Thomas, Infectious Disease professional employer consultant. PHYSICAL EXAMINATION: The patient is very uncooperative and thrashes about and refuses to be examined. There is open wound as seen on photograph. The patient has a Gautam catheter in left subclavian location. The blood culture shows no growth. RECOMMENDATIONS: Suggest placement of a new shunt or fistula on the left arm and replacement of the Gautam catheter with Perm-A-Cath. A friend was notified, she has agreed, but she has no power of radio control crane operator. Two physicians will sign the consent. JOB# [id number]
--- NOTE | 2018-08-29 16:00 | Operative Report ---
DATE OF SURGERY: 08/29/2018 DIAGNOSES: 1. End-stage renal disease. 2. Diabetes mellitus. 3. Obesity. 4. Depression. POSTOPERATIVE DIAGNOSES: 1. End-stage renal disease. 2. Diabetes mellitus. 3. Obesity. 4. Depression. OPERATION DONE: 1. Placement of Perm-A-Cath, left subclavian vein under fluoroscopy. 2. Placement of left arm AV shunt (bovine). SURGEON: Steffany Kimball M.D. ANESTHESIA: General anesthesia. ANESTHESIOLOGIST: Dr. Vasquez. ESTIMATED BLOOD LOSS: 30 mL. INDICATIONS FOR SURGERY: The patient with a nonhealing wound in the right axilla from previous AV shunt. There is a Gautam catheter in the subclavian location. The patient needed permanent access and a call was made to friend who was no power of consumer attorney, but has agreed. Two physicians will sign consent for medical necessity. HISTORY OF PROCEDURE: The patient was given general anesthesia. The chest and left upper extremity were prepped with Betadine and draped in appropriate manner. A 1% lidocaine was used to infiltrate the exit site of the Gautam catheter and the guide was inserted under fluoroscopy. The old Gautam catheter was removed and a 24 cm Perm-A-Cath was placed instead with retention of the wire. Tip of the catheter is in the superior vena cava. To accommodate the cuff, an incision was made in the skin. Bleeders were coagulated. The incision was closed with running suture of 3-0 nylon for the skin. The patient will have a chest x-ray after the procedure. An incision was made in the left axilla following infiltration with 1% lidocaine. The axillary vein was identified, size about 6 mm. The brachial artery was exposed in the antecubital fossa and measured about 3 mm with no calcification. 3000 units of heparin was given intravenously. A bovine graft was sutured to the brachial artery utilizing running suture of 5-0 Prolene. Following release of clamps, there was no leak. Gelfoam soaked in thrombin was placed around the anastomosis. The graft was marked in its anterior wall and brought out to subcutaneous tunnel to the axillary area. The vein was tied proximally and occluded distally and a venotomy was made in its anterior wall. The graft was cut in angle to fit the venotomy and 5-0 Prolene in continuous fashion was used to complete this anastomosis. Gelfoam soaked in thrombin was then placed around the anastomosis site. 15 mg of protamine sulfate was used to reverse the heparin. The incision was closed with running suture of 3-0 Vicryl subcutaneously and the skin was closed with subcuticular suture of 4-0 Vicryl. The patient tolerated the procedure. [facility]# [id number]
--- NOTE | 2018-08-29 16:43 | General Progress Note ---
Subjective - Review of Systems Service Date: 08/29/18 Subjective: no complaints s/p permacath and bovine av shuint placement today Objective - Results Result Diagrams: 08/29/18 05:50 08/29/18 05:50 Recent Labs: Laboratory Last Values WBC 12.9 Th/cmm (4.8-10.8) H 08/29/18 05:50 RBC 3.85 Mil/cmm (3.80-5.10) 08/29/18 05:50 Hgb 9.5 gm/dL (12-16) L 08/29/18 05:50 Hct 30.5 % (41.0-60) L 08/29/18 05:50 MCV 79.2 fl (81-100) L 08/29/18 05:50 MCH 24.8 pg (27.0-31.0) L 08/29/18 05:50 MCHC Differential 31.3 pg (28.0-36.0) 08/29/18 05:50 RDW 21.0 % (11.5-20.0) H 08/29/18 05:50 Plt Count 270 Th/cmm (150-400) 08/29/18 05:50 MPV 8.2 fl 08/29/18 05:50 Add Manual Diff YES 08/29/18 05:50 Neutrophils % COLOR TECHNICIAN 08/28/18 10:15 Band Neutrophils % 1 % (0-10) 08/28/18 10:15 Lymphocytes % COLOR TECHNICIAN 08/28/18 10:15 Monocytes % COLOR TECHNICIAN 08/28/18 10:15 Eosinophils % COLOR TECHNICIAN 08/28/18 10:15 Basophils % COLOR TECHNICIAN 08/28/18 10:15 Neutrophils (Manual) 92 % (40-80) H 08/29/18 05:50 Lymphocytes 4 % (20-50) L 08/29/18 05:50 Monocytes 4 % (2-10) 08/29/18 05:50 Hypochromia 2+ 08/25/18 22:40 Platelet Estimate ADEQUATE (NORMAL) 08/25/18 22:40 Poikilocytosis 2+ 08/25/18 22:40 Anisocytosis 1+ 08/25/18 22:40 Tear Drop Cells 1+ 08/25/18 22:40 Ovalocytes 1+ 08/25/18 22:40 Schistocytes 1+ 08/25/18 22:40 PT 14.0 SECONDS (9.5-11.5) H 08/29/18 05:50 INR 1.37 (0.5-1.4) 08/29/18 05:50 PTT (Actin FS) 28.3 SECONDS (26.0-38.0) 08/29/18 05:50 Sodium 143 mEq/L (136-145) 08/29/18 05:50 Potassium 4.5 mEq/L (3.5-5.1) 08/29/18 05:50 Chloride 103 mEq/L (98-107) 08/29/18 05:50 Carbon Dioxide 24.7 mEq/L (21.0-31.0) 08/29/18 05:50 Anion Gap 19.8 (7.0-16.0) H 08/29/18 05:50 BUN 46 mg/dL (7-25) H 08/29/18 05:50 Creatinine 6.5 mg/dL (0.6-1.2) H* 08/29/18 05:50 Est GFR ( Amer) 8.6 ml/min (>90) 08/29/18 05:50 Est GFR (Non-Af Amer) 7.1 ml/min 08/29/18 05:50 BUN/Creatinine Ratio 7.1 08/29/18 05:50 Glucose 141 mg/dL (70-105) H 08/29/18 05:50 POC Glucose 124 MG/DL (70 - 105) H 08/29/18 11:39 Whole Bld Lactic Acid 1.82 mmol/L (0.60-1.99) 08/27/18 06:25 Calcium 8.3 mg/dL (8.6-10.3) L 08/29/18 05:50 Phosphorus 5.9 mg/dL (2.5-5.0) H 08/27/18 06:25 Magnesium 2.3 mg/dL (1.9-2.7) 08/27/18 06:25 Total Bilirubin 0.5 mg/dL (0.3-1.0) 08/25/18 22:40 AST 33 U/L (13-39) 08/25/18 22:40 ALT 33 U/L (7-52) 08/25/18 22:40 Alkaline Phosphatase 281 U/L (34-104) H 08/25/18 22:40 B-Natriuretic Peptide 543.0 pg/mL (5.0-100.0) H 08/26/18 06:00 Total Protein 7.1 gm/dL (6.0-8.3) 08/25/18 22:40 Albumin 4.4 gm/dL (3.7-5.3) 08/25/18 22:40 Globulin 2.7 gm/dL 08/25/18 22:40 Albumin/Globulin Ratio 1.6 (1.0-1.8) 08/25/18 22:40 Random Vancomycin 23.4 ug/mL (5.0-40.0) 08/28/18 10:15 - Physical Exam Vitals and I&O: Vital Signs Temp 97.4 F 08/29/18 16:34 Pulse 68 08/29/18 16:34 Resp 20 08/29/18 16:34 BP 173/79 08/29/18 16:34 Pulse Ox 100 08/29/18 16:34 Intake & Output 08/28/18 08/29/18 08/29/18 18:59 06:59 18:59 Intake Total 800 170 Balance 800 170 Weight (lbs) 102.512 kg 102.512 kg Intake: Intake, IV Amount 500 50 Cefepime 1 gm In Sodium 50 Chloride 0.9% 50 ml @ 100 mls/hr IV Q24H [facility] Rx#: [id number] Vancomycin HCl 1.5 gm In 500 Sodium Chloride 0.9% 500 ml @ 250 mls/hr IV ONCE ONE Rx#:[id number] Oral 300 120 Other: # Voids 1 1 # Bowel Movements 0 Stool Characteristics Soft Weight Source Bedscale Bedscale Active Medications: Current Medications Acetaminophen (Tylenol Extra Strength) 500 mg PO TID [facility] Stop: 10/25/18 08:59 Last Admin: 08/29/18 16:12 Dose: Not Given Acetaminophen/Hydrocodone Bitart ([place] 5mg/325mg) 1 tab PO Q6H PRN PRN Reason: Pain (Moderate) Stop: 10/25/18 07:52 Last Admin: 08/26/18 14:35 Dose: 1 tab Albuterol Sulfate (Albuterol 2.5mg/3ml Neb Ud) 2.5 mg HHN Q4HRT [facility] Stop: 10/25/18 15:18 Last Admin: 08/29/18 15:11 Dose: Not Given Albuterol/Ipratropium (Duoneb Neb) 3 ml HHN Q6HRT PRN PRN Reason: Respiratory Distress Stop: 10/25/18 18:59 Alprazolam (Xanax) 0.5 mg PO Q8HR PRN; Protocol PRN Reason: Anxiety Stop: 10/26/18 08:02 Last Admin: 08/28/18 09:31 Dose: 0.5 mg Aspirin (Aspirin Chewable) 81 mg PO DAILY [facility] Stop: 10/29/18 08:59 Atorvastatin Calcium (Lipitor) 10 mg PO HS [facility]; Protocol Stop: 10/25/18 20:59 Last Admin: 08/28/18 20:57 Dose: Not Given [place] Oil/[place] Balsam/Trypsin (Venelex) 1 appl TP DAILY [facility] Stop: 10/25/18 14:59 Last Admin: 08/29/18 11:58 Dose: Not Given Cinacalcet (Sensipar) 30 mg PO DAILY [facility] Stop: 10/25/18 08:59 Last Admin: 08/29/18 10:50 Dose: Not Given Dicyclomine HCl (Bentyl) 10 mg PO TID [facility] Stop: 10/25/18 08:59 Last Admin: 08/29/18 16:12 Dose: Not Given Epoetin Mekhi (Epogen) 10,000 units SUBQ MWF@1500 [facility] Stop: 10/25/18 14:59 Last Admin: 08/28/18 15:22 Dose: 10,000 units Ferrous Sulfate (Iron) 325 mg PO DAILY [facility] Stop: 10/25/18 08:59 Last Admin: 08/29/18 10:50 Dose: Not Given Folic Acid (Folate) 1 mg PO DAILY [facility] Stop: 10/25/18 08:59 Last Admin: 08/29/18 10:50 Dose: Not Given Gabapentin (Neurontin) 200 mg PO TID [facility] Stop: 10/25/18 08:59 Last Admin: 08/29/18 16:12 Dose: Not Given Cefepime HCl 1 gm/ Sodium (Chloride) 50 mls @ 100 mls/hr IV Q24H [facility] Stop: 10/25/18 01:59 Last Infusion: 08/29/18 02:32 Dose: Infused Lisinopril (Zestril) 20 mg PO BID [facility] Stop: 10/25/18 08:59 Last Admin: 08/29/18 16:24 Dose: Not Given Miscellaneous (Vancomycin Iv Per Pharmacy) 1 ea MC PRN PRN PRN Reason: PROTOCOL Stop: 10/25/18 00:18 Montelukast Sodium (Singulair) 10 mg PO DAILY [facility] Stop: 10/25/18 08:59 Last Admin: 08/29/18 10:51 Dose: Not Given Nifedipine (Procardia Xl) 30 mg PO Q8H [facility] Stop: 10/25/18 07:59 Last Admin: 08/29/18 16:21 Dose: Not Given Pantoprazole Sodium (Protonix) 40 mg PO DAILY [facility] Stop: 10/25/18 08:59 Last Admin: 08/29/18 10:51 Dose: Not Given Prednisone (Deltasone) 20 mg PO BID [facility] Stop: 10/25/18 08:59 Last Admin: 08/29/18 16:24 Dose: Not Given Quetiapine Fumarate (Seroquel) 50 mg PO BID [facility]; Protocol Stop: 10/26/18 16:59 Last Admin: 08/29/18 16:24 Dose: Not Given Sertraline HCl (Zoloft) 100 mg PO DAILY [facility] Stop: 10/25/18 08:59 Last Admin: 08/29/18 10:49 Dose: Not Given Sevelamer Carbonate (Renvela) 1,600 mg PO TID [facility] Stop: 10/25/18 08:59 Last Admin: 08/29/18 16:11 Dose: Not Given Vitamin B Complex/Vit C/Folic Acid (Vitamin B Complex W/Vitamin C) 1 tab PO DAILY [facility] Stop: 10/25/18 08:59 Last Admin: 08/29/18 10:51 Dose: Not Given General: Alert HEENT: Atraumatic Neck: Supple Cardiovascular: Regular rate Lungs: Clear to auscultation Abdomen: Soft, Obese Extremities: no Edema - Procedures Procedures: Procedures Procedure Code Date PERFORMANCE OF URINARY FILTRATION, <6 HRS/DAY [id number] 08/26/18 Assessment/Plan - Assessment Assessment: ESRD ON HD R ARM CELLULITIS ANEMIA W ESRD S/P PERMACATH AND AV SHUNT PLACEMENT HTN W ESRD DM2 W ESRD AMS - Plan Plan: HD IN AM CONT ABX SUPPORTIVE CARE Nutritional Asmnt/Malnutr-PDOC - Dietary Evaluation Malnutrition Findings (Please click <Entered> for more info): Nutritional Asmnt/Malnutrition Start: 08/27/18 16: 30 Text: Status: Complete Freq: Protocol: Document 08/27/18 16:30 ANNIA (Rec: 08/27/18 16:47 ANNIA [email or web address]) Nutritional Asmnt/Malnutrition Patient General Information Nutritional Screening High Risk Diagnosis sepsis, ALOC, renal failure Pertinent Medical Hx/Surgical Hx HTN, ESRD on HD Subjective Information Pt seen sleeping soundly at time of visit. RD not tesfaye to interview pt. Pt nurse note, pt refused lunch but started to scream. Current Diet Order/ Nutrition Support renal Pertinent Medications iron, folate, protonix, seroquel, renvela, vit B complex w/vit C Pertinent Labs 08/27 BUN 49, Cr 6.0, glucose 152, Ca 8.2, Phos 5.9 08/26 K 5.6, Cl 96, BUN 83, Cr 8.4, glucose 117, Ca 8.9 Nutritional Hx/Data Height 1.65 m Height (Calculated Centimeters) 165.1 Current Weight (lbs) 106.594 kg Weight (Calculated Kilograms) 106.6 Weight (Calculated Grams) 860751.2 [place] Body Weight 125 Body Mass Index (BMI) 39.1 Weight Status Obese GI Symptoms GI Symptoms None Last BM none noted Difficult in: None Skin Integrity/Comment: bruise to left upper arm and lower abd, right chest incision reddened Estimated Nutritional Goals BEE in Kcals: Adj wt of IBW Calories/Kcals/Kg 27-32 Kcals Calculated 9118-9030 Protein: Adj wt of IBW Protein g/k.2-1.3 Protein Calculated 83-89 Fluid: ml per MD Nutritional Problem 2. Problem Problem increased nutrition needs Etiology increased metabolic demand Signs/Symptoms: pt on HD 1. Problem Problem altered nutrition related labs Etiology hx of ESRD on HD, and DM Signs/Symptoms: BUN 49, Cr 6.0, glucose 152, Ca 8.2, Phos 5.9 Intervention/Recommendation Comments 1. Continue with Renal diet as ordered. Modify protein to 80gm d/t pt on HD. 2. Monitor PO intake, wt, labs and skin integrity 3. F/U as high risk in 2-3 days, 08/29-08/30 Expected Outcomes/Goals Expected Outcomes/Goals 1. PO intake to meet at least 75% of nutritional needs. 2. Wt stability, skin to remain intact, labs to approach WNL.
[2018-08-29] MEDS: Atorvastatin Calcium 10 MG TAB PO SCH (21:37)
--- NOTE | 2018-08-29 21:50 | Infectious Disease Prog Note ---
Infectious Disease Subjective - Review of Systems Service Date: 08/29/18 Subjective: NO fever. Infectious Disease Objective - Results Result Diagrams: 08/29/18 05:50 08/29/18 05:50 Recent Labs: Laboratory Last Values WBC 12.9 Th/cmm (4.8-10.8) H 08/29/18 05:50 RBC 3.85 Mil/cmm (3.80-5.10) 08/29/18 05:50 Hgb 9.5 gm/dL (12-16) L 08/29/18 05:50 Hct 30.5 % (41.0-60) L 08/29/18 05:50 MCV 79.2 fl (81-100) L 08/29/18 05:50 MCH 24.8 pg (27.0-31.0) L 08/29/18 05:50 MCHC Differential 31.3 pg (28.0-36.0) 08/29/18 05:50 RDW 21.0 % (11.5-20.0) H 08/29/18 05:50 Plt Count 270 Th/cmm (150-400) 08/29/18 05:50 MPV 8.2 fl 08/29/18 05:50 Add Manual Diff YES 08/29/18 05:50 Neutrophils % ODD PIECE CHECKER 08/28/18 10:15 Band Neutrophils % 1 % (0-10) 08/28/18 10:15 Lymphocytes % ODD PIECE CHECKER 08/28/18 10:15 Monocytes % ODD PIECE CHECKER 08/28/18 10:15 Eosinophils % ODD PIECE CHECKER 08/28/18 10:15 Basophils % ODD PIECE CHECKER 08/28/18 10:15 Neutrophils (Manual) 92 % (40-80) H 08/29/18 05:50 Lymphocytes 4 % (20-50) L 08/29/18 05:50 Monocytes 4 % (2-10) 08/29/18 05:50 Hypochromia 2+ 08/25/18 22:40 Platelet Estimate ADEQUATE (NORMAL) 08/25/18 22:40 Poikilocytosis 2+ 08/25/18 22:40 Anisocytosis 1+ 08/25/18 22:40 Tear Drop Cells 1+ 08/25/18 22:40 Ovalocytes 1+ 08/25/18 22:40 Schistocytes 1+ 08/25/18 22:40 PT 14.0 SECONDS (9.5-11.5) H 08/29/18 05:50 INR 1.37 (0.5-1.4) 08/29/18 05:50 PTT (Actin FS) 28.3 SECONDS (26.0-38.0) 08/29/18 05:50 Sodium 143 mEq/L (136-145) 08/29/18 05:50 Potassium 4.5 mEq/L (3.5-5.1) 08/29/18 05:50 Chloride 103 mEq/L (98-107) 08/29/18 05:50 Carbon Dioxide 24.7 mEq/L (21.0-31.0) 08/29/18 05:50 Anion Gap 19.8 (7.0-16.0) H 08/29/18 05:50 BUN 46 mg/dL (7-25) H 08/29/18 05:50 Creatinine 6.5 mg/dL (0.6-1.2) H* 08/29/18 05:50 Est GFR ( Amer) 8.6 ml/min (>90) 08/29/18 05:50 Est GFR (Non-Af Amer) 7.1 ml/min 08/29/18 05:50 BUN/Creatinine Ratio 7.1 08/29/18 05:50 Glucose 141 mg/dL (70-105) H 08/29/18 05:50 POC Glucose 124 MG/DL (70 - 105) H 08/29/18 11:39 Whole Bld Lactic Acid 1.82 mmol/L (0.60-1.99) 08/27/18 06:25 Calcium 8.3 mg/dL (8.6-10.3) L 08/29/18 05:50 Phosphorus 5.9 mg/dL (2.5-5.0) H 08/27/18 06:25 Magnesium 2.3 mg/dL (1.9-2.7) 08/27/18 06:25 Total Bilirubin 0.5 mg/dL (0.3-1.0) 08/25/18 22:40 AST 33 U/L (13-39) 08/25/18 22:40 ALT 33 U/L (7-52) 08/25/18 22:40 Alkaline Phosphatase 281 U/L (34-104) H 08/25/18 22:40 B-Natriuretic Peptide 543.0 pg/mL (5.0-100.0) H 08/26/18 06:00 Total Protein 7.1 gm/dL (6.0-8.3) 08/25/18 22:40 Albumin 4.4 gm/dL (3.7-5.3) 08/25/18 22:40 Globulin 2.7 gm/dL 08/25/18 22:40 Albumin/Globulin Ratio 1.6 (1.0-1.8) 08/25/18 22:40 Random Vancomycin 23.4 ug/mL (5.0-40.0) 08/28/18 10:15 - Physical Exam Vitals and I&O: Vital Signs Temp 97.4 F 08/29/18 16:34 Pulse 67 08/29/18 19:14 Resp 18 08/29/18 19:14 BP 173/79 08/29/18 16:34 Pulse Ox 100 08/29/18 19:14 Intake & Output 08/29/18 08/29/18 08/30/18 06:59 18:59 06:59 Intake Total 170 0 Balance 170 0 Weight (lbs) 102.512 kg 102.512 kg Intake: Intake, IV Amount 50 Cefepime 1 gm In Sodium 50 Chloride 0.9% 50 ml @ 100 mls/hr IV Q24H [facility] Rx#: [id number] Oral 120 0 Other: # Voids 1 1 # Bowel Movements 1 Stool Characteristics Soft Soft Weight Source Bedscale Bedscale Active Medications: Current Medications Acetaminophen (Tylenol Extra Strength) 500 mg PO TID [facility] Stop: 10/25/18 08:59 Last Admin: 08/29/18 21:38 Dose: Not Given Acetaminophen/Hydrocodone Bitart ([place] 5mg/325mg) 1 tab PO Q6H PRN PRN Reason: Pain (Moderate) Stop: 10/25/18 07:52 Last Admin: 08/26/18 14:35 Dose: 1 tab Albuterol Sulfate (Albuterol 2.5mg/3ml Neb Ud) 2.5 mg HHN Q4HRT [facility] Stop: 10/25/18 15:18 Last Admin: 08/29/18 19:14 Dose: 2.5 mg Albuterol/Ipratropium (Duoneb Neb) 3 ml HHN Q6HRT PRN PRN Reason: Respiratory Distress Stop: 10/25/18 18:59 Alprazolam (Xanax) 0.5 mg PO Q8HR PRN; Protocol PRN Reason: Anxiety Stop: 10/26/18 08:02 Last Admin: 08/28/18 09:31 Dose: 0.5 mg Aspirin (Aspirin Chewable) 81 mg PO DAILY [facility] Stop: 10/29/18 08:59 Atorvastatin Calcium (Lipitor) 10 mg PO HS [facility]; Protocol Stop: 10/25/18 20:59 Last Admin: 08/29/18 21:37 Dose: Not Given [place] Oil/[place] Balsam/Trypsin (Venelex) 1 appl TP DAILY [facility] Stop: 10/25/18 14:59 Last Admin: 08/29/18 11:58 Dose: Not Given Cinacalcet (Sensipar) 30 mg PO DAILY [facility] Stop: 10/25/18 08:59 Last Admin: 08/29/18 10:50 Dose: Not Given Dicyclomine HCl (Bentyl) 10 mg PO TID [facility] Stop: 10/25/18 08:59 Last Admin: 08/29/18 21:37 Dose: Not Given Epoetin Mekhi (Epogen) 10,000 units SUBQ MWF@1500 [facility] Stop: 10/25/18 14:59 Last Admin: 08/28/18 15:22 Dose: 10,000 units Ferrous Sulfate (Iron) 325 mg PO DAILY [facility] Stop: 10/25/18 08:59 Last Admin: 08/29/18 10:50 Dose: Not Given Folic Acid (Folate) 1 mg PO DAILY [facility] Stop: 10/25/18 08:59 Last Admin: 08/29/18 10:50 Dose: Not Given Gabapentin (Neurontin) 200 mg PO TID [facility] Stop: 10/25/18 08:59 Last Admin: 08/29/18 21:37 Dose: Not Given Heparin Sodium (Porcine) (Heparin Sodium) 0 units HD UD [facility] Stop: 08/31/18 00:00 Cefepime HCl 1 gm/ Sodium (Chloride) 50 mls @ 100 mls/hr IV Q24H [facility] Stop: 10/25/18 01:59 Last Infusion: 08/29/18 02:32 Dose: Infused Lisinopril (Zestril) 20 mg PO BID [facility] Stop: 10/25/18 08:59 Last Admin: 08/29/18 16:24 Dose: Not Given Miscellaneous (Vancomycin Iv Per Pharmacy) 1 ea [facility] PRN PRN PRN Reason: PROTOCOL Stop: 10/25/18 00:18 Montelukast Sodium (Singulair) 10 mg PO DAILY [facility] Stop: 10/25/18 08:59 Last Admin: 08/29/18 10:51 Dose: Not Given Nifedipine (Procardia Xl) 30 mg PO Q8H [facility] Stop: 10/25/18 07:59 Last Admin: 08/29/18 16:21 Dose: Not Given Pantoprazole Sodium (Protonix) 40 mg PO DAILY [facility] Stop: 10/25/18 08:59 Last Admin: 08/29/18 10:51 Dose: Not Given Prednisone (Deltasone) 20 mg PO BID [facility] Stop: 10/25/18 08:59 Last Admin: 08/29/18 16:24 Dose: Not Given Quetiapine Fumarate (Seroquel) 50 mg PO BID [facility]; Protocol Stop: 10/26/18 16:59 Last Admin: 08/29/18 16:24 Dose: Not Given Sertraline HCl (Zoloft) 100 mg PO DAILY [facility] Stop: 10/25/18 08:59 Last Admin: 08/29/18 10:49 Dose: Not Given Sevelamer Carbonate (Renvela) 1,600 mg PO TID [facility] Stop: 10/25/18 08:59 Last Admin: 08/29/18 21:34 Dose: 1,600 mg Vitamin B Complex/Vit C/Folic Acid (Vitamin B Complex W/Vitamin C) 1 tab PO DAILY [facility] Stop: 10/25/18 08:59 Last Admin: 08/29/18 10:51 Dose: Not Given General: no acute distress, well developed, well nourished HEENT: atraumatic, normocephalic, PERRLA Neck: supple, no thyromegaly Cardiovascular: S1S2, regular Lungs: clear to auscultation bilaterally, clear to percussion Abdomen: soft, no tender, no distended Extremities: no cyanosis, no clubbing, no edema Neurological: other (sleeping) Skin: intact - Procedures Procedures: Procedures Procedure Code Date PERFORMANCE OF URINARY FILTRATION, <6 HRS/DAY [id number] 08/26/18 Infectious Disease Assmt/Plan - Assessment Assessment: 1. Leukocytosis, r/o sepsis. sable. 2. HTN. 3. CKD 5 HD 4. asthma. 5. Obesity. 6. Anxiety d/o. - Plan Plan: Continue cefepime. dc vanco IV. CBC in am. Nutritional Asmnt/Malnutr-PDOC - Dietary Evaluation Malnutrition Findings (Please click <Entered> for more info): Nutritional Asmnt/Malnutrition Start: 08/27/18 16: 30 Text: Status: Complete Freq: Protocol: Document 08/27/18 16:30 HEN (Rec: 08/27/18 16:47 HEN [email or web address]) Nutritional Asmnt/Malnutrition Patient General Information Nutritional Screening High Risk Diagnosis sepsis, ALOC, renal failure Pertinent Medical Hx/Surgical Hx HTN, ESRD on HD Subjective Information Pt seen sleeping soundly at time of visit. RD not tesfaye to interview pt. Pt nurse note, pt refused lunch but started to scream. Current Diet Order/ Nutrition Support renal Pertinent Medications iron, folate, protonix, seroquel, renvela, vit B complex w/vit C Pertinent Labs 08/27 BUN 49, Cr 6.0, glucose 152, Ca 8.2, Phos 5.9 08/26 K 5.6, Cl 96, BUN 83, Cr 8.4, glucose 117, Ca 8.9 Nutritional Hx/Data Height 1.65 m Height (Calculated Centimeters) 165.1 Current Weight (lbs) 106.594 kg Weight (Calculated Kilograms) 106.6 Weight (Calculated Grams) 843581.2 [place] Body Weight 125 Body Mass Index (BMI) 39.1 Weight Status Obese GI Symptoms GI Symptoms None Last BM none noted Difficult in: None Skin Integrity/Comment: bruise to left upper arm and lower abd, right chest incision reddened Estimated Nutritional Goals BEE in Kcals: Adj wt of IBW Calories/Kcals/Kg 27-32 Kcals Calculated 6841-5707 Protein: Adj wt of IBW Protein g/k.2-1.3 Protein Calculated 83-89 Fluid: ml per MD Nutritional Problem 2. Problem Problem increased nutrition needs Etiology increased metabolic demand Signs/Symptoms: pt on HD 1. Problem Problem altered nutrition related labs Etiology hx of ESRD on HD, and DM Signs/Symptoms: BUN 49, Cr 6.0, glucose 152, Ca 8.2, Phos 5.9 Intervention/Recommendation Comments 1. Continue with Renal diet as ordered. Modify protein to 80gm d/t pt on HD. 2. Monitor PO intake, wt, labs and skin integrity 3. F/U as high risk in 2-3 days, 08/29-08/30 Expected Outcomes/Goals Expected Outcomes/Goals 1. PO intake to meet at least 75% of nutritional needs. 2. Wt stability, skin to remain intact, labs to approach WNL.
[2018-08-30] MEDS ORDERED: Heparin Sod 1,000 Units/mL 10ml HD SCH
[2018-08-30] MEDS: NIFEdipine 30 mg ER Tab PO SCH ×2 (00:36→09:00)
[2018-08-30] MEDS: Cefepime 1 GM in Sodium Chloride 0.9% 50 ML IV SCH (02:24)
[2018-08-30] MEDS: Albuterol Nebulizer 2.5mg/3mL HHN SCH ×4 (03:00→14:08)
[2018-08-30 06:29] LABS: HEMOGLOBIN 8.6 gm/dL (12-16); MEAN CELL VOLUME 78.6 fl (81-100); MEAN CORPUSCULAR HGB CONC 33.1 pg (28.0-36.0); MEAN PLATELET VOLUME 7.7 fl; PLATELET COUNT 246 Th/cmm (150-400); WHITE BLOOD COUNT 12.7 Th/cmm (4.8-10.8)
[2018-08-30 06:50] LABS: ANION GAP 17.7 (7.0-16.0); CARBON DIOXIDE 25.1 mEq/L (21.0-31.0); GFR AFRICAN-AMERICAN 6.3 ml/min (>90); GFR NON AFRICAN-AMERICAN 5.2 ml/min; POTASSIUM SERUM 4.8 mEq/L (3.5-5.1)
[2018-08-30 06:59] LABS: CREATININE - SERUM 8.5 mg/dL (0.6-1.2)
[2018-08-30 07:18] LABS: LYMPHOCYTE 10 % (20-50); MONOCYTE 4 % (2-10); NEUTROPHILS 86 % (40-80)
--- NOTE | 2018-08-30 08:40 | General Progress Note ---
Subjective - Review of Systems Service Date: 08/30/18 Events since last encounter: AV shunt is patent incisions clean, no bleeding HD via Permcath Objective - Results Result Diagrams: 08/30/18 06:20 08/30/18 06:20 Recent Labs: Laboratory Last Values WBC 12.7 Th/cmm (4.8-10.8) H 08/30/18 06:20 RBC 3.30 Mil/cmm (3.80-5.10) L 08/30/18 06:20 Hgb 8.6 gm/dL (12-16) L 08/30/18 06:20 Hct 26.0 % (41.0-60) L 08/30/18 06:20 MCV 78.6 fl (81-100) L 08/30/18 06:20 MCH 26.0 pg (27.0-31.0) L 08/30/18 06:20 MCHC Differential 33.1 pg (28.0-36.0) 08/30/18 06:20 RDW 21.0 % (11.5-20.0) H 08/30/18 06:20 Plt Count 246 Th/cmm (150-400) 08/30/18 06:20 MPV 7.7 fl 08/30/18 06:20 Add Manual Diff YES 08/30/18 06:20 Neutrophils % NUDE MODEL 08/28/18 10:15 Band Neutrophils % 1 % (0-10) 08/28/18 10:15 Lymphocytes % NUDE MODEL 08/28/18 10:15 Monocytes % NUDE MODEL 08/28/18 10:15 Eosinophils % NUDE MODEL 08/28/18 10:15 Basophils % NUDE MODEL 08/28/18 10:15 Neutrophils (Manual) 86 % (40-80) H 08/30/18 06:20 Lymphocytes 10 % (20-50) L 08/30/18 06:20 Monocytes 4 % (2-10) 08/30/18 06:20 Hypochromia 2+ 08/25/18 22:40 Platelet Estimate ADEQUATE (NORMAL) 08/25/18 22:40 Poikilocytosis 2+ 08/25/18 22:40 Anisocytosis 1+ 08/25/18 22:40 Tear Drop Cells 1+ 08/25/18 22:40 Ovalocytes 1+ 08/25/18 22:40 Schistocytes 1+ 08/25/18 22:40 PT 14.0 SECONDS (9.5-11.5) H 08/29/18 05:50 INR 1.37 (0.5-1.4) 08/29/18 05:50 PTT (Actin FS) 28.3 SECONDS (26.0-38.0) 08/29/18 05:50 Sodium 143 mEq/L (136-145) 08/30/18 06:20 Potassium 4.8 mEq/L (3.5-5.1) 08/30/18 06:20 Chloride 105 mEq/L (98-107) 08/30/18 06:20 Carbon Dioxide 25.1 mEq/L (21.0-31.0) 08/30/18 06:20 Anion Gap 17.7 (7.0-16.0) H 08/30/18 06:20 BUN 64 mg/dL (7-25) H 08/30/18 06:20 Creatinine 8.5 mg/dL (0.6-1.2) H* 08/30/18 06:20 Est GFR ( Amer) 6.3 ml/min (>90) 08/30/18 06:20 Est GFR (Non-Af Amer) 5.2 ml/min 08/30/18 06:20 BUN/Creatinine Ratio 7.5 08/30/18 06:20 Glucose 91 mg/dL (70-105) 08/30/18 06:20 POC Glucose 94 MG/DL (70 - 105) 08/30/18 06:19 Whole Bld Lactic Acid 1.82 mmol/L (0.60-1.99) 08/27/18 06:25 Calcium 8.0 mg/dL (8.6-10.3) L 08/30/18 06:20 Phosphorus 5.9 mg/dL (2.5-5.0) H 08/27/18 06:25 Magnesium 2.3 mg/dL (1.9-2.7) 08/27/18 06:25 Total Bilirubin 0.5 mg/dL (0.3-1.0) 08/25/18 22:40 AST 33 U/L (13-39) 08/25/18 22:40 ALT 33 U/L (7-52) 08/25/18 22:40 Alkaline Phosphatase 281 U/L (34-104) H 08/25/18 22:40 B-Natriuretic Peptide 543.0 pg/mL (5.0-100.0) H 08/26/18 06:00 Total Protein 7.1 gm/dL (6.0-8.3) 08/25/18 22:40 Albumin 4.4 gm/dL (3.7-5.3) 08/25/18 22:40 Globulin 2.7 gm/dL 08/25/18 22:40 Albumin/Globulin Ratio 1.6 (1.0-1.8) 08/25/18 22:40 Random Vancomycin 38.2 ug/mL (5.0-40.0) 08/30/18 06:20 - Physical Exam Vitals and I&O: Vital Signs Temp 98.1 F 08/30/18 08:07 Pulse 77 08/30/18 08:07 Resp 18 08/30/18 08:07 BP 151/60 08/30/18 08:07 Pulse Ox 99 08/30/18 08:07 Intake & Output 08/29/18 08/30/18 08/30/18 18:59 06:59 18:59 Intake Total 0 15 Balance 0 15 Weight (lbs) 102.512 kg 102.285 kg Intake: Oral 0 15 Other: # Voids 1 1 # Bowel Movements 1 Stool Characteristics Soft Soft Weight Source Bedscale Bedscale Active Medications: Current Medications Acetaminophen (Tylenol Extra Strength) 500 mg PO TID [facility] Stop: 10/25/18 08:59 Last Admin: 08/29/18 21:38 Dose: Not Given Acetaminophen/Hydrocodone Bitart ([place] 5mg/325mg) 1 tab PO Q6H PRN PRN Reason: Pain (Moderate) Stop: 10/25/18 07:52 Last Admin: 08/26/18 14:35 Dose: 1 tab Albuterol Sulfate (Albuterol 2.5mg/3ml Neb Ud) 2.5 mg HHN Q4HRT [facility] Stop: 10/25/18 15:18 Last Admin: 08/30/18 06:56 Dose: 2.5 mg Albuterol/Ipratropium (Duoneb Neb) 3 ml HHN Q6HRT PRN PRN Reason: Respiratory Distress Stop: 10/25/18 18:59 Alprazolam (Xanax) 0.5 mg PO Q8HR PRN; Protocol PRN Reason: Anxiety Stop: 10/26/18 08:02 Last Admin: 08/28/18 09:31 Dose: 0.5 mg Aspirin (Aspirin Chewable) 81 mg PO DAILY [facility] Stop: 10/29/18 08:59 Atorvastatin Calcium (Lipitor) 10 mg PO HS [facility]; Protocol Stop: 10/25/18 20:59 Last Admin: 08/29/18 21:37 Dose: Not Given [place] Oil/[place]incent[place] Balsam/Trypsin (Venelex) 1 appl TP DAILY [facility] Stop: 10/25/18 14:59 Last Admin: 08/29/18 11:58 Dose: Not Given Cinacalcet (Sensipar) 30 mg PO DAILY [facility] Stop: 10/25/18 08:59 Last Admin: 08/29/18 10:50 Dose: Not Given Dicyclomine HCl (Bentyl) 10 mg PO TID [facility] Stop: 10/25/18 08:59 Last Admin: 08/29/18 21:37 Dose: Not Given Epoetin Mekhi (Epogen) 10,000 units SUBQ MWF@1500 [facility] Stop: 10/25/18 14:59 Last Admin: 08/28/18 15:22 Dose: 10,000 units Ferrous Sulfate (Iron) 325 mg PO DAILY [facility] Stop: 10/25/18 08:59 Last Admin: 08/29/18 10:50 Dose: Not Given Folic Acid (Folate) 1 mg PO DAILY [facility] Stop: 10/25/18 08:59 Last Admin: 08/29/18 10:50 Dose: Not Given Gabapentin (Neurontin) 200 mg PO TID [facility] Stop: 10/25/18 08:59 Last Admin: 08/29/18 21:37 Dose: Not Given Heparin Sodium (Porcine) (Heparin) 0 units HD UD [facility] Stop: 08/31/18 00:00 Cefepime HCl 1 gm/ Sodium (Chloride) 50 mls @ 100 mls/hr IV Q24H [facility] Stop: 10/25/18 01:59 Last Admin: 08/30/18 02:24 Dose: 100 mls/hr Lisinopril (Zestril) 20 mg PO BID [facility] Stop: 10/25/18 08:59 Last Admin: 08/29/18 16:24 Dose: Not Given Montelukast Sodium (Singulair) 10 mg PO DAILY [facility] Stop: 10/25/18 08:59 Last Admin: 08/29/18 10:51 Dose: Not Given Nifedipine (Procardia Xl) 30 mg PO Q8H [facility] Stop: 10/25/18 07:59 Last Admin: 08/30/18 00:36 Dose: Not Given Pantoprazole Sodium (Protonix) 40 mg PO DAILY [facility] Stop: 10/25/18 08:59 Last Admin: 08/29/18 10:51 Dose: Not Given Prednisone (Deltasone) 20 mg PO BID [facility] Stop: 10/25/18 08:59 Last Admin: 08/29/18 16:24 Dose: Not Given Quetiapine Fumarate (Seroquel) 50 mg PO BID [facility]; Protocol Stop: 10/26/18 16:59 Last Admin: 08/29/18 16:24 Dose: Not Given Sertraline HCl (Zoloft) 100 mg PO DAILY [facility] Stop: 10/25/18 08:59 Last Admin: 08/29/18 10:49 Dose: Not Given Sevelamer Carbonate (Renvela) 1,600 mg PO TID [facility] Stop: 10/25/18 08:59 Last Admin: 08/29/18 21:34 Dose: 1,600 mg Vitamin B Complex/Vit C/Folic Acid (Vitamin B Complex W/Vitamin C) 1 tab PO DAILY [facility] Stop: 10/25/18 08:59 Last Admin: 08/29/18 10:51 Dose: Not Given General: Alert HEENT: Atraumatic Neck: Supple Cardiovascular: Regular rate Lungs: Clear to auscultation Abdomen: Soft, Obese Extremities: no Edema - Procedures Procedures: Procedures Procedure Code Date PERFORMANCE OF URINARY FILTRATION, <6 HRS/DAY [id number] 08/26/18 Nutritional Asmnt/Malnutr-PDOC - Dietary Evaluation Malnutrition Findings (Please click <Entered> for more info): Nutritional Asmnt/Malnutrition Start: 08/27/18 16: 30 Text: Status: Complete Freq: Protocol: Document 08/27/18 16:30 LCHENG (Rec: 08/27/18 16:47 [email or web address]) Nutritional Asmnt/Malnutrition Patient General Information Nutritional Screening High Risk Diagnosis sepsis, ALOC, renal failure Pertinent Medical Hx/Surgical Hx HTN, ESRD on HD Subjective Information Pt seen sleeping soundly at time of visit. RD not tesfaye to interview pt. Pt nurse note, pt refused lunch but started to scream. Current Diet Order/ Nutrition Support renal Pertinent Medications iron, folate, protonix, seroquel, renvela, vit B complex w/vit C Pertinent Labs 08/27 BUN 49, Cr 6.0, glucose 152, Ca 8.2, Phos 5.9 08/26 K 5.6, Cl 96, BUN 83, Cr 8.4, glucose 117, Ca 8.9 Nutritional Hx/Data Height 1.65 m Height (Calculated Centimeters) 165.1 Current Weight (lbs) 106.594 kg Weight (Calculated Kilograms) 106.6 Weight (Calculated Grams) 953516.2 [place] Body Weight 125 Body Mass Index (BMI) 39.1 Weight Status Obese GI Symptoms GI Symptoms None Last BM none noted Difficult in: None Skin Integrity/Comment: bruise to left upper arm and lower abd, right chest incision reddened Estimated Nutritional Goals BEE in Kcals: Adj wt of IBW Calories/Kcals/Kg 27-32 Kcals Calculated [id number] Protein: Adj wt of IBW Protein g/k.2-1.3 Protein Calculated 83-89 Fluid: ml per MD Nutritional Problem 2. Problem Problem increased nutrition needs Etiology increased metabolic demand Signs/Symptoms: pt on HD 1. Problem Problem altered nutrition related labs Etiology hx of ESRD on HD, and DM Signs/Symptoms: BUN 49, Cr 6.0, glucose 152, Ca 8.2, Phos 5.9 Intervention/Recommendation Comments 1. Continue with Renal diet as ordered. Modify protein to 80gm d/t pt on HD. 2. Monitor PO intake, wt, labs and skin integrity 3. F/U as high risk in 2-3 days, 08/29-08/30 Expected Outcomes/Goals Expected Outcomes/Goals 1. PO intake to meet at least 75% of nutritional needs. 2. Wt stability, skin to remain intact, labs to approach WNL.
[2018-08-30] MEDS ORDERED: Aspirin 81mg Chewable Tab PO SCH (09:00)
[2018-08-30] MEDS: Pantoprazole 40 mg EC Tab PO SCH (09:00)
[2018-08-30] MEDS: Vitamin B Complex w/Vitamin C Tab PO SCH (09:00)
[2018-08-30] MEDS: Acetaminophen 500 MG TAB PO SCH (09:00)
[2018-08-30] MEDS ORDERED: Heparin Sodium 1,000 Units/mL Vial HD SCH (09:00)
[2018-08-30] MEDS: Dicyclomine 10 mg Cap PO SCH (09:00)
[2018-08-30] MEDS: Ferrous Sulfate 325 MG TAB PO SCH (09:00)
--- NOTE | 2018-08-30 12:30 | Diagnostic Imaging Report ---
Portable chest x-ray HISTORY: Vascular catheter placement, shortness of breath Compared with the prior exam of 08/26/2018, a left-sided vascular catheter is seen. The tip is in the superior vena cava at the junction with the left brachiocephalic vein. There remains elevation the right hemidiaphragm. No acute focal prominent processes. The heart is enlarged. IMPRESSION: 1. Vascular catheter placement as noted above 2. No change in pulmonary status
--- NOTE | 2018-08-30 14:40 | Infectious Disease Prog Note ---
Infectious Disease Subjective - Review of Systems Service Date: 08/30/18 Subjective: NO fever. Infectious Disease Objective - Results Result Diagrams: 08/30/18 06:20 08/30/18 06:20 Recent Labs: Laboratory Last Values WBC 12.7 Th/cmm (4.8-10.8) H 08/30/18 06:20 RBC 3.30 Mil/cmm (3.80-5.10) L 08/30/18 06:20 Hgb 8.6 gm/dL (12-16) L 08/30/18 06:20 Hct 26.0 % (41.0-60) L 08/30/18 06:20 MCV 78.6 fl (81-100) L 08/30/18 06:20 MCH 26.0 pg (27.0-31.0) L 08/30/18 06:20 MCHC Differential 33.1 pg (28.0-36.0) 08/30/18 06:20 RDW 21.0 % (11.5-20.0) H 08/30/18 06:20 Plt Count 246 Th/cmm (150-400) 08/30/18 06:20 MPV 7.7 fl 08/30/18 06:20 Add Manual Diff YES 08/30/18 06:20 Neutrophils % DEMAND GENERATION MANAGER 08/28/18 10:15 Band Neutrophils % 1 % (0-10) 08/28/18 10:15 Lymphocytes % [employer] GENERATION MANAGER 08/28/18 10:15 Monocytes % [employer] GENERATION MANAGER 08/28/18 10:15 Eosinophils % [employer] GENERATION MANAGER 08/28/18 10:15 Basophils % [employer] GENERATION MANAGER 08/28/18 10:15 Neutrophils (Manual) 86 % (40-80) H 08/30/18 06:20 Lymphocytes 10 % (20-50) L 08/30/18 06:20 Monocytes 4 % (2-10) 08/30/18 06:20 Hypochromia 2+ 08/25/18 22:40 Platelet Estimate ADEQUATE (NORMAL) 08/25/18 22:40 Poikilocytosis 2+ 08/25/18 22:40 Anisocytosis 1+ 08/25/18 22:40 Tear Drop Cells 1+ 08/25/18 22:40 Ovalocytes 1+ 08/25/18 22:40 Schistocytes 1+ 08/25/18 22:40 PT 14.0 SECONDS (9.5-11.5) H 08/29/18 05:50 INR 1.37 (0.5-1.4) 08/29/18 05:50 PTT (Actin FS) 28.3 SECONDS (26.0-38.0) 08/29/18 05:50 Sodium 143 mEq/L (136-145) 08/30/18 06:20 Potassium 4.8 mEq/L (3.5-5.1) 08/30/18 06:20 Chloride 105 mEq/L (98-107) 08/30/18 06:20 Carbon Dioxide 25.1 mEq/L (21.0-31.0) 08/30/18 06:20 Anion Gap 17.7 (7.0-16.0) H 08/30/18 06:20 BUN 64 mg/dL (7-25) H 08/30/18 06:20 Creatinine 8.5 mg/dL (0.6-1.2) H* 08/30/18 06:20 Est GFR ( Amer) 6.3 ml/min (>90) 08/30/18 06:20 Est GFR (Non-Af Amer) 5.2 ml/min 08/30/18 06:20 BUN/Creatinine Ratio 7.5 08/30/18 06:20 Glucose 91 mg/dL (70-105) 08/30/18 06:20 POC Glucose 90 MG/DL (70 - 105) 08/30/18 11:27 Whole Bld Lactic Acid 1.82 mmol/L (0.60-1.99) 08/27/18 06:25 Calcium 8.0 mg/dL (8.6-10.3) L 08/30/18 06:20 Phosphorus 5.9 mg/dL (2.5-5.0) H 08/27/18 06:25 Magnesium 2.3 mg/dL (1.9-2.7) 08/27/18 06:25 Total Bilirubin 0.5 mg/dL (0.3-1.0) 08/25/18 22:40 AST 33 U/L (13-39) 08/25/18 22:40 ALT 33 U/L (7-52) 08/25/18 22:40 Alkaline Phosphatase 281 U/L (34-104) H 08/25/18 22:40 B-Natriuretic Peptide 543.0 pg/mL (5.0-100.0) H 08/26/18 06:00 Total Protein 7.1 gm/dL (6.0-8.3) 08/25/18 22:40 Albumin 4.4 gm/dL (3.7-5.3) 08/25/18 22:40 Globulin 2.7 gm/dL 08/25/18 22:40 Albumin/Globulin Ratio 1.6 (1.0-1.8) 08/25/18 22:40 Random Vancomycin 38.2 ug/mL (5.0-40.0) 08/30/18 06:20 - Physical Exam Vitals and I&O: Vital Signs Temp 98.4 F 08/30/18 11:07 Pulse 79 08/30/18 14:08 Resp 18 08/30/18 14:08 BP 127/71 08/30/18 11:07 Pulse Ox 99 08/30/18 14:08 Intake & Output 08/29/18 08/30/18 08/30/18 18:59 06:59 18:59 Intake Total 0 15 Balance 0 15 Weight (lbs) 102.512 kg 102.285 kg Intake: Oral 0 15 Other: # Voids 1 1 # Bowel Movements 1 Stool Characteristics Soft Soft Weight Source Bedscale Bedscale Active Medications: Current Medications Acetaminophen (Tylenol Extra Strength) 500 mg PO TID [facility] Stop: 10/25/18 08:59 Last Admin: 08/30/18 09:00 Dose: Not Given Acetaminophen/Hydrocodone Bitart ([place] 5mg/325mg) 1 tab PO Q6H PRN PRN Reason: Pain (Moderate) Stop: 10/25/18 07:52 Last Admin: 08/26/18 14:35 Dose: 1 tab Albuterol Sulfate (Albuterol 2.5mg/3ml Neb Ud) 2.5 mg HHN Q4HRT [facility] Stop: 10/25/18 15:18 Last Admin: 08/30/18 14:08 Dose: 2.5 mg Albuterol/Ipratropium (Duoneb Neb) 3 ml HHN Q6HRT PRN PRN Reason: Respiratory Distress Stop: 10/25/18 18:59 Alprazolam (Xanax) 0.5 mg PO Q8HR PRN; Protocol PRN Reason: Anxiety Stop: 10/26/18 08:02 Last Admin: 08/28/18 09:31 Dose: 0.5 mg Aspirin (Aspirin Chewable) 81 mg PO DAILY [facility] Stop: 10/29/18 08:59 Last Admin: 08/30/18 09:00 Dose: Not Given Atorvastatin Calcium (Lipitor) 10 mg PO HS [facility]; Protocol Stop: 10/25/18 20:59 Last Admin: 08/29/18 21:37 Dose: Not Given [place] Oil/[place] Balsam/Trypsin (Venelex) 1 appl TP DAILY [facility] Stop: 10/25/18 14:59 Last Admin: 08/29/18 11:58 Dose: Not Given Cinacalcet (Sensipar) 30 mg PO DAILY [facility] Stop: 10/25/18 08:59 Last Admin: 08/30/18 09:00 Dose: Not Given Dicyclomine HCl (Bentyl) 10 mg PO TID [facility] Stop: 10/25/18 08:59 Last Admin: 08/30/18 09:00 Dose: Not Given Epoetin Mekhi (Epogen) 10,000 units SUBQ MWF@1500 [facility] Stop: 10/25/18 14:59 Last Admin: 08/28/18 15:22 Dose: 10,000 units Ferrous Sulfate (Iron) 325 mg PO DAILY [facility] Stop: 10/25/18 08:59 Last Admin: 08/30/18 09:00 Dose: Not Given Folic Acid (Folate) 1 mg PO DAILY [facility] Stop: 10/25/18 08:59 Last Admin: 08/30/18 09:00 Dose: Not Given Gabapentin (Neurontin) 200 mg PO TID [facility] Stop: 10/25/18 08:59 Last Admin: 08/30/18 09:00 Dose: Not Given Heparin Sodium (Porcine) (Heparin) 0 units HD UD [facility] Stop: 08/31/18 00:00 Last Admin: 08/30/18 09:30 Dose: Not Given Cefepime HCl 1 gm/ Sodium (Chloride) 50 mls @ 100 mls/hr IV Q24H [facility] Stop: 10/25/18 01:59 Last Admin: 08/30/18 02:24 Dose: 100 mls/hr Lisinopril (Zestril) 20 mg PO BID [facility] Stop: 10/25/18 08:59 Last Admin: 08/30/18 09:00 Dose: Not Given Montelukast Sodium (Singulair) 10 mg PO DAILY [facility] Stop: 10/25/18 08:59 Last Admin: 08/30/18 09:00 Dose: Not Given Nifedipine (Procardia Xl) 30 mg PO Q8H [facility] Stop: 10/25/18 07:59 Last Admin: 08/30/18 09:00 Dose: Not Given Pantoprazole Sodium (Protonix) 40 mg PO DAILY [facility] Stop: 10/25/18 08:59 Last Admin: 08/30/18 09:00 Dose: Not Given Prednisone (Deltasone) 20 mg PO BID [facility] Stop: 10/25/18 08:59 Last Admin: 08/30/18 09:00 Dose: Not Given Quetiapine Fumarate (Seroquel) 50 mg PO BID [facility]; Protocol Stop: 10/26/18 16:59 Last Admin: 08/30/18 09:00 Dose: Not Given Sertraline HCl (Zoloft) 100 mg PO DAILY [facility] Stop: 10/25/18 08:59 Last Admin: 08/30/18 09:00 Dose: Not Given Sevelamer Carbonate (Renvela) 1,600 mg PO TID [facility] Stop: 10/25/18 08:59 Last Admin: 08/30/18 09:00 Dose: Not Given Vitamin B Complex/Vit C/Folic Acid (Vitamin B Complex W/Vitamin C) 1 tab PO DAILY [facility] Stop: 10/25/18 08:59 Last Admin: 08/30/18 09:00 Dose: Not Given General: no acute distress, well developed, well nourished HEENT: atraumatic, normocephalic, PERRLA, EOMI Neck: supple, no thyromegaly Cardiovascular: S1S2, regular Lungs: clear to auscultation bilaterally, clear to percussion Abdomen: soft, no tender, no distended Extremities: no cyanosis, no clubbing, no edema Skin: intact - Procedures Procedures: Procedures Procedure Code Date PERFORMANCE OF URINARY FILTRATION, <6 HRS/DAY [id number] 08/26/18 Infectious Disease Assmt/Plan - Assessment Assessment: 1. Leukocytosis, r/o sepsis. sable. 2. HTN. 3. CKD 5 HD 4. asthma. 5. Obesity. 6. Anxiety d/o. - Plan Plan: Continue cefepime. CBC in am. Nutritional Asmnt/Malnutr-PDOC - Dietary Evaluation Malnutrition Findings (Please click <Entered> for more info): Nutritional Asmnt/Malnutrition Start: 08/27/18 16: 30 Text: Status: Complete Freq: Protocol: Document 08/27/18 16:30 [email or web address] (Rec: 08/27/18 16:47 [email or web address] [email or web address]) Nutritional Asmnt/Malnutrition Patient General Information Nutritional Screening High Risk Diagnosis sepsis, ALOC, renal failure Pertinent Medical Hx/Surgical Hx HTN, ESRD on HD Subjective Information Pt seen sleeping soundly at time of visit. RD not tesfaye to interview pt. Pt nurse note, pt refused lunch but started to scream. Current Diet Order/ Nutrition Support renal Pertinent Medications iron, folate, protonix, seroquel, renvela, vit B complex w/vit C Pertinent Labs 08/27 BUN 49, Cr 6.0, glucose 152, Ca 8.2, Phos 5.9 08/26 K 5.6, Cl 96, BUN 83, Cr 8.4, glucose 117, Ca 8.9 Nutritional Hx/Data Height 1.65 m Height (Calculated Centimeters) 165.1 Current Weight (lbs) 106.594 kg Weight (Calculated Kilograms) 106.6 Weight (Calculated Grams) 253819.2 [place] Body Weight 125 Body Mass Index (BMI) 39.1 Weight Status Obese GI Symptoms GI Symptoms None Last BM none noted Difficult in: None Skin Integrity/Comment: bruise to left upper arm and lower abd, right chest incision reddened Estimated Nutritional Goals BEE in Kcals: Adj wt of IBW Calories/Kcals/Kg 27-32 Kcals Calculated 2246-8236 Protein: Adj wt of IBW Protein g/k.2-1.3 Protein Calculated 83-89 Fluid: ml per MD Nutritional Problem 2. Problem Problem increased nutrition needs Etiology increased metabolic demand Signs/Symptoms: pt on HD 1. Problem Problem altered nutrition related labs Etiology hx of ESRD on HD, and DM Signs/Symptoms: BUN 49, Cr 6.0, glucose 152, Ca 8.2, Phos 5.9 Intervention/Recommendation Comments 1. Continue with Renal diet as ordered. Modify protein to 80gm d/t pt on HD. 2. Monitor PO intake, wt, labs and skin integrity 3. F/U as high risk in 2-3 days, 08/29-08/30 Expected Outcomes/Goals Expected Outcomes/Goals 1. PO intake to meet at least 75% of nutritional needs. 2. Wt stability, skin to remain intact, labs to approach WNL.
[2018-08-30] MEDS: Epoetin Alfa 20000 Units/mL Vial SUBQ SCH (15:37)
[2018-08-30] MEDS: Hydrocodone/APAP 5mg/325mg Tab PO PRN (15:59)
--- NOTE | 2018-08-30 16:18 | Internal Medicine Prog Note ---
Internal Medicine Subjective - Subjective Patient seen and examined:: chart reviewed Patient is:: awake, other (weak, no fever ) Per staff patient has:: no adverse event Internal Medicine Objective - Results Result Diagrams: 08/30/18 06:20 08/30/18 06:20 Recent Labs: Laboratory Last Values WBC 12.7 Th/cmm (4.8-10.8) H 08/30/18 06:20 RBC 3.30 Mil/cmm (3.80-5.10) L 08/30/18 06:20 Hgb 8.6 gm/dL (12-16) L 08/30/18 06:20 Hct 26.0 % (41.0-60) L 08/30/18 06:20 MCV 78.6 fl (81-100) L 08/30/18 06:20 MCH 26.0 pg (27.0-31.0) L 08/30/18 06:20 MCHC Differential 33.1 pg (28.0-36.0) 08/30/18 06:20 RDW 21.0 % (11.5-20.0) H 08/30/18 06:20 Plt Count 246 Th/cmm (150-400) 08/30/18 06:20 MPV 7.7 fl 08/30/18 06:20 Add Manual Diff YES 08/30/18 06:20 Neutrophils % STEREO PLOTTER OPERATOR 08/28/18 10:15 Band Neutrophils % 1 % (0-10) 08/28/18 10:15 Lymphocytes % STEREO PLOTTER OPERATOR 08/28/18 10:15 Monocytes % STEREO PLOTTER OPERATOR 08/28/18 10:15 Eosinophils % STEREO PLOTTER OPERATOR 08/28/18 10:15 Basophils % STEREO PLOTTER OPERATOR 08/28/18 10:15 Neutrophils (Manual) 86 % (40-80) H 08/30/18 06:20 Lymphocytes 10 % (20-50) L 08/30/18 06:20 Monocytes 4 % (2-10) 08/30/18 06:20 Hypochromia 2+ 08/25/18 22:40 Platelet Estimate ADEQUATE (NORMAL) 08/25/18 22:40 Poikilocytosis 2+ 08/25/18 22:40 Anisocytosis 1+ 08/25/18 22:40 Tear Drop Cells 1+ 08/25/18 22:40 Ovalocytes 1+ 08/25/18 22:40 Schistocytes 1+ 08/25/18 22:40 PT 14.0 SECONDS (9.5-11.5) H 08/29/18 05:50 INR 1.37 (0.5-1.4) 08/29/18 05:50 PTT (Actin FS) 28.3 SECONDS (26.0-38.0) 08/29/18 05:50 Sodium 143 mEq/L (136-145) 08/30/18 06:20 Potassium 4.8 mEq/L (3.5-5.1) 08/30/18 06:20 Chloride 105 mEq/L (98-107) 08/30/18 06:20 Carbon Dioxide 25.1 mEq/L (21.0-31.0) 08/30/18 06:20 Anion Gap 17.7 (7.0-16.0) H 08/30/18 06:20 BUN 64 mg/dL (7-25) H 08/30/18 06:20 Creatinine 8.5 mg/dL (0.6-1.2) H* 08/30/18 06:20 Est GFR ( Amer) 6.3 ml/min (>90) 08/30/18 06:20 Est GFR (Non-Af Amer) 5.2 ml/min 08/30/18 06:20 BUN/Creatinine Ratio 7.5 08/30/18 06:20 Glucose 91 mg/dL (70-105) 08/30/18 06:20 POC Glucose 90 MG/DL (70 - 105) 08/30/18 11:27 Whole Bld Lactic Acid 1.82 mmol/L (0.60-1.99) 08/27/18 06:25 Calcium 8.0 mg/dL (8.6-10.3) L 08/30/18 06:20 Phosphorus 5.9 mg/dL (2.5-5.0) H 08/27/18 06:25 Magnesium 2.3 mg/dL (1.9-2.7) 08/27/18 06:25 Total Bilirubin 0.5 mg/dL (0.3-1.0) 08/25/18 22:40 AST 33 U/L (13-39) 08/25/18 22:40 ALT 33 U/L (7-52) 08/25/18 22:40 Alkaline Phosphatase 281 U/L (34-104) H 08/25/18 22:40 B-Natriuretic Peptide 543.0 pg/mL (5.0-100.0) H 08/26/18 06:00 Total Protein 7.1 gm/dL (6.0-8.3) 08/25/18 22:40 Albumin 4.4 gm/dL (3.7-5.3) 08/25/18 22:40 Globulin 2.7 gm/dL 08/25/18 22:40 Albumin/Globulin Ratio 1.6 (1.0-1.8) 08/25/18 22:40 Random Vancomycin 38.2 ug/mL (5.0-40.0) 08/30/18 06:20 - Physical Exam Vitals and I&O: Vital Signs Temp 98.0 F 08/30/18 16:15 Pulse 73 08/30/18 16:15 Resp 18 08/30/18 16:15 BP 133/68 08/30/18 16:15 Pulse Ox 99 08/30/18 16:15 Intake & Output 08/29/18 08/30/18 08/30/18 18:59 06:59 18:59 Intake Total 0 15 Balance 0 15 Weight (lbs) 102.512 kg 102.285 kg Intake: Oral 0 15 Other: # Voids 1 1 # Bowel Movements 1 Stool Characteristics Soft Soft Weight Source Bedscale Bedscale Active Medications: Current Medications Acetaminophen (Tylenol Extra Strength) 500 mg PO TID [facility] Stop: 10/25/18 08:59 Last Admin: 08/30/18 09:00 Dose: Not Given Acetaminophen/Hydrocodone Bitart ([place]ancleve 5mg/325mg) 1 tab PO Q6H PRN PRN Reason: Pain (Moderate) Stop: 10/25/18 07:52 Last Admin: 08/30/18 15:59 Dose: 1 tab Albuterol Sulfate (Albuterol 2.5mg/3ml Neb Ud) 2.5 mg HHN Q4HRT [facility] Stop: 10/25/18 15:18 Last Admin: 08/30/18 14:08 Dose: 2.5 mg Albuterol/Ipratropium (Duoneb Neb) 3 ml HHN Q6HRT PRN PRN Reason: Respiratory Distress Stop: 10/25/18 18:59 Alprazolam (Xanax) 0.5 mg PO Q8HR PRN; Protocol PRN Reason: Anxiety Stop: 10/26/18 08:02 Last Admin: 08/28/18 09:31 Dose: 0.5 mg Aspirin (Aspirin Chewable) 81 mg PO DAILY [facility] Stop: 10/29/18 08:59 Last Admin: 08/30/18 09:00 Dose: Not Given Atorvastatin Calcium (Lipitor) 10 mg PO HS [facility]; Protocol Stop: 10/25/18 20:59 Last Admin: 08/29/18 21:37 Dose: Not Given [place] Oil/P[place]dein[place] Balsam/Trypsin (Venelex) 1 appl TP DAILY [facility] Stop: 10/25/18 14:59 Last Admin: 08/29/18 11:58 Dose: Not Given Cinacalcet (Sensipar) 30 mg PO DAILY [facility] Stop: 10/25/18 08:59 Last Admin: 08/30/18 09:00 Dose: Not Given Dicyclomine HCl (Bentyl) 10 mg PO TID [facility] Stop: 10/25/18 08:59 Last Admin: 08/30/18 09:00 Dose: Not Given Epoetin Mekhi (Epogen) 10,000 units SUBQ MWF@1500 [facility] Stop: 10/25/18 14:59 Last Admin: 08/30/18 15:37 Dose: 10,000 units Ferrous Sulfate (Iron) 325 mg PO DAILY [facility] Stop: 10/25/18 08:59 Last Admin: 08/30/18 09:00 Dose: Not Given Folic Acid (Folate) 1 mg PO DAILY [facility] Stop: 10/25/18 08:59 Last Admin: 08/30/18 09:00 Dose: Not Given Gabapentin (Neurontin) 200 mg PO TID [facility] Stop: 10/25/18 08:59 Last Admin: 08/30/18 09:00 Dose: Not Given Heparin Sodium (Porcine) (Heparin) 0 units HD UD [facility] Stop: 08/31/18 00:00 Last Admin: 08/30/18 09:30 Dose: Not Given Cefepime HCl 1 gm/ Sodium (Chloride) 50 mls @ 100 mls/hr IV Q24H [facility] Stop: 10/25/18 01:59 Last Admin: 08/30/18 02:24 Dose: 100 mls/hr Lisinopril (Zestril) 20 mg PO BID [facility] Stop: 10/25/18 08:59 Last Admin: 08/30/18 09:00 Dose: Not Given Montelukast Sodium (Singulair) 10 mg PO DAILY [facility] Stop: 10/25/18 08:59 Last Admin: 08/30/18 09:00 Dose: Not Given Nifedipine (Procardia Xl) 30 mg PO Q8H [facility] Stop: 10/25/18 07:59 Last Admin: 08/30/18 09:00 Dose: Not Given Pantoprazole Sodium (Protonix) 40 mg PO DAILY [facility] Stop: 10/25/18 08:59 Last Admin: 08/30/18 09:00 Dose: Not Given Prednisone (Deltasone) 20 mg PO BID [facility] Stop: 10/25/18 08:59 Last Admin: 08/30/18 09:00 Dose: Not Given Quetiapine Fumarate (Seroquel) 50 mg PO BID [facility]; Protocol Stop: 10/26/18 16:59 Last Admin: 08/30/18 09:00 Dose: Not Given Sertraline HCl (Zoloft) 100 mg PO DAILY [facility] Stop: 10/25/18 08:59 Last Admin: 08/30/18 09:00 Dose: Not Given Sevelamer Carbonate (Renvela) 1,600 mg PO TID [facility] Stop: 10/25/18 08:59 Last Admin: 08/30/18 09:00 Dose: Not Given Vitamin B Complex/Vit C/Folic Acid (Vitamin B Complex W/Vitamin C) 1 tab PO DAILY [facility] Stop: 10/25/18 08:59 Last Admin: 08/30/18 09:00 Dose: Not Given General: weak HEENT: NC/AT Neck: Supple Lungs: CTAB Cardiovascular: RRR, Normal S1, Normal S2 Abdomen: soft, non-tender, tender Extremities: excoriation - Procedures Procedures: Procedures Procedure Code Date PERFORMANCE OF URINARY FILTRATION, <6 HRS/DAY [id number] 08/26/18 Internal Medicine Assmt/Plan - Assessment Assessment: left upper arm pain, swelling cellulitis altered mental status - Plan Plan: as per order sheet Nutritional Asmnt/Malnutr-PDOC - Dietary Evaluation Malnutrition Findings (Please click <Entered> for more info): Nutritional Asmnt/Malnutrition Start: 08/27/18 16: 30 Text: Status: Complete Freq: Protocol: Document 08/27/18 16:30 LCKYMBERLYG (Rec: 08/27/18 16:47 [email or web address] [email or web address]) Nutritional Asmnt/Malnutrition Patient General Information Nutritional Screening High Risk Diagnosis sepsis, ALOC, renal failure Pertinent Medical Hx/Surgical Hx HTN, ESRD on HD Subjective Information Pt seen sleeping soundly at time of visit. RD not tesfaye to interview pt. Pt nurse note, pt refused lunch but started to scream. Current Diet Order/ Nutrition Support renal Pertinent Medications iron, folate, protonix, seroquel, renvela, vit B complex w/vit C Pertinent Labs 08/27 BUN 49, Cr 6.0, glucose 152, Ca 8.2, Phos 5.9 08/26 K 5.6, Cl 96, BUN 83, Cr 8.4, glucose 117, Ca 8.9 Nutritional Hx/Data Height 1.65 m Height (Calculated Centimeters) 165.1 Current Weight (lbs) 106.594 kg Weight (Calculated Kilograms) 106.6 Weight (Calculated Grams) 101795.2 [place] Body Weight 125 Body Mass Index (BMI) 39.1 Weight Status Obese GI Symptoms GI Symptoms None Last BM none noted Difficult in: None Skin Integrity/Comment: bruise to left upper arm and lower abd, right chest incision reddened Estimated Nutritional Goals BEE in Kcals: Adj wt of IBW Calories/Kcals/Kg 27-32 Kcals Calculated 0678-1257 Protein: Adj wt of IBW Protein g/k.2-1.3 Protein Calculated 83-89 Fluid: ml per MD Nutritional Problem 2. Problem Problem increased nutrition needs Etiology increased metabolic demand Signs/Symptoms: pt on HD 1. Problem Problem altered nutrition related labs Etiology hx of ESRD on HD, and DM Signs/Symptoms: BUN 49, Cr 6.0, glucose 152, Ca 8.2, Phos 5.9 Intervention/Recommendation Comments 1. Continue with Renal diet as ordered. Modify protein to 80gm d/t pt on HD. 2. Monitor PO intake, wt, labs and skin integrity 3. F/U as high risk in 2-3 days, 08/29-08/30 Expected Outcomes/Goals Expected Outcomes/Goals 1. PO intake to meet at least 75% of nutritional needs. 2. Wt stability, skin to remain intact, labs to approach WNL.
--- NOTE | 2018-08-30 16:40 | General Progress Note ---
Subjective - Review of Systems Service Date: 08/30/18 Subjective: no complaints s/p permacath and bovine av shuint placement yesterday dialyzed today Objective - Results Result Diagrams: 08/30/18 06:20 08/30/18 06:20 Recent Labs: Laboratory Last Values WBC 12.7 Th/cmm (4.8-10.8) H 08/30/18 06:20 RBC 3.30 Mil/cmm (3.80-5.10) L 08/30/18 06:20 Hgb 8.6 gm/dL (12-16) L 08/30/18 06:20 Hct 26.0 % (41.0-60) L 08/30/18 06:20 MCV 78.6 fl (81-100) L 08/30/18 06:20 MCH 26.0 pg (27.0-31.0) L 08/30/18 06:20 MCHC Differential 33.1 pg (28.0-36.0) 08/30/18 06:20 RDW 21.0 % (11.5-20.0) H 08/30/18 06:20 Plt Count 246 Th/cmm (150-400) 08/30/18 06:20 MPV 7.7 fl 08/30/18 06:20 Add Manual Diff YES 08/30/18 06:20 Neutrophils % MANAGER AGENCY 08/28/18 10:15 Band Neutrophils % 1 % (0-10) 08/28/18 10:15 Lymphocytes % MANAGER AGENCY 08/28/18 10:15 Monocytes % MANAGER AGENCY 08/28/18 10:15 Eosinophils % MANAGER AGENCY 08/28/18 10:15 Basophils % MANAGER AGENCY 08/28/18 10:15 Neutrophils (Manual) 86 % (40-80) H 08/30/18 06:20 Lymphocytes 10 % (20-50) L 08/30/18 06:20 Monocytes 4 % (2-10) 08/30/18 06:20 Hypochromia 2+ 08/25/18 22:40 Platelet Estimate ADEQUATE (NORMAL) 08/25/18 22:40 Poikilocytosis 2+ 08/25/18 22:40 Anisocytosis 1+ 08/25/18 22:40 Tear Drop Cells 1+ 08/25/18 22:40 Ovalocytes 1+ 08/25/18 22:40 Schistocytes 1+ 08/25/18 22:40 PT 14.0 SECONDS (9.5-11.5) H 08/29/18 05:50 INR 1.37 (0.5-1.4) 08/29/18 05:50 PTT (Actin FS) 28.3 SECONDS (26.0-38.0) 08/29/18 05:50 Sodium 143 mEq/L (136-145) 08/30/18 06:20 Potassium 4.8 mEq/L (3.5-5.1) 08/30/18 06:20 Chloride 105 mEq/L (98-107) 08/30/18 06:20 Carbon Dioxide 25.1 mEq/L (21.0-31.0) 08/30/18 06:20 Anion Gap 17.7 (7.0-16.0) H 08/30/18 06:20 BUN 64 mg/dL (7-25) H 08/30/18 06:20 Creatinine 8.5 mg/dL (0.6-1.2) H* 08/30/18 06:20 Est GFR ( Amer) 6.3 ml/min (>90) 08/30/18 06:20 Est GFR (Non-Af Amer) 5.2 ml/min 08/30/18 06:20 BUN/Creatinine Ratio 7.5 08/30/18 06:20 Glucose 91 mg/dL (70-105) 08/30/18 06:20 POC Glucose 90 MG/DL (70 - 105) 08/30/18 11:27 Whole Bld Lactic Acid 1.82 mmol/L (0.60-1.99) 08/27/18 06:25 Calcium 8.0 mg/dL (8.6-10.3) L 08/30/18 06:20 Phosphorus 5.9 mg/dL (2.5-5.0) H 08/27/18 06:25 Magnesium 2.3 mg/dL (1.9-2.7) 08/27/18 06:25 Total Bilirubin 0.5 mg/dL (0.3-1.0) 08/25/18 22:40 AST 33 U/L (13-39) 08/25/18 22:40 ALT 33 U/L (7-52) 08/25/18 22:40 Alkaline Phosphatase 281 U/L (34-104) H 08/25/18 22:40 B-Natriuretic Peptide 543.0 pg/mL (5.0-100.0) H 08/26/18 06:00 Total Protein 7.1 gm/dL (6.0-8.3) 08/25/18 22:40 Albumin 4.4 gm/dL (3.7-5.3) 08/25/18 22:40 Globulin 2.7 gm/dL 08/25/18 22:40 Albumin/Globulin Ratio 1.6 (1.0-1.8) 08/25/18 22:40 Random Vancomycin 38.2 ug/mL (5.0-40.0) 08/30/18 06:20 - Physical Exam Vitals and I&O: Vital Signs Temp 98.0 F 08/30/18 16:15 Pulse 73 08/30/18 16:15 Resp 18 08/30/18 16:15 BP 133/68 08/30/18 16:15 Pulse Ox 99 08/30/18 16:15 Intake & Output 08/29/18 08/30/18 08/30/18 18:59 06:59 18:59 Intake Total 0 15 Balance 0 15 Weight (lbs) 102.512 kg 102.285 kg Intake: Oral 0 15 Other: # Voids 1 1 # Bowel Movements 1 Stool Characteristics Soft Soft Weight Source Bedscale Bedscale Active Medications: Current Medications Acetaminophen (Tylenol Extra Strength) 500 mg PO TID [facility] Stop: 10/25/18 08:59 Last Admin: 08/30/18 09:00 Dose: Not Given Acetaminophen/Hydrocodone Bitart ([place] 5mg/325mg) 1 tab PO Q6H PRN PRN Reason: Pain (Moderate) Stop: 10/25/18 07:52 Last Admin: 08/30/18 15:59 Dose: 1 tab Albuterol Sulfate (Albuterol 2.5mg/3ml Neb Ud) 2.5 mg HHN Q4HRT [facility] Stop: 10/25/18 15:18 Last Admin: 08/30/18 14:08 Dose: 2.5 mg Albuterol/Ipratropium (Duoneb Neb) 3 ml HHN Q6HRT PRN PRN Reason: Respiratory Distress Stop: 10/25/18 18:59 Alprazolam (Xanax) 0.5 mg PO Q8HR PRN; Protocol PRN Reason: Anxiety Stop: 10/26/18 08:02 Last Admin: 08/28/18 09:31 Dose: 0.5 mg Aspirin (Aspirin Chewable) 81 mg PO DAILY [facility] Stop: 10/29/18 08:59 Last Admin: 08/30/18 09:00 Dose: Not Given Atorvastatin Calcium (Lipitor) 10 mg PO HS [facility]; Protocol Stop: 10/25/18 20:59 Last Admin: 08/29/18 21:37 Dose: Not Given [place] Oil/[place] Balsam/Trypsin (Venelex) 1 appl TP DAILY [facility] Stop: 10/25/18 14:59 Last Admin: 08/29/18 11:58 Dose: Not Given Cinacalcet (Sensipar) 30 mg PO DAILY [facility] Stop: 10/25/18 08:59 Last Admin: 08/30/18 09:00 Dose: Not Given Dicyclomine HCl (Bentyl) 10 mg PO TID [facility] Stop: 10/25/18 08:59 Last Admin: 08/30/18 09:00 Dose: Not Given Epoetin Mekhi (Epogen) 10,000 units SUBQ MWF@1500 [facility] Stop: 10/25/18 14:59 Last Admin: 08/30/18 15:37 Dose: 10,000 units Ferrous Sulfate (Iron) 325 mg PO DAILY [facility] Stop: 10/25/18 08:59 Last Admin: 08/30/18 09:00 Dose: Not Given Folic Acid (Folate) 1 mg PO DAILY [facility] Stop: 10/25/18 08:59 Last Admin: 08/30/18 09:00 Dose: Not Given Gabapentin (Neurontin) 200 mg PO TID [facility] Stop: 10/25/18 08:59 Last Admin: 08/30/18 09:00 Dose: Not Given Heparin Sodium (Porcine) (Heparin) 0 units HD UD [facility] Stop: 08/31/18 00:00 Last Admin: 08/30/18 09:30 Dose: Not Given Cefepime HCl 1 gm/ Sodium (Chloride) 50 mls @ 100 mls/hr IV Q24H [facility] Stop: 10/25/18 01:59 Last Admin: 08/30/18 02:24 Dose: 100 mls/hr Lisinopril (Zestril) 20 mg PO BID [facility] Stop: 10/25/18 08:59 Last Admin: 08/30/18 09:00 Dose: Not Given Montelukast Sodium (Singulair) 10 mg PO DAILY [facility] Stop: 10/25/18 08:59 Last Admin: 08/30/18 09:00 Dose: Not Given Nifedipine (Procardia Xl) 30 mg PO Q8H [facility] Stop: 10/25/18 07:59 Last Admin: 08/30/18 09:00 Dose: Not Given Pantoprazole Sodium (Protonix) 40 mg PO DAILY [facility] Stop: 10/25/18 08:59 Last Admin: 08/30/18 09:00 Dose: Not Given Prednisone (Deltasone) 20 mg PO BID [facility] Stop: 10/25/18 08:59 Last Admin: 08/30/18 09:00 Dose: Not Given Quetiapine Fumarate (Seroquel) 50 mg PO BID [facility]; Protocol Stop: 10/26/18 16:59 Last Admin: 08/30/18 09:00 Dose: Not Given Sertraline HCl (Zoloft) 100 mg PO DAILY [facility] Stop: 10/25/18 08:59 Last Admin: 08/30/18 09:00 Dose: Not Given Sevelamer Carbonate (Renvela) 1,600 mg PO TID [facility] Stop: 10/25/18 08:59 Last Admin: 08/30/18 09:00 Dose: Not Given Vitamin B Complex/Vit C/Folic Acid (Vitamin B Complex W/Vitamin C) 1 tab PO DAILY [facility] Stop: 10/25/18 08:59 Last Admin: 08/30/18 09:00 Dose: Not Given General: Alert HEENT: Atraumatic Neck: Supple Cardiovascular: Regular rate Lungs: Clear to auscultation Abdomen: Soft, Obese Extremities: no Edema - Procedures Procedures: Procedures Procedure Code Date PERFORMANCE OF URINARY FILTRATION, <6 HRS/DAY [id number] 08/26/18 Assessment/Plan - Assessment Assessment: ESRD ON HD R ARM CELLULITIS ANEMIA W ESRD S/P PERMACATH AND AV SHUNT PLACEMENT HTN W ESRD DM2 W ESRD AMS - Plan Plan: HD MWF OK TO DC FROM [facility] ABX SUPPORTIVE CARE Nutritional Asmnt/Malnutr-PDOC - Dietary Evaluation Malnutrition Findings (Please click <Entered> for more info): Nutritional Asmnt/Malnutrition Start: 08/27/18 16: 30 Text: Status: Complete Freq: Protocol: Document 08/27/18 16:30 RANDYARIANNA (Rec: 08/27/18 16:47 PHILSuad [email or web address]-[email or web address]) Nutritional Asmnt/Malnutrition Patient General Information Nutritional Screening High Risk Diagnosis sepsis, ALOC, renal failure Pertinent Medical Hx/Surgical Hx HTN, ESRD on HD Subjective Information Pt seen sleeping soundly at time of visit. RD not tesfaye to interview pt. Pt nurse note, pt refused lunch but started to scream. Current Diet Order/ Nutrition Support renal Pertinent Medications iron, folate, protonix, seroquel, renvela, vit B complex w/vit C Pertinent Labs 08/27 BUN 49, Cr 6.0, glucose 152, Ca 8.2, Phos 5.9 08/26 K 5.6, Cl 96, BUN 83, Cr 8.4, glucose 117, Ca 8.9 Nutritional Hx/Data Height 1.65 m Height (Calculated Centimeters) 165.1 Current Weight (lbs) 106.594 kg Weight (Calculated Kilograms) 106.6 Weight (Calculated Grams) 285194.2 [place] Body Weight 125 Body Mass Index (BMI) 39.1 Weight Status Obese GI Symptoms GI Symptoms None Last BM none noted Difficult in: None Skin Integrity/Comment: bruise to left upper arm and lower abd, right chest incision reddened Estimated Nutritional Goals BEE in Kcals: Adj wt of IBW Calories/Kcals/Kg 27-32 Kcals Calculated 4923-9244 Protein: Adj wt of IBW Protein g/k.2-1.3 Protein Calculated 83-89 Fluid: ml per MD Nutritional Problem 2. Problem Problem increased nutrition needs Etiology increased metabolic demand Signs/Symptoms: pt on HD 1. Problem Problem altered nutrition related labs Etiology hx of ESRD on HD, and DM Signs/Symptoms: BUN 49, Cr 6.0, glucose 152, Ca 8.2, Phos 5.9 Intervention/Recommendation Comments 1. Continue with Renal diet as ordered. Modify protein to 80gm d/t pt on HD. 2. Monitor PO intake, wt, labs and skin integrity 3. F/U as high risk in 2-3 days, 08/29-08/30 Expected Outcomes/Goals Expected Outcomes/Goals 1. PO intake to meet at least 75% of nutritional needs. 2. Wt stability, skin to remain intact, labs to approach WNL.
--- NOTE | 2018-09-01 22:27 | Progress Notes ---
DATE: 08/28/2018 PSYCHIATRIC FOLLOWUP CONSULT SUBJECTIVE: Chart reviewed and the patient interviewed. Also discussed the patient's condition with the staff and reviewed the records and labs. The patient was extremely irritable and extremely agitated yesterday and she also refused to get her labs done. The patient was given Ativan, Haldol, and Benadryl emergency dose yesterday because of increased agitation and irritability and increased mood swings. She also was restless. Otherwise, the patient is interacting slightly better this morning. She still needs lots of redirections and she is still easily agitated. Otherwise, no side effects of medications. Continue to monitor behavior and continue to follow up. JOB# [id number]
--- NOTE | 2018-09-02 23:32 | Discharge Summary ---
DATE OF DISCHARGE: 08/30/2018 The patient was admitted to [facility] on 08/26/2018. The patient was discharged on 08/30/2018. The patient was admitted because of left arm pain, swelling, cellulitis, sepsis, altered mental status, ESRD, and hypertension. The patient was treated with IV antibiotics and had a new shunt put in. The patient was in stable condition on 08/30/2018, and the patient was discharged back to [facility] where I will be following the patient. CONDITION AT DISCHARGE: Stable. MEDICATIONS: See the reconciliation sheet. JOB# [id number]
== END 2018-08-30 18:15 | DRG 710 ==
LOC: ER 22:16 → TELE 08-26 00:15 → MSI 08-30 15:35
PROVIDERS: ADMIT Internal Medicine; ATTEND Internal Medicine
PROC: 5A1D70Z Performance of Urinary Filtration, Intermittent, Less than 6 Hours Per Day (ICD-10-PCS; principal; 2018-08-26)
PROC: 5A1D70Z Performance of Urinary Filtration, Intermittent, Less than 6 Hours Per Day (ICD-10-PCS; 2018-08-28)
PROC: 03180KD Bypass Left Brachial Artery to Upper Arm Vein with Nonautologous Tissue Substitute, Open Approach (ICD-10-PCS; 2018-08-29)
PROC: 02HV33Z Insertion of Infusion Device into Superior Vena Cava, Percutaneous Approach (ICD-10-PCS; 2018-08-29)
PROC: B5181ZA Fluoroscopy of Superior Vena Cava using Low Osmolar Contrast, Guidance (ICD-10-PCS; 2018-08-29)
PROC: 02PAX3Z Removal of Infusion Device from Heart, External Approach (ICD-10-PCS; 2018-08-29)
PROC: 5A1D70Z Performance of Urinary Filtration, Intermittent, Less than 6 Hours Per Day (ICD-10-PCS; 2018-08-30)
DX: A41.9 Sepsis, unspecified organism (principal); G92 Toxic encephalopathy; J18.9 Pneumonia, unspecified organism; E11.22 Type 2 diabetes mellitus with diabetic chronic kidney disease; I12.0 Hypertensive chronic kidney disease with stage 5 chronic kidney disease or end stage renal disease; N18.6 End stage renal disease; E66.01 Morbid (severe) obesity due to excess calories; E87.5 Hyperkalemia; S41.101A Unspecified open wound of right upper arm, initial encounter; D63.1 Anemia in chronic kidney disease; F41.9 Anxiety disorder, unspecified; F32.9 Major depressive disorder, single episode, unspecified; L03.114 Cellulitis of left upper limb; L03.113 Cellulitis of right upper limb; J45.909 Unspecified asthma, uncomplicated; E66.9 Obesity, unspecified; Z68.37 Body mass index [BMI] 37.0-37.9, adult; G89.4 Chronic pain syndrome; N25.81 Secondary hyperparathyroidism of renal origin; Y95 Nosocomial condition; Z88.8 Allergy status to other drugs, medicaments and biological substances; Z79.899 Other long term (current) drug therapy; Z99.2 Dependence on renal dialysis
CPT/HCPCS: 36415-UA; 71045-TC; 76000-TC; 80048-TC; 80053-TC; 80202-TC; 82948-90; 83605; 83735-TC; 83880-TC; 84100-TC; 85007-TC; 85025-TC; 85610-TC; 85730-TC; 87070-90; 87075-90; 87205-90; 90799; 93005; 93931-LT-TC; 93971-TC-RT; 94640; 94760; 96372; 96374; 96375; 96379; J0692; J0696; J0885; J1630; J1644; J1815; J2405; J2543; J2704; J2710; J3010; J3370; J7030; J7040; J7613; J7799; V2790; X6258; Z7610

== ENCOUNTER 2018-09-07 16:49 | Inpatient (IN) | payer MEDICAID ==
--- NOTE | 2018-09-07 17:10 | ED Physician Chart ---
ED Chief Complaint/HPI - Patient Information Date Seen:: 09/07/18 Time Seen:: 17:00 Chief Complaint:: RIGHT BREAST PAIN History of Present Illness:: THIS IS A 52 YO FEMALE FROM A CARE HOME SENT HERE FOR AN EVALUATION OF HER RIGHT BREAST PAIN AND LEFT UPPER ARM SWELLING PAIN. HTIS IS A DIALYSIS PATIENT WITH ESRD WITH HTN,ASTHMA AND ELEVATED CHOLESTEROL. SHE GETS DIALYSIS SUNDAY, SUNDAY AND SUNDAY. Allergies:: Allergies Allergy/AdvReac Type Severity Reaction Status Date / Time iron dextran complex Allergy Mild Verified 08/26/18 06:44 chlorhexidine Allergy Verified 08/26/18 06:45 Vitals:: Vital Signs - 8 hr 09/07/18 16:54 Temp 98.7 F HR 87 RR 23 BP 165/78 O2 Sat % 100 Historian:: Patient, Medical Records Review:: Nurse's Note Reviewed, Old Chart Reviewed, Transfer documents Reviewed ED Review of Systems - Review of Systems General/Constitutional: No fever, No chills, No weight loss, No weakness, No diaphoresis, No edema, No loss of appetite Skin: No skin lesions, No rash, No bruising Head: No headache, No light-headedness Eyes: No loss of vision, No pain, No diplopia ENT: No earache, No nasal drainage, No sore throat, No tinnitus Neck: No neck pain, No swelling, No thyromegaly, No stiffness, No mass noted Cardio Vascular: No chest pain, No palpitations, No PND, No orthopnea, No edema Pulmonary: No SOB, No cough, No sputum, No wheezing GI: No nausea, No vomiting, No diarrhea, No pain, No melena, No hematochezia, No constipation, No hematemesis G/U: No dysuria, No frequency, No hematuria Machine Pecan Picker: Other (RIGHT BREAST PAIN) Musculoskeletal: No bone or joint pain, No back pain, No muscle pain Endocrine: No polyuria, No polydipsia Psychiatric: No prior psych history, No depression, No anxiety, No suicidal ideation Hematopoietic: No bruising, No lymphadenopathy Allergic/Immuno: No urticaria, No angioedema Neurological: No syncope, No focal symptoms, No weakness, No paresthesia, No headache, No seizure, No dizziness, No confusion, No vertigo ED Past Medical History - Past Medical History Obtainable: Yes Past Medical History: HTN, Asthma/COPD (ANEURYSM), Dyslipidemia, ESRD, Other ( OBESE) Family History: None Social History: Non Smoker, No Alcohol, No Drug Use, Care Facility Surgical History: other Psychiatricy History: None Medication: Reviewed Family Medical History - Family Member Mother History Unknown: Yes ED Physical Exam - Physical Examination General/Constitutional: Awake, Well-developed, well-nourished, Alert, No distress, GCS 15, Non-toxic appearing, Ambulatory Other Gen/Cons comments:: OBESE Head: Atraumatic Eyes: Lids, conjuctiva normal, PERRL, EOMI Skin: Nl inspection, No rash, No skin lesions, No ecchymosis, Well hydrated, No lymphadenopathy ENMT: External ears, nose nl, Nasal exam nl, Lips, teeth, gums nl Neck: Nontender, Full ROM w/o pain, No JVD, No nuchal rigidity, No bruit, No mass, No stridor Respiratory: Nl effort/Exclusion, Clear to Auscultation, No Wheeze/Rhonchi/Rales Cardio Vascular: RRR, No murmur, gallop, rubs, NL S1 S2 GI: No tenderness/rebounding/guarding, No organomegaly, No hernia, Normal BS's, Nondistended, No mass/bruits, No McBurney tenderness : No CVA tenderness Other comments:: THE RIGHT BREAST IS LARGE AND TENDER ON PALPATION. THERE IS A LARGE HEMATOMA OF THE LEFT UPPER ARM AREA. Extremities: No tenderness or effusion, Full ROM, normal strength in all extremities, No edema, Normal digits & nails Neuro/Psych: Alert/oriented, DTR's symmetric, Normal sensory exam, Normal motor strength, Judgement/insight normal, Mood normal, Normal gait, No focal deficits Misc: Normal back, No paraspinal tenderness ED Septic Shock - . Is Septic Shock (SBP<90, OR Lactate>4 mmol\L) present?: No - <6hrs of presentation: Vital Signs: Vital Signs - 8 hr 09/07/18 16:54 Temp 98.7 F HR 87 RR 23 BP 165/78 O2 Sat % 100 ED Reassessment (Disposition) - Reassessment Reassessment Condition:: Improved (S) - Diagnosis Diagnosis:: SEPSIS ESRD SEVERE ANEMIA RIGHT CHEST PAIN LEFT UPPER EXTREMITY HEMATOMA - Patient Disposition Discharge/Transfer:: Acute Care w/in this hosp Admitting Medical Physician:: Lelia Muñoz
[2018-09-07 17:20] LABS: EOSINOPHILE ABSOLUTE 0.1 Th/cmm (0.1-0.4); HEMATOCRIT 27.6 % (41.0-60); HEMOGLOBIN 8.8 gm/dL (12-16); LYMPHOCYTE ABSOLUTE 0.6 Th/cmm (1.5-3.0); MEAN CELL VOLUME 79.9 fl (81-100); MEAN CORPUSCULAR HEMOGLOBIN 25.5 pg (27.0-31.0); MEAN CORPUSCULAR HGB CONC 31.9 pg (28.0-36.0); MEAN PLATELET VOLUME 9.2 fl; MONOCYTE ABSOLUTE 0.5 Th/cmm (0.3-1.0); NEUTROPHILE ABSOLUTE 15.9 Th/cmm (1.8-8.0); PLATELET COUNT 190 Th/cmm (150-400); RED BLOOD COUNT 3.46 Mil/cmm (3.80-5.10); RED CELL DISTRIBUTION WIDTH 22.7 % (11.5-20.0)
[2018-09-07 17:28] LABS: WHITE BLOOD COUNT 17.1 Th/cmm (4.8-10.8)
[2018-09-07 17:32] LABS: ALB/GLOB RATIO 1.6 (1.0-1.8); ALBUMIN 4.5 gm/dL (3.7-5.3); ANION GAP 19.4 (7.0-16.0); BILIRUBIN,TOTAL 0.5 mg/dL (0.3-1.0); CALCIUM SERUM 9.4 mg/dL (8.6-10.3); GFR AFRICAN-AMERICAN 10.5 ml/min (>90); GFR NON AFRICAN-AMERICAN 8.7 ml/min; POTASSIUM SERUM 5.4 mEq/L (3.5-5.1); TOTAL PROTEIN,SERUM 7.3 gm/dL (6.0-8.3)
[2018-09-07 17:40] LABS: CREATININE - SERUM 5.5 mg/dL (0.6-1.2)
[2018-09-07] MEDS ORDERED: INSULIN HUMAN REGULAR 100 UNITS/ML UNIT IVP ONE (17:48)
[2018-09-07] MEDS ORDERED: INSULIN HUMAN REGULAR 100 UNITS/ML UNIT ONE (17:51)
[2018-09-07] MEDS: INSULIN HUMAN REGULAR 100 UNITS/ML UNIT SUBQ ONE ×2 (17:56→18:15)
[2018-09-07] MEDS ORDERED: cefTRIAXone 1 GM in Sodium Chloride 0.9% 50 ML IV ONE (18:04)
[2018-09-07] MEDS ORDERED: Sodium Chloride 0.9% 500 ML IV ONE (18:06)
[2018-09-07 19:11] LABS: BAND NEUTROPHILE 1 % (0-10); LYMPHOCYTE 6 % (20-50); NEUTROPHILS 89 % (40-80)
[2018-09-07 19:12] LABS: MONOCYTE 4 % (2-10)
[2018-09-07] MEDS ORDERED: Albuterol/Ipratropium Neb 3 ML AERS HHN PRN ×2 (20:46→22:45)
[2018-09-07] MEDS ORDERED: Albuterol Nebulizer 2.5mg/3mL HHN PRN (20:47)
[2018-09-07] MEDS ORDERED: Hydrocodone/APAP 5mg/325mg Tab PO PRN (20:50)
--- NOTE | 2018-09-07 21:35 | Consultation ---
Consult Note - Consult Note Service Date: 09/07/18 Referring Physician: Lelia Muñoz Consult Note: PHYSICIAN Consultation Note: Date of Admission: 09/07/18 Purpose of Consultation: Right breast cellulitis Chief Complaint: Patient CHUN BUNN was admitted to location Medical/ Surgical Unit I with ESRD,SEPSIS RIGHT BREAST,CHEST WALL PAIN. History of Present Illness: 52 year old female brought from [facility] for swelling and redness of the right breast tender swelling. She denies any fver and chills. She has unbearable pain inithe right breast and swelling. Even Narco was not helping her. She had new AV shunt made in right arm by Dr Kimball recently. Past Medical History: CKD5 on HD, HTN, Obesity, SHRAVAN. Allergies Allergy/AdvReac Type Severity Reaction Status Date / Time iron dextran complex Allergy Mild Verified 08/26/18 06:44 chlorhexidine Allergy Verified 08/26/18 06:45 Vital Signs Temp 98 F 09/07/18 19:42 Pulse 88 09/07/18 19:42 Resp 21 09/07/18 19:42 BP 160/72 09/07/18 19:42 Pulse Ox 98 09/07/18 19:42 Intake & Output 09/07/18 09/07/18 09/08/18 06:59 18:59 06:59 Weight (lbs) 96.615 kg Other: Weight Source Standing scale Laboratory Results - last 24 hr 09/07/18 09/07/18 09/07/18 17:00 17:00 17:00 WBC 17.1 H RBC 3.46 L Hgb 8.8 L Hct 27.6 L MCV 79.9 L MCH 25.5 L MCHC Differential 31.9 RDW 22.7 H Plt Count 190 MPV 9.2 Add Manual Diff YES Band Neutrophils % 1 Neutrophils (Manual) 89 H Lymphocytes 6 L Monocytes 4 Sodium 137 Potassium 5.4 H Chloride 95 L Carbon Dioxide 28.0 Anion Gap 19.4 H BUN 64 H Creatinine 5.5 H* Est GFR ( Amer) 10.5 Est GFR (Non-Af Amer) 8.7 BUN/Creatinine Ratio 11.6 Glucose 185 H Whole Bld Lactic Acid Calcium 9.4 Total Bilirubin 0.5 AST 16 ALT 49 Alkaline Phosphatase 314 H Troponin I 0.02 B-Natriuretic Peptide Total Protein 7.3 Albumin 4.5 Globulin 2.8 Albumin/Globulin Ratio 1.6 TSH 09/07/18 09/07/18 09/07/18 17:00 17:00 20:00 WBC RBC Hgb Hct MCV MCH MCHC Differential RDW Plt Count MPV Add Manual Diff Band Neutrophils % Neutrophils (Manual) Lymphocytes Monocytes Sodium Potassium Chloride Carbon Dioxide Anion Gap BUN Creatinine Est GFR ( Amer) Est GFR (Non-Af Amer) BUN/Creatinine Ratio Glucose Whole Bld Lactic Acid 2.06 H* Calcium Total Bilirubin AST ALT Alkaline Phosphatase Troponin I B-Natriuretic Peptide 265.0 H Total Protein Albumin Globulin Albumin/Globulin Ratio TSH 0.08 L Home Medication Medication Instructions Recorded Type Acetaminophen [Tylenol Extra 500 mg PO TID 08/25/18 History Strength] Albuterol Sulfate [Proventil Hfa*] 2 puff IH Q4H 08/25/18 History Hydrocodone/Acetaminophen [Reagan 1 tab PO Q6H PRN 08/25/18 History 325 mg-5 mg*] Nifedipine [Nifedipine ER] 30 mg PO Q8H 08/25/18 History RX: Esomeprazole Magnesium 40 mg PO DAILY 08/25/18 History RX: Aspirin [Aspirin Chewable] 81 mg PO DAILY ctb 08/30/18 Rx RX: Atorvastatin Calcium [Lipitor] 10 mg PO HS tab 08/30/18 Rx RX: Cinacalcet [Sensipar] 30 mg PO DAILY tablet 08/30/18 Rx RX: Dicyclomine [Bentyl 10 Mg Cap*] 10 mg PO TID cap 08/30/18 Rx RX: Epoetin Mekhi [Epogen*] 10,000 units SUBQ MWF@1500 ml 08/30/18 Rx RX: Folic Acid [Folate*] 1 mg PO DAILY tab 08/30/18 Rx RX: Gabapentin [Neurontin*] 200 mg PO TID cap 08/30/18 Rx RX: Lisinopril [Zestril] 20 mg PO BID tab 08/30/18 Rx RX: Montelukast [Singulair] 10 mg PO DAILY tab 08/30/18 Rx RX: Pantoprazole [Protonix] 40 mg PO DAILY ect 08/30/18 Rx RX: Sertraline [Zoloft] 100 mg PO DAILY tab 08/30/18 Rx RX: Vitamin B Complex w/Vitamin C 1 tab PO DAILY tab 08/30/18 Rx RX: alprazOLAM [Xanax*] 0.5 mg PO Q8HR PRN tab 08/30/18 Rx RX: predniSONE [Deltasone] 20 mg PO BID tab 08/30/18 Rx Albuterol Nebulizer 2.5mg/3mL 2.5 mg IH Q4HR 09/07/18 History [Albuterol Neb UD*] Calcium Alginate [Dhiraj] 1 each TP PRN PRN 09/07/18 History Ibuprofen [Ibu-200] 400 mg PO Q6H PRN 09/07/18 History Loperamide HCl [Imodium A-D] 2 mg PO Q4H PRN 09/07/18 History RX: Albuterol/Ipratropium Neb 3 ml HHN Q6HRT PRN 09/07/18 History [Duoneb Neb] RX: Cefepime [Maxipime] 1 gm IV MWF 09/07/18 History RX: Nystatin 500,000 units PO BID 09/07/18 History RX: QUEtiapine Fumarate [SEROquel] 50 mg PO Q12H 09/07/18 History Sevelamer Carbonate [Renvela] 1,600 mg PO TID 09/07/18 History Current Medications Generic Name Dose Route Start Last Admin Trade Name Freq PRN Reason Stop Dose Admin Acetaminophen/Hydrocodone Bitart 1 tab 09/07/18 20:50 Reagan 5mg/325mg PO 11/06/18 20:49 Q6H PRN Pain (Moderate) Albuterol Sulfate 2.5 mg 09/07/18 20:47 Albuterol 2.5mg/3ml Neb Ud HHN 11/06/18 20:46 Q4H PRN congestion/sob Albuterol/Ipratropium 3 ml 09/07/18 20:46 Duoneb Neb HHN 11/06/18 20:45 Q6HRT PRN Congestion/SOB Protocol Alprazolam 0.5 mg 09/07/18 20:52 Xanax PO 11/06/18 20:51 Q8HR PRN Anxiety Protocol Fluconazole 100 mg 09/08/18 09:00 Diflucan PO 11/07/18 08:59 DAILY CARMEL Sodium Chloride 500 mls @ 100 mls/hr 09/07/18 18:06 Nacl 0.9% IV 09/07/18 23:05 .Q5H ONE Piperacillin Sod/Tazobactam 50 mls @ 100 mls/hr 09/08/18 22:00 Sod 2.25 gm/ Sodium Chloride IV 11/07/18 21:59 Q12H CARMEL Protocol Miscellaneous 1 ea 09/07/18 18:38 Vancomycin Iv Per Pharmacy 11/06/18 18:37 PRN PRN PROTOCOL Miscellaneous 1 ea 09/07/18 21:30 Vancomycin Iv Per Pharmacy 11/06/18 21:29 PRN CARMEL Morphine Sulfate 1 mg 09/07/18 21:29 Morphine IVP 11/06/18 21:28 Q4HR PRN Pain (Moderate) Zolpidem Tartrate 5 mg 09/07/18 20:53 Ambien PO 11/06/18 20:52 HS PRN Insomnia Review of Systems: A 12 point ROS was reviewed with the pertinent positive and negatives noted in the HPI. Social History Smoking Status Unknown if ever smoked Drug Use No Alcohol Use No Family Medical History Unknown. Physical Exam: General: Comfortable, not in any distress. WN WD/ HEENT: Head: NC NT. Oral cavity: Moist, pink tongue. Eyes: Pallor present. No icterus. pupil PERRLA. EOMI. Neck: Supple. no jvd, no carotid bruit. No use of accessory neck musclen use. Cardio: S1 and S2 WN, no murmur no gallop. Breast: palpable exam of the breast performed in presence of RN. There is tender mildly erythematous swelling of the right breast involving lower and outer quadrant. Nipple hasa no discharge, or blood. Nipples are similar bilaterally. No mass palpated. Respiratory: CTAP Abdominal: Soft NT ND BS present. Genital/Urinary: Extremities: NCCE. Neurological: AAOx3 Assessment: 1. Right sided mastitis, may have lymphedema. 2. HTN. 3. Leukocytosis, reactive versus sepsis. 4. Lactic acidosis, multifactorial. 5. CKD 5 on HD. 6. Obesity. 7. SHRAVAN. Plan: will start vancO IV and continue Zosyn. Consult renal. Consult surgery. US b/l breast r/o abscess. pain management. Thank you, Dr Muñoz for involving me in taking care of this patient. [place], Tao Thomas M.D. [id number]
[2018-09-07 21:40] LABS: INR 1.07 (0.5-1.4); PROTHROMBIN TIME (TEST) 10.8 SECONDS (9.5-11.5)
[2018-09-07] MEDS: Morphine Sulfate 2 mg/mL 1mL Syr IVP PRN (21:49)
[2018-09-07] MEDS ORDERED: Piperacillin Sodium/Tazobact 2.25 gm Vial IV ONE (21:49)
[2018-09-07] MEDS ORDERED: ALBUTEROL SULFATE IH SCH (22:45)
[2018-09-08 07:50] LABS: MEAN CELL VOLUME 79.5 fl (81-100); MEAN CORPUSCULAR HEMOGLOBIN 25.5 pg (27.0-31.0); MEAN CORPUSCULAR HGB CONC 32.1 pg (28.0-36.0); MEAN PLATELET VOLUME 8.7 fl; PLATELET COUNT 194 Th/cmm (150-400); RED BLOOD COUNT 3.52 Mil/cmm (3.80-5.10); RED CELL DISTRIBUTION WIDTH 22.2 % (11.5-20.0)
[2018-09-08 07:56] LABS: WHITE BLOOD COUNT 17.2 Th/cmm (4.8-10.8)
[2018-09-08] MEDS: Morphine Sulfate 2 mg/mL 1mL Syr IVP PRN ×3 (07:57→18:55)
[2018-09-08 08:02] LABS: ANION GAP 16.2 (7.0-16.0); CALCIUM SERUM 8.8 mg/dL (8.6-10.3); CARBON DIOXIDE 28.5 mEq/L (21.0-31.0); GFR NON AFRICAN-AMERICAN 7.4 ml/min; POTASSIUM SERUM 5.7 mEq/L (3.5-5.1)
[2018-09-08 08:07] LABS: CREATININE - SERUM 6.3 mg/dL (0.6-1.2)
--- NOTE | 2018-09-08 08:17 | Consultation ---
Consult Note - Consult Note Service Date: 09/08/18 Consult Note: PHYSICIAN Consultation Note: Date of Admission: 09/07/18 Purpose of Consultation: ESRD on HD Chief Complaint: Right breast pain History of Present Illness: 52 YO F with hx of DM, HTN, ESRD on HD, presenting with right breast pain, swelling and warmth for the past day. She denies any fevers, chills or trauma to the breast. She also denies any recent nipple discharge. Patient reports increased swelling. She normally gets dialysis MWFS at [facility] under Dr. Samayoa. She did not get dialysis yesterday Past Medical History: DM HTN ESRD Anemia of chronic disease Allergies Allergy/AdvReac Type Severity Reaction Status Date / Time iron dextran complex Allergy Mild Verified 08/26/18 06:44 chlorhexidine Allergy Verified 08/26/18 06:45 Vital Signs Temp 96.7 F 09/08/18 04:00 Pulse 74 09/08/18 06:39 Resp 14 09/08/18 06:39 BP 171/88 09/08/18 04:00 Pulse Ox 98 09/08/18 06:39 Intake & Output 09/07/18 09/08/18 09/08/18 18:59 06:59 18:59 Intake Total 100 Balance 100 Weight (lbs) 96.615 kg 107.048 kg 107.048 kg Intake: Oral 100 Other: # Voids 0 # Bowel Movements 0 Weight Source Standing scale Bedscale Bedscale Laboratory Results - last 24 hr 09/07/18 09/07/18 09/07/18 17:00 17:00 17:00 WBC 17.1 H RBC 3.46 L Hgb 8.8 L Hct 27.6 L MCV 79.9 L MCH 25.5 L MCHC Differential 31.9 RDW 22.7 H Plt Count 190 MPV 9.2 Add Manual Diff YES Band Neutrophils % 1 Neutrophils (Manual) 89 H Lymphocytes 6 L Monocytes 4 PT 10.8 INR 1.07 PTT (Actin FS) 21.6 L Sodium 137 Potassium 5.4 H Chloride 95 L Carbon Dioxide 28.0 Anion Gap 19.4 H BUN 64 H Creatinine 5.5 H* Est GFR ( Amer) 10.5 Est GFR (Non-Af Amer) 8.7 BUN/Creatinine Ratio 11.6 Glucose 185 H Whole Bld Lactic Acid Calcium 9.4 Total Bilirubin 0.5 AST 16 ALT 49 Alkaline Phosphatase 314 H Troponin I B-Natriuretic Peptide Total Protein 7.3 Albumin 4.5 Globulin 2.8 Albumin/Globulin Ratio 1.6 TSH 09/07/18 09/07/18 09/07/18 17:00 17:00 17:00 WBC RBC Hgb Hct MCV MCH MCHC Differential RDW Plt Count MPV Add Manual Diff Band Neutrophils % Neutrophils (Manual) Lymphocytes Monocytes PT INR PTT (Actin FS) Sodium Potassium Chloride Carbon Dioxide Anion Gap BUN Creatinine Est GFR ( Amer) Est GFR (Non-Af Amer) BUN/Creatinine Ratio Glucose Whole Bld Lactic Acid Calcium Total Bilirubin AST ALT Alkaline Phosphatase Troponin I 0.02 B-Natriuretic Peptide 265.0 H Total Protein Albumin Globulin Albumin/Globulin Ratio TSH 0.08 L 09/07/18 09/07/18 09/08/18 20:00 Unknown 07:30 WBC RBC Hgb Hct MCV MCH MCHC Differential RDW Plt Count MPV Add Manual Diff Band Neutrophils % Neutrophils (Manual) Lymphocytes Monocytes PT INR PTT (Actin FS) Sodium Potassium Chloride Carbon Dioxide Anion Gap BUN Creatinine Est GFR ( Amer) Est GFR (Non-Af Amer) BUN/Creatinine Ratio Glucose Whole Bld Lactic Acid 2.06 H* 2.24 H* 0.92 Calcium Total Bilirubin AST ALT Alkaline Phosphatase Troponin I B-Natriuretic Peptide Total Protein Albumin Globulin Albumin/Globulin Ratio TSH 09/08/18 09/08/18 07:30 07:30 WBC 17.2 H RBC 3.52 L Hgb 9.0 L Hct 28.0 L MCV 79.5 L MCH 25.5 L MCHC Differential 32.1 RDW 22.2 H Plt Count 194 MPV 8.7 Add Manual Diff YES Band Neutrophils % Neutrophils (Manual) Lymphocytes Monocytes PT INR PTT (Actin FS) Sodium 135 L Potassium 5.7 H Chloride 96 L Carbon Dioxide 28.5 Anion Gap 16.2 H BUN 76 H Creatinine 6.3 H* Est GFR ( Amer) 9.0 Est GFR (Non-Af Amer) 7.4 BUN/Creatinine Ratio 12.1 Glucose 112 H Whole Bld Lactic Acid Calcium 8.8 Total Bilirubin AST ALT Alkaline Phosphatase Troponin I B-Natriuretic Peptide Total Protein Albumin Globulin Albumin/Globulin Ratio TSH Home Medication Medication Instructions Recorded Type Acetaminophen [Tylenol Extra 500 mg PO TID 08/25/18 History Strength] Albuterol Sulfate [Proventil Hfa*] 2 puff IH Q4H 08/25/18 History Esomeprazole Magnesium 40 mg PO DAILY 08/25/18 History Hydrocodone/Acetaminophen [Blain 1 tab PO Q6H PRN 08/25/18 History 325 mg-5 mg*] Nifedipine [Nifedipine ER] 30 mg PO Q8H 08/25/18 History Aspirin [Aspirin Chewable] 81 mg PO DAILY ctb 08/30/18 Rx Atorvastatin Calcium [Lipitor] 10 mg PO HS tab 08/30/18 Rx Cinacalcet [Sensipar] 30 mg PO DAILY tablet 08/30/18 Rx Dicyclomine [Bentyl 10 Mg Cap*] 10 mg PO TID cap 08/30/18 Rx Epoetin Mekhi [Epogen*] 10,000 units SUBQ MWF@1500 ml 08/30/18 Rx Folic Acid [Folate*] 1 mg PO DAILY tab 08/30/18 Rx Gabapentin [Neurontin*] 200 mg PO TID cap 08/30/18 Rx Lisinopril [Zestril] 20 mg PO BID tab 08/30/18 Rx Montelukast [Singulair] 10 mg PO DAILY tab 08/30/18 Rx Pantoprazole [Protonix] 40 mg PO DAILY ect 08/30/18 Rx Sertraline [Zoloft] 100 mg PO DAILY tab 08/30/18 Rx Vitamin B Complex w/Vitamin C 1 tab PO DAILY tab 08/30/18 Rx alprazOLAM [Xanax*] 0.5 mg PO Q8HR PRN tab 08/30/18 Rx predniSONE [Deltasone] 20 mg PO BID tab 08/30/18 Rx Albuterol Nebulizer 2.5mg/3mL 2.5 mg IH Q4HR 09/07/18 History [Albuterol Neb UD*] Albuterol/Ipratropium Neb [Duoneb 3 ml HHN Q6HRT PRN 09/07/18 History Neb] Calcium Alginate [Dhiraj] 1 each TP PRN PRN 09/07/18 History Cefepime [Maxipime] 1 gm IV MWF 09/07/18 History Ibuprofen [Ibu-200] 400 mg PO Q6H PRN 09/07/18 History Loperamide HCl [Imodium A-D] 2 mg PO Q4H PRN 09/07/18 History Nystatin 500,000 units PO BID 09/07/18 History QUEtiapine Fumarate [SEROquel] 50 mg PO Q12H 09/07/18 History Sevelamer Carbonate [Renvela] 1,600 mg PO TID 09/07/18 History Current Medications Generic Name Dose Route Start Last Admin Trade Name Freq PRN Reason Stop Dose Admin Acetaminophen 500 mg 09/08/18 09:00 Tylenol Extra Strength PO 11/07/18 08:59 TID CARMEL Acetaminophen/Hydrocodone Bitart 1 tab 09/07/18 20:50 09/07/18 23:53 Blain 5mg/325mg PO 11/06/18 20:49 1 tab Q6H PRN Administration Pain (Moderate) Albuterol Sulfate 2.5 mg 09/08/18 11:00 Albuterol 2.5mg/3ml Neb [facility] 11/07/18 10:59 Q4HRT CARMEL Albuterol/Ipratropium 3 ml 09/07/18 20:46 Duoneb [facility] 11/06/18 20:45 Q6HRT PRN Congestion/SOB Protocol Alprazolam 0.5 mg 09/07/18 20:52 Xanax PO 11/06/18 20:51 Q8HR PRN Anxiety Protocol Aspirin 81 mg 09/08/18 09:00 Aspirin Chewable PO 11/07/18 08:59 DAILY [facility] Fluconazole 100 mg 09/08/18 09:00 Diflucan PO 11/07/18 08:59 DAILY [facility] Piperacillin Sod/Tazobactam 50 mls @ 100 mls/hr 09/08/18 22:00 09/07/18 22:30 Sod 2.25 gm/ Sodium Chloride IV 11/07/18 21:59 100 mls/hr Q12H CARMEL Administration Protocol Miscellaneous 1 ea 09/07/18 21:30 Vancomycin Iv Per Pharmacy [facility] 11/06/18 21:29 PRN CARMEL Morphine Sulfate 1 mg 09/07/18 21:29 09/08/18 07:57 Morphine IVP 11/06/18 21:28 1 mg Q4HR PRN Administration Pain (Severe) Zolpidem Tartrate 5 mg 09/07/18 20:53 Ambien PO 11/06/18 20:52 HS PRN Insomnia Review of Systems: A 12 point ROS was reviewed with the pertinent positive and negatives noted in the HPI. Social History Smoking Status Never smoker Family Medical History Family Medical History Start: 09/07/18 20: 33 Freq: ONCE Status: Active Protocol: Document 09/07/18 20:33 JASONKATHLEEN (Rec: 09/08/18 06:39 JASONKATHLEEN [id number]) Family Medical History Mother History Unknown Yes Other Medical History unable to remember. Physical Exam: General: NAD HEENT: Membranes moist Neck: Supple Cardio: RRR. Right breast swelling, tenderness Respiratory: Decreased Abdominal: Distended Genital/Urinary: Extremities: Warm Neurological: Nonfocal Assessment: 1. Right breast cellulitis 2. ESRD on HD 3. DM II with renal manifestation 4. Hypertension 5. Anemia of chronic renal disease Plan: -Plan for HD today and tomorrow. Will evaluate daily -Will have breast ultrasound, continue treatment for cellulitis Signed, Dominick Noriega [phone]
[2018-09-08 08:28] LABS: BAND NEUTROPHILE 2 % (0-10); EOSINOPHIL 1 % (0-5); LYMPHOCYTE 10 % (20-50); MONOCYTE 2 % (2-10); NEUTROPHILS 85 % (40-80); PLATELET ESTIMATE ADEQUATE (NORMAL)
[2018-09-08] MEDS: Aspirin 81mg Chewable Tab PO SCH (09:24)
--- NOTE | 2018-09-08 09:31 | Diagnostic Imaging Report ---
CHEST X-RAY: AP view INDICATION: pain COMPARISON: 08/30/2018 FINDINGS: Left dialysis catheter is stable. Right subclavian vascular stent is also noted. Additional postsurgical changes of the base of the right neck are noted. There is elevation right hemidiaphragm. Increased interstitial lung markings are noted with no focal consolidation or effusions. Cardiomegaly is noted. IMPRESSION: Increased interstitial lung markings probably due to chronic lung changes. No focal consolidation identified. Cardiomegaly. Persistent elevation of the right hemidiaphragm limiting assessment of right lung. Postsurgical changes.
[2018-09-08] MEDS: Acetaminophen 500 MG TAB PO SCH ×3 (12:25→22:08)
[2018-09-08] MEDS: Piperacillin/Tazobact 2.25 gm in 0.9% NS 50 ML IV SCH ×2 (12:29→22:07)
--- NOTE | 2018-09-08 17:09 | History & Physical ---
ADMIT DATE: 09/07/2018 HISTORY OF PRESENT ILLNESS: The patient is well known to me. The patient is from [facility]. The patient is known to have history of end-stage renal disease, history of dialysis, history of hypertension, obesity, history of sleep apnea. The patient apparently was having swelling and redness of the right breast and the patient was found to have mastitis, swelling and was referred to the ER and was brought into the hospital. The patient has AV shunt to the right arm by Dr. Kimball recently. The patient is known to have history of hypertension, diabetes, obesity. LABORATORY DATA: The patient's white count was 17.7. PHYSICAL EXAMINATION: HEAD: Normal. ENT: Normal. NECK: Supple and nontender. LUNGS: Clear. CARDIOVASCULAR SYSTEM: S1 and S2 heard. ABDOMEN: Soft. Bowel sounds present. DIAGNOSES: Right breast was tender and swollen, right-sided mastitis with lymphedema, rule out abscess; hypertension; leukocytosis; lactic acidosis disease, chronic kidney disease V, on hemodialysis; obesity; obstructive sleep apnea were made. PLAN: The patient is being started on antibiotic and I called ID doctor to see the patient as well as Dr. Kimball and I will follow the patient. JOB# [id number]
--- NOTE | 2018-09-08 17:28 | General Progress Note ---
Subjective - Review of Systems Service Date: 09/08/18 Events since last encounter: right breast mass on US - will order mammogram left arm AV shunt may be clotted - ultrasound for patency ordered Objective - Results Result Diagrams: 09/08/18 07:30 09/08/18 07:30 Recent Labs: Laboratory Last Values WBC 17.2 Th/cmm (4.8-10.8) H 09/08/18 07:30 RBC 3.52 Mil/cmm (3.80-5.10) L 09/08/18 07:30 Hgb 9.0 gm/dL (12-16) L 09/08/18 07:30 Hct 28.0 % (41.0-60) L 09/08/18 07:30 MCV 79.5 fl (81-100) L 09/08/18 07:30 MCH 25.5 pg (27.0-31.0) L 09/08/18 07:30 MCHC Differential 32.1 pg (28.0-36.0) 09/08/18 07:30 RDW 22.2 % (11.5-20.0) H 09/08/18 07:30 Plt Count 194 Th/cmm (150-400) 09/08/18 07:30 MPV 8.7 fl 09/08/18 07:30 Add Manual Diff YES 09/08/18 07:30 Band Neutrophils % 2 % (0-10) 09/08/18 07:30 Neutrophils (Manual) 85 % (40-80) H 09/08/18 07:30 Lymphocytes 10 % (20-50) L 09/08/18 07:30 Monocytes 2 % (2-10) 09/08/18 07:30 Eosinophils 1 % (0-5) 09/08/18 07:30 Platelet Estimate ADEQUATE (NORMAL) 09/08/18 07:30 PT 10.8 SECONDS (9.5-11.5) 09/07/18 17:00 INR 1.07 (0.5-1.4) 09/07/18 17:00 PTT (Actin FS) 21.6 SECONDS (26.0-38.0) L 09/07/18 17:00 Sodium 135 mEq/L (136-145) L 09/08/18 07:30 Potassium 5.7 mEq/L (3.5-5.1) H 09/08/18 07:30 Chloride 96 mEq/L (98-107) L 09/08/18 07:30 Carbon Dioxide 28.5 mEq/L (21.0-31.0) 09/08/18 07:30 Anion Gap 16.2 (7.0-16.0) H 09/08/18 07:30 BUN 76 mg/dL (7-25) H 09/08/18 07:30 Creatinine 6.3 mg/dL (0.6-1.2) H* 09/08/18 07:30 Est GFR ( Amer) 9.0 ml/min (>90) 09/08/18 07:30 Est GFR (Non-Af Amer) 7.4 ml/min 09/08/18 07:30 BUN/Creatinine Ratio 12.1 09/08/18 07:30 Glucose 112 mg/dL (70-105) H 09/08/18 07:30 Whole Bld Lactic Acid 0.92 mmol/L (0.60-1.99) 09/08/18 07:30 Calcium 8.8 mg/dL (8.6-10.3) 09/08/18 07:30 Total Bilirubin 0.5 mg/dL (0.3-1.0) 09/07/18 17:00 AST 16 U/L (13-39) 09/07/18 17:00 ALT 49 U/L (7-52) 09/07/18 17:00 Alkaline Phosphatase 314 U/L (34-104) H 09/07/18 17:00 Troponin I 0.02 ng/mL (0.01-0.05) 09/07/18 17:00 B-Natriuretic Peptide 265.0 pg/mL (5.0-100.0) H 09/07/18 17:00 Total Protein 7.3 gm/dL (6.0-8.3) 09/07/18 17:00 Albumin 4.5 gm/dL (3.7-5.3) 09/07/18 17:00 Globulin 2.8 gm/dL 09/07/18 17:00 Albumin/Globulin Ratio 1.6 (1.0-1.8) 09/07/18 17:00 TSH 0.08 uIU/ml (0.34-5.60) L 09/07/18 17:00 - Physical Exam Vitals and I&O: Vital Signs Temp 98.7 F 09/08/18 15:50 Pulse 87 09/08/18 15:50 Resp 20 09/08/18 15:50 BP 100/45 09/08/18 15:50 Pulse Ox 99 09/08/18 15:50 Intake & Output 09/07/18 09/08/18 09/08/18 18:59 06:59 18:59 Intake Total 100 Balance 100 Weight (lbs) 96.615 kg 107.048 kg 107.048 kg Intake: Oral 100 Other: # Voids 0 # Bowel Movements 0 Weight Source Standing scale Bedscale Bedscale Active Medications: Current Medications Acetaminophen (Tylenol Extra Strength) 500 mg PO TID [facility] Stop: 11/07/18 10:59 Last Admin: 09/08/18 15:00 Dose: Not Given Acetaminophen/Hydrocodone Bitart ([place] 5mg/325mg) 1 tab PO Q6H PRN PRN Reason: Pain (Moderate) Stop: 11/06/18 20:49 Last Admin: 09/07/18 23:53 Dose: 1 tab Albuterol Sulfate (Albuterol 2.5mg/3ml Neb Ud) 2.5 mg HHN Q4HRT CARMEL Stop: 11/07/18 10:59 Albuterol/Ipratropium (Duoneb Neb) 3 ml HHN Q6HRT PRN; Protocol PRN Reason: Congestion/SOB Stop: 11/06/18 20:45 Alprazolam (Xanax) 0.5 mg PO Q8HR PRN; Protocol PRN Reason: Anxiety Stop: 11/06/18 20:51 Aspirin (Aspirin Chewable) 81 mg PO DAILY [facility] Stop: 11/07/18 08:59 Last Admin: 09/08/18 09:24 Dose: 81 mg Fluconazole (Diflucan) 100 mg PO DAILY [facility] Stop: 11/07/18 08:59 Last Admin: 09/08/18 09:24 Dose: 100 mg Piperacillin Sod/Tazobactam (Sod 2.25 gm/ Sodium Chloride) 50 mls @ 100 mls/hr IV Q8HR [facility] Stop: 11/07/18 12:59 Last Admin: 09/08/18 12:29 Dose: 100 mls/hr Miscellaneous (Vancomycin Iv Per Pharmacy) 1 ea [facility] PRN CARMEL Stop: 11/06/18 21:29 Morphine Sulfate (Morphine) 1 mg IVP Q4HR PRN PRN Reason: Pain (Severe) Stop: 11/06/18 21:28 Last Admin: 09/08/18 07:57 Dose: 1 mg Zolpidem Tartrate (Ambien) 5 mg PO HS PRN PRN Reason: Insomnia Stop: 11/06/18 20:52 - Procedures Procedures: Procedures Procedure Code Date BYPASS L BRACH ART TO UP ARM VEIN W NONAUT SUB, OPEN [id number] 08/26/18 FLUOROSCOPY OF SUP VENA CAVA USING L OSM CONTRAST, GUIDANCE [id number] 08/26/18 INSERTION OF INFUSION DEV INTO SUP VENA CAVA, PERC APPROACH [id number] 08/26/18 PERFORMANCE OF URINARY FILTRATION, <6 HRS/DAY [id number] 08/26/18 REMOVAL OF INFUSION DEVICE FROM HEART, EXTERNAL APPROACH [id number] 08/26/18
[2018-09-08] MEDS: Albuterol Nebulizer 2.5mg/3mL HHN SCH ×3 (18:00→22:38)
[2018-09-09] MEDS: Albuterol Nebulizer 2.5mg/3mL HHN SCH ×6 (03:40→22:28)
[2018-09-09] MEDS: Piperacillin/Tazobact 2.25 gm in 0.9% NS 50 ML IV SCH ×3 (06:17→20:20)
[2018-09-09] MEDS: Morphine Sulfate 2 mg/mL 1mL Syr IVP PRN ×4 (06:19→22:41)
[2018-09-09 06:26] LABS: HEMATOCRIT 28.1 % (41.0-60); MEAN CELL VOLUME 80.5 fl (81-100); RED BLOOD COUNT 3.49 Mil/cmm (3.80-5.10)
[2018-09-09 06:42] LABS: MEAN CORPUSCULAR HEMOGLOBIN 25.7 pg (27.0-31.0); MEAN PLATELET VOLUME 8.6 fl; PLATELET COUNT 178 Th/cmm (150-400)
[2018-09-09 07:07] LABS: ANISOCYTOSIS 1+; BAND NEUTROPHILE 0 % (0-10); BASOPHIL 0 % (0-3); EOSINOPHIL 2 % (0-5); LYMPHOCYTE 10 % (20-50); MONOCYTE 5 % (2-10); NEUTROPHILS 83 % (40-80); WHITE BLOOD COUNT 13.5 Th/cmm (4.8-10.8)
[2018-09-09 07:11] LABS: ALB/GLOB RATIO 1.6 (1.0-1.8); ANION GAP 18.8 (7.0-16.0); BILIRUBIN,TOTAL 0.5 mg/dL (0.3-1.0); CALCIUM SERUM 7.9 mg/dL (8.6-10.3); CARBON DIOXIDE 26.3 mEq/L (21.0-31.0); GFR AFRICAN-AMERICAN 9.7 ml/min (>90); POTASSIUM SERUM 5.1 mEq/L (3.5-5.1); TOTAL PROTEIN,SERUM 6.5 gm/dL (6.0-8.3)
[2018-09-09 07:17] LABS: CREATININE - SERUM 5.9 mg/dL (0.6-1.2)
[2018-09-09] MEDS ORDERED: Non-Formulary Item 1 EA (Calcium Alginate [Kendall] 1 EACH) TP PRN (08:31)
[2018-09-09] MEDS ORDERED: Hydrocodone/APAP 5mg/325mg Tab PO PRN (08:31)
--- NOTE | 2018-09-09 08:37 | Diagnostic Imaging Report ---
Bilateral breast ultrasound HISTORY: Right-sided Mass. Sonographic sector images were obtained through the quadrants of the right breast. The exam of the right breast demonstrates proximal 3.0 x 1.9 x 3.2 cm heterogeneous focus in the 5:30 area. Etiology uncertain. Inflammatory or neoplastic change cannot be excluded. Mammographic evaluation is needed. Also noted is an approximate 3.3 x 1.3 x 3.2 cm ill-defined focus in the axillary region on the right side. Again, etiology is uncertain. Mammographic evaluation is needed. There is a questionable 4.0 x 1.3 x 3.1 cm ill-defined region of heterogeneous density in the axillary area on the left side. Mammographic evaluation needed. IMPRESSION: 1. Abnormal region in the 5:30 area of the right breast as noted above. Etiology uncertain. Inflammatory or neoplastic change cannot be excluded. Clinical correlation and mammographic evaluation is needed. 2. Questionable density in the axillary region of both breasts. Again, clinical correlation and mammographic evaluation is needed. BI-RAD 0 Incomplete study - Needs additional Imaging.
[2018-09-09] MEDS: Acetaminophen 500 MG TAB PO SCH ×3 (09:00→21:26)
[2018-09-09] MEDS ORDERED: Non-Formulary Item 1 EA (Esomeprazole Magnesium [Esomeprazole Magnesium] 40 MG) PO SCH (09:00)
[2018-09-09] MEDS: Dicyclomine 10 mg Cap PO SCH ×3 (09:02→20:20)
[2018-09-09] MEDS: Aspirin 81mg Chewable Tab PO SCH (09:02)
[2018-09-09] MEDS: Pantoprazole 40 mg EC Tab PO SCH (09:02)
[2018-09-09] MEDS: NIFEdipine 30 mg ER Tab PO SCH ×3 (09:03→23:59)
[2018-09-09] MEDS: Vitamin B Complex w/Vitamin C Tab PO SCH (09:03)
[2018-09-09] MEDS ORDERED: Vancomycin HCl 1.5 GM in Sodium Chloride 0.9% 500 ML IV ONE (10:00)
--- NOTE | 2018-09-09 10:46 | Internal Medicine Prog Note ---
Internal Medicine Subjective - Subjective Patient seen and examined:: chart reviewed, other (has mastitis in rt breast ) Patient is:: awake Patient Complaints of:: other (breast pain ) Per staff patient has:: no adverse event Internal Medicine Objective - Results Result Diagrams: 09/09/18 05:56 09/09/18 05:56 Recent Labs: Laboratory Last Values WBC 13.5 Th/cmm (4.8-10.8) H D 09/09/18 05:56 RBC 3.49 Mil/cmm (3.80-5.10) L 09/09/18 05:56 Hgb 9.0 gm/dL (12-16) L 09/09/18 05:56 Hct 28.1 % (41.0-60) L 09/09/18 05:56 MCV 80.5 fl (81-100) L 09/09/18 05:56 MCH 25.7 pg (27.0-31.0) L 09/09/18 05:56 MCHC Differential 32.0 pg (28.0-36.0) 09/09/18 05:56 RDW 22.0 % (11.5-20.0) H 09/09/18 05:56 Plt Count 178 Th/cmm (150-400) 09/09/18 05:56 MPV 8.6 fl 09/09/18 05:56 Add Manual Diff YES 09/09/18 05:56 Band Neutrophils % 0 % (0-10) 09/09/18 05:56 Neutrophils (Manual) 83 % (40-80) H 09/09/18 05:56 Lymphocytes 10 % (20-50) L 09/09/18 05:56 Monocytes 5 % (2-10) 09/09/18 05:56 Eosinophils 2 % (0-5) 09/09/18 05:56 Basophils 0 % (0-3) 09/09/18 05:56 Platelet Estimate ADEQUATE (NORMAL) 09/08/18 07:30 Anisocytosis 1+ 09/09/18 05:56 PT 10.8 SECONDS (9.5-11.5) 09/07/18 17:00 INR 1.07 (0.5-1.4) 09/07/18 17:00 PTT (Actin FS) 21.6 SECONDS (26.0-38.0) L 09/07/18 17:00 Sodium 139 mEq/L (136-145) 09/09/18 05:56 Potassium 5.1 mEq/L (3.5-5.1) 09/09/18 05:56 Chloride 99 mEq/L (98-107) 09/09/18 05:56 Carbon Dioxide 26.3 mEq/L (21.0-31.0) 09/09/18 05:56 Anion Gap 18.8 (7.0-16.0) H 09/09/18 05:56 BUN 58 mg/dL (7-25) H 09/09/18 05:56 Creatinine 5.9 mg/dL (0.6-1.2) H* 09/09/18 05:56 Est GFR ( Amer) 9.7 ml/min (>90) 09/09/18 05:56 Est GFR (Non-Af Amer) 8.0 ml/min 09/09/18 05:56 BUN/Creatinine Ratio 9.8 09/09/18 05:56 Glucose 101 mg/dL (70-105) 09/09/18 05:56 Whole Bld Lactic Acid 0.92 mmol/L (0.60-1.99) 09/08/18 07:30 Calcium 7.9 mg/dL (8.6-10.3) L 09/09/18 05:56 Total Bilirubin 0.5 mg/dL (0.3-1.0) 09/09/18 05:56 AST 12 U/L (13-39) L 09/09/18 05:56 ALT 39 U/L (7-52) 09/09/18 05:56 Alkaline Phosphatase 259 U/L (34-104) H 09/09/18 05:56 Troponin I 0.02 ng/mL (0.01-0.05) 09/07/18 17:00 B-Natriuretic Peptide 265.0 pg/mL (5.0-100.0) H 09/07/18 17:00 Total Protein 6.5 gm/dL (6.0-8.3) 09/09/18 05:56 Albumin 4.0 gm/dL (3.7-5.3) 09/09/18 05:56 Globulin 2.5 gm/dL 09/09/18 05:56 Albumin/Globulin Ratio 1.6 (1.0-1.8) 09/09/18 05:56 TSH 0.08 uIU/ml (0.34-5.60) L 09/07/18 17:00 Random Vancomycin 18.5 ug/mL (5.0-40.0) 09/09/18 05:56 - Physical Exam Vitals and I&O: Vital Signs Temp 97.4 F 09/09/18 07:27 Pulse 74 09/09/18 09:04 Resp 18 09/09/18 07:27 BP 125/59 09/09/18 09:04 Pulse Ox 100 09/09/18 07:27 Intake & Output 09/08/18 09/09/18 09/09/18 18:59 06:59 18:59 Intake Total 650 100 Balance 650 100 Weight (lbs) 107.048 kg 106.186 kg Intake: Intake, IV Amount 50 100 Piperacillin Sodium/ 50 100 Tazobact 2.25 gm In Sodium Chloride 0.9% 50 ml @ 100 mls/hr IV Q8HR [facility] Rx#:[id number] Oral 600 Other: # Voids 0 # Bowel Movements 0 Weight Source Bedscale Bedscale Active Medications: Current Medications Acetaminophen (Tylenol Extra Strength) 500 mg PO TID [facility] Stop: 11/07/18 10:59 Last Admin: 09/09/18 09:00 Dose: Not Given Acetaminophen/Hydrocodone Bitart ([place] 5mg/325mg) 1 tab PO Q6H PRN PRN Reason: Pain (Moderate) Stop: 11/06/18 20:49 Last Admin: 09/07/18 23:53 Dose: 1 tab Acetaminophen/Hydrocodone Bitart ([place] 5mg/325mg) 1 tab PO Q6H PRN PRN Reason: Pain (Moderate) Stop: 11/08/18 08:30 Albuterol Sulfate (Albuterol 2.5mg/3ml Neb Ud) 2.5 mg HHN Q4HRT [facility] Stop: 11/07/18 10:59 Last Admin: 09/09/18 06:37 Dose: 2.5 mg Albuterol/Ipratropium (Duoneb Neb) 3 ml HHN Q6HRT PRN; Protocol PRN Reason: Congestion/SOB Stop: 11/06/18 20:45 Alprazolam (Xanax) 0.5 mg PO Q8HR PRN; Protocol PRN Reason: Anxiety Stop: 11/06/18 20:51 Aspirin (Aspirin Chewable) 81 mg PO DAILY [facility] Stop: 11/07/18 08:59 Last Admin: 09/09/18 09:02 Dose: 81 mg Atorvastatin Calcium (Lipitor) 10 mg PO HS [facility]; Protocol Stop: 11/08/18 20:59 Cinacalcet (Sensipar) 30 mg PO DAILY [facility] Stop: 11/08/18 08:59 Last Admin: 09/09/18 09:03 Dose: 30 mg Dicyclomine HCl (Bentyl) 10 mg PO TID [facility] Stop: 11/08/18 08:59 Last Admin: 09/09/18 09:02 Dose: 10 mg Epoetin Mekhi (Epogen) 10,000 units SUBQ MWF@1500 [facility] Stop: 11/08/18 14:59 Fluconazole (Diflucan) 100 mg PO DAILY [facility] Stop: 11/07/18 08:59 Last Admin: 09/09/18 09:02 Dose: 100 mg Folic Acid (Folate) 1 mg PO DAILY [facility] Stop: 11/08/18 08:59 Last Admin: 09/09/18 09:02 Dose: 1 mg Gabapentin (Neurontin) 200 mg PO TID [facility] Stop: 11/08/18 08:59 Last Admin: 09/09/18 09:03 Dose: 200 mg Piperacillin Sod/Tazobactam (Sod 2.25 gm/ Sodium Chloride) 50 mls @ 100 mls/hr IV Q8HR [facility] Stop: 11/07/18 12:59 Last Infusion: 09/09/18 06:47 Dose: Infused Vancomycin HCl 1.5 gm/ Sodium (Chloride) 500 mls @ 250 mls/hr IV ONCE ONE Stop: 09/09/18 11:59 Ibuprofen (Advil) 400 mg PO Q6H PRN PRN Reason: MILD PAIN Stop: 11/08/18 08:30 Lisinopril (Zestril) 20 mg PO BID [facility] Stop: 11/08/18 08:59 Last Admin: 09/09/18 09:04 Dose: Not Given Loperamide HCl (Imodium) 2 mg PO Q4H PRN PRN Reason: Diarrhea Stop: 11/08/18 08:30 Miscellaneous (Vancomycin Iv Per Pharmacy) 1 ea MC PRN [facility] Stop: 11/06/18 21:29 Miscellaneous (Calcium Alginate [Dhiraj]) 1 each TP PRN PRN PRN Reason: DRESSING Montelukast Sodium (Singulair) 10 mg PO DAILY [facility] Stop: 11/08/18 08:59 Last Admin: 09/09/18 09:03 Dose: 10 mg Morphine Sulfate (Morphine) 1 mg IVP Q4HR PRN PRN Reason: Pain (Severe) Stop: 11/06/18 21:28 Last Admin: 09/09/18 06:19 Dose: 1 mg Nifedipine (Procardia Xl) 30 mg PO Q8H [facility] Stop: 11/08/18 08:59 Last Admin: 09/09/18 09:03 Dose: Not Given Nystatin (Nystatin) 500,000 units PO BID [facility] Stop: 11/08/18 08:59 Last Admin: 09/09/18 09:03 Dose: 500,000 units Pantoprazole Sodium (Protonix) 40 mg PO DAILY [facility] Stop: 11/08/18 08:59 Last Admin: 09/09/18 09:02 Dose: 40 mg Prednisone (Deltasone) 20 mg PO BID [facility] Stop: 11/08/18 08:59 Last Admin: 09/09/18 09:02 Dose: 20 mg Sevelamer Carbonate (Renvela) 1,600 mg PO TID [facility] Stop: 11/08/18 08:59 Last Admin: 09/09/18 09:02 Dose: 1,600 mg Vitamin B Complex/Vit C/Folic Acid (Vitamin B Complex W/Vitamin C) 1 tab PO DAILY [facility] Stop: 11/08/18 08:59 Last Admin: 09/09/18 09:03 Dose: 1 tab Zolpidem Tartrate (Ambien) 5 mg PO HS PRN PRN Reason: Insomnia Stop: 11/06/18 20:52 General: alert, other (rt breast tenderness ) HEENT: NC/AT Neck: Supple Lungs: CTAB Abdomen: soft, non-tender Extremities: clear - Procedures Procedures: Procedures Procedure Code Date BYPASS L BRACH ART TO UP ARM VEIN W NONAUT SUB, OPEN [id number] 08/26/18 FLUOROSCOPY OF SUP VENA CAVA USING L OSM CONTRAST, GUIDANCE [id number] 08/26/18 INSERTION OF INFUSION DEV INTO SUP VENA CAVA, PERC APPROACH [id number] 08/26/18 PERFORMANCE OF URINARY FILTRATION, <6 HRS/DAY [id number] 08/26/18 REMOVAL OF INFUSION DEVICE FROM HEART, EXTERNAL APPROACH [id number] 08/26/18 Internal Medicine Assmt/Plan - Assessment Assessment: rt breast mastitis with lymphedema r/o abscess htn leukocytosis lactic acidosis ckd/hd obesity sleep apnea - Plan Plan: as per order sheet
[2018-09-09] MEDS ORDERED: Heparin Sod 1,000 Units/mL 10ml HD ONE (15:00)
[2018-09-09] MEDS ORDERED: Heparin Sodium 1,000 Units/mL Vial IVP ONE (15:15)
--- NOTE | 2018-09-09 15:52 | General Progress Note ---
Subjective - Review of Systems Service Date: 09/09/18 Events since last encounter: NO ACUTE EVENTS LEUKOCYTOSIS IMPROVING PT EXPRESSES FRUSTRATION AT DURATION OF COMPLICATIONS FROM AVF INITIALLY PLACED AT [facility] BY DR. RAE. SHE THEN HAD AVG PLACED 08/[address] BORREGO, WHICH IS NOT FUNCTIONAL AT THIS TIME SHE CURRENTLY HAS LEFT IJ PERMACATH Subjective: PT EXPRESSES FRUSTRATION Objective - Results Result Diagrams: 09/09/18 05:56 09/09/18 05:56 Recent Labs: Laboratory Last Values WBC 13.5 Th/cmm (4.8-10.8) H D 09/09/18 05:56 RBC 3.49 Mil/cmm (3.80-5.10) L 09/09/18 05:56 Hgb 9.0 gm/dL (12-16) L 09/09/18 05:56 Hct 28.1 % (41.0-60) L 09/09/18 05:56 MCV 80.5 fl (81-100) L 09/09/18 05:56 MCH 25.7 pg (27.0-31.0) L 09/09/18 05:56 MCHC Differential 32.0 pg (28.0-36.0) 09/09/18 05:56 RDW 22.0 % (11.5-20.0) H 09/09/18 05:56 Plt Count 178 Th/cmm (150-400) 09/09/18 05:56 MPV 8.6 fl 09/09/18 05:56 Add Manual Diff YES 09/09/18 05:56 Band Neutrophils % 0 % (0-10) 09/09/18 05:56 Neutrophils (Manual) 83 % (40-80) H 09/09/18 05:56 Lymphocytes 10 % (20-50) L 09/09/18 05:56 Monocytes 5 % (2-10) 09/09/18 05:56 Eosinophils 2 % (0-5) 09/09/18 05:56 Basophils 0 % (0-3) 09/09/18 05:56 Platelet Estimate ADEQUATE (NORMAL) 09/08/18 07:30 Anisocytosis 1+ 09/09/18 05:56 PT 10.8 SECONDS (9.5-11.5) 09/07/18 17:00 INR 1.07 (0.5-1.4) 09/07/18 17:00 PTT (Actin FS) 21.6 SECONDS (26.0-38.0) L 09/07/18 17:00 Sodium 139 mEq/L (136-145) 09/09/18 05:56 Potassium 5.1 mEq/L (3.5-5.1) 09/09/18 05:56 Chloride 99 mEq/L (98-107) 09/09/18 05:56 Carbon Dioxide 26.3 mEq/L (21.0-31.0) 09/09/18 05:56 Anion Gap 18.8 (7.0-16.0) H 09/09/18 05:56 BUN 58 mg/dL (7-25) H 09/09/18 05:56 Creatinine 5.9 mg/dL (0.6-1.2) H* 09/09/18 05:56 Est GFR ( Amer) 9.7 ml/min (>90) 09/09/18 05:56 Est GFR (Non-Af Amer) 8.0 ml/min 09/09/18 05:56 BUN/Creatinine Ratio 9.8 09/09/18 05:56 Glucose 101 mg/dL (70-105) 09/09/18 05:56 Whole Bld Lactic Acid 0.92 mmol/L (0.60-1.99) 09/08/18 07:30 Calcium 7.9 mg/dL (8.6-10.3) L 09/09/18 05:56 Total Bilirubin 0.5 mg/dL (0.3-1.0) 09/09/18 05:56 AST 12 U/L (13-39) L 09/09/18 05:56 ALT 39 U/L (7-52) 09/09/18 05:56 Alkaline Phosphatase 259 U/L (34-104) H 09/09/18 05:56 Troponin I 0.02 ng/mL (0.01-0.05) 09/07/18 17:00 B-Natriuretic Peptide 265.0 pg/mL (5.0-100.0) H 09/07/18 17:00 Total Protein 6.5 gm/dL (6.0-8.3) 09/09/18 05:56 Albumin 4.0 gm/dL (3.7-5.3) 09/09/18 05:56 Globulin 2.5 gm/dL 09/09/18 05:56 Albumin/Globulin Ratio 1.6 (1.0-1.8) 09/09/18 05:56 TSH 0.08 uIU/ml (0.34-5.60) L 09/07/18 17:00 Random Vancomycin 18.5 ug/mL (5.0-40.0) 09/09/18 05:56 - Physical Exam Vitals and I&O: Vital Signs Temp 97.8 F 09/09/18 15:40 Pulse 89 09/09/18 15:40 Resp 18 09/09/18 15:40 BP 145/84 09/09/18 15:40 Pulse Ox 100 09/09/18 15:40 Intake & Output 09/08/18 09/09/18 09/09/18 18:59 06:59 18:59 Intake Total 650 100 Balance 650 100 Weight (lbs) 107.048 kg 106.186 kg Intake: Intake, IV Amount 50 100 Piperacillin Sodium/ 50 100 Tazobact 2.25 gm In Sodium Chloride 0.9% 50 ml @ 100 mls/hr IV Q8HR [facility] Rx#:[id number] Oral 600 Other: # Voids 0 # Bowel Movements 0 Stool Characteristics Soft Formed Brown Weight Source Bedscale Bedscale Active Medications: Current Medications Acetaminophen (Tylenol Extra Strength) 500 mg PO TID [facility] Stop: 11/07/18 10:59 Last Admin: 09/09/18 14:49 Dose: Not Given Acetaminophen/Hydrocodone Bitart ([place] 5mg/325mg) 1 tab PO Q6H PRN PRN Reason: Pain (Moderate) Stop: 11/06/18 20:49 Last Admin: 09/07/18 23:53 Dose: 1 tab Acetaminophen/Hydrocodone Bitart ([place] 5mg/325mg) 1 tab PO Q6H PRN PRN Reason: Pain (Moderate) Stop: 11/08/18 08:30 Albuterol Sulfate (Albuterol 2.5mg/3ml Neb Ud) 2.5 mg HHN Q4HRT [facility] Stop: 11/07/18 10:59 Last Admin: 09/09/18 15:13 Dose: 2.5 mg Albuterol/Ipratropium (Duoneb Neb) 3 ml HHN Q6HRT PRN; Protocol PRN Reason: Congestion/SOB Stop: 11/06/18 20:45 Alprazolam (Xanax) 0.5 mg PO Q8HR PRN; Protocol PRN Reason: Anxiety Stop: 11/06/18 20:51 Aspirin (Aspirin Chewable) 81 mg PO DAILY [facility] Stop: 11/07/18 08:59 Last Admin: 09/09/18 09:02 Dose: 81 mg Atorvastatin Calcium (Lipitor) 10 mg PO HS [facility]; Protocol Stop: 11/08/18 20:59 Cinacalcet (Sensipar) 30 mg PO DAILY [facility] Stop: 11/08/18 08:59 Last Admin: 09/09/18 09:03 Dose: 30 mg Dicyclomine HCl (Bentyl) 10 mg PO TID [facility] Stop: 11/08/18 08:59 Last Admin: 09/09/18 14:57 Dose: 10 mg Epoetin Mekhi (Epogen) 10,000 units SUBQ MWF@1500 [facility] Stop: 11/08/18 14:59 Fluconazole (Diflucan) 100 mg PO DAILY [facility] Stop: 11/07/18 08:59 Last Admin: 09/09/18 09:02 Dose: 100 mg Folic Acid (Folate) 1 mg PO DAILY [facility] Stop: 11/08/18 08:59 Last Admin: 09/09/18 09:02 Dose: 1 mg Gabapentin (Neurontin) 200 mg PO TID [facility] Stop: 11/08/18 08:59 Last Admin: 09/09/18 14:57 Dose: 200 mg Piperacillin Sod/Tazobactam (Sod 2.25 gm/ Sodium Chloride) 50 mls @ 100 mls/hr IV Q8HR [facility] Stop: 11/07/18 12:59 Last Admin: 09/09/18 14:59 Dose: 100 mls/hr Ibuprofen (Advil) 400 mg PO Q6H PRN PRN Reason: MILD PAIN Stop: 11/08/18 08:30 Lisinopril (Zestril) 20 mg PO BID [facility] Stop: 11/08/18 08:59 Last Admin: 09/09/18 09:04 Dose: Not Given Loperamide HCl (Imodium) 2 mg PO Q4H PRN PRN Reason: Diarrhea Stop: 11/08/18 08:30 Miscellaneous (Vancomycin Iv Per Pharmacy) 1 ea MC PRN [facility] Stop: 11/06/18 21:29 Miscellaneous (Calcium Alginate [Dhiraj]) 1 each TP PRN PRN PRN Reason: DRESSING Montelukast Sodium (Singulair) 10 mg PO DAILY [facility] Stop: 11/08/18 08:59 Last Admin: 09/09/18 09:03 Dose: 10 mg Morphine Sulfate (Morphine) 1 mg IVP Q4HR PRN PRN Reason: Pain (Severe) Stop: 11/06/18 21:28 Last Admin: 09/09/18 11:49 Dose: 1 mg Nifedipine (Procardia Xl) 30 mg PO Q8H [facility] Stop: 11/08/18 08:59 Last Admin: 09/09/18 09:03 Dose: Not Given Nystatin (Nystatin) 500,000 units PO BID [facility] Stop: 11/08/18 08:59 Last Admin: 09/09/18 09:03 Dose: 500,000 units Pantoprazole Sodium (Protonix) 40 mg PO DAILY [facility] Stop: 11/08/18 08:59 Last Admin: 09/09/18 09:02 Dose: 40 mg Prednisone (Deltasone) 20 mg PO BID [facility] Stop: 11/08/18 08:59 Last Admin: 09/09/18 09:02 Dose: 20 mg Quetiapine Fumarate (Seroquel) 50 mg PO Q12H [facility]; Protocol Stop: 11/08/18 13:14 Sertraline HCl (Zoloft) 100 mg PO DAILY [facility]; Protocol Stop: 11/09/18 08:59 Sevelamer Carbonate (Renvela) 1,600 mg PO TID [facility] Stop: 11/08/18 08:59 Last Admin: 09/09/18 14:57 Dose: 1,600 mg Vitamin B Complex/Vit C/Folic Acid (Vitamin B Complex W/Vitamin C) 1 tab PO DAILY [facility] Stop: 11/08/18 08:59 Last Admin: 09/09/18 09:03 Dose: 1 tab Zolpidem Tartrate (Ambien) 5 mg PO HS PRN PRN Reason: Insomnia Stop: 11/06/18 20:52 General: Alert, Oriented x3 Cardiovascular: Regular rate Lungs: Clear to auscultation Abdomen: Obese Extremities: Edema (RUE EDEMA) - Procedures Procedures: Procedures Procedure Code Date BYPASS L BRACH ART TO UP ARM VEIN W NONAUT SUB, OPEN [id number] 08/26/18 FLUOROSCOPY OF SUP VENA CAVA USING L OSM CONTRAST, GUIDANCE [id number] 08/26/18 INSERTION OF INFUSION DEV INTO SUP VENA CAVA, PERC APPROACH [id number] 08/26/18 PERFORMANCE OF URINARY FILTRATION, <6 HRS/DAY [id number] 08/26/18 REMOVAL OF INFUSION DEVICE FROM HEART, EXTERNAL APPROACH [id number] 08/26/18 Assessment/Plan - Assessment Assessment: 1. Right breast cellulitis 2. ESRD on HD 3. DM II with renal manifestation 4. Hypertension 5. Anemia of chronic renal disease - Plan Plan: -Repeat HD today. Will evaluate daily -Cont epogen -patient needs vascular f/u at [facility] d/w RN d/w HD RN seen on dialysis
[2018-09-09] MEDS: Epoetin Alfa 20000 Units/mL Vial SUBQ SCH (18:07)
[2018-09-09] MEDS: Atorvastatin Calcium 10 MG TAB PO SCH (20:20)
--- NOTE | 2018-09-09 23:41 | Infectious Disease Prog Note ---
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 No fever. Infectious Disease Objective - Results Result Diagrams: 09/09/18 05:56 09/09/18 05:56 Recent Labs: Laboratory Last Values WBC 13.5 Th/cmm (4.8-10.8) H D 09/09/18 05:56 RBC 3.49 Mil/cmm (3.80-5.10) L 09/09/18 05:56 Hgb 9.0 gm/dL (12-16) L 09/09/18 05:56 Hct 28.1 % (41.0-60) L 09/09/18 05:56 MCV 80.5 fl (81-100) L 09/09/18 05:56 MCH 25.7 pg (27.0-31.0) L 09/09/18 05:56 MCHC Differential 32.0 pg (28.0-36.0) 09/09/18 05:56 RDW 22.0 % (11.5-20.0) H 09/09/18 05:56 Plt Count 178 Th/cmm (150-400) 09/09/18 05:56 MPV 8.6 fl 09/09/18 05:56 Add Manual Diff YES 09/09/18 05:56 Band Neutrophils % 0 % (0-10) 09/09/18 05:56 Neutrophils (Manual) 83 % (40-80) H 09/09/18 05:56 Lymphocytes 10 % (20-50) L 09/09/18 05:56 Monocytes 5 % (2-10) 09/09/18 05:56 Eosinophils 2 % (0-5) 09/09/18 05:56 Basophils 0 % (0-3) 09/09/18 05:56 Platelet Estimate ADEQUATE (NORMAL) 09/08/18 07:30 Anisocytosis 1+ 09/09/18 05:56 PT 10.8 SECONDS (9.5-11.5) 09/07/18 17:00 INR 1.07 (0.5-1.4) 09/07/18 17:00 PTT (Actin FS) 21.6 SECONDS (26.0-38.0) L 09/07/18 17:00 Sodium 139 mEq/L (136-145) 09/09/18 05:56 Potassium 5.1 mEq/L (3.5-5.1) 09/09/18 05:56 Chloride 99 mEq/L (98-107) 09/09/18 05:56 Carbon Dioxide 26.3 mEq/L (21.0-31.0) 09/09/18 05:56 Anion Gap 18.8 (7.0-16.0) H 09/09/18 05:56 BUN 58 mg/dL (7-25) H 09/09/18 05:56 Creatinine 5.9 mg/dL (0.6-1.2) H* 09/09/18 05:56 Est GFR ( Amer) 9.7 ml/min (>90) 09/09/18 05:56 Est GFR (Non-Af Amer) 8.0 ml/min 09/09/18 05:56 BUN/Creatinine Ratio 9.8 09/09/18 05:56 Glucose 101 mg/dL (70-105) 09/09/18 05:56 Whole Bld Lactic Acid 0.92 mmol/L (0.60-1.99) 09/08/18 07:30 Calcium 7.9 mg/dL (8.6-10.3) L 09/09/18 05:56 Total Bilirubin 0.5 mg/dL (0.3-1.0) 09/09/18 05:56 AST 12 U/L (13-39) L 09/09/18 05:56 ALT 39 U/L (7-52) 09/09/18 05:56 Alkaline Phosphatase 259 U/L (34-104) H 09/09/18 05:56 Troponin I 0.02 ng/mL (0.01-0.05) 09/07/18 17:00 B-Natriuretic Peptide 265.0 pg/mL (5.0-100.0) H 09/07/18 17:00 Total Protein 6.5 gm/dL (6.0-8.3) 09/09/18 05:56 Albumin 4.0 gm/dL (3.7-5.3) 09/09/18 05:56 Globulin 2.5 gm/dL 09/09/18 05:56 Albumin/Globulin Ratio 1.6 (1.0-1.8) 09/09/18 05:56 TSH 0.08 uIU/ml (0.34-5.60) L 09/07/18 17:00 Random Vancomycin 18.5 ug/mL (5.0-40.0) 09/09/18 05:56 - Physical Exam Vitals and I&O: Vital Signs Temp 98.4 F 09/09/18 20:00 Pulse 77 09/09/18 22:32 Resp 18 09/09/18 22:32 BP 149/88 09/09/18 20:00 Pulse Ox 98 09/09/18 22:32 Intake & Output 09/09/18 09/09/18 09/10/18 06:59 18:59 06:59 Intake Total 533 656 9301 Output Total 2500 Balance 100 -2000 1080 Weight (lbs) 106.186 kg 106.141 kg 106.141 kg Intake: Intake, IV Amount 100 600 Piperacillin Sodium/ 100 100 Tazobact 2.25 gm In Sodium Chloride 0.9% 50 ml @ 100 mls/hr IV Q8HR [facility] Rx#:[id number] Oral 500 480 Output: Hemodialysis 2500 Other: # Bowel Movements 1 1 Stool Characteristics Soft Soft Formed Formed Brown Brown Weight Source Bedscale Bedscale Bedscale Active Medications: Current Medications Acetaminophen (Tylenol Extra Strength) 500 mg PO TID [facility] Stop: 11/07/18 10:59 Last Admin: 09/09/18 21:26 Dose: Not Given Acetaminophen/Hydrocodone Bitart ([place] 5mg/325mg) 1 tab PO Q6H PRN PRN Reason: Pain (Moderate) Stop: 11/06/18 20:49 Last Admin: 09/07/18 23:53 Dose: 1 tab Acetaminophen/Hydrocodone Bitart ([place] 5mg/325mg) 1 tab PO Q6H PRN PRN Reason: Pain (Moderate) Stop: 11/08/18 08:30 Albuterol Sulfate (Albuterol 2.5mg/3ml Neb Ud) 2.5 mg HHN Q4HRT [facility] Stop: 11/07/18 10:59 Last Admin: 09/09/18 22:28 Dose: 2.5 mg Albuterol/Ipratropium (Duoneb Neb) 3 ml HHN Q6HRT PRN; Protocol PRN Reason: Congestion/SOB Stop: 11/06/18 20:45 Alprazolam (Xanax) 0.5 mg PO Q8HR PRN; Protocol PRN Reason: Anxiety Stop: 11/06/18 20:51 Aspirin (Aspirin Chewable) 81 mg PO DAILY [facility] Stop: 11/07/18 08:59 Last Admin: 09/09/18 09:02 Dose: 81 mg Atorvastatin Calcium (Lipitor) 10 mg PO HS [facility]; Protocol Stop: 11/08/18 20:59 Last Admin: 09/09/18 20:20 Dose: 10 mg Cinacalcet (Sensipar) 30 mg PO DAILY [facility] Stop: 11/08/18 08:59 Last Admin: 09/09/18 09:03 Dose: 30 mg Dicyclomine HCl (Bentyl) 10 mg PO TID [facility] Stop: 11/08/18 08:59 Last Admin: 09/09/18 20:20 Dose: 10 mg Epoetin Mekhi (Epogen) 10,000 units SUBQ MWF@1500 [facility] Stop: 11/08/18 14:59 Last Admin: 09/09/18 18:07 Dose: 10,000 units Fluconazole (Diflucan) 100 mg PO DAILY [facility] Stop: 11/07/18 08:59 Last Admin: 09/09/18 09:02 Dose: 100 mg Folic Acid (Folate) 1 mg PO DAILY [facility] Stop: 11/08/18 08:59 Last Admin: 09/09/18 09:02 Dose: 1 mg Gabapentin (Neurontin) 200 mg PO TID [facility] Stop: 11/08/18 08:59 Last Admin: 09/09/18 20:20 Dose: 200 mg Piperacillin Sod/Tazobactam (Sod 2.25 gm/ Sodium Chloride) 50 mls @ 100 mls/hr IV Q8HR [facility] Stop: 11/07/18 12:59 Last Infusion: 09/09/18 20:50 Dose: Infused Ibuprofen (Advil) 400 mg PO Q6H PRN PRN Reason: MILD PAIN Stop: 11/08/18 08:30 Lisinopril (Zestril) 20 mg PO BID [facility] Stop: 11/08/18 08:59 Last Admin: 09/09/18 18:18 Dose: 20 mg Loperamide HCl (Imodium) 2 mg PO Q4H PRN PRN Reason: Diarrhea Stop: 11/08/18 08:30 Miscellaneous (Vancomycin Iv Per Pharmacy) 1 ea MC PRN [facility] Stop: 11/06/18 21:29 Miscellaneous (Calcium Alginate [Dhiraj]) 1 each TP PRN PRN PRN Reason: DRESSING Montelukast Sodium (Singulair) 10 mg PO DAILY [facility] Stop: 11/08/18 08:59 Last Admin: 09/09/18 09:03 Dose: 10 mg Morphine Sulfate (Morphine) 1 mg IVP Q4HR PRN PRN Reason: Pain (Severe) Stop: 11/06/18 21:28 Last Admin: 09/09/18 22:41 Dose: 1 mg Nifedipine (Procardia Xl) 30 mg PO Q8H [facility] Stop: 11/08/18 08:59 Last Admin: 09/09/18 18:17 Dose: 30 mg Nystatin (Nystatin) 500,000 units PO BID [facility] Stop: 11/08/18 08:59 Last Admin: 09/09/18 17:59 Dose: 500,000 units Pantoprazole Sodium (Protonix) 40 mg PO DAILY [facility] Stop: 11/08/18 08:59 Last Admin: 09/09/18 09:02 Dose: 40 mg Prednisone (Deltasone) 20 mg PO BID [facility] Stop: 11/08/18 08:59 Last Admin: 09/09/18 17:54 Dose: 20 mg Quetiapine Fumarate (Seroquel) 50 mg PO Q12H [facility]; Protocol Stop: 11/08/18 13:14 Sertraline HCl (Zoloft) 100 mg PO DAILY [facility]; Protocol Stop: 11/09/18 08:59 Sevelamer Carbonate (Renvela) 1,600 mg PO TID [facility] Stop: 11/08/18 08:59 Last Admin: 09/09/18 20:20 Dose: 1,600 mg Vitamin B Complex/Vit C/Folic Acid (Vitamin B Complex W/Vitamin C) 1 tab PO DAILY [facility] Stop: 11/08/18 08:59 Last Admin: 09/09/18 09:03 Dose: 1 tab Zolpidem Tartrate (Ambien) 5 mg PO HS PRN PRN Reason: Insomnia Stop: 11/06/18 20:52 General: no acute distress, well developed, well nourished HEENT: atraumatic, normocephalic, PERRLA Neck: supple Cardiovascular: S1S2, regular Lungs: clear to auscultation bilaterally Abdomen: soft, no tender, no distended Extremities: no cyanosis, no clubbing, no edema Neurological: awake, alert, oriented Skin: intact, other (right breast swollen and tender, but softer than palpation of previous evaluation.) - Procedures Procedures: Procedures Procedure Code Date BYPASS L BRACH ART TO UP ARM VEIN W NONAUT SUB, OPEN [id number] 08/26/18 FLUOROSCOPY OF SUP VENA CAVA USING L OSM CONTRAST, GUIDANCE [id number] 08/26/18 INSERTION OF INFUSION DEV INTO SUP VENA CAVA, PERC APPROACH [id number] 08/26/18 PERFORMANCE OF URINARY FILTRATION, <6 HRS/DAY [id number] 08/26/18 REMOVAL OF INFUSION DEVICE FROM HEART, EXTERNAL APPROACH [id number] 08/26/18 Infectious Disease Assmt/Plan - Assessment Assessment: 1. Right sided mastitis, may have lymphedema. 2. HTN. 3. Leukocytosis, reactive versus sepsis. improving. 4. Lactic acidosis, multifactorial. Improved. 5. CKD 5 on HD. 6. Obesity. 7. SHRAVAN. - Plan Plan: Conintue vanco IV and Zosyn. U/S reviewed. Mammogram done. Nutritional Asmnt/Malnutr-PDOC - Dietary Evaluation Malnutrition Findings (Please click <Entered> for more info): Nutritional Asmnt/Malnutrition Start: 09/09/18 16: 00 Text: Status: Complete Freq: Protocol: Document 09/09/18 16:00 ROLLY (Rec: 09/09/18 16:11 ROLLY [email or web address]) Nutritional Asmnt/Malnutrition Patient General Information Nutritional Screening High Risk Diagnosis ESRD, sepsis right breast, chest wall pain Pertinent Medical Hx/Surgical Hx ESRD, dialysis, HTN, obesity, sleep apnea, asthma/COPD, dyslipidemia, hemodialysis 4x/ week Subjective Information BS 185 upon admission noted. Spoke w/ pt who's primarily barbadian speaking, but nursing staff present to translate. Pt states she does not particularly like the plain taste of her meals except for fruits and vegetables and will prefer to have sandwiches for lunch and dinner. Nursing noted PO intake: 75-100%. Pt asked about receiving salt during meals; explained restrictions of renal diet and pt verbalized understanding. Current Diet Order/ Nutrition Support Renal Pertinent Medications lipitor, folate, vancomycin, morphine, protonix, piperacillin, seroquel, renvela, Vit B complex w/ Vit C Pertinent Labs 09/09: Na 139, K 5.1, Cl 99, BUN 58, Cr 5.9, glucose 101, Ca 7.9 09/08: Na 135, K 5.7, Cl 96, BUN 76, Cr 6.3, glucose 112, Ca 8.8 Nutritional Hx/Data Height 1.68 m Height (Calculated Centimeters) 167.6 Current Weight (lbs) 106.186 kg Weight (Calculated Kilograms) 106.2 Weight (Calculated Grams) 961142.0 [place] Body Weight 130 lb Body Mass Index (BMI) 37.8 Weight Status Obese GI Symptoms GI Symptoms None Last BM none noted Difficult in: None Food Allergies No Skin Integrity/Comment: reddened to left upper chest, puncture ulcer to right upper arm, katharine 16 Current %PO Good (75-100%) Estimated Nutritional Goals BEE in Kcals: Adj wt of IBW Calories/Kcals/Kg 27-32 (based on adj wt 71 kg) Kcals Calculated 6851-3996 Protein: Adj wt of IBW Protein g/k.0-1.2 Protein Calculated 71-85 g (based on adj wt 71 kg ) Fluid: ml per MD Nutritional Problem 2. Problem Problem Inadequate protein intake Etiology increased needs for HD Signs/Symptoms: current diet provides 70-85% of estimated protein needs daily 1. Problem Problem Altered nutrition related lab values Etiology dx of ESRD Signs/Symptoms: BUN 58, Cr 5.9 Malnutrition Alert Is there a minimum of two criteria No selected? Query Text:Check all the applicable criteria. A minimum of two criteria are recommended for diagnosis of either severe or non-severe malnutrition. Malnutrition Related to Morbid Obesity Malnutrition related to morbid obesity No Intervention/Recommendation Comments 1. Modify diet to renal-80 gm protein d/t pt on HD. Provide pt meals per food preference. 2. Monitor renal and nutrition related labs, PO intake, wt, and skin integrity 3. F/U as moderate risk in 3-5 days, 09/12-09/14 Expected Outcomes/Goals Expected Outcomes/Goals 1. PO intake to continue meeting at least 75% of all meals 2. Wt stability, skin integrity to improve, and nutrition related labs to approach normal limits Reviewed by Fernanda Bloom RD
[2018-09-10] MEDS: Morphine Sulfate 2 mg/mL 1mL Syr IVP PRN ×4 (03:08→21:25)
[2018-09-10] MEDS: Albuterol Nebulizer 2.5mg/3mL HHN SCH ×6 (03:19→23:16)
[2018-09-10 04:42] LABS: HEMATOCRIT 26.5 % (41.0-60); HEMOGLOBIN 8.4 gm/dL (12-16); MEAN CELL VOLUME 79.2 fl (81-100); MEAN CORPUSCULAR HEMOGLOBIN 25.1 pg (27.0-31.0); MEAN CORPUSCULAR HGB CONC 31.8 pg (28.0-36.0); MEAN PLATELET VOLUME 8.7 fl; PLATELET COUNT 156 Th/cmm (150-400); RED BLOOD COUNT 3.34 Mil/cmm (3.80-5.10); RED CELL DISTRIBUTION WIDTH 22.1 % (11.5-20.0); WHITE BLOOD COUNT 11.6 Th/cmm (4.8-10.8)
[2018-09-10] MEDS: Piperacillin/Tazobact 2.25 gm in 0.9% NS 50 ML IV SCH ×3 (05:12→20:39)
[2018-09-10 05:19] LABS: ANION GAP 18.9 (7.0-16.0); CALCIUM SERUM 7.7 mg/dL (8.6-10.3); CARBON DIOXIDE 27.2 mEq/L (21.0-31.0); GFR AFRICAN-AMERICAN 12.6 ml/min (>90); GFR NON AFRICAN-AMERICAN 10.4 ml/min; POTASSIUM SERUM 4.1 mEq/L (3.5-5.1)
[2018-09-10 05:26] LABS: CREATININE - SERUM 4.7 mg/dL (0.6-1.2)
[2018-09-10 06:03] LABS: ANISOCYTOSIS 1+; BAND NEUTROPHILE 3 % (0-10); HYPOCHROMIA 1+; LYMPHOCYTE 5 % (20-50); MONOCYTE 2 % (2-10); NEUTROPHILS 90 % (40-80); PLATELET ESTIMATE ADEQUATE (NORMAL); POLYCHROMASIA 1+
[2018-09-10 06:04] LABS: OVALOCYTES 2+
[2018-09-10] MEDS ORDERED: Gelatin Sponge 100cm Spg TP ONE (07:14)
[2018-09-10] MEDS ORDERED: Thrombin, Bovine 5,000 IU Vial TP ONE (07:14)
[2018-09-10 08:00] LABS: INR 1.08 (0.5-1.4); PROTHROMBIN TIME (TEST) 10.9 SECONDS (9.5-11.5)
--- NOTE | 2018-09-10 08:21 | Diagnostic Imaging Report ---
Left upper extremity Doppler venous ultrasound exam HISTORY: Vascular shunt patency The exam demonstrates vascular flow within the left internal jugular vein. However, vascular landmarks including the left subclavian, axillary, brachial, basilic, cephalic veins cannot be clearly visualized sonographically. No appreciable Doppler flow is identified. IMPRESSION: 1. Extremely limited exam due to soft tissue swelling. Major vascular landmarks could not be sonographically visualized.
--- NOTE | 2018-09-10 08:33 | Diagnostic Imaging Report ---
Portable chest x-ray HISTORY: Shortness of breath Compared with the prior exam of 09/07/2018, the heart size appears generous. No focal pulmonary processes. Vascular stent projects over the right subclavian region. IMPRESSION: 1. No focal pulmonary processes 2. Cardiomegaly
[2018-09-10] MEDS: Acetaminophen 500 MG TAB PO SCH ×3 (08:42→20:40)
[2018-09-10] MEDS: Dicyclomine 10 mg Cap PO SCH ×3 (08:43→20:40)
[2018-09-10] MEDS: Aspirin 81mg Chewable Tab PO SCH (08:43)
[2018-09-10] MEDS: NIFEdipine 30 mg ER Tab PO SCH ×2 (08:44→16:37)
[2018-09-10] MEDS: Pantoprazole 40 mg EC Tab PO SCH (08:44)
[2018-09-10] MEDS: Vitamin B Complex w/Vitamin C Tab PO SCH (08:45)
[2018-09-10] MEDS ORDERED: fentaNYL Citrate 100 mcg/2mL Vial ONE (09:12)
[2018-09-10] MEDS ORDERED: Propofol **SURGERY USE ONLY** 20 ML IV ONE (09:19)
--- NOTE | 2018-09-10 10:11 | General Progress Note ---
Subjective - Review of Systems Service Date: 09/10/18 Events since last encounter: thrombectomy unsuccessful due to extreme obesity of arm and depth of anastomosis has functioning Permcath Objective - Results Result Diagrams: 09/10/18 04:20 09/10/18 04:20 Recent Labs: Laboratory Last Values WBC 11.6 Th/cmm (4.8-10.8) H 09/10/18 04:20 RBC 3.34 Mil/cmm (3.80-5.10) L 09/10/18 04:20 Hgb 8.4 gm/dL (12-16) L 09/10/18 04:20 Hct 26.5 % (41.0-60) L 09/10/18 04:20 MCV 79.2 fl (81-100) L 09/10/18 04:20 MCH 25.1 pg (27.0-31.0) L 09/10/18 04:20 MCHC Differential 31.8 pg (28.0-36.0) 09/10/18 04:20 RDW 22.1 % (11.5-20.0) H 09/10/18 04:20 Plt Count 156 Th/cmm (150-400) 09/10/18 04:20 MPV 8.7 fl 09/10/18 04:20 Add Manual Diff YES 09/10/18 04:20 Band Neutrophils % 3 % (0-10) 09/10/18 04:20 Neutrophils (Manual) 90 % (40-80) H 09/10/18 04:20 Lymphocytes 5 % (20-50) L 09/10/18 04:20 Monocytes 2 % (2-10) 09/10/18 04:20 Eosinophils 2 % (0-5) 09/09/18 05:56 Basophils 0 % (0-3) 09/09/18 05:56 Hypochromia 1+ 09/10/18 04:20 Platelet Estimate ADEQUATE (NORMAL) 09/10/18 04:20 Polychromasia 1+ 09/10/18 04:20 Anisocytosis 1+ 09/10/18 04:20 Ovalocytes 2+ 09/10/18 04:20 PT 10.9 SECONDS (9.5-11.5) 09/10/18 04:20 INR 1.08 (0.5-1.4) 09/10/18 04:20 PTT (Actin FS) 21.6 SECONDS (26.0-38.0) L 09/07/18 17:00 Sodium 139 mEq/L (136-145) 09/10/18 04:20 Potassium 4.1 mEq/L (3.5-5.1) 09/10/18 04:20 Chloride 97 mEq/L (98-107) L 09/10/18 04:20 Carbon Dioxide 27.2 mEq/L (21.0-31.0) 09/10/18 04:20 Anion Gap 18.9 (7.0-16.0) H 09/10/18 04:20 BUN 44 mg/dL (7-25) H 09/10/18 04:20 Creatinine 4.7 mg/dL (0.6-1.2) H* 09/10/18 04:20 Est GFR ( Amer) 12.6 ml/min (>90) 09/10/18 04:20 Est GFR (Non-Af Amer) 10.4 ml/min 09/10/18 04:20 BUN/Creatinine Ratio 9.4 09/10/18 04:20 Glucose 273 mg/dL (70-105) H D 09/10/18 04:20 POC Glucose 173 MG/DL (70 - 105) H 09/10/18 07:55 Whole Bld Lactic Acid 0.92 mmol/L (0.60-1.99) 09/08/18 07:30 Calcium 7.7 mg/dL (8.6-10.3) L 09/10/18 04:20 Total Bilirubin 0.5 mg/dL (0.3-1.0) 09/09/18 05:56 AST 12 U/L (13-39) L 09/09/18 05:56 ALT 39 U/L (7-52) 09/09/18 05:56 Alkaline Phosphatase 259 U/L (34-104) H 09/09/18 05:56 Troponin I 0.02 ng/mL (0.01-0.05) 09/07/18 17:00 B-Natriuretic Peptide 265.0 pg/mL (5.0-100.0) H 09/07/18 17:00 Total Protein 6.5 gm/dL (6.0-8.3) 09/09/18 05:56 Albumin 4.0 gm/dL (3.7-5.3) 09/09/18 05:56 Globulin 2.5 gm/dL 09/09/18 05:56 Albumin/Globulin Ratio 1.6 (1.0-1.8) 09/09/18 05:56 TSH 0.08 uIU/ml (0.34-5.60) L 09/07/18 17:00 Random Vancomycin 18.5 ug/mL (5.0-40.0) 09/09/18 05:56 - Physical Exam Vitals and I&O: Vital Signs Temp 97.7 F 09/10/18 08:00 Pulse 85 09/10/18 08:00 Resp 18 09/10/18 08:00 BP 155/70 09/10/18 08:00 Pulse Ox 100 09/10/18 08:00 Intake & Output 09/09/18 09/10/18 09/10/18 18:59 06:59 18:59 Intake Total 500 1130 Output Total 2500 Balance -1999 1130 Weight (lbs) 106.141 kg 107.275 kg Intake: Intake, IV Amount 650 Piperacillin Sodium/ 150 Tazobact 2.25 gm In Sodium Chloride 0.9% 50 ml @ 100 mls/hr IV Q8HR [facility] Rx#:[id number] Oral 500 480 Output: Hemodialysis 2500 Other: # Bowel Movements 1 1 Stool Characteristics Soft Soft Formed Formed Brown Brown Weight Source Bedscale Bedscale Active Medications: Current Medications Acetaminophen (Tylenol Extra Strength) 500 mg PO TID [facility] Stop: 11/07/18 10:59 Last Admin: 09/10/18 08:42 Dose: Not Given Acetaminophen/Hydrocodone Bitart ([place] 5mg/325mg) 1 tab PO Q6H PRN PRN Reason: Pain (Moderate) Stop: 11/06/18 20:49 Last Admin: 09/07/18 23:53 Dose: 1 tab Acetaminophen/Hydrocodone Bitart ([place] 5mg/325mg) 1 tab PO Q6H PRN PRN Reason: Pain (Moderate) Stop: 11/08/18 08:30 Albuterol Sulfate (Albuterol 2.5mg/3ml Neb Ud) 2.5 mg HHN Q4HRT [facility] Stop: 11/07/18 10:59 Last Admin: 09/10/18 06:59 Dose: 2.5 mg Albuterol/Ipratropium (Duoneb Neb) 3 ml HHN Q6HRT PRN; Protocol PRN Reason: Congestion/SOB Stop: 11/06/18 20:45 Alprazolam (Xanax) 0.5 mg PO Q8HR PRN; Protocol PRN Reason: Anxiety Stop: 11/06/18 20:51 Aspirin (Aspirin Chewable) 81 mg PO DAILY [facility] Stop: 11/07/18 08:59 Last Admin: 09/10/18 08:43 Dose: Not Given Atorvastatin Calcium (Lipitor) 10 mg PO HS [facility]; Protocol Stop: 11/08/18 20:59 Last Admin: 09/09/18 20:20 Dose: 10 mg Cinacalcet (Sensipar) 30 mg PO DAILY [facility] Stop: 11/08/18 08:59 Last Admin: 09/10/18 08:43 Dose: Not Given Dicyclomine HCl (Bentyl) 10 mg PO TID [facility] Stop: 11/08/18 08:59 Last Admin: 09/10/18 08:43 Dose: Not Given Epoetin Mekhi (Epogen) 10,000 units SUBQ MWF@1500 [facility] Stop: 11/08/18 14:59 Last Admin: 09/09/18 18:07 Dose: 10,000 units Fluconazole (Diflucan) 100 mg PO DAILY [facility] Stop: 11/07/18 08:59 Last Admin: 09/10/18 08:44 Dose: Not Given Folic Acid (Folate) 1 mg PO DAILY [facility] Stop: 11/08/18 08:59 Last Admin: 09/10/18 08:44 Dose: Not Given Gabapentin (Neurontin) 200 mg PO TID [facility] Stop: 11/08/18 08:59 Last Admin: 09/10/18 08:44 Dose: Not Given Piperacillin Sod/Tazobactam (Sod 2.25 gm/ Sodium Chloride) 50 mls @ 100 mls/hr IV Q8HR [facility] Stop: 11/07/18 12:59 Last Infusion: 09/10/18 05:42 Dose: Infused Ibuprofen (Advil) 400 mg PO Q6H PRN PRN Reason: MILD PAIN Stop: 11/08/18 08:30 Lisinopril (Zestril) 20 mg PO BID [facility] Stop: 11/08/18 08:59 Last Admin: 09/10/18 08:44 Dose: Not Given Loperamide HCl (Imodium) 2 mg PO Q4H PRN PRN Reason: Diarrhea Stop: 11/08/18 08:30 Miscellaneous (Vancomycin Iv Per Pharmacy) 1 ea MC PRN [facility] Stop: 11/06/18 21:29 Miscellaneous (Calcium Alginate [Dhiraj]) 1 each TP PRN PRN PRN Reason: DRESSING Montelukast Sodium (Singulair) 10 mg PO DAILY [facility] Stop: 11/08/18 08:59 Last Admin: 09/10/18 08:44 Dose: Not Given Morphine Sulfate (Morphine) 1 mg IVP Q4HR PRN PRN Reason: Pain (Severe) Stop: 11/06/18 21:28 Last Admin: 09/10/18 03:08 Dose: 1 mg Nifedipine (Procardia Xl) 30 mg PO Q8H [facility] Stop: 11/08/18 08:59 Last Admin: 09/10/18 08:44 Dose: Not Given Nystatin (Nystatin) 500,000 units PO BID [facility] Stop: 11/08/18 08:59 Last Admin: 09/09/18 17:59 Dose: 500,000 units Pantoprazole Sodium (Protonix) 40 mg PO DAILY [facility] Stop: 11/08/18 08:59 Last Admin: 09/10/18 08:44 Dose: Not Given Prednisone (Deltasone) 20 mg PO BID [facility] Stop: 11/08/18 08:59 Last Admin: 09/10/18 08:44 Dose: Not Given Quetiapine Fumarate (Seroquel) 50 mg PO Q12H [facility]; Protocol Stop: 11/08/18 13:14 Sertraline HCl (Zoloft) 100 mg PO DAILY [facility]; Protocol Stop: 11/09/18 08:59 Sevelamer Carbonate (Renvela) 1,600 mg PO TID [facility] Stop: 11/08/18 08:59 Last Admin: 09/10/18 08:45 Dose: Not Given Vitamin B Complex/Vit C/Folic Acid (Vitamin B Complex W/Vitamin C) 1 tab PO DAILY [facility] Stop: 11/08/18 08:59 Last Admin: 09/10/18 08:45 Dose: Not Given Zolpidem Tartrate (Ambien) 5 mg PO HS PRN PRN Reason: Insomnia Stop: 11/06/18 20:52 General: Alert, Oriented x3 Cardiovascular: Regular rate Lungs: Clear to auscultation Abdomen: Obese Extremities: Edema (RUE EDEMA) - Procedures Procedures: Procedures Procedure Code Date BYPASS L BRACH ART TO UP ARM VEIN W NONAUT SUB, OPEN [id number] 08/26/18 FLUOROSCOPY OF SUP VENA CAVA USING L OSM CONTRAST, GUIDANCE [id number] 08/26/18 INSERTION OF INFUSION DEV INTO SUP VENA CAVA, PERC APPROACH [id number] 08/26/18 PERFORMANCE OF URINARY FILTRATION, <6 HRS/DAY [id number] 08/26/18 REMOVAL OF INFUSION DEVICE FROM HEART, EXTERNAL APPROACH [id number] 08/26/18 Nutritional Asmnt/Malnutr-PDOC - Dietary Evaluation Malnutrition Findings (Please click <Entered> for more info): Nutritional Asmnt/Malnutrition Start: 09/09/18 16: 00 Text: Status: Complete Freq: Protocol: Document 09/09/18 16:00 ROLLY (Rec: 09/09/18 16:11 ROLLY [email or web address]) Nutritional Asmnt/Malnutrition Patient General Information Nutritional Screening High Risk Diagnosis ESRD, sepsis right breast, chest wall pain Pertinent Medical Hx/Surgical Hx ESRD, dialysis, HTN, obesity, sleep apnea, asthma/COPD, dyslipidemia, hemodialysis 4x/ week Subjective Information BS 185 upon admission noted. Spoke w/ pt who's primarily guyanese speaking, but nursing staff present to translate. Pt states she does not particularly like the plain taste of her meals except for fruits and vegetables and will prefer to have sandwiches for lunch and dinner. Nursing noted PO intake: 75-100%. Pt asked about receiving salt during meals; explained restrictions of renal diet and pt verbalized understanding. Current Diet Order/ Nutrition Support Renal Pertinent Medications lipitor, folate, vancomycin, morphine, protonix, piperacillin, seroquel, renvela, Vit B complex w/ Vit C Pertinent Labs 09/09: Na 139, K 5.1, Cl 99, BUN 58, Cr 5.9, glucose 101, Ca 7.9 09/08: Na 135, K 5.7, Cl 96, BUN 76, Cr 6.3, glucose 112, Ca 8.8 Nutritional Hx/Data Height 1.68 m Height (Calculated Centimeters) 167.6 Current Weight (lbs) 106.186 kg Weight (Calculated Kilograms) 106.2 Weight (Calculated Grams) 722943.0 [place] Body Weight 130 lb Body Mass Index (BMI) 37.8 Weight Status Obese GI Symptoms GI Symptoms None Last BM none noted Difficult in: None Food Allergies No Skin Integrity/Comment: reddened to left upper chest, puncture ulcer to right upper arm, katharine 16 Current %PO Good (75-100%) Estimated Nutritional Goals BEE in Kcals: Adj wt of IBW Calories/Kcals/Kg 27-32 (based on adj wt 71 kg) Kcals Calculated 2916-0523 Protein: Adj wt of IBW Protein g/k.0-1.2 Protein Calculated 71-85 g (based on adj wt 71 kg ) Fluid: ml per MD Nutritional Problem 2. Problem Problem Inadequate protein intake Etiology increased needs for HD Signs/Symptoms: current diet provides 70-85% of estimated protein needs daily 1. Problem Problem Altered nutrition related lab values Etiology dx of ESRD Signs/Symptoms: BUN 58, Cr 5.9 Malnutrition Alert Is there a minimum of two criteria No selected? Query Text:Check all the applicable criteria. A minimum of two criteria are recommended for diagnosis of either severe or non-severe malnutrition. Malnutrition Related to Morbid Obesity Malnutrition related to morbid obesity No Intervention/Recommendation Comments 1. Modify diet to renal-80 gm protein d/t pt on HD. Provide pt meals per food preference. 2. Monitor renal and nutrition related labs, PO intake, wt, and skin integrity 3. F/U as moderate risk in 3-5 days, 09/12-09/14 Expected Outcomes/Goals Expected Outcomes/Goals 1. PO intake to continue meeting at least 75% of all meals 2. Wt stability, skin integrity to improve, and nutrition related labs to approach normal limits Reviewed by Fernanda Bloom RD
--- NOTE | 2018-09-10 12:36 | Internal Medicine Prog Note ---
Internal Medicine Subjective - Subjective Service Date: 09/10/18 Patient seen and examined:: with staff Patient is:: awake Patient Complaints of:: other (breast pain ) Per staff patient has:: no adverse event Internal Medicine Objective - Results Result Diagrams: 09/10/18 04:20 09/10/18 04:20 Recent Labs: Laboratory Last Values WBC 11.6 Th/cmm (4.8-10.8) H 09/10/18 04:20 RBC 3.34 Mil/cmm (3.80-5.10) L 09/10/18 04:20 Hgb 8.4 gm/dL (12-16) L 09/10/18 04:20 Hct 26.5 % (41.0-60) L 09/10/18 04:20 MCV 79.2 fl (81-100) L 09/10/18 04:20 MCH 25.1 pg (27.0-31.0) L 09/10/18 04:20 MCHC Differential 31.8 pg (28.0-36.0) 09/10/18 04:20 RDW 22.1 % (11.5-20.0) H 09/10/18 04:20 Plt Count 156 Th/cmm (150-400) 09/10/18 04:20 MPV 8.7 fl 09/10/18 04:20 Add Manual Diff YES 09/10/18 04:20 Band Neutrophils % 3 % (0-10) 09/10/18 04:20 Neutrophils (Manual) 90 % (40-80) H 09/10/18 04:20 Lymphocytes 5 % (20-50) L 09/10/18 04:20 Monocytes 2 % (2-10) 09/10/18 04:20 Eosinophils 2 % (0-5) 09/09/18 05:56 Basophils 0 % (0-3) 09/09/18 05:56 Hypochromia 1+ 09/10/18 04:20 Platelet Estimate ADEQUATE (NORMAL) 09/10/18 04:20 Polychromasia 1+ 09/10/18 04:20 Anisocytosis 1+ 09/10/18 04:20 Ovalocytes 2+ 09/10/18 04:20 PT 10.9 SECONDS (9.5-11.5) 09/10/18 04:20 INR 1.08 (0.5-1.4) 09/10/18 04:20 PTT (Actin FS) 21.6 SECONDS (26.0-38.0) L 09/07/18 17:00 Sodium 139 mEq/L (136-145) 09/10/18 04:20 Potassium 4.1 mEq/L (3.5-5.1) 09/10/18 04:20 Chloride 97 mEq/L (98-107) L 09/10/18 04:20 Carbon Dioxide 27.2 mEq/L (21.0-31.0) 09/10/18 04:20 Anion Gap 18.9 (7.0-16.0) H 09/10/18 04:20 BUN 44 mg/dL (7-25) H 09/10/18 04:20 Creatinine 4.7 mg/dL (0.6-1.2) H* 09/10/18 04:20 Est GFR ( Amer) 12.6 ml/min (>90) 09/10/18 04:20 Est GFR (Non-Af Amer) 10.4 ml/min 09/10/18 04:20 BUN/Creatinine Ratio 9.4 09/10/18 04:20 Glucose 273 mg/dL (70-105) H D 09/10/18 04:20 POC Glucose 173 MG/DL (70 - 105) H 09/10/18 07:55 Whole Bld Lactic Acid 0.92 mmol/L (0.60-1.99) 09/08/18 07:30 Calcium 7.7 mg/dL (8.6-10.3) L 09/10/18 04:20 Total Bilirubin 0.5 mg/dL (0.3-1.0) 09/09/18 05:56 AST 12 U/L (13-39) L 09/09/18 05:56 ALT 39 U/L (7-52) 09/09/18 05:56 Alkaline Phosphatase 259 U/L (34-104) H 09/09/18 05:56 Troponin I 0.02 ng/mL (0.01-0.05) 09/07/18 17:00 B-Natriuretic Peptide 265.0 pg/mL (5.0-100.0) H 09/07/18 17:00 Total Protein 6.5 gm/dL (6.0-8.3) 09/09/18 05:56 Albumin 4.0 gm/dL (3.7-5.3) 09/09/18 05:56 Globulin 2.5 gm/dL 09/09/18 05:56 Albumin/Globulin Ratio 1.6 (1.0-1.8) 09/09/18 05:56 TSH 0.08 uIU/ml (0.34-5.60) L 09/07/18 17:00 Random Vancomycin 18.5 ug/mL (5.0-40.0) 09/09/18 05:56 - Physical Exam Vitals and I&O: Vital Signs Temp 97.7 F 09/10/18 08:00 Pulse 77 09/10/18 11:52 Resp 18 09/10/18 11:52 BP 155/70 09/10/18 08:00 Pulse Ox 97 09/10/18 11:52 Intake & Output 09/09/18 09/10/18 09/10/18 18:59 06:59 18:59 Intake Total 500 1130 Output Total 2500 Balance -1999 1130 Weight (lbs) 234 lb 236 lb 8 oz Intake: Intake, IV Amount 650 Piperacillin Sodium/ 150 Tazobact 2.25 gm In Sodium Chloride 0.9% 50 ml @ 100 mls/hr IV Q8HR [facility] Rx#:[id number] Oral 500 480 Output: Hemodialysis 2500 Other: # Bowel Movements 1 1 Stool Characteristics Soft Soft Formed Formed Brown Brown Weight Source Bedscale Bedscale Active Medications: Current Medications Acetaminophen (Tylenol Extra Strength) 500 mg PO TID [facility] Stop: 11/07/18 10:59 Last Admin: 09/10/18 08:42 Dose: Not Given Acetaminophen/Hydrocodone Bitart (Brogan 5mg/325mg) 1 tab PO Q6H PRN PRN Reason: Pain (Moderate) Stop: 11/06/18 20:49 Last Admin: 09/07/18 23:53 Dose: 1 tab Acetaminophen/Hydrocodone Bitart (Brogan 5mg/325mg) 1 tab PO Q6H PRN PRN Reason: Pain (Moderate) Stop: 11/08/18 08:30 Albuterol Sulfate (Albuterol 2.5mg/3ml Neb Ud) 2.5 mg HHN Q4HRT [facility] Stop: 11/07/18 10:59 Last Admin: 09/10/18 11:44 Dose: 2.5 mg Albuterol/Ipratropium (Duoneb Neb) 3 ml HHN Q6HRT PRN; Protocol PRN Reason: Congestion/SOB Stop: 11/06/18 20:45 Alprazolam (Xanax) 0.5 mg PO Q8HR PRN; Protocol PRN Reason: Anxiety Stop: 11/06/18 20:51 Aspirin (Aspirin Chewable) 81 mg PO DAILY [facility] Stop: 11/07/18 08:59 Last Admin: 09/10/18 08:43 Dose: Not Given Atorvastatin Calcium (Lipitor) 10 mg PO HS [facility]; Protocol Stop: 11/08/18 20:59 Last Admin: 09/09/18 20:20 Dose: 10 mg Cinacalcet (Sensipar) 30 mg PO DAILY [facility] Stop: 11/08/18 08:59 Last Admin: 09/10/18 08:43 Dose: Not Given Dicyclomine HCl (Bentyl) 10 mg PO TID [facility] Stop: 11/08/18 08:59 Last Admin: 09/10/18 08:43 Dose: Not Given Epoetin Mekhi (Epogen) 10,000 units SUBQ MWF@1500 [facility] Stop: 11/08/18 14:59 Last Admin: 09/09/18 18:07 Dose: 10,000 units Fluconazole (Diflucan) 100 mg PO DAILY [facility] Stop: 11/07/18 08:59 Last Admin: 09/10/18 08:44 Dose: Not Given Folic Acid (Folate) 1 mg PO DAILY [facility] Stop: 11/08/18 08:59 Last Admin: 09/10/18 08:44 Dose: Not Given Gabapentin (Neurontin) 200 mg PO TID [facility] Stop: 11/08/18 08:59 Last Admin: 09/10/18 08:44 Dose: Not Given Piperacillin Sod/Tazobactam (Sod 2.25 gm/ Sodium Chloride) 50 mls @ 100 mls/hr IV Q8HR [facility] Stop: 11/07/18 12:59 Last Infusion: 09/10/18 05:42 Dose: Infused Ibuprofen (Advil) 400 mg PO Q6H PRN PRN Reason: MILD PAIN Stop: 11/08/18 08:30 Lisinopril (Zestril) 20 mg PO BID [facility] Stop: 11/08/18 08:59 Last Admin: 09/10/18 08:44 Dose: Not Given Loperamide HCl (Imodium) 2 mg PO Q4H PRN PRN Reason: Diarrhea Stop: 11/08/18 08:30 Miscellaneous (Vancomycin Iv Per Pharmacy) 1 ea MC PRN [facility] Stop: 11/06/18 21:29 Miscellaneous (Calcium Alginate [Dhiraj]) 1 each TP PRN PRN PRN Reason: DRESSING Montelukast Sodium (Singulair) 10 mg PO DAILY [facility] Stop: 11/08/18 08:59 Last Admin: 09/10/18 08:44 Dose: Not Given Morphine Sulfate (Morphine) 1 mg IVP Q4HR PRN PRN Reason: Pain (Severe) Stop: 11/06/18 21:28 Last Admin: 09/10/18 11:27 Dose: 1 mg Nifedipine (Procardia Xl) 30 mg PO Q8H [facility] Stop: 11/08/18 08:59 Last Admin: 09/10/18 08:44 Dose: Not Given Nystatin (Nystatin) 500,000 units PO BID [facility] Stop: 11/08/18 08:59 Last Admin: 09/10/18 10:24 Dose: Not Given Pantoprazole Sodium (Protonix) 40 mg PO DAILY [facility] Stop: 11/08/18 08:59 Last Admin: 09/10/18 08:44 Dose: Not Given Prednisone (Deltasone) 20 mg PO BID [facility] Stop: 11/08/18 08:59 Last Admin: 09/10/18 08:44 Dose: Not Given Quetiapine Fumarate (Seroquel) 50 mg PO Q12H [facility]; Protocol Stop: 11/08/18 13:14 Sertraline HCl (Zoloft) 100 mg PO DAILY [facility]; Protocol Stop: 11/09/18 08:59 Sevelamer Carbonate (Renvela) 1,600 mg PO TID [facility] Stop: 11/08/18 08:59 Last Admin: 09/10/18 08:45 Dose: Not Given Vitamin B Complex/Vit C/Folic Acid (Vitamin B Complex W/Vitamin C) 1 tab PO DAILY [facility] Stop: 11/08/18 08:59 Last Admin: 09/10/18 08:45 Dose: Not Given Zolpidem Tartrate (Ambien) 5 mg PO HS PRN PRN Reason: Insomnia Stop: 11/06/18 20:52 General: alert, other (rt breast tenderness ) HEENT: NC/AT Neck: Supple Lungs: CTAB Abdomen: soft, non-tender Extremities: clear - Procedures Procedures: Procedures Procedure Code Date BYPASS L BRACH ART TO UP ARM VEIN W NONAUT SUB, OPEN [id number] 08/26/18 FLUOROSCOPY OF SUP VENA CAVA USING L OSM CONTRAST, GUIDANCE [id number] 08/26/18 INSERTION OF INFUSION DEV INTO SUP VENA CAVA, PERC APPROACH [id number] 08/26/18 PERFORMANCE OF URINARY FILTRATION, <6 HRS/DAY [id number] 08/26/18 REMOVAL OF INFUSION DEVICE FROM HEART, EXTERNAL APPROACH [id number] 08/26/18 Internal Medicine Assmt/Plan - Assessment Assessment: rt breast mastitis with lymphedema htn leukocytosis lactic acidosis ckd/hd obesity sleep apnea - Plan Plan: continue ivabx as per id follow up labs in am continue current plan of care Nutritional Asmnt/Malnutr-PDOC - Dietary Evaluation Malnutrition Findings (Please click <Entered> for more info): Nutritional Asmnt/Malnutrition Start: 09/09/18 16: 00 Text: Status: Complete Freq: Protocol: Document 09/09/18 16:00 ROLLY (Rec: 09/09/18 16:11 ROLLY [email or web address]) Nutritional Asmnt/Malnutrition Patient General Information Nutritional Screening High Risk Diagnosis ESRD, sepsis right breast, chest wall pain Pertinent Medical Hx/Surgical Hx ESRD, dialysis, HTN, obesity, sleep apnea, asthma/COPD, dyslipidemia, hemodialysis 4x/ week Subjective Information BS 185 upon admission noted. Spoke w/ pt who's primarily icelandic speaking, but nursing staff present to translate. Pt states she does not particularly like the plain taste of her meals except for fruits and vegetables and will prefer to have sandwiches for lunch and dinner. Nursing noted PO intake: 75-100%. Pt asked about receiving salt during meals; explained restrictions of renal diet and pt verbalized understanding. Current Diet Order/ Nutrition Support Renal Pertinent Medications lipitor, folate, vancomycin, morphine, protonix, piperacillin, seroquel, renvela, Vit B complex w/ Vit C Pertinent Labs 09/09: Na 139, K 5.1, Cl 99, BUN 58, Cr 5.9, glucose 101, Ca 7.9 09/08: Na 135, K 5.7, Cl 96, BUN 76, Cr 6.3, glucose 112, Ca 8.8 Nutritional Hx/Data Height 5 ft 6 in Height (Calculated Centimeters) 167.6 Current Weight (lbs) 234 lb 1.6 oz Weight (Calculated Kilograms) 106.2 Weight (Calculated Grams) 415392.0 Emmett Body Weight 130 lb Body Mass Index (BMI) 37.8 Weight Status Obese GI Symptoms GI Symptoms None Last BM none noted Difficult in: None Food Allergies No Skin Integrity/Comment: reddened to left upper chest, puncture ulcer to right upper arm, katharine 16 Current %PO Good (75-100%) Estimated Nutritional Goals BEE in Kcals: Adj wt of IBW Calories/Kcals/Kg 27-32 (based on adj wt 71 kg) Kcals Calculated [id number] Protein: Adj wt of IBW Protein g/k.0-1.2 Protein Calculated 71-85 g (based on adj wt 71 kg ) Fluid: ml per MD Nutritional Problem 2. Problem Problem Inadequate protein intake Etiology increased needs for HD Signs/Symptoms: current diet provides 70-85% of estimated protein needs daily 1. Problem Problem Altered nutrition related lab values Etiology dx of ESRD Signs/Symptoms: BUN 58, Cr 5.9 Malnutrition Alert Is there a minimum of two criteria No selected? Query Text:Check all the applicable criteria. A minimum of two criteria are recommended for diagnosis of either severe or non-severe malnutrition. Malnutrition Related to Morbid Obesity Malnutrition related to morbid obesity No Intervention/Recommendation Comments 1. Modify diet to renal-80 gm protein d/t pt on HD. Provide pt meals per food preference. 2. Monitor renal and nutrition related labs, PO intake, wt, and skin integrity 3. F/U as moderate risk in 3-5 days, 09/12-09/14 Expected Outcomes/Goals Expected Outcomes/Goals 1. PO intake to continue meeting at least 75% of all meals 2. Wt stability, skin integrity to improve, and nutrition related labs to approach normal limits Reviewed by Fernanda Bloom RD
--- NOTE | 2018-09-10 15:42 | Operative Report ---
DATE OF SURGERY: 09/10/2018 PREOPERATIVE CONSULTATION: 1. Clotted left arm AV shunt. 2. End-stage renal disease. 3. Hypertension. 4. Sleep apnea. 5. Morbid obesity. POSTOPERATIVE DIAGNOSES: 1. Clotted left arm AV shunt. 2. End-stage renal disease. 3. Hypertension. 4. Sleep apnea. 5. Morbid obesity. OPERATION DONE: Thrombectomy, left arm AV shunt. SURGEON: Steffany Kimball M.D. ANESTHESIA: MAC anesthesia. ANESTHESIOLOGIST: Myriam Vasquez M.D. INDICATIONS FOR SURGERY: The patient had placement of AV shunt about 3 weeks ago at this facility and this was found to be clotted. Had one AV shunt done at another facility on the right side and the axillary incision has not healed and remains open with good granulation, however. The patient is scheduled for referral to because of mastitis of the right breast. The mammogram day prior to this operation did not show any mass, however. DESCRIPTION OF PROCEDURE: The patient was given IV sedation. The left upper extremity was prepped with Betadine and draped in appropriate manner. The patient is extremely obese with large fat folds. She weighs at BMI of 38.2 kilograms. The patient was given IV sedation. The left axillary area was prepped with Betadine and draped. A 1% lidocaine was used to infiltrate the incision site. This was reopened. 3000 units of heparin was given intravenously. Because of the obesity of the patient, the axillary vein was extremely difficult to expose. The anastomosis was identified. An incision was made in the graft and a Dante catheter was passed only a few inches proximally, but this was unsuccessful to several attempts. Because of the great difficulty in exposing the anastomosis and the axillary vein, the procedure was abandoned. The patient has a functioning Perm-A-Cath and this will have to be relied on for continuing hemodialysis treatments. The incision was closed with running suture of 3-0 Vicryl subcutaneously and the skin with same material. Sterile dressing was placed over this. The patient tolerated the procedure well. JOB# [id number]
[2018-09-10] MEDS: Atorvastatin Calcium 10 MG TAB PO SCH (20:40)
[2018-09-11] MEDS: NIFEdipine 30 mg ER Tab PO SCH ×2 (01:08→09:12)
[2018-09-11] MEDS: Morphine Sulfate 2 mg/mL 1mL Syr IVP PRN ×3 (02:45→13:48)
[2018-09-11] MEDS: Albuterol Nebulizer 2.5mg/3mL HHN SCH ×4 (03:22→14:42)
[2018-09-11] MEDS: Piperacillin/Tazobact 2.25 gm in 0.9% NS 50 ML IV SCH ×2 (05:10→12:24)
[2018-09-11 05:35] LABS: HEMATOCRIT 27.1 % (41.0-60); HEMOGLOBIN 8.5 gm/dL (12-16); MEAN CELL VOLUME 79.1 fl (81-100); MEAN CORPUSCULAR HEMOGLOBIN 24.7 pg (27.0-31.0); MEAN CORPUSCULAR HGB CONC 31.3 pg (28.0-36.0); MEAN PLATELET VOLUME 8.9 fl; PLATELET COUNT 166 Th/cmm (150-400); RED BLOOD COUNT 3.43 Mil/cmm (3.80-5.10); RED CELL DISTRIBUTION WIDTH 21.7 % (11.5-20.0)
[2018-09-11 05:44] LABS: WHITE BLOOD COUNT 15.3 Th/cmm (4.8-10.8)
[2018-09-11 05:54] LABS: ANION GAP 21.9 (7.0-16.0); CALCIUM SERUM 6.9 mg/dL (8.6-10.3); CARBON DIOXIDE 22.5 mEq/L (21.0-31.0); GFR AFRICAN-AMERICAN 9.3 ml/min (>90); GFR NON AFRICAN-AMERICAN 7.7 ml/min; POTASSIUM SERUM 4.4 mEq/L (3.5-5.1)
[2018-09-11 06:15] LABS: CREATININE - SERUM 6.1 mg/dL (0.6-1.2)
[2018-09-11 06:17] LABS: BAND NEUTROPHILE 0 % (0-10); LYMPHOCYTE 6 % (20-50); MONOCYTE 5 % (2-10); NEUTROPHILS 89 % (40-80)
[2018-09-11] MEDS: Aspirin 81mg Chewable Tab PO SCH (09:07)
[2018-09-11] MEDS: Vitamin B Complex w/Vitamin C Tab PO SCH (09:07)
[2018-09-11] MEDS: Pantoprazole 40 mg EC Tab PO SCH (09:07)
[2018-09-11] MEDS: Acetaminophen 500 MG TAB PO SCH ×2 (09:07→14:50)
[2018-09-11] MEDS: Dicyclomine 10 mg Cap PO SCH ×2 (09:07→14:49)
--- NOTE | 2018-09-11 09:09 | General Progress Note ---
Subjective - Review of Systems Service Date: 09/11/18 Subjective: Asleep this AM, due for HD. Unsuccessful declot, has permacath for HD access Objective - Results Result Diagrams: 09/11/18 05:05 09/11/18 05:05 Recent Labs: Laboratory Last Values WBC 15.3 Th/cmm (4.8-10.8) H 09/11/18 05:05 RBC 3.43 Mil/cmm (3.80-5.10) L 09/11/18 05:05 Hgb 8.5 gm/dL (12-16) L 09/11/18 05:05 Hct 27.1 % (41.0-60) L 09/11/18 05:05 MCV 79.1 fl (81-100) L 09/11/18 05:05 MCH 24.7 pg (27.0-31.0) L 09/11/18 05:05 MCHC Differential 31.3 pg (28.0-36.0) 09/11/18 05:05 RDW 21.7 % (11.5-20.0) H 09/11/18 05:05 Plt Count 166 Th/cmm (150-400) 09/11/18 05:05 MPV 8.9 fl 09/11/18 05:05 Add Manual Diff YES 09/11/18 05:05 Band Neutrophils % 0 % (0-10) 09/11/18 05:05 Neutrophils (Manual) 89 % (40-80) H 09/11/18 05:05 Lymphocytes 6 % (20-50) L 09/11/18 05:05 Monocytes 5 % (2-10) 09/11/18 05:05 Eosinophils 2 % (0-5) 09/09/18 05:56 Basophils 0 % (0-3) 09/09/18 05:56 Hypochromia 1+ 09/10/18 04:20 Platelet Estimate ADEQUATE (NORMAL) 09/10/18 04:20 Polychromasia 1+ 09/10/18 04:20 Anisocytosis 1+ 09/10/18 04:20 Ovalocytes 2+ 09/10/18 04:20 PT 10.9 SECONDS (9.5-11.5) 09/10/18 04:20 INR 1.08 (0.5-1.4) 09/10/18 04:20 PTT (Actin FS) 21.6 SECONDS (26.0-38.0) L 09/07/18 17:00 Sodium 137 mEq/L (136-145) 09/11/18 05:05 Potassium 4.4 mEq/L (3.5-5.1) 09/11/18 05:05 Chloride 97 mEq/L (98-107) L 09/11/18 05:05 Carbon Dioxide 22.5 mEq/L (21.0-31.0) 09/11/18 05:05 Anion Gap 21.9 (7.0-16.0) H 09/11/18 05:05 BUN 62 mg/dL (7-25) H 09/11/18 05:05 Creatinine 6.1 mg/dL (0.6-1.2) H* 09/11/18 05:05 Est GFR ( Amer) 9.3 ml/min (>90) 09/11/18 05:05 Est GFR (Non-Af Amer) 7.7 ml/min 09/11/18 05:05 BUN/Creatinine Ratio 10.2 09/11/18 05:05 Glucose 250 mg/dL (70-105) H 09/11/18 05:05 POC Glucose 173 MG/DL (70 - 105) H 09/10/18 07:55 Whole Bld Lactic Acid 0.92 mmol/L (0.60-1.99) 09/08/18 07:30 Calcium 6.9 mg/dL (8.6-10.3) L 09/11/18 05:05 Total Bilirubin 0.5 mg/dL (0.3-1.0) 09/09/18 05:56 AST 12 U/L (13-39) L 09/09/18 05:56 ALT 39 U/L (7-52) 09/09/18 05:56 Alkaline Phosphatase 259 U/L (34-104) H 09/09/18 05:56 Troponin I 0.02 ng/mL (0.01-0.05) 09/07/18 17:00 B-Natriuretic Peptide 265.0 pg/mL (5.0-100.0) H 09/07/18 17:00 Total Protein 6.5 gm/dL (6.0-8.3) 09/09/18 05:56 Albumin 4.0 gm/dL (3.7-5.3) 09/09/18 05:56 Globulin 2.5 gm/dL 09/09/18 05:56 Albumin/Globulin Ratio 1.6 (1.0-1.8) 09/09/18 05:56 TSH 0.08 uIU/ml (0.34-5.60) L 09/07/18 17:00 Random Vancomycin 25.9 ug/mL (5.0-40.0) 09/11/18 05:05 - Physical Exam Vitals and I&O: Vital Signs Temp 97.1 F 09/11/18 07:41 Pulse 80 09/11/18 07:41 Resp 18 09/11/18 07:41 BP 169/61 09/11/18 07:41 Pulse Ox 100 09/11/18 07:41 Intake & Output 09/10/18 09/11/18 09/11/18 18:59 06:59 18:59 Intake Total 650 550 Balance 650 550 Weight (lbs) 107.955 kg 107.955 kg Intake: Intake, IV Amount 50 100 Piperacillin Sodium/ 50 100 Tazobact 2.25 gm In Sodium Chloride 0.9% 50 ml @ 100 mls/hr IV Q8HR [facility] Rx#:[id number] Oral 600 450 Other: # Voids 1 # Bowel Movements 1 Weight Source Bedscale Bedscale Active Medications: Current Medications Acetaminophen (Tylenol Extra Strength) 500 mg PO TID [facility] Stop: 11/07/18 10:59 Last Admin: 09/10/18 20:40 Dose: 500 mg Acetaminophen/Hydrocodone Bitart ([place] 5mg/325mg) 1 tab PO Q6H PRN PRN Reason: Pain (Moderate) Stop: 11/06/18 20:49 Last Admin: 09/07/18 23:53 Dose: 1 tab Acetaminophen/Hydrocodone Bitart ([place] 5mg/325mg) 1 tab PO Q6H PRN PRN Reason: Pain (Moderate) Stop: 11/08/18 08:30 Last Admin: 09/11/18 05:11 Dose: 1 tab Albuterol Sulfate (Albuterol 2.5mg/3ml Neb Ud) 2.5 mg HHN Q4HRT [facility] Stop: 11/07/18 10:59 Last Admin: 09/11/18 07:33 Dose: 2.5 mg Albuterol/Ipratropium (Duoneb Neb) 3 ml HHN Q6HRT PRN; Protocol PRN Reason: Congestion/SOB Stop: 11/06/18 20:45 Alprazolam (Xanax) 0.5 mg PO Q8HR PRN; Protocol PRN Reason: Anxiety Stop: 11/06/18 20:51 Last Admin: 09/11/18 01:10 Dose: 0.5 mg Aspirin (Aspirin Chewable) 81 mg PO DAILY [facility] Stop: 11/07/18 08:59 Last Admin: 09/10/18 08:43 Dose: Not Given Atorvastatin Calcium (Lipitor) 10 mg PO HS [facility]; Protocol Stop: 11/08/18 20:59 Last Admin: 09/10/18 20:40 Dose: 10 mg Cinacalcet (Sensipar) 30 mg PO DAILY [facility] Stop: 11/08/18 08:59 Last Admin: 09/10/18 08:43 Dose: Not Given Dicyclomine HCl (Bentyl) 10 mg PO TID [facility] Stop: 11/08/18 08:59 Last Admin: 09/10/18 20:40 Dose: 10 mg Epoetin Mekhi (Epogen) 10,000 units SUBQ MWF@1500 [facility] Stop: 11/08/18 14:59 Last Admin: 09/09/18 18:07 Dose: 10,000 units Fluconazole (Diflucan) 100 mg PO DAILY [facility] Stop: 11/07/18 08:59 Last Admin: 09/10/18 08:44 Dose: Not Given Folic Acid (Folate) 1 mg PO DAILY [facility] Stop: 11/08/18 08:59 Last Admin: 09/10/18 08:44 Dose: Not Given Gabapentin (Neurontin) 200 mg PO TID [facility] Stop: 11/08/18 08:59 Last Admin: 09/10/18 20:40 Dose: 200 mg Piperacillin Sod/Tazobactam (Sod 2.25 gm/ Sodium Chloride) 50 mls @ 100 mls/hr IV Q8HR [facility] Stop: 11/07/18 12:59 Last Infusion: 09/11/18 05:40 Dose: Infused Ibuprofen (Advil) 400 mg PO Q6H PRN PRN Reason: MILD PAIN Stop: 11/08/18 08:30 Lisinopril (Zestril) 20 mg PO BID [facility] Stop: 11/08/18 08:59 Last Admin: 09/10/18 16:37 Dose: 20 mg Loperamide HCl (Imodium) 2 mg PO Q4H PRN PRN Reason: Diarrhea Stop: 11/08/18 08:30 Miscellaneous (Vancomycin Iv Per Pharmacy) 1 ea MC PRN [facility] Stop: 11/06/18 21:29 Miscellaneous (Calcium Alginate [Dhiraj]) 1 each TP PRN PRN PRN Reason: DRESSING Montelukast Sodium (Singulair) 10 mg PO DAILY [facility] Stop: 11/08/18 08:59 Last Admin: 09/10/18 08:44 Dose: Not Given Morphine Sulfate (Morphine) 1 mg IVP Q4HR PRN PRN Reason: Pain (Severe) Stop: 11/06/18 21:28 Last Admin: 09/11/18 07:53 Dose: 1 mg Nifedipine (Procardia Xl) 30 mg PO Q8H [facility] Stop: 11/08/18 08:59 Last Admin: 09/11/18 01:08 Dose: 30 mg Nystatin (Nystatin) 500,000 units PO BID [facility] Stop: 11/08/18 08:59 Last Admin: 09/10/18 16:36 Dose: 500,000 units Pantoprazole Sodium (Protonix) 40 mg PO DAILY [facility] Stop: 11/08/18 08:59 Last Admin: 09/10/18 08:44 Dose: Not Given Prednisone (Deltasone) 20 mg PO BID [facility] Stop: 11/08/18 08:59 Last Admin: 09/10/18 16:36 Dose: 20 mg Quetiapine Fumarate (Seroquel) 50 mg PO Q12H [facility]; Protocol Stop: 11/08/18 13:14 Sertraline HCl (Zoloft) 100 mg PO DAILY [facility]; Protocol Stop: 11/09/18 08:59 Sevelamer Carbonate (Renvela) 1,600 mg PO TID [facility] Stop: 11/08/18 08:59 Last Admin: 09/10/18 20:40 Dose: 1,600 mg Vitamin B Complex/Vit C/Folic Acid (Vitamin B Complex W/Vitamin C) 1 tab PO DAILY [facility] Stop: 11/08/18 08:59 Last Admin: 09/10/18 08:45 Dose: Not Given Zolpidem Tartrate (Ambien) 5 mg PO HS PRN PRN Reason: Insomnia Stop: 11/06/18 20:52 General: Alert, Oriented x3 Cardiovascular: Regular rate Lungs: Clear to auscultation Abdomen: Obese Extremities: Edema (RUE EDEMA) - Procedures Procedures: Procedures Procedure Code Date BYPASS L BRACH ART TO UP ARM VEIN W NONAUT SUB, OPEN [id number] 08/26/18 FLUOROSCOPY OF SUP VENA CAVA USING L OSM CONTRAST, GUIDANCE [id number] 08/26/18 INSERTION OF INFUSION DEV INTO SUP VENA CAVA, PERC APPROACH [id number] 08/26/18 PERFORMANCE OF URINARY FILTRATION, <6 HRS/DAY [id number] 08/26/18 REMOVAL OF INFUSION DEVICE FROM HEART, EXTERNAL APPROACH [id number] 08/26/18 Assessment/Plan - Assessment Assessment: HD today, permacath access noted BP controlled on HD, continue current antihypertensive regimen H&H in range on TISHA, continue abx for mastitis Nutritional Asmnt/Malnutr-PDOC - Dietary Evaluation Malnutrition Findings (Please click <Entered> for more info): Nutritional Asmnt/Malnutrition Start: 09/09/18 16: 00 Text: Status: Complete Freq: Protocol: Document 09/09/18 16:00 ROLLY (Rec: 09/09/18 16:11 ROLLY [email or web address]) Nutritional Asmnt/Malnutrition Patient General Information Nutritional Screening High Risk Diagnosis ESRD, sepsis right breast, chest wall pain Pertinent Medical Hx/Surgical Hx ESRD, dialysis, HTN, obesity, sleep apnea, asthma/COPD, dyslipidemia, hemodialysis 4x/ week Subjective Information BS 185 upon admission noted. Spoke w/ pt who's primarily puerto [place] speaking, but nursing staff present to translate. Pt states she does not particularly like the plain taste of her meals except for fruits and vegetables and will prefer to have sandwiches for lunch and dinner. Nursing noted PO intake: 75-100%. Pt asked about receiving salt during meals; explained restrictions of renal diet and pt verbalized understanding. Current Diet Order/ Nutrition Support Renal Pertinent Medications lipitor, folate, vancomycin, morphine, protonix, piperacillin, seroquel, renvela, Vit B complex w/ Vit C Pertinent Labs 09/09: Na 139, K 5.1, Cl 99, BUN 58, Cr 5.9, glucose 101, Ca 7.9 09/08: Na 135, K 5.7, Cl 96, BUN 76, Cr 6.3, glucose 112, Ca 8.8 Nutritional Hx/Data Height 1.68 m Height (Calculated Centimeters) 167.6 Current Weight (lbs) 106.186 kg Weight (Calculated Kilograms) 106.2 Weight (Calculated Grams) 619514.0 [place] Body Weight 130 lb Body Mass Index (BMI) 37.8 Weight Status Obese GI Symptoms GI Symptoms None Last BM none noted Difficult in: None Food Allergies No Skin Integrity/Comment: reddened to left upper chest, puncture ulcer to right upper arm, katharine 16 Current %PO Good (75-100%) Estimated Nutritional Goals BEE in Kcals: Adj wt of IBW Calories/Kcals/Kg 27-32 (based on adj wt 71 kg) Kcals Calculated [id number] Protein: Adj wt of IBW Protein g/k.0-1.2 Protein Calculated 71-85 g (based on adj wt 71 kg ) Fluid: ml per MD Nutritional Problem 2. Problem Problem Inadequate protein intake Etiology increased needs for HD Signs/Symptoms: current diet provides 70-85% of estimated protein needs daily 1. Problem Problem Altered nutrition related lab values Etiology dx of ESRD Signs/Symptoms: BUN 58, Cr 5.9 Malnutrition Alert Is there a minimum of two criteria No selected? Query Text:Check all the applicable criteria. A minimum of two criteria are recommended for diagnosis of either severe or non-severe malnutrition. Malnutrition Related to Morbid Obesity Malnutrition related to morbid obesity No Intervention/Recommendation Comments 1. Modify diet to renal-80 gm protein d/t pt on HD. Provide pt meals per food preference. 2. Monitor renal and nutrition related labs, PO intake, wt, and skin integrity 3. F/U as moderate risk in 3-5 days, 09/12-09/14 Expected Outcomes/Goals Expected Outcomes/Goals 1. PO intake to continue meeting at least 75% of all meals 2. Wt stability, skin integrity to improve, and nutrition related labs to approach normal limits Reviewed by Fernanda Bloom RD
--- NOTE | 2018-09-11 14:22 | Internal Medicine Prog Note ---
Internal Medicine Subjective - Subjective Patient seen and examined:: chart reviewed Patient is:: awake, talking Patient Complaints of:: other (breast pain ) Per staff patient has:: no adverse event Internal Medicine Objective - Results Result Diagrams: 09/11/18 05:05 09/11/18 05:05 Recent Labs: Laboratory Last Values WBC 15.3 Th/cmm (4.8-10.8) H 09/11/18 05:05 RBC 3.43 Mil/cmm (3.80-5.10) L 09/11/18 05:05 Hgb 8.5 gm/dL (12-16) L 09/11/18 05:05 Hct 27.1 % (41.0-60) L 09/11/18 05:05 MCV 79.1 fl (81-100) L 09/11/18 05:05 MCH 24.7 pg (27.0-31.0) L 09/11/18 05:05 MCHC Differential 31.3 pg (28.0-36.0) 09/11/18 05:05 RDW 21.7 % (11.5-20.0) H 09/11/18 05:05 Plt Count 166 Th/cmm (150-400) 09/11/18 05:05 MPV 8.9 fl 09/11/18 05:05 Add Manual Diff YES 09/11/18 05:05 Band Neutrophils % 0 % (0-10) 09/11/18 05:05 Neutrophils (Manual) 89 % (40-80) H 09/11/18 05:05 Lymphocytes 6 % (20-50) L 09/11/18 05:05 Monocytes 5 % (2-10) 09/11/18 05:05 Eosinophils 2 % (0-5) 09/09/18 05:56 Basophils 0 % (0-3) 09/09/18 05:56 Hypochromia 1+ 09/10/18 04:20 Platelet Estimate ADEQUATE (NORMAL) 09/10/18 04:20 Polychromasia 1+ 09/10/18 04:20 Anisocytosis 1+ 09/10/18 04:20 Ovalocytes 2+ 09/10/18 04:20 PT 10.9 SECONDS (9.5-11.5) 09/10/18 04:20 INR 1.08 (0.5-1.4) 09/10/18 04:20 PTT (Actin FS) 21.6 SECONDS (26.0-38.0) L 09/07/18 17:00 Sodium 137 mEq/L (136-145) 09/11/18 05:05 Potassium 4.4 mEq/L (3.5-5.1) 09/11/18 05:05 Chloride 97 mEq/L (98-107) L 09/11/18 05:05 Carbon Dioxide 22.5 mEq/L (21.0-31.0) 09/11/18 05:05 Anion Gap 21.9 (7.0-16.0) H 09/11/18 05:05 BUN 62 mg/dL (7-25) H 09/11/18 05:05 Creatinine 6.1 mg/dL (0.6-1.2) H* 09/11/18 05:05 Est GFR ( Amer) 9.3 ml/min (>90) 09/11/18 05:05 Est GFR (Non-Af Amer) 7.7 ml/min 09/11/18 05:05 BUN/Creatinine Ratio 10.2 09/11/18 05:05 Glucose 250 mg/dL (70-105) H 09/11/18 05:05 POC Glucose 173 MG/DL (70 - 105) H 09/10/18 07:55 Whole Bld Lactic Acid 0.92 mmol/L (0.60-1.99) 09/08/18 07:30 Calcium 6.9 mg/dL (8.6-10.3) L 09/11/18 05:05 Total Bilirubin 0.5 mg/dL (0.3-1.0) 09/09/18 05:56 AST 12 U/L (13-39) L 09/09/18 05:56 ALT 39 U/L (7-52) 09/09/18 05:56 Alkaline Phosphatase 259 U/L (34-104) H 09/09/18 05:56 Troponin I 0.02 ng/mL (0.01-0.05) 09/07/18 17:00 B-Natriuretic Peptide 265.0 pg/mL (5.0-100.0) H 09/07/18 17:00 Total Protein 6.5 gm/dL (6.0-8.3) 09/09/18 05:56 Albumin 4.0 gm/dL (3.7-5.3) 09/09/18 05:56 Globulin 2.5 gm/dL 09/09/18 05:56 Albumin/Globulin Ratio 1.6 (1.0-1.8) 09/09/18 05:56 TSH 0.08 uIU/ml (0.34-5.60) L 09/07/18 17:00 Random Vancomycin 25.9 ug/mL (5.0-40.0) 09/11/18 05:05 - Physical Exam Vitals and I&O: Vital Signs Temp 97.5 F 09/11/18 11:23 Pulse 82 09/11/18 11:26 Resp 18 09/11/18 11:57 BP 118/49 09/11/18 11:23 Pulse Ox 95 09/11/18 11:26 Intake & Output 09/10/18 09/11/18 09/11/18 18:59 06:59 18:59 Intake Total 650 550 Balance 650 550 Weight (lbs) 107.955 kg 107.955 kg Intake: Intake, IV Amount 50 100 Piperacillin Sodium/ 50 100 Tazobact 2.25 gm In Sodium Chloride 0.9% 50 ml @ 100 mls/hr IV Q8HR [facility] Rx#:[id number] Oral 600 450 Other: # Voids 1 # Bowel Movements 1 Weight Source Bedscale Bedscale Active Medications: Current Medications Acetaminophen (Tylenol Extra Strength) 500 mg PO TID [facility] Stop: 11/07/18 10:59 Last Admin: 09/11/18 09:07 Dose: 500 mg Acetaminophen/Hydrocodone Bitart ([place] 5mg/325mg) 1 tab PO Q6H PRN PRN Reason: Pain (Moderate) Stop: 11/06/18 20:49 Last Admin: 09/07/18 23:53 Dose: 1 tab Acetaminophen/Hydrocodone Bitart ([place] 5mg/325mg) 1 tab PO Q6H PRN PRN Reason: Pain (Moderate) Stop: 11/08/18 08:30 Last Admin: 09/11/18 05:11 Dose: 1 tab Albuterol Sulfate (Albuterol 2.5mg/3ml Neb Ud) 2.5 mg HHN Q4HRT [facility] Stop: 11/07/18 10:59 Last Admin: 09/11/18 11:26 Dose: 2.5 mg Albuterol/Ipratropium (Duoneb Neb) 3 ml HHN Q6HRT PRN; Protocol PRN Reason: Congestion/SOB Stop: 11/06/18 20:45 Alprazolam (Xanax) 0.5 mg PO Q8HR PRN; Protocol PRN Reason: Anxiety Stop: 11/06/18 20:51 Last Admin: 09/11/18 01:10 Dose: 0.5 mg Aspirin (Aspirin Chewable) 81 mg PO DAILY [facility] Stop: 11/07/18 08:59 Last Admin: 09/11/18 09:07 Dose: 81 mg Atorvastatin Calcium (Lipitor) 10 mg PO HS [facility]; Protocol Stop: 11/08/18 20:59 Last Admin: 09/10/18 20:40 Dose: 10 mg Cinacalcet (Sensipar) 30 mg PO DAILY [facility] Stop: 11/08/18 08:59 Last Admin: 09/11/18 09:07 Dose: 30 mg Dicyclomine HCl (Bentyl) 10 mg PO TID [facility] Stop: 11/08/18 08:59 Last Admin: 09/11/18 09:07 Dose: 10 mg Epoetin Mekhi (Epogen) 10,000 units SUBQ MWF@1500 [facility] Stop: 11/08/18 14:59 Last Admin: 09/09/18 18:07 Dose: 10,000 units Fluconazole (Diflucan) 100 mg PO DAILY [facility] Stop: 11/07/18 08:59 Last Admin: 09/11/18 09:07 Dose: 100 mg Folic Acid (Folate) 1 mg PO DAILY [facility] Stop: 11/08/18 08:59 Last Admin: 09/11/18 09:07 Dose: 1 mg Gabapentin (Neurontin) 200 mg PO TID [facility] Stop: 11/08/18 08:59 Last Admin: 09/11/18 09:08 Dose: 200 mg Piperacillin Sod/Tazobactam (Sod 2.25 gm/ Sodium Chloride) 50 mls @ 100 mls/hr IV Q8HR [facility] Stop: 11/07/18 12:59 Last Admin: 09/11/18 12:24 Dose: 100 mls/hr Vancomycin HCl 1.5 gm/ Sodium (Chloride) 500 mls @ 250 mls/hr IV ONCE ONE Stop: 09/11/18 17:59 Ibuprofen (Advil) 400 mg PO Q6H PRN PRN Reason: MILD PAIN Stop: 11/08/18 08:30 Lisinopril (Zestril) 20 mg PO BID [facility] Stop: 11/08/18 08:59 Last Admin: 09/11/18 09:12 Dose: Not Given Loperamide HCl (Imodium) 2 mg PO Q4H PRN PRN Reason: Diarrhea Stop: 11/08/18 08:30 Miscellaneous (Vancomycin Iv Per Pharmacy) 1 ea MC PRN [facility] Stop: 11/06/18 21:29 Miscellaneous (Calcium Alginate [Dhiraj]) 1 each TP PRN PRN PRN Reason: DRESSING Montelukast Sodium (Singulair) 10 mg PO DAILY [facility] Stop: 11/08/18 08:59 Last Admin: 09/11/18 09:07 Dose: 10 mg Morphine Sulfate (Morphine) 1 mg IVP Q4HR PRN PRN Reason: Pain (Severe) Stop: 11/06/18 21:28 Last Admin: 09/11/18 13:48 Dose: 1 mg Nifedipine (Procardia Xl) 30 mg PO Q8H [facility] Stop: 11/08/18 08:59 Last Admin: 09/11/18 09:12 Dose: Not Given Nystatin (Nystatin) 500,000 units PO BID [facility] Stop: 11/08/18 08:59 Last Admin: 09/11/18 09:06 Dose: 500,000 units Pantoprazole Sodium (Protonix) 40 mg PO DAILY [facility] Stop: 11/08/18 08:59 Last Admin: 09/11/18 09:07 Dose: 40 mg Prednisone (Deltasone) 20 mg PO BID [facility] Stop: 11/08/18 08:59 Last Admin: 09/11/18 09:08 Dose: 20 mg Quetiapine Fumarate (Seroquel) 50 mg PO Q12H [facility]; Protocol Stop: 11/08/18 13:14 Sertraline HCl (Zoloft) 100 mg PO DAILY [facility]; Protocol Stop: 11/09/18 08:59 Sevelamer Carbonate (Renvela) 1,600 mg PO TID [facility] Stop: 11/08/18 08:59 Last Admin: 09/11/18 09:08 Dose: 1,600 mg Vitamin B Complex/Vit C/Folic Acid (Vitamin B Complex W/Vitamin C) 1 tab PO DAILY [facility] Stop: 11/08/18 08:59 Last Admin: 09/11/18 09:07 Dose: 1 tab Zolpidem Tartrate (Ambien) 5 mg PO HS PRN PRN Reason: Insomnia Stop: 11/06/18 20:52 General: alert, other (rt breast tenderness ) HEENT: NC/AT Neck: Supple Lungs: CTAB Abdomen: soft, non-tender Extremities: clear - Procedures Procedures: Procedures Procedure Code Date BYPASS L BRACH ART TO UP ARM VEIN W NONAUT SUB, OPEN [id number] 08/26/18 FLUOROSCOPY OF SUP VENA CAVA USING L OSM CONTRAST, GUIDANCE [id number] 08/26/18 INSERTION OF INFUSION DEV INTO SUP VENA CAVA, PERC APPROACH [id number] 08/26/18 PERFORMANCE OF URINARY FILTRATION, <6 HRS/DAY [id number] 08/26/18 REMOVAL OF INFUSION DEVICE FROM HEART, EXTERNAL APPROACH [id number] 08/26/18 Internal Medicine Assmt/Plan - Assessment Assessment: rt breast mastitis with lymphedema r/o abscess htn leukocytosis lactic acidosis ckd/hd obesity sleep apnea permacath access noted - Plan Plan: as per order sheet Nutritional Asmnt/Malnutr-PDOC - Dietary Evaluation Malnutrition Findings (Please click <Entered> for more info): Nutritional Asmnt/Malnutrition Start: 09/09/18 16: 00 Text: Status: Complete Freq: Protocol: Document 09/09/18 16:00 ROLLY (Rec: 09/09/18 16:11 ROLLY [email or web address]) Nutritional Asmnt/Malnutrition Patient General Information Nutritional Screening High Risk Diagnosis ESRD, sepsis right breast, chest wall pain Pertinent Medical Hx/Surgical Hx ESRD, dialysis, HTN, obesity, sleep apnea, asthma/COPD, dyslipidemia, hemodialysis 4x/ week Subjective Information BS 185 upon admission noted. Spoke w/ pt who's primarily nepali speaking, but nursing staff present to translate. Pt states she does not particularly like the plain taste of her meals except for fruits and vegetables and will prefer to have sandwiches for lunch and dinner. Nursing noted PO intake: 75-100%. Pt asked about receiving salt during meals; explained restrictions of renal diet and pt verbalized understanding. Current Diet Order/ Nutrition Support Renal Pertinent Medications lipitor, folate, vancomycin, morphine, protonix, piperacillin, seroquel, renvela, Vit B complex w/ Vit C Pertinent Labs 09/09: Na 139, K 5.1, Cl 99, BUN 58, Cr 5.9, glucose 101, Ca 7.9 09/08: Na 135, K 5.7, Cl 96, BUN 76, Cr 6.3, glucose 112, Ca 8.8 Nutritional Hx/Data Height 1.68 m Height (Calculated Centimeters) 167.6 Current Weight (lbs) 106.186 kg Weight (Calculated Kilograms) 106.2 Weight (Calculated Grams) 306687.0 [place] Body Weight 130 lb Body Mass Index (BMI) 37.8 Weight Status Obese GI Symptoms GI Symptoms None Last BM none noted Difficult in: None Food Allergies No Skin Integrity/Comment: reddened to left upper chest, puncture ulcer to right upper arm, katharine 16 Current %PO Good (75-100%) Estimated Nutritional Goals BEE in Kcals: Adj wt of IBW Calories/Kcals/Kg 27-32 (based on adj wt 71 kg) Kcals Calculated 7286-6450 Protein: Adj wt of IBW Protein g/k.0-1.2 Protein Calculated 71-85 g (based on adj wt 71 kg ) Fluid: ml per MD Nutritional Problem 2. Problem Problem Inadequate protein intake Etiology increased needs for HD Signs/Symptoms: current diet provides 70-85% of estimated protein needs daily 1. Problem Problem Altered nutrition related lab values Etiology dx of ESRD Signs/Symptoms: BUN 58, Cr 5.9 Malnutrition Alert Is there a minimum of two criteria No selected? Query Text:Check all the applicable criteria. A minimum of two criteria are recommended for diagnosis of either severe or non-severe malnutrition. Malnutrition Related to Morbid Obesity Malnutrition related to morbid obesity No Intervention/Recommendation Comments 1. Modify diet to renal-80 gm protein d/t pt on HD. Provide pt meals per food preference. 2. Monitor renal and nutrition related labs, PO intake, wt, and skin integrity 3. F/U as moderate risk in 3-5 days, 09/12-09/14 Expected Outcomes/Goals Expected Outcomes/Goals 1. PO intake to continue meeting at least 75% of all meals 2. Wt stability, skin integrity to improve, and nutrition related labs to approach normal limits Reviewed by Fernanda Bloom RD
[2018-09-11] MEDS: Epoetin Alfa 20000 Units/mL Vial SUBQ SCH (14:50)
--- NOTE | 2018-09-11 15:00 | General Progress Note ---
Subjective - Review of Systems Service Date: 09/11/18 Events since last encounter: 09/11/18 right axilla open wound clean and granulating left axilla incision redressed, no bleeding patient can be dialyzed only thru Permcath as thrombectomy yesterday was not successful DNR status Objective - Results Result Diagrams: 09/11/18 05:05 09/11/18 05:05 Recent Labs: Laboratory Last Values WBC 15.3 Th/cmm (4.8-10.8) H 09/11/18 05:05 RBC 3.43 Mil/cmm (3.80-5.10) L 09/11/18 05:05 Hgb 8.5 gm/dL (12-16) L 09/11/18 05:05 Hct 27.1 % (41.0-60) L 09/11/18 05:05 MCV 79.1 fl (81-100) L 09/11/18 05:05 MCH 24.7 pg (27.0-31.0) L 09/11/18 05:05 MCHC Differential 31.3 pg (28.0-36.0) 09/11/18 05:05 RDW 21.7 % (11.5-20.0) H 09/11/18 05:05 Plt Count 166 Th/cmm (150-400) 09/11/18 05:05 MPV 8.9 fl 09/11/18 05:05 Add Manual Diff YES 09/11/18 05:05 Band Neutrophils % 0 % (0-10) 09/11/18 05:05 Neutrophils (Manual) 89 % (40-80) H 09/11/18 05:05 Lymphocytes 6 % (20-50) L 09/11/18 05:05 Monocytes 5 % (2-10) 09/11/18 05:05 Eosinophils 2 % (0-5) 09/09/18 05:56 Basophils 0 % (0-3) 09/09/18 05:56 Hypochromia 1+ 09/10/18 04:20 Platelet Estimate ADEQUATE (NORMAL) 09/10/18 04:20 Polychromasia 1+ 09/10/18 04:20 Anisocytosis 1+ 09/10/18 04:20 Ovalocytes 2+ 09/10/18 04:20 PT 10.9 SECONDS (9.5-11.5) 09/10/18 04:20 INR 1.08 (0.5-1.4) 09/10/18 04:20 PTT (Actin FS) 21.6 SECONDS (26.0-38.0) L 09/07/18 17:00 Sodium 137 mEq/L (136-145) 09/11/18 05:05 Potassium 4.4 mEq/L (3.5-5.1) 09/11/18 05:05 Chloride 97 mEq/L (98-107) L 09/11/18 05:05 Carbon Dioxide 22.5 mEq/L (21.0-31.0) 09/11/18 05:05 Anion Gap 21.9 (7.0-16.0) H 09/11/18 05:05 BUN 62 mg/dL (7-25) H 09/11/18 05:05 Creatinine 6.1 mg/dL (0.6-1.2) H* 09/11/18 05:05 Est GFR ( Amer) 9.3 ml/min (>90) 09/11/18 05:05 Est GFR (Non-Af Amer) 7.7 ml/min 09/11/18 05:05 BUN/Creatinine Ratio 10.2 09/11/18 05:05 Glucose 250 mg/dL (70-105) H 09/11/18 05:05 POC Glucose 173 MG/DL (70 - 105) H 09/10/18 07:55 Whole Bld Lactic Acid 0.92 mmol/L (0.60-1.99) 09/08/18 07:30 Calcium 6.9 mg/dL (8.6-10.3) L 09/11/18 05:05 Total Bilirubin 0.5 mg/dL (0.3-1.0) 09/09/18 05:56 AST 12 U/L (13-39) L 09/09/18 05:56 ALT 39 U/L (7-52) 09/09/18 05:56 Alkaline Phosphatase 259 U/L (34-104) H 09/09/18 05:56 Troponin I 0.02 ng/mL (0.01-0.05) 09/07/18 17:00 B-Natriuretic Peptide 265.0 pg/mL (5.0-100.0) H 09/07/18 17:00 Total Protein 6.5 gm/dL (6.0-8.3) 09/09/18 05:56 Albumin 4.0 gm/dL (3.7-5.3) 09/09/18 05:56 Globulin 2.5 gm/dL 09/09/18 05:56 Albumin/Globulin Ratio 1.6 (1.0-1.8) 09/09/18 05:56 TSH 0.08 uIU/ml (0.34-5.60) L 09/07/18 17:00 Random Vancomycin 25.9 ug/mL (5.0-40.0) 09/11/18 05:05 - Physical Exam Vitals and I&O: Vital Signs Temp 97.5 F 09/11/18 14:24 Pulse 82 09/11/18 14:42 Resp 20 09/11/18 14:42 BP 118/49 09/11/18 14:24 Pulse Ox 95 09/11/18 14:42 Intake & Output 09/10/18 09/11/18 09/11/18 18:59 06:59 18:59 Intake Total 650 550 Balance 650 550 Weight (lbs) 107.955 kg 107.955 kg Intake: Intake, IV Amount 50 100 Piperacillin Sodium/ 50 100 Tazobact 2.25 gm In Sodium Chloride 0.9% 50 ml @ 100 mls/hr IV Q8HR [facility] Rx#:[id number] Oral 600 450 Other: # Voids 1 # Bowel Movements 1 Weight Source Bedscale Bedscale Active Medications: Current Medications Acetaminophen (Tylenol Extra Strength) 500 mg PO TID [facility] Stop: 11/07/18 10:59 Last Admin: 09/11/18 14:50 Dose: 500 mg Acetaminophen/Hydrocodone Bitart (Longs 5mg/325mg) 1 tab PO Q6H PRN PRN Reason: Pain (Moderate) Stop: 11/08/18 08:30 Last Admin: 09/11/18 05:11 Dose: 1 tab Albuterol Sulfate (Albuterol 2.5mg/3ml Neb Ud) 2.5 mg HHN Q4HRT [facility] Stop: 11/07/18 10:59 Last Admin: 09/11/18 14:42 Dose: 2.5 mg Albuterol/Ipratropium (Duoneb Neb) 3 ml HHN Q6HRT PRN; Protocol PRN Reason: Congestion/SOB Stop: 11/06/18 20:45 Alprazolam (Xanax) 0.5 mg PO Q8HR PRN; Protocol PRN Reason: Anxiety Stop: 11/06/18 20:51 Last Admin: 09/11/18 01:10 Dose: 0.5 mg Aspirin (Aspirin Chewable) 81 mg PO DAILY [facility] Stop: 11/07/18 08:59 Last Admin: 09/11/18 09:07 Dose: 81 mg Atorvastatin Calcium (Lipitor) 10 mg PO HS [facility]; Protocol Stop: 11/08/18 20:59 Last Admin: 09/10/18 20:40 Dose: 10 mg Cinacalcet (Sensipar) 30 mg PO DAILY [facility] Stop: 11/08/18 08:59 Last Admin: 09/11/18 09:07 Dose: 30 mg Dicyclomine HCl (Bentyl) 10 mg PO TID [facility] Stop: 11/08/18 08:59 Last Admin: 09/11/18 14:49 Dose: 10 mg Epoetin Mekhi (Epogen) 10,000 units SUBQ MWF@1500 [facility] Stop: 11/08/18 14:59 Last Admin: 09/11/18 14:50 Dose: 10,000 units Fluconazole (Diflucan) 100 mg PO DAILY [facility] Stop: 11/07/18 08:59 Last Admin: 09/11/18 09:07 Dose: 100 mg Folic Acid (Folate) 1 mg PO DAILY [facility] Stop: 11/08/18 08:59 Last Admin: 09/11/18 09:07 Dose: 1 mg Gabapentin (Neurontin) 200 mg PO TID [facility] Stop: 11/08/18 08:59 Last Admin: 09/11/18 14:49 Dose: 200 mg Piperacillin Sod/Tazobactam (Sod 2.25 gm/ Sodium Chloride) 50 mls @ 100 mls/hr IV Q8HR [facility] Stop: 11/07/18 12:59 Last Admin: 09/11/18 12:24 Dose: 100 mls/hr Vancomycin HCl 1.5 gm/ Sodium (Chloride) 500 mls @ 250 mls/hr IV ONCE ONE Stop: 09/11/18 17:59 Ibuprofen (Advil) 400 mg PO Q6H PRN PRN Reason: MILD PAIN Stop: 11/08/18 08:30 Lisinopril (Zestril) 20 mg PO BID [facility] Stop: 11/08/18 08:59 Last Admin: 09/11/18 09:12 Dose: Not Given Loperamide HCl (Imodium) 2 mg PO Q4H PRN PRN Reason: Diarrhea Stop: 11/08/18 08:30 Miscellaneous (Vancomycin Iv Per Pharmacy) 1 ea [facility] PRN [facility] Stop: 11/06/18 21:29 Miscellaneous (Calcium Alginate [Dhiraj]) 1 each TP PRN PRN PRN Reason: DRESSING Montelukast Sodium (Singulair) 10 mg PO DAILY [facility] Stop: 11/08/18 08:59 Last Admin: 09/11/18 09:07 Dose: 10 mg Morphine Sulfate (Morphine) 1 mg IVP Q4HR PRN PRN Reason: Pain (Severe) Stop: 11/06/18 21:28 Last Admin: 09/11/18 13:48 Dose: 1 mg Nifedipine (Procardia Xl) 30 mg PO Q8H [facility] Stop: 11/08/18 08:59 Last Admin: 09/11/18 09:12 Dose: Not Given Nystatin (Nystatin) 500,000 units PO BID [facility] Stop: 11/08/18 08:59 Last Admin: 09/11/18 09:06 Dose: 500,000 units Pantoprazole Sodium (Protonix) 40 mg PO DAILY [facility] Stop: 11/08/18 08:59 Last Admin: 09/11/18 09:07 Dose: 40 mg Prednisone (Deltasone) 20 mg PO BID [facility] Stop: 11/08/18 08:59 Last Admin: 09/11/18 09:08 Dose: 20 mg Quetiapine Fumarate (Seroquel) 50 mg PO Q12H [facility]; Protocol Stop: 11/08/18 13:14 Sertraline HCl (Zoloft) 100 mg PO DAILY [facility]; Protocol Stop: 11/09/18 08:59 Sevelamer Carbonate (Renvela) 1,600 mg PO TID [facility] Stop: 11/08/18 08:59 Last Admin: 09/11/18 14:50 Dose: 1,600 mg Vitamin B Complex/Vit C/Folic Acid (Vitamin B Complex W/Vitamin C) 1 tab PO DAILY [facility] Stop: 11/08/18 08:59 Last Admin: 09/11/18 09:07 Dose: 1 tab Zolpidem Tartrate (Ambien) 5 mg PO HS PRN PRN Reason: Insomnia Stop: 11/06/18 20:52 General: Alert, Oriented x3 Cardiovascular: Regular rate Lungs: Clear to auscultation Abdomen: Obese Extremities: Edema (RUE EDEMA) - Procedures Procedures: Procedures Procedure Code Date BYPASS L BRACH ART TO UP ARM VEIN W NONAUT SUB, OPEN [id number] 08/26/18 FLUOROSCOPY OF SUP VENA CAVA USING L OSM CONTRAST, GUIDANCE [id number] 08/26/18 INSERTION OF INFUSION DEV INTO SUP VENA CAVA, PERC APPROACH [id number] 08/26/18 PERFORMANCE OF URINARY FILTRATION, <6 HRS/DAY [id number] 08/26/18 REMOVAL OF INFUSION DEVICE FROM HEART, EXTERNAL APPROACH [id number] 08/26/18 Nutritional Asmnt/Malnutr-PDOC - Dietary Evaluation Malnutrition Findings (Please click <Entered> for more info): Nutritional Asmnt/Malnutrition Start: 09/09/18 16: 00 Text: Status: Complete Freq: Protocol: Document 09/09/18 16:00 ROLLY (Rec: 09/09/18 16:11 ROLLY [email or web address]) Nutritional Asmnt/Malnutrition Patient General Information Nutritional Screening High Risk Diagnosis ESRD, sepsis right breast, chest wall pain Pertinent Medical Hx/Surgical Hx ESRD, dialysis, HTN, obesity, sleep apnea, asthma/COPD, dyslipidemia, hemodialysis 4x/ week Subjective Information BS 185 upon admission noted. Spoke w/ pt who's primarily gambian speaking, but nursing staff present to translate. Pt states she does not particularly like the plain taste of her meals except for fruits and vegetables and will prefer to have sandwiches for lunch and dinner. Nursing noted PO intake: 75-100%. Pt asked about receiving salt during meals; explained restrictions of renal diet and pt verbalized understanding. Current Diet Order/ Nutrition Support Renal Pertinent Medications lipitor, folate, vancomycin, morphine, protonix, piperacillin, seroquel, renvela, Vit B complex w/ Vit C Pertinent Labs 09/09: Na 139, K 5.1, Cl 99, BUN 58, Cr 5.9, glucose 101, Ca 7.9 09/08: Na 135, K 5.7, Cl 96, BUN 76, Cr 6.3, glucose 112, Ca 8.8 Nutritional Hx/Data Height 1.68 m Height (Calculated Centimeters) 167.6 Current Weight (lbs) 106.186 kg Weight (Calculated Kilograms) 106.2 Weight (Calculated Grams) 141013.0 [place] Body Weight 130 lb Body Mass Index (BMI) 37.8 Weight Status Obese GI Symptoms GI Symptoms None Last BM none noted Difficult in: None Food Allergies No Skin Integrity/Comment: reddened to left upper chest, puncture ulcer to right upper arm, katharine 16 Current %PO Good (75-100%) Estimated Nutritional Goals BEE in Kcals: Adj wt of IBW Calories/Kcals/Kg 27-32 (based on adj wt 71 kg) Kcals Calculated [id number] Protein: Adj wt of IBW Protein g/k.0-1.2 Protein Calculated 71-85 g (based on adj wt 71 kg ) Fluid: ml per MD Nutritional Problem 2. Problem Problem Inadequate protein intake Etiology increased needs for HD Signs/Symptoms: current diet provides 70-85% of estimated protein needs daily 1. Problem Problem Altered nutrition related lab values Etiology dx of ESRD Signs/Symptoms: BUN 58, Cr 5.9 Malnutrition Alert Is there a minimum of two criteria No selected? Query Text:Check all the applicable criteria. A minimum of two criteria are recommended for diagnosis of either severe or non-severe malnutrition. Malnutrition Related to Morbid Obesity Malnutrition related to morbid obesity No Intervention/Recommendation Comments 1. Modify diet to renal-80 gm protein d/t pt on HD. Provide pt meals per food preference. 2. Monitor renal and nutrition related labs, PO intake, wt, and skin integrity 3. F/U as moderate risk in 3-5 days, 09/12-09/14 Expected Outcomes/Goals Expected Outcomes/Goals 1. PO intake to continue meeting at least 75% of all meals 2. Wt stability, skin integrity to improve, and nutrition related labs to approach normal limits Reviewed by Fernanda Bloom RD
[2018-09-11] MEDS ORDERED: Probiotic Screen MC PRN (15:15)
[2018-09-11] MEDS ORDERED: Vancomycin HCl 1.5 GM in Sodium Chloride 0.9% 500 ML IV ONE (16:00)
[2018-09-12] MEDS ORDERED: Lactobacillus Rhamnosus GG 15 Billion CFU CAP.SPRINK PO SCH (09:00)
--- NOTE | 2018-09-14 19:22 | Discharge Summary ---
DATE OF DISCHARGE: 09/11/2018 HOSPITAL COURSE: The patient was admitted 09/07 and patient was discharged on 09/11. This is a patient known to have history of chronic renal failure on dialysis, complaining of right breast swollen and tender, was found to have diagnosis of mastitis, rule out abscess, hypertension, leukocytosis, sepsis, septic SIRS, history of chronic renal disease on hemodialysis, history of obesity, obstructive sleep apnea. The patient was admitted for all of his problems and he had a complete workup including Dr. Kimball saw the patient and tried to do the thrombectomy, was unable. Also was seen by Dr. Tao Thomas for ID consult and he was given IV antibiotic. The patient improved. The patient also was seen by Dr. Medrano for sleep apnea and chronic COPD. The patient improved and the patient was in stable condition on 09/11. He was discharged back to [facility] where I will be following the patient. MEDICATIONS: See the reconciliation sheet. CONDITION AT TIME OF DISCHARGE: Stable. [facility]# [id number]
== END 2018-09-11 15:15 | DRG 720 ==
LOC: ER 16:49 → MSI 18:25 → TELE 09-08 04:03
PROVIDERS: ADMIT Internal Medicine; ATTEND Internal Medicine
PROC: 5A1D70Z Performance of Urinary Filtration, Intermittent, Less than 6 Hours Per Day (ICD-10-PCS; 2018-09-08)
PROC: 5A1D70Z Performance of Urinary Filtration, Intermittent, Less than 6 Hours Per Day (ICD-10-PCS; 2018-09-09)
PROC: 0XJ Anatomical Regions, Upper Extremities, Inspection (ICD-10-PCS; principal; 2018-09-10)
PROC: 5A1D70Z Performance of Urinary Filtration, Intermittent, Less than 6 Hours Per Day (ICD-10-PCS; 2018-09-11)
DX: A41.9 Sepsis, unspecified organism (principal); E11.22 Type 2 diabetes mellitus with diabetic chronic kidney disease; T82.898A Other specified complication of vascular prosthetic devices, implants and grafts, initial encounter; I12.0 Hypertensive chronic kidney disease with stage 5 chronic kidney disease or end stage renal disease; E66.01 Morbid (severe) obesity due to excess calories; S41.101A Unspecified open wound of right upper arm, initial encounter; D63.1 Anemia in chronic kidney disease; E78.5 Hyperlipidemia, unspecified; Y83.8 Other surgical procedures as the cause of abnormal reaction of the patient, or of later complication, without mention of misadventure at the time of the procedure; N61.0 Mastitis without abscess; N18.6 End stage renal disease; Z99.2 Dependence on renal dialysis; G47.33 Obstructive sleep apnea (adult) (pediatric); J45.909 Unspecified asthma, uncomplicated; R07.9 Chest pain, unspecified; Z66 Do not resuscitate; X58.XXXA Exposure to other specified factors, initial encounter; Y93.89 Activity, other specified; Y92.89 Other specified places as the place of occurrence of the external cause; Y99.8 Other external cause status; Z88.8 Allergy status to other drugs, medicaments and biological substances; Z68.38 Body mass index [BMI] 38.0-38.9, adult
CPT/HCPCS: 36415-UA; 71045-TC; 76641; 80048-TC; 80053-TC; 80202-TC; 82948-90; 83036-90; 83605; 83880-TC; 84443-TC; 84484-TC; 85007-TC; 85025-TC; 85610-TC; 85730-TC; 93005; 94640; 94760; 96375; 97971-TC-LT; J0696; J0885; J1644; J1815; J1885; J2270; J2543; J2704; J3010; J3370; J7030; J7040; J7613; V2790; Z7610

== ENCOUNTER 2019-02-27 23:09 | Emergency (ER) | payer MEDICAID ==
--- NOTE | 2019-02-27 23:36 | ED Physician Chart ---
ED Chief Complaint/HPI - Patient Information Date Seen:: 02/27/19 Time Seen:: 23:25 Chief Complaint:: pain right antecubital fossa History of Present Illness:: Patient had dialysis 6 days ago. When they inserted the needle for dialysis 6 days ago the fluid infiltrated and she's had pain at the site since then. She went to dialysis center today but they did not do dialysis; apparently they were afraid to use the shunt. Allergies:: Allergies Allergy/AdvReac Type Severity Reaction Status Date / Time iron dextran complex Allergy Mild Verified 01/16/19 07:39 chlorhexidine Allergy Verified 01/16/19 07:39 Historian:: Patient ED Past Medical History - Past Medical History Past Medical History: HTN, DM, Asthma/COPD, Dyslipidemia, Other (renal failure on dialysis; anemia; sleep apnea; lipidemia; anxiety; opioid dependence) Family History: Diabetes Melitus, HTN, Other (daughter of lupus) Social History: Care Facility Surgical History: other (dialysis shunt) Psychiatricy History: Depression Family Medical History - Family Member Mother History Unknown: Yes Ethnicity: Living Status: Unknown ED Physical Exam - Physical Examination General/Constitutional: Awake, Well-developed, well-nourished, Alert, No distress, GCS 15, Non-toxic appearing, Ambulatory Head: Atraumatic Eyes: Lids, conjuctiva normal, PERRL, EOMI Other Skin comments:: about 4 cm of tenderness and mild erythema right antecubital fossa ENMT: External ears, nose nl, Nasal exam nl, Lips, teeth, gums nl Neck: Nontender, Full ROM w/o pain, No JVD, No nuchal rigidity, No bruit, No mass, No stridor Respiratory: Nl effort/Exclusion, Clear to Auscultation, No Wheeze/Rhonchi/Rales Cardio Vascular: RRR, No murmur, gallop, rubs, NL S1 S2 GI: No tenderness/rebounding/guarding, No organomegaly, No hernia, Normal BS's, Nondistended, No mass/bruits, No McBurney tenderness : No CVA tenderness Extremities: No tenderness or effusion, Full ROM, normal strength in all extremities, No edema, Normal digits & nails Neuro/Psych: Alert/oriented, DTR's symmetric, Normal sensory exam, Normal motor strength, Judgement/insight normal, Mood normal, Normal gait, No focal deficits Misc: Normal back, No paraspinal tenderness ED Labs/Radiology/EKG Results - Lab Results Results: Laboratory Results WBC 14.6 Th/cmm (4.8-10.8) H 02/27/19 23:35 RBC 3.94 Mil/cmm (3.80-5.10) 02/27/19 23:35 Hgb 9.5 gm/dL (12-16) L 02/27/19 23:35 Hct 30.0 % (41.0-60) L 02/27/19 23:35 MCV 76.2 fl (81-100) L 02/27/19 23:35 MCH 24.0 pg (27.0-31.0) L 02/27/19 23:35 MCHC Differential 31.6 pg (28.0-36.0) 02/27/19 23:35 RDW 18.2 % (11.5-20.0) 02/27/19 23:35 Plt Count 328 Th/cmm (150-400) 02/27/19 23:35 MPV 7.8 fl 02/27/19 23:35 Neutrophils % 84.9 % (40.0-80.0) H 02/27/19 23:35 Lymphocytes % 7.6 % (20.0-50.0) L 02/27/19 23:35 Monocytes % 6.3 % (2.0-10.0) 02/27/19 23:35 Eosinophils % 1.2 % (0.0-5.0) 02/27/19 23:35 Basophils % 0.0 % (0.0-2.0) 02/27/19 23:35 Lymphocytes 0 % (20-50) L 02/27/19 23:35 Laboratory Results WBC 14.6 Th/cmm (4.8-10.8) H 02/27/19 23:35 RBC 3.94 Mil/cmm (3.80-5.10) 02/27/19 23:35 Hgb 9.5 gm/dL (12-16) L 02/27/19 23:35 Hct 30.0 % (41.0-60) L 02/27/19 23:35 MCV 76.2 fl (81-100) L 02/27/19 23:35 MCH 24.0 pg (27.0-31.0) L 02/27/19 23:35 MCHC Differential 31.6 pg (28.0-36.0) 02/27/19 23:35 RDW 18.2 % (11.5-20.0) 02/27/19 23:35 Plt Count 328 Th/cmm (150-400) 02/27/19 23:35 MPV 7.8 fl 02/27/19 23:35 Neutrophils % 84.9 % (40.0-80.0) H 02/27/19 23:35 Lymphocytes % 7.6 % (20.0-50.0) L 02/27/19 23:35 Monocytes % 6.3 % (2.0-10.0) 02/27/19 23:35 Eosinophils % 1.2 % (0.0-5.0) 02/27/19 23:35 Basophils % 0.0 % (0.0-2.0) 02/27/19 23:35 Lymphocytes 0 % (20-50) L 02/27/19 23:35 Sodium 137 mEq/L (136-145) 02/27/19 23:35 Potassium 4.4 mEq/L (3.5-5.1) 02/27/19 23:35 Chloride 95 mEq/L (98-107) L 02/27/19 23:35 Carbon Dioxide 27.4 mEq/L (21.0-31.0) 02/27/19 23:35 Anion Gap 19.0 (7.0-16.0) H 02/27/19 23:35 BUN 47 mg/dL (7-25) H 02/27/19 23:35 Creatinine 9.2 mg/dL (0.6-1.2) H* 02/27/19 23:35 Est GFR ( Amer) 5.8 ml/min (>90) 02/27/19 23:35 Est GFR (Non-Af Amer) 4.8 ml/min 02/27/19 23:35 BUN/Creatinine Ratio 5.1 02/27/19 23:35 Glucose 135 mg/dL (70-105) H 02/27/19 23:35 Calcium 9.6 mg/dL (8.6-10.3) 02/27/19 23:35 ED Assessment - Assessment General Assessment: Patient has tenderness of the right antecubital fossa and may have a cellulitis there. I spoke to Dr. Slaughter and patient be a direct admit to [facility] ED Septic Shock - . Is Septic Shock (SBP<90, OR Lactate>4 mmol\L) present?: No ED Reassessment (Disposition) - Reassessment Reassessment Condition:: Unchanged - Diagnosis Diagnosis:: Renal failure on dialysis; leukocytosis with a left shift; possible cellulitis right arm - Patient Disposition Discharge/Transfer:: Acute Care (other hosp) Accepting Physician:: kasandra Transport Method:: JAMMIE Spoke to:Hedy slaughter Admitting Medical Physician:: kasandra Condition at Disposition:: Stable, Unchanged
[2019-02-27 23:47] LABS: % EOSINOPHILS 1.2 % (0.0-5.0); % LYMPHOCYTES 7.6 % (20.0-50.0); % MONOCYTES 6.3 % (2.0-10.0); % NEUTROPHILS 84.9 % (40.0-80.0); EOSINOPHILE ABSOLUTE 0.2 Th/cmm (0.1-0.4); HEMOGLOBIN 9.5 gm/dL (12-16); LYMPHOCYTE ABSOLUTE 1.1 Th/cmm (1.5-3.0); MEAN CELL VOLUME 76.2 fl (81-100); MEAN CORPUSCULAR HGB CONC 31.6 pg (28.0-36.0); MEAN PLATELET VOLUME 7.8 fl; MONOCYTE ABSOLUTE 0.9 Th/cmm (0.3-1.0); NEUTROPHILE ABSOLUTE 12.4 Th/cmm (1.8-8.0); PLATELET COUNT 328 Th/cmm (150-400); RED BLOOD COUNT 3.94 Mil/cmm (3.80-5.10); RED CELL DISTRIBUTION WIDTH 18.2 % (11.5-20.0); WHITE BLOOD COUNT 14.6 Th/cmm (4.8-10.8)
[2019-02-27 23:50] LABS: LYMPHOCYTE 0 % (20-50)
[2019-02-27 23:58] LABS: CALCIUM SERUM 9.6 mg/dL (8.6-10.3); CARBON DIOXIDE 27.4 mEq/L (21.0-31.0); GFR AFRICAN-AMERICAN 5.8 ml/min (>90); GFR NON AFRICAN-AMERICAN 4.8 ml/min; POTASSIUM SERUM 4.4 mEq/L (3.5-5.1)
[2019-02-28 00:14] LABS: CREATININE - SERUM 9.2 mg/dL (0.6-1.2)
== END 2019-02-28 02:50 | disposition short-term general hospital (02) ==
LOC: ER 23:09
DX: N19 Unspecified kidney failure (principal); D72.829 Elevated white blood cell count, unspecified; I10 Essential (primary) hypertension; E11.9 Type 2 diabetes mellitus without complications; J44.9 Chronic obstructive pulmonary disease, unspecified; E78.5 Hyperlipidemia, unspecified; Z88.8 Allergy status to other drugs, medicaments and biological substances; Z99.2 Dependence on renal dialysis
CPT/HCPCS: 99285; 96365; 36415 ×2; 85007; 85025; 80048; 87040 ×2; J3370

== ENCOUNTER 2019-07-04 20:37 | Observation (INO) | payer MEDICAID ==
--- NOTE | 2019-07-04 21:04 | ED Physician Chart ---
ED Chief Complaint/HPI - Patient Information Date Seen:: 07/04/19 Time Seen:: 20:59 Chief Complaint:: head and chest trauma History of Present Illness:: this is a chronically ill 53 yo female sent from the care home for an evaluation and treatment for a fall she had at 1100 hrs this am. she did not pass out. she is a DNR with esrd, dm, htn, depression,sleep apnea. Allergies:: Allergies Allergy/AdvReac Type Severity Reaction Status Date / Time iron dextran complex Allergy Mild Verified 07/04/19 20:43 chlorhexidine Allergy Verified 07/04/19 20:43 Vitals:: Vital Signs - 8 hr 07/04/19 20:40 Temp 98.1 F HR 79 RR 18 BP 119/69 O2 Sat % 99 Historian:: Medical Records Review:: Nurse's Note Reviewed, Old Chart Reviewed, Transfer documents Reviewed ED Review of Systems - Review of Systems General/Constitutional: No fever, No chills, No weight loss, No weakness, No diaphoresis, No edema, No loss of appetite, Other (she is not able to give a review of systems.) Skin: No skin lesions, No rash, No bruising Head: No headache, No light-headedness Eyes: No loss of vision, No pain, No diplopia ENT: No earache, No nasal drainage, No sore throat, No tinnitus Neck: No neck pain, No swelling, No thyromegaly, No stiffness, No mass noted Cardio Vascular: No chest pain, No palpitations, No PND, No orthopnea, No edema Pulmonary: No SOB, No cough, No sputum, No wheezing GI: No nausea, No vomiting, No diarrhea, No pain, No melena, No hematochezia, No constipation, No hematemesis G/U: No dysuria, No frequency, No hematuria Musculoskeletal: No bone or joint pain, No back pain, No muscle pain Endocrine: No polyuria, No polydipsia Psychiatric: No prior psych history, No depression, No anxiety, No suicidal ideation Hematopoietic: No bruising, No lymphadenopathy Allergic/Immuno: No urticaria, No angioedema Neurological: No syncope, No focal symptoms, No weakness, No paresthesia, No headache, No seizure, No dizziness, No confusion, No vertigo ED Past Medical History - Past Medical History Obtainable: Yes Past Medical History: HTN, DM, CAD, ESRD, Dementia Family History: None Social History: Non Smoker, No Alcohol, No Drug Use, Care Facility Surgical History: other (shunt placement, perma-cath placement) Family Medical History - Family Member Mother History Unknown: Yes Ethnicity: Living Status: Unknown ED Physical Exam - Physical Examination General/Constitutional: Awake, Well-developed, well-nourished, Alert, No distress, GCS 15, Non-toxic appearing, Ambulatory Other Gen/Cons comments:: lethargic but cooperative Head: Atraumatic (some tenderness of the right occipital area of the head) Eyes: Lids, conjuctiva normal, PERRL, EOMI Skin: Nl inspection, No rash, No skin lesions, No ecchymosis, Well hydrated, No lymphadenopathy ENMT: External ears, nose nl, Nasal exam nl, Lips, teeth, gums nl Neck: Nontender, Full ROM w/o pain, No JVD, No nuchal rigidity, No bruit, No mass, No stridor Respiratory: Nl effort/Exclusion, Clear to Auscultation, No Wheeze/Rhonchi/Rales Cardio Vascular: RRR, No murmur, gallop, rubs, NL S1 S2 GI: No tenderness/rebounding/guarding, No organomegaly, No hernia, Normal BS's, Nondistended, No mass/bruits, No McBurney tenderness : No CVA tenderness Extremities: No tenderness or effusion, Full ROM, normal strength in all extremities, No edema, Normal digits & nails Other Extremities comments:: tenderness of the chest wall and right clavicular area. the wrist and arms are tender without deformity and rom for both right and left are normal Neuro/Psych: Alert/oriented, DTR's symmetric, Normal sensory exam, Normal motor strength, Judgement/insight normal, Mood normal, Normal gait, No focal deficits Misc: Normal back, No paraspinal tenderness ED Labs/Radiology/EKG Results - Lab Results Results: Abnormal Lab Results 07/04/19 07/04/19 07/04/19 21:55 21:55 21:55 WBC 8.2 RBC 3.87 Hgb 8.7 L Hct 27.7 L MCV 71.7 L MCH 22.5 L MCHC Differential 31.3 RDW 22.0 H Plt Count 286 MPV 7.7 Neutrophils % 70.3 Lymphocytes % 16.8 L Monocytes % 7.1 Eosinophils % 5.8 H Basophils % 0.0 PT 10.4 INR 1.00 PTT (Actin FS) 28.7 Sodium 133 L Potassium 4.9 Chloride 94 L Carbon Dioxide 28.1 Anion Gap 15.8 BUN 33 H Creatinine 5.7 H* Est GFR ( Amer) 10.0 Est GFR (Non-Af Amer) 8.3 BUN/Creatinine Ratio 5.8 Glucose 101 Calcium 9.1 Total Bilirubin 0.5 AST 36 ALT 18 Alkaline Phosphatase 207 H Troponin I Total Protein 7.6 Albumin 4.0 Globulin 3.6 Albumin/Globulin Ratio 1.1 Triglycerides 142 Cholesterol 129 LDL Cholesterol Direct 43 L HDL Cholesterol 57 07/04/19 21:55 WBC RBC Hgb Hct MCV MCH MCHC Differential RDW Plt Count MPV Neutrophils % Lymphocytes % Monocytes % Eosinophils % Basophils % PT INR PTT (Actin FS) Sodium Potassium Chloride Carbon Dioxide Anion Gap BUN Creatinine Est GFR ( Amer) Est GFR (Non-Af Amer) BUN/Creatinine Ratio Glucose Calcium Total Bilirubin AST ALT Alkaline Phosphatase Troponin I 0.01 Total Protein Albumin Globulin Albumin/Globulin Ratio Triglycerides Cholesterol LDL Cholesterol Direct HDL Cholesterol - Radiology Results Results: ct scan of the head and chest = no acute fractures seen. - EKG Interpretations EKG Time:: 21:22 Rate & Rhythm: rate =79 sinus [place]: left axis ED Assessment - Assessment General Assessment: contusion of the head and chest wall ED Septic Shock - . Is Septic Shock (SBP<90, OR Lactate>4 mmol\L) present?: No - <6hrs of presentation: Vital Signs: Vital Signs - 8 hr 07/04/19 20:40 Temp 98.1 F HR 79 RR 18 BP 119/69 O2 Sat % 99 ED Reassessment (Disposition) - Reassessment Reassessment Condition:: Improved - Diagnosis Diagnosis:: multiple trauma esrd anemia esrd depression - Patient Disposition Discharge/Transfer:: Acute Care w/in this hosp Admitted to:: Med/Surg Admitting Medical Physician:: Christian Muñoz Condition at Disposition:: Unchanged
[2019-07-04 22:06] LABS: % EOSINOPHILS 5.8 % (0.0-5.0); % LYMPHOCYTES 16.8 % (20.0-50.0); % MONOCYTES 7.1 % (2.0-10.0); % NEUTROPHILS 70.3 % (40.0-80.0); EOSINOPHILE ABSOLUTE 0.5 Th/cmm (0.1-0.4); HEMATOCRIT 27.7 % (41.0-60); HEMOGLOBIN 8.7 gm/dL (12-16); LYMPHOCYTE ABSOLUTE 1.4 Th/cmm (1.5-3.0); MEAN CELL VOLUME 71.7 fl (81-100); MEAN CORPUSCULAR HEMOGLOBIN 22.5 pg (27.0-31.0); MEAN CORPUSCULAR HGB CONC 31.3 pg (28.0-36.0); MONOCYTE ABSOLUTE 0.6 Th/cmm (0.3-1.0); NEUTROPHILE ABSOLUTE 5.7 Th/cmm (1.8-8.0); PLATELET COUNT 286 Th/cmm (150-400); RED BLOOD COUNT 3.87 Mil/cmm (3.80-5.10); WHITE BLOOD COUNT 8.2 Th/cmm (4.8-10.8)
[2019-07-04 22:21] LABS: ALB/GLOB RATIO 1.1 (1.0-1.8); ANION GAP 15.8 (7.0-16.0); BILIRUBIN,TOTAL 0.5 mg/dL (0.3-1.0); CALCIUM SERUM 9.1 mg/dL (8.6-10.3); CARBON DIOXIDE 28.1 mEq/L (21.0-31.0); GFR NON AFRICAN-AMERICAN 8.3 ml/min; POTASSIUM SERUM 4.9 mEq/L (3.5-5.1); TOTAL PROTEIN,SERUM 7.6 gm/dL (6.0-8.3)
[2019-07-04 22:28] LABS: CREATININE - SERUM 5.7 mg/dL (0.6-1.2)
[2019-07-05] MEDS ORDERED: Morphine Sulfate 4 mg/mL 1mL Syr ONE (00:38)
[2019-07-05] MEDS: Morphine Sulfate 4 mg/mL 1mL Syr IVP PRN ×4 (00:43→19:54)
[2019-07-05 02:19] VITALS: BP 140/64
[2019-07-05] MEDS ORDERED: Hydrocodone/APAP 10 mg/325 mg Tab PO PRN (08:26)
[2019-07-05] MEDS ORDERED: Dextrose 50% 50 mL Abboject IVP PRN (08:26)
--- NOTE | 2019-07-05 08:58 | History & Physical ---
ADMIT DATE: 07/05/2019 CHIEF COMPLAINT: Status post fall. HISTORY OF PRESENT ILLNESS: This is a 53-year-old female who was admitted from a nursing home facility to Emergency Room of [facility]. Per patient, she had a fall episode in the nursing home facility, in which she lost her balance and felt weak in her legs. The patient reported that she hit her chest and neck area on the bedside. CT scan of the head and chest was done in the Emergency Room, in which nothing significant was seen. Otherwise, the patient was admitted to Med/Surg for further observation. REVIEW OF SYSTEMS: GENERAL: This is a 53-year-old female who appears as stated. No fever. Positive weakness. HEAD: No headache. No dizziness. EYES: No eye pain. No blurring of vision. NECK: Positive neck pain. No nuchal rigidity. CHEST: No chest pain. No palpitation. PULMONARY: No coughing. No shortness of breath. GASTROINTESTINAL: No abdominal pain. No constipation. No diarrhea. MUSCULOSKELETAL: No joint pain. No muscle pain. SOCIAL HISTORY: The patient lived in a nursing home facility prior to hospitalization. PAST MEDICAL HISTORY: Includes hypertension, anemia, end-stage renal disease, hemodialysis dependent every Sunday, Sunday and , history of depression and anxiety, history of having anemia. FAMILY HISTORY: Unremarkable. PAST SURGICAL HISTORY: Unremarkable. PHYSICAL EXAMINATION: VITAL SIGNS: Temperature 97.2, heart rate 78, blood pressure 117/58, respirations 18, 98% on room air. GENERAL: This is a 53-year-old female who appears as stated, in no acute distress. HEENT: Head is atraumatic and normocephalic. Eyes: Bilateral conjunctivae are clear. Bilateral pupils equal, round, reactive. NECK: Supple. No JVD. CARDIOVASCULAR: S1 and S2, without murmur. LUNGS: Clear to auscultation. GASTROINTESTINAL: Soft and nontender without guarding. Positive bowel sounds. MUSCULOSKELETAL: No clubbing. No cyanosis noted. ASSESSMENT: 1. Status post fall. 2. Neck injury. 3. End-stage renal disease, hemodialysis dependent. 4. Hypertension. 5. Anemia. 6. Anxiety. 7. Depression. 8. Weakness. PLAN: We will admit the patient to Med/Surg Unit. We will do medication reconciliation accordingly. We will consult with bolt labeler. We will continue hemodialysis as scheduled. We will initiate physical therapy. We will put the patient on fall precaution. Treatment plans were discussed with the patient's nurse. Treatment plans were discussed with Dr. Muñoz. JOB# [id number]
[2019-07-05] MEDS ORDERED: Non-Formulary Item 1 EA (Glucagon,Human Recombinant [Glucagon Emergency Kit] 1 MG) IM SCH (09:00)
[2019-07-05] MEDS ORDERED: Non-Formulary Item 1 EA (Vitamin B Complex [Vitamin B Complex] 1 TAB) PO SCH (09:00)
[2019-07-05] MEDS ORDERED: Non-Formulary Item 1 EA (Docusate Sodium [Docusate Sodium] 100 MG) PO SCH (09:00)
[2019-07-05] MEDS ORDERED: GLUCAGON HCl 1 MG KIT IM PRN (09:10)
--- NOTE | 2019-07-05 09:38 | Diagnostic Imaging Report ---
Head CT without intravenous contrast Indication: Trauma Comparison: None Technique: Axial images were obtained from the vertex to the skull base without IV contrast. Coronal reconstructions were made. Total DLP: 594, CTDI34 FINDINGS: Exam is limited due to motion. Images of the brain obtained without contrast demonstrate no evidence of gross hemorrhage. Mild atrophy is noted. There are few calcifications seen along the left high frontal cortical or subcortical regions measuring up to 3 mm. The ventricles and basal cisterns are patent. No mass effect or midline shift. There is mucosal thickening versus small mucous retention cysts versus less likely polyps of the bilateral sphenoid sinuses. No skull fracture or focal soft tissue swelling. IMPRESSION: Limited exam due to motion. No evidence of acute intracranial hemorrhage. Small calcifications of the high left frontal cortical subcortical region. Finding favor old infectious or inflammatory process. Correlate with old exams. If necessary follow-up MRI may be obtained. Mild Atrophy. Small mucous retention cysts versus less likely polyps of the bilateral sphenoid sinuses.
--- NOTE | 2019-07-05 09:47 | Diagnostic Imaging Report ---
CT Chest without IV contrast HISTORY: Trauma COMPARISON: Chest x-ray performed on 01/18/2019. Technique: Axial images were obtained from the base of the neck to the upper abdomen without IV contrast. Multiplanar reconstructions were made. Total DLP 408 CTD I 11.3 FINDINGS: No evidence of mediastinal lymphadenopathy. Right brachiocephalic and subclavian vascular stent is noted coursing under the right clavicle. Note exam was limited due to lack of IV contrast. Heart size is mildly prominent. Moderate atherosclerosis is noted. No evidence of any aortic aneurysm. No pericardial effusion identified. Evaluation of the lungs demonstrates hypoventilatory changes of the lungs greatest along the lung bases. There is 3 mm nodularity along the right upper lobe pleural border (image [id number] series 3). 3 mm calcified granuloma is seen within the right middle lobe. No pleural effusions. There is marked elevation of the right hemidiaphragm. The upper abdomen demonstrates hepatomegaly. Partially visualized vascular catheter is noted. There is evidence of prior cholecystectomy. Heavy atherosclerosis is noted with bilateral renal atrophy. 1.5 calcified nodule is seen posterior to the right lobe of liver probably due to old inflammatory process.. There are diffuse varicosities throughout the soft tissues bilaterally. No evidence of pneumothorax. There is generalized increased density of the bones. There is a 8 mm lesion likely hemangioma of T2. No fractures identified. IMPRESSION: No evidence of pneumothorax. Atelectatic lung changes with no focal consolidation identified. No evidence of an aortic aneurysm. Diffuse atherosclerotic vascular disease. Mild cardiomegaly is also noted. Generalized increased density of the bones is probably related to chronic dialysis treatment, please correlate clinically. Vascular stent seen along the right brachiocephalic/right subclavian vein region. Hepatomegaly. Evidence of prior cholecystectomy. Partially visualized vascular catheter is seen in the IVC. 2 mm nodule density of the right upper lobe nonspecific and probably due to old infectious or inflammatory process. Consider follow-up if indicated. 3 mm calcified granuloma right middle lobe. 8 mm lesion within the T2 vertebral body probably an hemangioma. Consider follow-up surveillance if indicated.
[2019-07-05] MEDS: Pantoprazole 40 mg EC Tab PO SCH (11:09)
[2019-07-05] MEDS: Vitamin B Complex w/Vitamin C Tab PO SCH (11:09)
[2019-07-05] MEDS: INSULIN LISPRO SLIDING SCALE 100 UNITS/ML UNIT SUBQ SCH ×3 (11:12→21:30)
[2019-07-05] MEDS: Albuterol/Ipratropium Neb 3 ML AERS HHN PRN ×2 (16:13→19:11)
[2019-07-05] MEDS ORDERED: Atorvastatin Calcium 10 MG TAB PO SCH (21:00)
[2019-07-05] MEDS ORDERED: Heparin Sod 1,000Units/ML 1,000 UNITS/ML VIAL IVP ONE (21:08)
[2019-07-05] MEDS ORDERED: Heparin Sod 1,000Units/ML 1,000 UNITS/ML VIAL HD ONE (22:00)
--- NOTE | 2019-07-05 22:01 | Consultation ---
Consult Note - Consult Note Service Date: 07/05/19 Consult Note: PHYSICIAN Consultation Note: Date of Admission: 07/05/19 Purpose of Consultation: ESRD Chief Complaint: History of Present Illness: Patient CHUN BUNN was admitted to location Medical/Surgical Unit I with HEAD INJURY, RENAL FAILURE. Due for HD today, brought in from SNF s/p fall with generalized weakness. Of note, she is 4kg above her usual dry weight, last HD on 07/03 Past Medical History: ESRD 2 DM2, HTN Allergies Allergy/AdvReac Type Severity Reaction Status Date / Time iron dextran complex Allergy Mild Verified 07/04/19 20:43 chlorhexidine Allergy Verified 07/04/19 20:43 Vital Signs Temp 97.3 F 07/05/19 16:00 Pulse 83 07/05/19 19:11 Resp 18 07/05/19 19:11 BP 140/83 07/05/19 16:00 Pulse Ox 98 07/05/19 19:11 Intake & Output 07/05/19 07/05/19 07/06/19 06:59 18:59 06:59 Intake Total 120 850 Output Total 0 Balance 120 850 Weight (lbs) 98.157 kg 98.883 kg Intake: Oral 120 850 Output: Urine 0 Stool 0 Other: # Voids 0 # Bowel Movements 0 Weight Source [facility] Laboratory Results - last 24 hr 07/04/19 07/04/19 07/04/19 21:55 21:55 21:55 WBC 8.2 RBC 3.87 Hgb 8.7 L Hct 27.7 L MCV 71.7 L MCH 22.5 L MCHC Differential 31.3 RDW 22.0 H Plt Count 286 MPV 7.7 Neutrophils % 70.3 Lymphocytes % 16.8 L Monocytes % 7.1 Eosinophils % 5.8 H Basophils % 0.0 PT 10.4 INR 1.00 PTT (Actin FS) 28.7 Sodium 133 L Potassium 4.9 Chloride 94 L Carbon Dioxide 28.1 Anion Gap 15.8 BUN 33 H Creatinine 5.7 H* Est GFR ( Amer) 10.0 Est GFR (Non-Af Amer) 8.3 BUN/Creatinine Ratio 5.8 Glucose 101 POC Glucose Calcium 9.1 Total Bilirubin 0.5 AST 36 ALT 18 Alkaline Phosphatase 207 H Troponin I Total Protein 7.6 Albumin 4.0 Globulin 3.6 Albumin/Globulin Ratio 1.1 Triglycerides 142 Cholesterol 129 LDL Cholesterol Direct 43 L HDL Cholesterol 57 07/04/19 07/05/19 07/05/19 21:55 11:12 16:55 WBC RBC Hgb Hct MCV MCH MCHC Differential RDW Plt Count MPV Neutrophils % Lymphocytes % Monocytes % Eosinophils % Basophils % PT INR PTT (Actin FS) Sodium Potassium Chloride Carbon Dioxide Anion Gap BUN Creatinine Est GFR ( Amer) Est GFR (Non-Af Amer) BUN/Creatinine Ratio Glucose POC Glucose 86 88 Calcium Total Bilirubin AST ALT Alkaline Phosphatase Troponin I 0.01 Total Protein Albumin Globulin Albumin/Globulin Ratio Triglycerides Cholesterol LDL Cholesterol Direct HDL Cholesterol 07/05/19 21:21 WBC RBC Hgb Hct MCV MCH MCHC Differential RDW Plt Count MPV Neutrophils % Lymphocytes % Monocytes % Eosinophils % Basophils % PT INR PTT (Actin FS) Sodium Potassium Chloride Carbon Dioxide Anion Gap BUN Creatinine Est GFR ( Amer) Est GFR (Non-Af Amer) BUN/Creatinine Ratio Glucose POC Glucose 91 Calcium Total Bilirubin AST ALT Alkaline Phosphatase Troponin I Total Protein Albumin Globulin Albumin/Globulin Ratio Triglycerides Cholesterol LDL Cholesterol Direct HDL Cholesterol Home Medication Medication Instructions Recorded Type Acetaminophen [Tylenol] 650 mg PO Q4HR PRN 02/27/19 History Alprazolam [Xanax] 0.25 mg PO HS 02/27/19 History Alprazolam [Xanax] 0.5 mg PO Q8H PRN 02/27/19 History Atorvastatin Calcium [Lipitor] 10 mg PO HS 02/27/19 History Carvedilol [Coreg] 3.125 mg PO BID 02/27/19 History Cinacalcet [Sensipar] 30 mg PO DAILY 02/27/19 History Docusate Sodium 100 mg PO BID 02/27/19 History Folic Acid/Vit Bcomp,C [Renal-Lyla 0.8 mg PO DAILY 02/27/19 History Tablet] Montelukast [Singulair] 10 mg PO DAILY 02/27/19 History Albuterol/Ipratropium Neb [Duoneb 3 ml HHN Q4HR PRN 07/04/19 History Neb] Dextrose 50% [D50w] 50 ml IVP DAILY PRN 07/04/19 History Gabapentin [Neurontin*] 300 mg PO BID 07/04/19 History Glucagon,Human Recombinant 1 mg IM DAILY 07/04/19 History [Glucagon Emergency Kit] Heparin Sod,Porcine/0.9 % NaCl 5,000 unit SQ DAILY 07/04/19 History [Heparin 5,000 Unit/5 ml-Ns] Hydralazine [Apresoline*] 10 mg PO Q6HR PRN 07/04/19 History Hydrocodone/APAP 10 mg/325 mg 1 tab PO Q6H PRN 07/04/19 History [[place] 10 mg/325 mg] Insulin Lispro Sliding Scale See Protocol SUBQ ACHS 07/04/19 History [humaLOG INSULIN SLIDING SCALE] Pantoprazole [Protonix] 40 mg PO DAILY 07/04/19 History Sertraline [Zoloft] 75 mg PO DAILY 07/04/19 History Sevelamer Carbonate [Renvela] 1,600 mg PO TID 07/04/19 History Vitamin B Complex 1 tab PO DAILY 07/04/19 History hydrOXYzine [Atarax*] 10 mg PO TID 07/04/19 History Current Medications Generic Name Dose Route Start Last Admin Trade Name Freq PRN Reason Stop Dose Admin Acetaminophen 650 mg 07/05/19 08:26 Tylenol PO 09/03/19 08:25 Q4HR PRN Pain or Fever >101 Acetaminophen/Hydrocodone Bitart 1 tab 07/05/19 08:26 [place] 10 Mg/325 Mg PO 09/03/19 08:25 Q6H PRN Pain (Moderate) Albuterol/Ipratropium 3 ml 07/05/19 08:26 07/05/19 19:11 Duoneb Neb HHN 09/03/19 08:25 3 ml Q4HRT PRN Administration Shortness of Breath Alprazolam 0.25 mg 07/05/19 21:00 Xanax PO 09/03/19 20:59 HS [facility] Protocol Alprazolam 0.5 mg 07/05/19 08:26 Xanax PO 09/03/19 08:25 Q8H PRN Anxiety Protocol Atorvastatin Calcium 10 mg 07/05/19 21:00 Lipitor PO 09/03/19 20:59 HS [facility] Protocol Carvedilol 3.125 mg 07/05/19 09:00 07/05/19 17:41 Coreg PO 09/03/19 08:59 Not Given BID [facility] Cinacalcet 30 mg 07/05/19 09:00 07/05/19 11:08 Sensipar PO 09/03/19 08:59 30 mg DAILY [facility] Administration Dextrose 50 ml 07/05/19 08:26 D50w IVP 09/03/19 08:25 DAILY PRN HYPOGLYCEMIA Docusate Sodium 100 mg 07/05/19 09:15 07/05/19 17:40 Colace PO 09/03/19 09:14 100 mg BID [facility] Administration Gabapentin 300 mg 07/05/19 09:00 07/05/19 17:40 Neurontin PO 09/03/19 08:59 300 mg BID [facility] Administration Glucagon 1 mg 07/05/19 09:10 Glucagen IM 09/03/19 09:09 PRN PRN HYPOGLYCEMIA Heparin Sodium (Porcine) 10,000 units 07/05/19 21:08 Heparin HD 07/05/19 21:09 ONCE ONE Hydralazine HCl 10 mg 07/05/19 08:26 Apresoline PO 09/03/19 08:25 Q6HR PRN BP MAINTENANCE (PER PROTOCOL) Hydroxyzine HCl 10 mg 07/05/19 09:00 07/05/19 14:29 Atarax PO 09/03/19 08:59 10 mg TID [facility] Administration Protocol Insulin Human Lispro 0 units 07/05/19 11:30 07/05/19 21:30 Humalog Insulin Sliding Scale SUBQ 09/03/19 11:29 Not Given ACHS [facility] Protocol Montelukast Sodium 10 mg 07/05/19 09:00 07/05/19 11:09 Singulair PO 09/03/19 08:59 10 mg DAILY [facility] Administration Morphine Sulfate 4 mg 07/05/19 00:37 07/05/19 19:54 Morphine IVP 09/03/19 00:36 4 mg Q4HR PRN Administration Pain (Moderate) Pantoprazole Sodium 40 mg 07/05/19 09:00 07/05/19 11:09 Protonix PO 09/03/19 08:59 40 mg DAILY [facility] Administration Sertraline HCl 75 mg 07/05/19 09:00 Zoloft PO 09/03/19 08:59 DAILY [facility] Protocol Sevelamer Carbonate 1,600 mg 07/05/19 09:00 07/05/19 14:29 Renvela PO 09/03/19 08:59 1,600 mg TID [facility] Administration Vitamin B Complex/Vit C/Folic Acid 1 tab 07/05/19 09:00 07/05/19 11:09 Vitamin B Complex W/Vitamin C PO 09/03/19 08:59 1 tab DAILY [facility] Administration Review of Systems: A 12 point ROS was reviewed with the pertinent positive and negatives noted in the HPI. Social History Smoking Status Never smoker Drug Use No Alcohol Use No Family Medical History Family Medical History Start: 07/05/19 01: 52 Freq: ONCE Status: Active Protocol: Document 07/05/19 01:52 [email or web address] (Rec: 07/05/19 02:29 [email or web address] [id number] -RT2) Family Medical History Mother Hx Family Cancer No Hx Family Coronary Artery Disease Yes Hx Family Congestive Heart Failure No Hx Family Hypertension Yes Hx Family Stroke No Hx Family Diabetes Yes Hx Family Seizures No Hx Family Dementia No Hx Family AIDS No Hx Family HIV No Hx Family COPD No Hx Family Hepatitis No Hx Family Psychiatric Problems No Hx Family Tuberculosis No Physical Exam: General: WDWN woman, NAD, alert and oriented HEENT: oropharynx clear, no edema Cardio: regular rate, nl rhythm, no m/r/g Respiratory: clear bilaterally Abdominal: regular rate, nl rhythm, no m/r/g Genital/Urinary: Extremities: no edema Neurological: alert, oriented Assessment: ESRD on HD HTN Anemia 2 ESRD Plan: HD today on TTS schedule BP controlled on HD H&H in range, no indication for transfusion s/p fall, neuro workup as per primary team, PT/OT Signed, Jasmeet Virk 157
[2019-07-05] MEDS ORDERED: Heparin Sod 5,000Units/ML 5,000 UNITS/ML VIAL ONE (23:24)
[2019-07-06] MEDS: Morphine Sulfate 4 mg/mL 1mL Syr IVP PRN ×4 (00:11→16:34)
[2019-07-06] MEDS: INSULIN LISPRO SLIDING SCALE 100 UNITS/ML UNIT SUBQ SCH ×3 (06:58→16:22)
[2019-07-06] MEDS: Vitamin B Complex w/Vitamin C Tab PO SCH (08:28)
[2019-07-06] MEDS: Pantoprazole 40 mg EC Tab PO SCH (08:29)
[2019-07-06 09:10] LABS: IRON LC 32 ug/dL (27-159); TIBC (LC) 359 ug/dL (250-450); UIBC 327 ug/dL (131-425)
--- NOTE | 2019-07-06 09:49 | Internal Medicine Prog Note ---
Internal Medicine Subjective - Subjective Patient is:: asleep, arousable, in bed Per staff patient has:: no adverse event, other (s/p fall- reason for admission. NO fall overnight.) Internal Medicine Objective - Results Result Diagrams: 07/04/19 21:55 07/04/19 21:55 Recent Labs: Laboratory Last Values WBC 8.2 Th/cmm (4.8-10.8) 07/04/19 21:55 RBC 3.87 Mil/cmm (3.80-5.10) 07/04/19 21:55 Hgb 8.7 gm/dL (12-16) L 07/04/19 21:55 Hct 27.7 % (41.0-60) L 07/04/19 21:55 MCV 71.7 fl (81-100) L 07/04/19 21:55 MCH 22.5 pg (27.0-31.0) L 07/04/19 21:55 MCHC Differential 31.3 pg (28.0-36.0) 07/04/19 21:55 RDW 22.0 % (11.5-20.0) H 07/04/19 21:55 Plt Count 286 Th/cmm (150-400) 07/04/19 21:55 MPV 7.7 fl 07/04/19 21:55 Neutrophils % 70.3 % (40.0-80.0) 07/04/19 21:55 Lymphocytes % 16.8 % (20.0-50.0) L 07/04/19 21:55 Monocytes % 7.1 % (2.0-10.0) 07/04/19 21:55 Eosinophils % 5.8 % (0.0-5.0) H 07/04/19 21:55 Basophils % 0.0 % (0.0-2.0) 07/04/19 21:55 PT 10.4 SECONDS (9.5-11.5) 07/04/19 21:55 INR 1.00 (0.5-1.4) 07/04/19 21:55 PTT (Actin FS) 28.7 SECONDS (26.0-38.0) 07/04/19 21:55 Sodium 133 mEq/L (136-145) L 07/04/19 21:55 Potassium 4.9 mEq/L (3.5-5.1) 07/04/19 21:55 Chloride 94 mEq/L (98-107) L 07/04/19 21:55 Carbon Dioxide 28.1 mEq/L (21.0-31.0) 07/04/19 21:55 Anion Gap 15.8 (7.0-16.0) 07/04/19 21:55 BUN 33 mg/dL (7-25) H 07/04/19 21:55 Creatinine 5.7 mg/dL (0.6-1.2) H* 07/04/19 21:55 Est GFR ( Amer) 10.0 ml/min (>90) 07/04/19 21:55 Est GFR (Non-Af Amer) 8.3 ml/min 07/04/19 21:55 BUN/Creatinine Ratio 5.8 07/04/19 21:55 Glucose 101 mg/dL (70-105) 07/04/19 21:55 POC Glucose 81 MG/DL (70 - 105) 07/06/19 06:18 Calcium 9.1 mg/dL (8.6-10.3) 07/04/19 21:55 Iron 32 ug/dL (27-159) 07/04/19 21:55 TIBC 359 ug/dL (250-450) 07/04/19 21:55 Iron Saturation 9 % (15-55) L 07/04/19 21:55 Unsaturated IBC 327 ug/dL (131-425) 07/04/19 21:55 Total Bilirubin 0.5 mg/dL (0.3-1.0) 07/04/19 21:55 AST 36 U/L (13-39) 07/04/19 21:55 ALT 18 U/L (7-52) 07/04/19 21:55 Alkaline Phosphatase 207 U/L (34-104) H 07/04/19 21:55 Troponin I 0.01 ng/mL (0.01-0.05) 07/04/19 21:55 Total Protein 7.6 gm/dL (6.0-8.3) 07/04/19 21:55 Albumin 4.0 gm/dL (3.7-5.3) 07/04/19 21:55 Globulin 3.6 gm/dL 07/04/19 21:55 Albumin/Globulin Ratio 1.1 (1.0-1.8) 07/04/19 21:55 Triglycerides 142 mg/dL (<150) 07/04/19 21:55 Cholesterol 129 mg/dL (<200) 07/04/19 21:55 LDL Cholesterol Direct 43 mg/dL (75-193) L 07/04/19 21:55 HDL Cholesterol 57 mg/dL (23-92) 07/04/19 21:55 - Physical Exam Vitals and I&O: Vital Signs Temp 96.4 F 07/06/19 09:04 Pulse 83 07/06/19 09:04 Resp 18 07/06/19 09:04 BP 100/58 07/06/19 09:04 Pulse Ox 98 07/06/19 09:04 Intake & Output 07/05/19 07/06/19 07/06/19 18:59 06:59 18:59 Intake Total 850 400 Output Total 0 Balance 850 400 Weight (lbs) 218 lb 223 lb 1.6 oz Intake: Oral 850 400 Output: Urine 0 Stool 0 Other: # Voids 0 # Bowel Movements 0 Weight Source Bedscale Bedscale Active Medications: Current Medications Acetaminophen (Tylenol) 650 mg PO Q4HR PRN PRN Reason: Pain or Fever >101 Stop: 09/03/19 08:25 Acetaminophen/Hydrocodone Bitart ([place] 10 Mg/325 Mg) 1 tab PO Q6H PRN PRN Reason: Pain (Moderate) Stop: 09/03/19 08:25 Albuterol/Ipratropium (Duoneb Neb) 3 ml HHN Q4HRT PRN PRN Reason: Shortness of Breath Stop: 09/03/19 08:25 Last Admin: 07/05/19 19:11 Dose: 3 ml Alprazolam (Xanax) 0.25 mg PO HS [facility]; Protocol Stop: 09/03/19 20:59 Alprazolam (Xanax) 0.5 mg PO Q8H PRN; Protocol PRN Reason: Anxiety Stop: 09/03/19 08:25 Atorvastatin Calcium (Lipitor) 10 mg PO HS [facility]; Protocol Stop: 09/03/19 20:59 Last Admin: 07/06/19 00:03 Dose: 10 mg Carvedilol (Coreg) 3.125 mg PO BID [facility] Stop: 09/03/19 08:59 Last Admin: 07/06/19 08:28 Dose: 3.125 mg Cinacalcet (Sensipar) 30 mg PO DAILY [facility] Stop: 09/03/19 08:59 Last Admin: 07/06/19 08:28 Dose: 30 mg Dextrose (D50w) 50 ml IVP DAILY PRN PRN Reason: HYPOGLYCEMIA Stop: 09/03/19 08:25 Docusate Sodium (Colace) 100 mg PO BID [facility] Stop: 09/03/19 09:14 Last Admin: 07/06/19 08:29 Dose: 100 mg Gabapentin (Neurontin) 300 mg PO BID [facility] Stop: 09/03/19 08:59 Last Admin: 07/06/19 08:28 Dose: 300 mg Glucagon (Glucagen) 1 mg IM PRN PRN PRN Reason: HYPOGLYCEMIA Stop: 09/03/19 09:09 Hydralazine HCl (Apresoline) 10 mg PO Q6HR PRN PRN Reason: BP MAINTENANCE (PER PROTOCOL) Stop: 09/03/19 08:25 Hydroxyzine HCl (Atarax) 10 mg PO TID [facility]; Protocol Stop: 09/03/19 08:59 Last Admin: 07/06/19 08:28 Dose: 10 mg Insulin Human Lispro (Humalog Insulin Sliding Scale) 0 units SUBQ ACHS [facility]; Protocol Stop: 09/03/19 11:29 Last Admin: 07/06/19 06:58 Dose: Not Given Montelukast Sodium (Singulair) 10 mg PO DAILY [facility] Stop: 09/03/19 08:59 Last Admin: 07/06/19 08:29 Dose: 10 mg Morphine Sulfate (Morphine) 4 mg IVP Q4HR PRN PRN Reason: Pain (Moderate) Stop: 09/03/19 00:36 Last Admin: 07/06/19 08:28 Dose: 4 mg Pantoprazole Sodium (Protonix) 40 mg PO DAILY [facility] Stop: 09/03/19 08:59 Last Admin: 07/06/19 08:29 Dose: 40 mg Sertraline HCl (Zoloft) 75 mg PO DAILY [facility]; Protocol Stop: 09/03/19 08:59 Sevelamer Carbonate (Renvela) 1,600 mg PO TID [facility] Stop: 09/03/19 08:59 Last Admin: 09/08/19 08:28 Dose: 1,600 mg Vitamin B Complex/Vit C/Folic Acid (Vitamin B Complex W/Vitamin C) 1 tab PO DAILY [facility] Stop: 09/03/19 08:59 Last Admin: 07/06/19 08:28 Dose: 1 tab General: weak, alert, NAD HEENT: NC/AT Neck: Supple Lungs: CTAB Cardiovascular: Normal S1, Normal S2 Abdomen: soft, non-tender, non-distended Extremities: erythema - Procedures Procedures: Procedures Procedure Code Date ASSISTANCE WITH RESPIRATORY VENTILATION, 24-96 HRS, CPAP [id number] 01/16/19 BYPASS L BRACH ART TO UP ARM VEIN W NONAUT SUB, OPEN [id number] 08/26/18 EXCISION OF DUODENUM, ENDO, DIAGN [id number] 01/16/19 EXCISION OF STOMACH, ENDO, DIAGN [id number] 01/16/19 FLUOROSCOPY OF SUP VENA CAVA USING L OSM CONTRAST, GUIDANCE [id number] 08/26/18 INSERTION OF INFUSION DEV INTO SUP VENA CAVA, PERC APPROACH [id number] 08/26/18 INSPECTION OF LEFT AXILLA, OPEN APPROACH [id number] 09/07/18 PERFORMANCE OF URINARY FILTRATION, <6 HRS/DAY [id number] 09/07/18 REMOVAL OF INFUSION DEVICE FROM HEART, EXTERNAL APPROACH [id number] 08/26/18 TRANSFUSE NONAUT RED BLOOD CELLS IN PERIPH VEIN, PERC [id number] 01/16/19 Internal Medicine Assmt/Plan - Assessment Assessment: S/p Fall ESRD, HD dependent HTN Anemia Anxiety Depression Weakness - Plan Plan: Continue current treatment plan. Monitor Labs.Continue current medications Continue to monitor VS Monitor Diet/Nutritional support. Pain Management. PT/OT prn Safety precaution, Fall precaution, frequent nursing round. Supportive care. Continue collaborating with consulting specialists, case management and nursing team. Appreciate Nephrology recommendations. CT Head notes NO acute intracranial hemorrhage. Disposition: possible discharge today.
[2019-07-06] MEDS: Albuterol/Ipratropium Neb 3 ML AERS HHN PRN (12:54)
--- NOTE | 2019-07-06 20:31 | General Progress Note ---
Subjective - Review of Systems Service Date: 07/06/19 Subjective: Appears comfortable, for discharge later today. Last HD 07/06 Objective - Results Result Diagrams: 07/04/19 21:55 07/04/19 21:55 Recent Labs: Laboratory Last Values WBC 8.2 Th/cmm (4.8-10.8) 07/04/19 21:55 RBC 3.87 Mil/cmm (3.80-5.10) 07/04/19 21:55 Hgb 8.7 gm/dL (12-16) L 07/04/19 21:55 Hct 27.7 % (41.0-60) L 07/04/19 21:55 MCV 71.7 fl (81-100) L 07/04/19 21:55 MCH 22.5 pg (27.0-31.0) L 07/04/19 21:55 MCHC Differential 31.3 pg (28.0-36.0) 07/04/19 21:55 RDW 22.0 % (11.5-20.0) H 07/04/19 21:55 Plt Count 286 Th/cmm (150-400) 07/04/19 21:55 MPV 7.7 fl 07/04/19 21:55 Neutrophils % 70.3 % (40.0-80.0) 07/04/19 21:55 Lymphocytes % 16.8 % (20.0-50.0) L 07/04/19 21:55 Monocytes % 7.1 % (2.0-10.0) 07/04/19 21:55 Eosinophils % 5.8 % (0.0-5.0) H 07/04/19 21:55 Basophils % 0.0 % (0.0-2.0) 07/04/19 21:55 PT 10.4 SECONDS (9.5-11.5) 07/04/19 21:55 INR 1.00 (0.5-1.4) 07/04/19 21:55 PTT (Actin FS) 28.7 SECONDS (26.0-38.0) 07/04/19 21:55 Sodium 133 mEq/L (136-145) L 07/04/19 21:55 Potassium 4.9 mEq/L (3.5-5.1) 07/04/19 21:55 Chloride 94 mEq/L (98-107) L 07/04/19 21:55 Carbon Dioxide 28.1 mEq/L (21.0-31.0) 07/04/19 21:55 Anion Gap 15.8 (7.0-16.0) 07/04/19 21:55 BUN 33 mg/dL (7-25) H 07/04/19 21:55 Creatinine 5.7 mg/dL (0.6-1.2) H* 07/04/19 21:55 Est GFR ( Amer) 10.0 ml/min (>90) 07/04/19 21:55 Est GFR (Non-Af Amer) 8.3 ml/min 07/04/19 21:55 BUN/Creatinine Ratio 5.8 07/04/19 21:55 Glucose 101 mg/dL (70-105) 07/04/19 21:55 POC Glucose 86 MG/DL (70 - 105) 07/06/19 16:14 Calcium 9.1 mg/dL (8.6-10.3) 07/04/19 21:55 Iron 32 ug/dL (27-159) 07/04/19 21:55 TIBC 359 ug/dL (250-450) 07/04/19 21:55 Iron Saturation 9 % (15-55) L 07/04/19 21:55 Unsaturated IBC 327 ug/dL (131-425) 07/04/19 21:55 Total Bilirubin 0.5 mg/dL (0.3-1.0) 07/04/19 21:55 AST 36 U/L (13-39) 07/04/19 21:55 ALT 18 U/L (7-52) 07/04/19 21:55 Alkaline Phosphatase 207 U/L (34-104) H 07/04/19 21:55 Troponin I 0.01 ng/mL (0.01-0.05) 07/04/19 21:55 Total Protein 7.6 gm/dL (6.0-8.3) 07/04/19 21:55 Albumin 4.0 gm/dL (3.7-5.3) 07/04/19 21:55 Globulin 3.6 gm/dL 07/04/19 21:55 Albumin/Globulin Ratio 1.1 (1.0-1.8) 07/04/19 21:55 Triglycerides 142 mg/dL (<150) 07/04/19 21:55 Cholesterol 129 mg/dL (<200) 07/04/19 21:55 LDL Cholesterol Direct 43 mg/dL (75-193) L 07/04/19 21:55 HDL Cholesterol 57 mg/dL (23-92) 07/04/19 21:55 - Physical Exam Vitals and I&O: Vital Signs Temp 97.1 F 07/06/19 17:15 Pulse 78 07/06/19 17:15 Resp 18 07/06/19 17:15 BP 96/58 07/06/19 17:03 Pulse Ox 96 07/06/19 17:15 Intake & Output 07/06/19 07/06/19 07/07/19 06:59 18:59 06:59 Intake Total 400 Balance 400 Weight (lbs) 101.196 kg Intake: Oral 400 Other: Weight Source Bedscale General: Alert HEENT: Atraumatic Neck: Supple Cardiovascular: Regular rate - Procedures Procedures: Procedures Procedure Code Date ASSISTANCE WITH RESPIRATORY VENTILATION, 24-96 HRS, CPAP [id number] 01/16/19 BYPASS L BRACH ART TO UP ARM VEIN W NONAUT SUB, OPEN [id number] 08/26/18 EXCISION OF DUODENUM, ENDO, DIAGN [id number] 01/16/19 EXCISION OF STOMACH, ENDO, DIAGN [id number] 01/16/19 FLUOROSCOPY OF SUP VENA CAVA USING L OSM CONTRAST, GUIDANCE [id number] 08/26/18 INSERTION OF INFUSION DEV INTO SUP VENA CAVA, PERC APPROACH [id number] 08/26/18 INSPECTION OF LEFT AXILLA, OPEN APPROACH [id number] 09/07/18 PERFORMANCE OF URINARY FILTRATION, <6 HRS/DAY [id number] 09/07/18 REMOVAL OF INFUSION DEVICE FROM HEART, EXTERNAL APPROACH [id number] 08/26/18 TRANSFUSE NONAUT RED BLOOD CELLS IN PERIPH VEIN, PERC [id number] 01/16/19 Assessment/Plan - Assessment Assessment: ESRD on HD Anemia 2 ESRD DM2 HTN S/p fall - Plan Plan: HD on TTS schedule BP controlled on HD H&H in range workup negative as per primary team, d/c planning
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
== END 2019-07-06 17:49 ==
LOC: ER 20:37 → MSI 07-05 00:37
PROVIDERS: ADMIT Internal Medicine; ATTEND Internal Medicine
DX: S19.9XXA Unspecified injury of neck, initial encounter (principal); I12.0 Hypertensive chronic kidney disease with stage 5 chronic kidney disease or end stage renal disease; N18.6 End stage renal disease; E11.22 Type 2 diabetes mellitus with diabetic chronic kidney disease; F41.9 Anxiety disorder, unspecified; F32.9 Major depressive disorder, single episode, unspecified; D64.9 Anemia, unspecified; R53.1 Weakness; W19.XXXA Unspecified fall, initial encounter; Y92.89 Other specified places as the place of occurrence of the external cause; Y99.8 Other external cause status; Y93.89 Activity, other specified
CPT/HCPCS: 36415-UA; 70450-TC; 71250-TC; 80053-TC; 80061-TC; 82948-90; 83540-90; 83550-90; 84484-TC; 85025-TC; 85610-TC; 85730-TC; 93005; 94640; 94760; G0378; J1644; J1885; J7030; Z7610